=== PATIENT | female | born 1970 | race Caucasian/White ===

== ENCOUNTER → 2020-07-27 10:15 | Outpatient (BNVA) | payer MEDICARE, MEDICAID, SELFPAY | PROVIDERS: PCP Internal Medicine; Visit Provider Internal Medicine Gastroenterology | CPT/HCPCS: Q3014 ==

== ENCOUNTER 2020-08-04 09:34 | Outpatient (REF) | payer MEDICARE, MEDICAID, SELFPAY ==
--- NOTE | ~2020-08-04 | US_ITS ---
EXAMINATION: US ABDOMEN COMPLETE CLINICAL INFORMATION: Epigastric pain. COMPARISON: None. TECHNIQUE: Real-time imaging of the abdominal viscera. FINDINGS: PANCREAS: Normal. ABDOMINAL AORTA: There is mild dystrophic calcifications but normal caliber. INFERIOR VENA CAVA: Visualized portions are normal. LIVER: Normal. The liver is normal in size. The liver contour is normal. Parenchymal echogenicity is normal. No focal hepatic lesion. There is no intrahepatic biliary duct dilatation seen. GALLBLADDER: Gallbladder wall thickness is 0.14 cm. The gallbladder is physiologically distended without evidence of stones, sludge, polyps, wall thickening or pericholecystic fluid. COMMON BILE DUCT: Normal in caliber measuring 0.4 cm in diameter. RIGHT KIDNEY: Normal. No hydronephrosis. No renal calculi or focal parenchymal lesions. The kidney measures 11.1 cm in maximum dimension. LEFT KIDNEY: There is anechoic cyst in the upper pole measuring 1.0 x 1.1 x 1.1 cm. No hydronephrosis or renal calculi. The kidney measures 11.5 cm in maximum dimension. SPLEEN: Normal. The spleen measures 8.0 cm in maximum dimension. FREE FLUID: None. US/US abdomen complete IMPRESSION: Mild atherosclerotic calcifications but no aortic aneurysm seen. Small cyst upper pole left kidney. The rest of the abdominal ultrasound is unremarkable.
== END 2020-08-04 09:35 | disposition home or self-care (01) ==
LOC: HO.US 09:34
PROVIDERS: PCP Internal Medicine; Visit Provider Internal Medicine Gastroenterology
DX: R10.13 Epigastric pain (principal); R11.2 Nausea with vomiting, unspecified
CPT/HCPCS: 76700

== ENCOUNTER 2020-08-09 12:46 | Outpatient (REF) | payer MEDICARE, MEDICAID, SELFPAY ==
[2020-08-10 13:32] LABS: C. trachomatis RNA TMA NOT DETECTED (NOT DETECTED); N. gonorrhoeae RNA TMA NOT DETECTED (NOT DETECTED)
[2020-08-11 18:11] LABS: HPV mRNA E6/E7 rflx Not Detected (Not Detected)
== END 2020-08-09 12:47 | disposition home or self-care (01) ==
LOC: HO.LAB 12:46
PROVIDERS: PCP Internal Medicine; Visit Provider Advanced Practice Midwife
DX: Z01.419 Encounter for gynecological examination (general) (routine) without abnormal findings (principal); R23.2 Flushing; N63.0 Unspecified lump in unspecified breast; F17.210 Nicotine dependence, cigarettes, uncomplicated; Z72.4 Inappropriate diet and eating habits; Z20.2 Contact with and (suspected) exposure to infections with a predominantly sexual mode of transmission
CPT/HCPCS: 36415; 87491; 87591; 87624; 88142

== ENCOUNTER 2020-08-12 14:32 | Outpatient (REF) | payer MEDICARE, MEDICAID, SELFPAY ==
--- NOTE | ~2020-08-12 | US_ITS ---
EXAMINATION: US DIAGNOSTIC ULTRASOUND BREAST, RIGHT CLINICAL INFORMATION: Enlarging lump inferior aspect of the right breast. COMPARISON: November 22, 2019. TECHNIQUE: Ultrasound of the breast is performed with real-time antunez scale imaging and color Doppler. FINDINGS: Targeted right breast ultrasound to region of palpable abnormality demonstrates an isoechoic well-circumscribed lesion with some mild distal sound enhancement and no distal sound shadowing and without internal vascularity measuring approximately 2.6 x 0.9 x 2.0 cm in size. This lies at approximately 5 to 6:00 position No suspicious solid mass or region of abnormal distal sound shadowing is appreciated. Results are discussed with the patient at time of visit. US/US breast RT limited IMPRESSION: There are no significant changes from prior study. ASSESSMENT: BI-RADS 2: Benign RECOMMENDATION: Routine annual mammography screening due in 12 months.
--- NOTE | ~2020-08-12 | MM_ITS ---
EXAMINATION: MM DIAGNOSTIC DIGITAL BREAST TOMOSYNTHESIS, BILATERAL US TARGETED BREAST, RIGHT CLINICAL INFORMATION: Enlarging right breast palpable abnormality. The lifetime risk of breast cancer based on the Tyrer-Cuzick Model is 14.3%. COMPARISON: Mammography: Ultrasound and mammography of 06/23/2019 and studies dating back to 09/06/2010. TECHNIQUE: Digital breast tomosynthesis is performed in both the craniocaudal and mediolateral oblique views along with computer-aided detection (CAD). Synthesized 2D images are generated from the tomosynthesis. Targeted right breast ultrasound. FINDINGS: The breasts are heterogeneously dense, which may obscure small masses (ACR BI-RADS breast composition Category c). There are no new significant masses, abnormal calcifications, or other abnormalities. About the inferior aspect of the right breast there are again noted to be rim circumscribed low-density lesions consistent with lipomas or oil cysts. ULTRASOUND: Targeted right breast ultrasound to region of palpable abnormality demonstrates an isoechoic well circumscribed lesion with some mild distal sound enhancement and no distal sound shadowing and without internal vascularity measuring approximately 2.6 x 0.9 x 2.0 cm in size. This lies at approximately 5 to 6 o'clock position No suspicious solid mass or region of abnormal distal sound shadowing is appreciated. Results are discussed with the patient at time of visit. MM/MM tomosynthesis diagnostic BI IMPRESSION: There are no significant changes from prior study. ASSESSMENT: BI-RADS 2: Benign RECOMMENDATION: Routine annual mammography screening due in 12 months. This patient's information was entered into a reminder system with a target due date for their next mammogram.
== END 2020-08-12 14:33 | disposition home or self-care (01) ==
LOC: HO.MAMMO 14:32
PROVIDERS: PCP Internal Medicine; Visit Provider Advanced Practice Midwife
DX: N63.13 Unspecified lump in the right breast, lower outer quadrant (principal)
CPT/HCPCS: 76642; 77062; 77066

== ENCOUNTER → 2020-08-25 11:43 | Outpatient (BNVA) | payer MEDICARE, MEDICAID, SELFPAY | PROVIDERS: PCP Internal Medicine; Visit Provider Advanced Practice Midwife | DX: Z13.89 Encounter for screening for other disorder (principal) | CPT/HCPCS: Q3014 ==

== ENCOUNTER 2020-08-30 11:14 | Day surgery (SDC) | payer MEDICARE, MEDICAID, SELFPAY ==
[2020-08-24 14:35] VITALS: BMI 19.8
[2020-08-30 12:09] VITALS: BP 146/83; PULSE 66; RESP 16; TEMP 37.2; O2SAT 99
--- NOTE | 2020-08-30 12:16 | P.CONAN_ITS ---
[facility] Active Problems Active Problems: All Active Problems (Updated 08/24/20 @ 14:39 by Allison sung) Epigastric abdominal pain (Acute) Nausea & vomiting (Acute) Tobacco user (Acute) Hot flashes (Acute) Past Medical History Medical History Arthritis History of alcohol abuse History of eating disorder Osteoporosis Seizures Family History Family History Father Lung cancer Mother Stomach cancer Liver cancer Maternal Aunt Breast cancer Paternal Aunt Breast cancer Surgical History Surgical History Hx of myomectomy Social History Social History Do you presently have visiting nurse or other home services: No Alcohol intake: former Smoking Status: Current every day smoker Tobacco Type: Cigarette Packs Per Day: 1.5 Cigarettes Per Day: 30.0 Years Smoked: 39 Smoked in Last 30 Days: Yes Smoking Quit Date: to do hypnosis Use of substances other than those prescribed or required for medical reasons: Yes Substance Use Type: Marijuana Substance Use Frequency: Occasionally Have you been hit, kicked, punched, or otherwise hurt by someone within the past year? If so, by whom?: No Advance Directives Information Provided: No Meds Allergies Allergy/AdvReac Type Severity Reaction Status Date / Time Penicillins [PENICILLINS] Allergy Intermediate HIVES Verified 08/25/20 11:45 Sulfa (Sulfonamide Allergy Intermediate itching, Verified 08/25/20 11:45 Antibiotics) redness and itching tetracycline [TETRACYCLINE] Allergy Intermediate HIVES Verified 08/25/20 11:45 Active Medications: Current Medications Generic Name Dose Route Start Last Admin Trade Name Freq PRN Reason Stop Dose Admin Lactated Ringer's 1,000 mls @ 50 mls/hr 08/30/20 07:30 Lr IV .Q20H FORMERLY [facility], 1928–1983 Home Medications Medication Instructions Recorded Confirmed Last Taken Type dicyclomine 10 mg capsule 20 mg PO TID 03/02/20 08/24/20 Unknown History divalproex 500 mg tablet,extended 500 mg PO BID 03/02/20 08/24/20 Unknown History release 24 hr gabapentin 600 mg tablet 1,200 mg PO BID 03/02/20 08/30/20 08/30/20 History ondansetron 4 mg disintegrating 4 mg PO Q8H PRN 03/02/20 08/24/20 Unknown History tablet promethazine 25 mg rectal 25 mg WV Q8H PRN 03/02/20 08/24/20 Unknown History suppository valacyclovir 500 mg tablet 500 mg PO DAILY 03/02/20 08/24/20 Unknown History calcium 600 mg PO DAILY 08/24/20 08/24/20 Unknown History cyanocobalamin (vitamin B-12) 500 mcg PO DAILY 08/24/20 08/24/20 Unknown History [Vitamin B-12] folic acid 1 mg PO DAILY 08/24/20 08/24/20 Unknown History multivitamin 1 tab PO DAILY 08/24/20 08/24/20 Unknown History Exam Exam Date and Time: August 30, 2020 1216 Height,Weight and Vital Signs: Height 5 ft 1 in Weight 47.627 kg Last Vital Signs Temp 98.9 F 08/30/20 12:09 Pulse 66 08/30/20 12:09 Resp 16 08/30/20 12:09 BP 146/83 H 08/30/20 12:09 Pulse Ox 99 08/30/20 12:09 Airway Mallampati Class: II TM Dist: >3cm Neck ROM: Full Assessment and Plan Assessment Anesthesia Assessment: Anesthesia Plan Discussed, Smoking Cess. Discussed and Chart Reviewed Final Anesthetic Review NPO: Yes ASA Class: II Final Preanesthetic Review: No Changes in Pt Med Stat, Meds/Allgs Chart Reviewed, Consent Obtained/Reviewed and Anes Risks/Benef Reviewed Patient Risk: Low Procedure Risk: Low Assessment/Block/Sedation in SS: Assess/Block/Sedation-SS Anesthetic Plan Anesthetic Plan: MAC: Disposition: Standard PACU
[2020-08-30] MEDS: Lactated Ringers 1,000 ML 50 ML IV (12:31)
--- NOTE | 2020-08-30 13:47 | MHC.SHP ---
Pre-Procedural Eval Section B Chief Complaint: Family Hx of Colon polyps, Epigastric Pain Details of Present Illness: FH of colon polyps Relevant Family History (Specify if Yes): Yes Relevant Social History: Tobacco Use Present Medications: see Short Stay Collaborative assessment Medical History: Significant History (Arthritis History of alcohol abuse History of eating disorder Osteoporosis Seizures) History of Previous Operations: Relevant previous surgery/procedure and date(s) (myomectomy) Allergies: Allergies Allergy/AdvReac Type Severity Reaction Status Date / Time Penicillins [PENICILLINS] Allergy Intermediate HIVES Verified 08/25/20 11:45 Sulfa (Sulfonamide Allergy Intermediate itching, Verified 08/25/20 11:45 Antibiotics) redness and itching tetracycline [TETRACYCLINE] Allergy Intermediate HIVES Verified 08/25/20 11:45 Review of Systems Sugical H&P ROS: Negative: Constitution, Cardiovascular, Respiratory, Neurological, Psychiatric, Hem-Onc, Allergic/Immunologic, Gastrointestinal, Genitourinary, Musculoskeletal, Integumentary, Endocrine and Eyes/Ears/Nose/Throat Exam Surgical H&P Exam: Normal: HEENT, Normal: Heart, Normal: Lungs, Normal: Extremities, Normal: Abdomen, Normal: Skin and Normal: Neurological Plan Diagnosis/Plan: Unchanged I have reviewed the history and physical and performed a pertinent physical examination on my patient. No changes have occurred unless specified.
--- NOTE | 2020-08-30 14:03 | PM.OP ---
Brief Operative Note Date of Service: 08/30/20 Pre-op diagnosis: nausea, abdo pain, fh of polyps Post-op diagnosis: same Procedure: see op note Surgeon: Manav Nuñez MD Anesthesia: MAC Estimated blood loss (mL): 0 Condition: stable Disposition: PACU
--- NOTE | 2020-08-30 14:04 | W.PM.OPN ---
Operative Note Operative Note Date of Service: 08/30/20 Narrative: Operative Information Procedure Description: EGD, Colonoscopy FLEXIBLE TRANSORAL UPPER GASTROINTESTINAL ENDOSCOPY AND COLONOSCOPY PROCEDURE NOTE UPPER ENDOSCOPY Consent: Indications for the procedure and potential complications of bleeding, perforation, reaction to medications and missed diagnosis were discussed with the patient and informed consent was obtained. Instrument: Olympus GIF H 190 J mid size upper endoscope Monitoring: Vital signs and clinical assessment, continuous EKG monitoring, Pulse oximetry, Carbon Dioxide monitoring and blood pressure monitoring were done throughout the procedure. Procedure: The patient was placed in the left lateral decubitis position and pre-procedure medications were administered and a bite block was placed. The endoscope was inserted into the mouth and advanced under direct vision to the third part of duodenum. A careful inspection was made as the upper endoscope was withdrawn including a retroflexed examination of the proximal stomach; Findings and interventions are described below. Findings: Larynx:normal Esophagus: GE junction at 38 cm, diaphragm hiatus at 38 cm, mild esophagitis noted, random esophagus bx taken Stomach: Normal mucosa. Biopsies were obtained. Grade 2 flap valve on retroflexed examination of the cardia. Duodenum: Normal bulb and descending duodenum, bx taken Intervention: Biopsies as noted above COLONOSCOPY Instrument: Olympus variable stiffness pediatric scope 190L Colonoscopy Monitoring: Vital signs and clinical assessment, continuous EKG monitoring, Pulse oximetry, Carbon Dioxide monitoring and blood pressure monitoring were done throughout the procedure. Colon withdrawal time was 34 minutes. Procedure: The patient was placed in the left lateral decubitis position and pre-procedure medications were administered. After a digital rectal examination of the ano-rectum, the video colonoscope was inserted into the rectum and advanced through the colon to the cecum/TI. The colonoscope was slowly withdrawn in a retrograde panoramic fashion and the colon mucosa was carefully examined including a retroflexed view of the rectum. Findings and interventions are described below. Procedure Difficulty:moderately difficult due to tight colon, also maybe some extrinsic compression of the transverse colon Findings: Terminal Ileum-normal Cecum:normal Ascending Colon: normal Transverse Colon - x 4 sessile polyps ranging from 4-12 mm in size removed with cold snare Descending Colon: x 1 sessile polyp measuring 10 mm removed with cold snare, x 1 clip applied to defect for hemostasis Sigmoid Colon: diverticulosis noted-moderate, x 2 sessile polyps removed with cold snare, ranging from 10-16 mm, x 1 clips applied to largest polypectomy site Rectum: Retroflexion with small internal hemorrhoids, grade I Anorectum - normal Colon preparation: Lewis Bowel Preparation Scale Right colon; 2 Transverse colon: 2 Left colon; 2 (0 = Unprepared colon segment with mucosa not seen due to solid stool that cannot be cleared. 1 = Portion of mucosa of the colon segment seen, but other areas of the colon segment not well seen due to staining, residual stool and/or opaque liquid. 2 = Minor amount of residual staining, small fragments of stool and/or opaque liquid, but mucosa of colon segment seen well. 3 = Entire mucosa of colon segment seen well with no residual staining, small fragments of stool or opaque liquid) Impression and Post Procedure Diagnosis: Endoscopy Findings: esophagitis Colonoscopy Findings: polyps internal hemorrhoids diverticular disease Plan: Await Pathology results Repeat Colonoscopy in 1-2 years or earlier if clinically indicated High fiber diet leaflet avoid straining at stool, epsom salts and sitz bath, anusol supps or cream as needed she had CT at [facility] with uterine fibroid, she also had myomectomy in past, may have recurrence of fibroid-need to check with patient when myomectomy was done Above findings were reviewed with the patient and relevant handouts were provided if indicated.
[2020-08-30 14:56] VITALS: BP 128/71; PULSE 54; RESP 16; TEMP 36.8; O2SAT 100
[2020-08-30 15:11] VITALS: BP 122/73; PULSE 56; RESP 18; O2SAT 99
[2020-08-30 15:26] VITALS: BP 123/69; PULSE 56; RESP 18; TEMP 36.7; O2SAT 99
== END 2020-08-30 16:05 | disposition home or self-care (01) ==
PROVIDERS: PCP Internal Medicine; Visit Provider Internal Medicine Gastroenterology
PROC: (CPT 45385; principal; 2020-08-30 12:30)
DX: Z12.11 Encounter for screening for malignant neoplasm of colon (principal); Z83.71 Family history of colonic polyps; D12.3 Benign neoplasm of transverse colon; D12.4 Benign neoplasm of descending colon; D12.5 Benign neoplasm of sigmoid colon; K57.30 Diverticulosis of large intestine without perforation or abscess without bleeding; K64.0 First degree hemorrhoids; R10.13 Epigastric pain; K20.80 Other esophagitis without bleeding; M81.0 Age-related osteoporosis without current pathological fracture; K44.9 Diaphragmatic hernia without obstruction or gangrene; F17.210 Nicotine dependence, cigarettes, uncomplicated; F12.90 Cannabis use, unspecified, uncomplicated; Z79.899 Other long term (current) drug therapy; Z88.0 Allergy status to penicillin; Z88.1 Allergy status to other antibiotic agents; Z88.2 Allergy status to sulfonamides
CPT/HCPCS: 45385; 43239; 88305; 88342

== ENCOUNTER → 2020-09-06 12:51 | Outpatient (BNVA) | payer MEDICARE, MEDICAID, SELFPAY | PROVIDERS: PCP Internal Medicine; Visit Provider Internal Medicine Gastroenterology | DX: K20.90 Esophagitis, unspecified without bleeding (principal); K64.8 Other hemorrhoids; K57.90 Diverticulosis of intestine, part unspecified, without perforation or abscess without bleeding | CPT/HCPCS: 99212 ==

== ENCOUNTER → 2020-09-08 14:53 | Outpatient (BNVA) | payer MEDICARE, MEDICAID, SELFPAY | PROVIDERS: PCP Internal Medicine; Visit Provider Surgery | DX: N64.4 Mastodynia (principal); N63.10 Unspecified lump in the right breast, unspecified quadrant; Z80.3 Family history of malignant neoplasm of breast | CPT/HCPCS: 99202 ==

== ENCOUNTER 2020-09-13 14:11 | Outpatient (REF) | payer MEDICARE, MEDICAID, SELFPAY ==
--- NOTE | ~2020-09-13 | US_ITS ---
EXAMINATION: PELVIC ULTRASOUND CLINICAL INFORMATION: Fibroid COMPARISON: Previous pelvic MRI January 2010 and pelvic ultrasound November 2009 TECHNIQUE: Transverse abdominal and transvaginal pelvic ultrasound was performed. Transvaginal exam was performed for better visualization of the uterus and ovaries. FINDINGS: The uterus is anteverted and measures 8.1 x 5.6 x 4.9 cm in dimension. There is a large heterogeneous partially calcified lesion in the central uterus suggestive of a fibroid. This measures 3.6 x 2.9 x 3.8 cm in dimension. Decreased in size from 8.8 x 8.9 x 9.1 cm on prior exam. No other focal uterine lesion is seen. This distorts the endometrium. Endometrial thickness is normal and measures 0.3 cm. The right ovary is not seen. The left ovary is normal-appearing and measures 2.1 x 0.8 x 0.8 cm. There is a small amount of fluid in the pelvis. US/US pelvic and transvaginal IMPRESSION: Central uterine fibroid measuring 3.6 x 2.9 x 3.8 cm. This distorts the endometrium. The endometrium does not appear thickened. Normal-appearing left ovary. The right ovary is not seen.
== END 2020-09-13 14:12 | disposition home or self-care (01) ==
LOC: HO.US 14:11
PROVIDERS: Visit Provider Internal Medicine Gastroenterology
DX: D21.9 Benign neoplasm of connective and other soft tissue, unspecified (principal)
CPT/HCPCS: 76830; 76856

== ENCOUNTER → 2020-09-17 09:56 | Outpatient (BNVA) | payer MEDICARE, MEDICAID, SELFPAY | PROVIDERS: PCP Internal Medicine; Visit Provider Surgery ==

== ENCOUNTER → 2020-10-04 10:04 | Outpatient (BNVA) | payer MEDICARE, MEDICAID, SELFPAY | PROVIDERS: Visit Provider Obstetrics & Gynecology | DX: Z13.89 Encounter for screening for other disorder (principal) | CPT/HCPCS: 99212 ==

== ENCOUNTER 2020-10-13 11:32 | Outpatient (REF) | payer MEDICARE, MEDICAID, SELFPAY ==
[2020-10-13 13:55] LABS: MANUAL DIFF FLAG NO
[2020-10-13 14:05] LABS: Basophils Percent Auto 0.6 % (0-2); Eosinophils Percent Auto 0.3 % (0-4); Hematocrit 44.5 % (37-47); Hemoglobin 14.7 g/dl (12.0-16.0); Imm Gran Abs Auto 0.01 X10*3/uL (0.00-0.03); Imm Gran Pct Auto 0.1 % (0.0-0.4); Lymphocytes Absolute Auto 2.5 X10*3/uL (1.2-4.9); Lymphocytes Percent Auto 34.5 % (20-40); Mean Corpuscular Hemoglobin 31.5 pg (27.0-33.0); Mean Corpuscular Volume 95.5 fL (80-98); Mean Platelet Volume 11.9 fL (9.4-12.3); Monocytes Absolute Auto 0.4 X10*3/uL (0.1-1.2); Monocytes Percent Auto 5.8 % (2-11); Neutrophils Absolute Auto 4.2 X10*3/uL (2.0-8.3); Neutrophils Percent Auto 58.7 % (45-73); Platelet Count 229 X10*3/uL (160-400); Red Blood Count 4.66 X10*6/uL (4.20-5.50); Red Cell Distribution Width 12.8 % (11.0-16.0); White Blood Count 7.1 X10*3/uL (4.8-10.8)
[2020-10-13 14:38] LABS: Alanine Aminotransferase 17 U/L (0-31); Albumin Level 4.6 g/dL (3.5-5.0); Alkaline Phosphatase 68 U/L (39-117); Anion Gap 15 (12-20); Aspartate Amino Transferase 17 U/L (5-31); Bilirubin Total 0.4 mg/dL (0.0-1.0); Blood Urea Nitrogen 9 mg/dL (9-16); Carbon Dioxide 28 mmol/L (22-29); Chloride 101 mmol/L (96-108); Cholesterol 279 mg/dL; Estimated Glomerular Filt Rate > 60; Glucose Fasting 112 mg/dL (60-99); HDL Cholesterol 85 mg/dL; LDL Cholesterol Calculated 179 mg/dl; Potassium 4.6 mmol/L (3.3-5.1); Sodium 139 mmol/L (135-145); Total Protein 7.3 g/dL (6.5-8.0); Triglycerides 75 mg/dL
[2020-10-13 14:41] LABS: Thyroid Stimulating Hormone 2.92 uIU/mL (0.32-4.0)
[2020-10-13 14:50] LABS: Syphilis Screen Nonreactive (Nonreactive)
[2020-10-13 14:51] LABS: TSH reflex Free T4 2.85 uIU/mL (0.32-4.0); Vitamin D 25-OH Total 60.4 ng/mL (>30)
[2020-10-13 15:04] LABS: Folate > 20.0 ng/mL (> or = 4.0); Vitamin B12 1152 pg/mL (200-900)
[2020-10-14 01:47] LABS: CT PCR NOT DETECTED (Not Detect.); NG PCR NOT DETECTED (Not Detect.)
[2020-10-14 06:51] LABS: Follicle Stimulating Hormone 88.5 mIU/mL
[2020-10-15 07:57] LABS: ~Hepatitis C Antibody Nonreactive (Nonreactive)
[2020-10-15 08:37] LABS: HBc Num1 0.05 S/CO (0.00-0.79); HIV AB/AG Nonreactive (Nonreactive); HIV Num 1 0.06 S/CO (0.00-0.99); Hepatitis B Core Antibody Nonreactive (Nonreactive)
== END 2020-10-13 11:33 | disposition home or self-care (01) ==
LOC: HO.HMGCLDS 11:32
PROVIDERS: Advanced Practice Midwife; PCP Internal Medicine; Visit Provider Internal Medicine
DX: M81.0 Age-related osteoporosis without current pathological fracture (principal); N95.1 Menopausal and female climacteric states; R74.8 Abnormal levels of other serum enzymes; R23.2 Flushing; D21.9 Benign neoplasm of connective and other soft tissue, unspecified; Z72.0 Tobacco use; Z86.59 Personal history of other mental and behavioral disorders; Z20.2 Contact with and (suspected) exposure to infections with a predominantly sexual mode of transmission
CPT/HCPCS: 36415; 80053; 80061; 82306; 82607; 82746; 83001; 84443; 85025; 86704; 86780; 86803; 87389; 87491; 87591

== ENCOUNTER → 2020-11-12 09:47 | Outpatient (BNVA) | payer MEDICARE, MEDICAID, SELFPAY | PROVIDERS: PCP Internal Medicine; Visit Provider Internal Medicine Gastroenterology | DX: Z13.89 Encounter for screening for other disorder (principal) | CPT/HCPCS: Q3014 ==

== ENCOUNTER → 2020-11-22 10:55 | Outpatient (BNVA) | payer MEDICARE, MEDICAID, SELFPAY | PROVIDERS: Visit Provider Obstetrics & Gynecology | DX: N95.1 Menopausal and female climacteric states (principal) | CPT/HCPCS: Q3014 ==

== ENCOUNTER → 2020-12-07 11:12 | Outpatient (BNVA) | payer MEDICARE, MEDICAID, SELFPAY | PROVIDERS: Visit Provider Obstetrics & Gynecology ==

== ENCOUNTER → 2020-12-20 11:26 | Outpatient (BNVA) | payer MEDICARE, MEDICAID, SELFPAY | PROVIDERS: Visit Provider Obstetrics & Gynecology | DX: N95.1 Menopausal and female climacteric states (principal) | CPT/HCPCS: Q3014 ==

== ENCOUNTER → 2021-01-18 14:37 | Outpatient (BNVA) | payer MEDICARE, MEDICAID, SELFPAY | PROVIDERS: Visit Provider Surgery | DX: Z71.2 Person consulting for explanation of examination or test findings (principal); Z80.3 Family history of malignant neoplasm of breast | CPT/HCPCS: 99212 ==

== ENCOUNTER 2021-04-20 13:05 | Outpatient (REF) | payer MEDICARE, MEDICAID, SELFPAY ==
--- NOTE | ~2021-04-20 | XR_ITS ---
EXAMINATION: XR SHOULDER, RIGHT CLINICAL INFORMATION: Pain right shoulder. COMPARISON: None TECHNIQUE: AP external rotation, Grashey, scapular Y, and axillary views of the right shoulder. FINDINGS: The bones and soft tissues are normal. No fracture. Glenohumeral and acromioclavicular alignment is anatomic with normal joint space. No abnormal soft tissue calcifications. XR/XR shoulder RT min 2V IMPRESSION: Unremarkable right shoulder.
== END 2021-04-20 13:06 | disposition home or self-care (01) ==
LOC: HO.HMGCX 13:05
PROVIDERS: PCP Internal Medicine; Visit Provider Internal Medicine
DX: M25.511 Pain in right shoulder (principal)
CPT/HCPCS: 73030

== ENCOUNTER 2021-06-06 19:16 | Outpatient (REF) | payer MEDICARE, MEDICAID, SELFPAY ==
[2021-06-06 20:21] LABS: Influenza A PCR NEGATIVE (Negative); Influenza B PCR NEGATIVE (Negative); Resp Syncy Virus RNA Qual PCR NEGATIVE (Negative); SARS COV2 PCR INHOUSE POSITIVE (Negative)
== END 2021-06-06 19:17 | disposition home or self-care (01) ==
LOC: HO.LNP 19:16
PROVIDERS: Visit Provider Family Medicine
DX: Z20.822 Contact with and (suspected) exposure to COVID-19 (principal); B34.9 Viral infection, unspecified
CPT/HCPCS: 0241U

== ENCOUNTER 2021-09-06 11:34 | Day surgery (SDC) | payer MEDICARE, MEDICAID, SELFPAY ==
[2021-09-01 14:46] VITALS: BMI 19.8
--- NOTE | 2021-09-05 10:25 | HO.ANESPROP2 ---
Documented by User: Becka Barba NP 09/15/21 13:39 HPI - Anesthesia Eval Consult details Narrative: 51yo F for Upper Endoscopy s/p EGD and [place] 08/2020 with MAC hx ETOH abuse, none x 2 years hx anorexia/bulemia PMFSH Active Problems Active Problems: All Active Problems (Updated 09/01/21 @ 14:42 by Allison Dick RN) Epigastric abdominal pain (Acute) Nausea & vomiting (Acute) Tobacco user (Acute) Breast pain (Acute) Family history of breast cancer (Acute) Viral illness (Acute) Shoulder pain, right (Acute) Smoker unmotivated to quit (Acute) Generalized anxiety disorder (Acute) Osteoarthritis of right hip (Acute) Uterine leiomyoma (Acute) Dyslipidemia (Acute) Esophagitis (Acute) Seizures (Acute) Vasomotor symptoms due to menopause (Acute) Elevated vitamin B12 level (Acute) History of bulimia (Acute) Past Medical History Medical History Arthritis Cannabinoid hyperemesis syndrome Dyslipidemia Elevated vitamin B12 level Esophagitis Generalized anxiety disorder History of alcohol abuse History of bulimia History of COVID-19 History of eating disorder Osteoarthritis of right hip Seizures Shoulder pain, right Smoker unmotivated to quit Uterine leiomyoma Vasomotor symptoms due to menopause Family History Family History Father Lung cancer Substance use disorder Mental health disorder Mother Stomach cancer Liver cancer Substance use disorder Mental health disorder Maternal Aunt Breast cancer Mental health disorder Paternal Aunt Breast cancer Substance use disorder Mental health disorder Maternal Uncle Brain cancer Substance use disorder Maternal Grandfather Substance use disorder Mental health disorder Surgical History Surgical History H/O colonoscopy History of esophagogastroduodenoscopy (EGD) Hx of myomectomy Social History Social History Do you presently have visiting nurse or other home services: No Alcohol intake: former Patient Tobacco Use Status: Current everyday Tobacco user Tobacco use type: Cigarette Cigarette Packs Per Day: 2 Cigarettes Per Day: 40 Years Smoked: 39 Substance Use Type: Marijuana Meds Allergies Allergy/AdvReac Type Severity Reaction Status Date / Time Penicillins [PENICILLINS] Allergy Intermediate HIVES Verified 09/06/21 11:45 Sulfa (Sulfonamide Allergy Intermediate itching, Verified 09/06/21 11:45 Antibiotics) redness and itching tetracycline [TETRACYCLINE] Allergy Intermediate HIVES Verified 09/06/21 11:45 Home Medications Medication Instructions Recorded Confirmed Last Taken Type divalproex 500 mg tablet,extended 500 mg PO BID 03/02/20 04/19/21 09/06/21 07:00 History release 24 hr gabapentin 600 mg tablet 1,200 mg PO BID 03/02/20 04/19/21 09/06/21 07:00 History folic acid 1 mg tablet 1 mg PO DAILY 08/24/20 04/19/21 Unknown History multivitamin 1 tab PO DAILY 08/24/20 04/19/21 Unknown History fluoxetine 10 mg capsule 10 mg PO DAILY 10/04/20 04/19/21 09/06/21 07:00 History docusate sodium 100 mg capsule 100 mg PO BID PRN 09/15/21 Unknown History valacyclovir 500 mg tablet 500 mg PO BID tab 09/15/21 Unknown History Exam Exam Date and Time: September 05, 2021 1025 Height,Weight and Vital Signs: Height 5 ft 1 in Weight 47.627 kg Assessment and Plan Assessment Anesthesia Assessment: Chart Reviewed Documented by User: Chucho Chacon MD 09/18/21 12:08 [facility] Past Medical History Medical History Arthritis Cannabinoid hyperemesis syndrome Dyslipidemia Elevated vitamin B12 level Esophagitis Generalized anxiety disorder History of alcohol abuse History of bulimia History of COVID-19 History of eating disorder Osteoarthritis of right hip Seizures Shoulder pain, right Smoker unmotivated to quit Uterine leiomyoma Vasomotor symptoms due to menopause Family History Family History Father Lung cancer Substance use disorder Mental health disorder Mother Stomach cancer Liver cancer Substance use disorder Mental health disorder Maternal Aunt Breast cancer Mental health disorder Paternal Aunt Breast cancer Substance use disorder Mental health disorder Maternal Uncle Brain cancer Substance use disorder Maternal Grandfather Substance use disorder Mental health disorder Family history of problems with anesthesia: No Surgical History Surgical History H/O colonoscopy History of esophagogastroduodenoscopy (EGD) Hx of myomectomy History of Problems with Anesthesia: No Social History Social History Do you presently have visiting nurse or other home services: No Alcohol intake: former Patient Tobacco Use Status: Current everyday Tobacco user Tobacco use type: Cigarette Cigarette Packs Per Day: 2 Cigarettes Per Day: 40 Years Smoked: 39 Substance Use Type: Marijuana Meds Allergies Allergy/AdvReac Type Severity Reaction Status Date / Time Penicillins [PENICILLINS] Allergy Intermediate HIVES Verified 09/06/21 11:45 Sulfa (Sulfonamide Allergy Intermediate itching, Verified 09/06/21 11:45 Antibiotics) redness and itching tetracycline [TETRACYCLINE] Allergy Intermediate HIVES Verified 09/06/21 11:45 Home Medications Medication Instructions Recorded Confirmed Last Taken Type divalproex 500 mg tablet,extended 500 mg PO BID 03/02/20 04/19/21 09/06/21 07:00 History release 24 hr gabapentin 600 mg tablet 1,200 mg PO BID 03/02/20 04/19/21 09/06/21 07:00 History folic acid 1 mg tablet 1 mg PO DAILY 08/24/20 04/19/21 Unknown History multivitamin 1 tab PO DAILY 08/24/20 04/19/21 Unknown History fluoxetine 10 mg capsule 10 mg PO DAILY 10/04/20 04/19/21 09/06/21 07:00 History docusate sodium 100 mg capsule 100 mg PO BID PRN 09/15/21 Unknown History valacyclovir 500 mg tablet 500 mg PO BID tab 09/15/21 Unknown History Assessment and Plan Assessment Anesthesia Assessment: Anesthesia Plan Discussed Final Anesthetic Review Family History of Problems with Anesthesia: No History of Problems with Anesthesia: No NPO: Yes ASA Class: II Final Preanesthetic Review: No Changes in Pt Med Stat, Meds/Allgs Chart Reviewed, Consent Obtained/Reviewed and Anes Risks/Benef Reviewed Patient Risk: Low Procedure Risk: Low Anesthetic Plan Anesthetic Plan: MAC: Disposition: Standard PACU
[2021-09-06 12:14] VITALS: BP 109/66; PULSE 58; RESP 18; TEMP 36.7; O2SAT 98
[2021-09-06] MEDS: Lactated Ringers 1,000 ML 100 ML IVCONT (12:17)
--- NOTE | 2021-09-06 12:31 | MHC.SHP ---
Pre-Procedural Eval Section A Date of Service: 09/06/21 Section B Chief Complaint: Epigastric pain Relevant Social History: Tobacco Use (THC use) Present Medications: see Short Stay Collaborative assessment Medical History: Significant History (Arthritis Cannabinoid hyperemesis syndrome Dyslipidemia Elevated vitamin B12 level Esophagitis Generalized anxiety disorder History of alcohol abuse History of bulimia History of COVID-19 History of eating disorder Osteoarthritis of right hip Seizures Shoulder pain, right Smoker unmotivated to quit ) History of Previous Operations: Relevant previous surgery/procedure and date(s) (H/O colonoscopy History of esophagogastroduodenoscopy (EGD) Hx of myomectomy) Allergies: Allergies Allergy/AdvReac Type Severity Reaction Status Date / Time Penicillins [PENICILLINS] Allergy Intermediate HIVES Verified 09/06/21 11:45 Sulfa (Sulfonamide Allergy Intermediate itching, Verified 09/06/21 11:45 Antibiotics) redness and itching tetracycline [TETRACYCLINE] Allergy Intermediate HIVES Verified 09/06/21 11:45 Review of Systems Sugical H&P ROS: Negative: Constitution, Cardiovascular, Respiratory, Neurological, Psychiatric, Hem-Onc, Allergic/Immunologic, Gastrointestinal, Genitourinary, Musculoskeletal, Integumentary, Endocrine and Eyes/Ears/Nose/Throat Exam Surgical H&P Exam: Normal: HEENT, Normal: Heart, Normal: Lungs, Normal: Extremities, Normal: Abdomen, Normal: Skin and Normal: Neurological Plan Diagnosis/Plan: Unchanged I have reviewed the history and physical and performed a pertinent physical examination on my patient. No changes have occurred unless specified.
--- NOTE | 2021-09-06 12:59 | PM.OP ---
Brief Operative Note Date of Service: 09/06/21 Pre-op diagnosis: epigastric pain Post-op diagnosis: same Procedure: see op note Surgeon: Manav Nuñez MD Anesthesia: MAC Was an Professor Of Biostatistics used for this Procedure?: No Estimated blood loss (mL): 0 Condition: stable Disposition: PACU
--- NOTE | 2021-09-06 12:59 | W.PM.OPN ---
Operative Note Operative Note Date of Service: 09/06/21 Narrative: Procedure Description: EGD Indication: epigastric pain Anesthesia: MAC FLEXIBLE TRANSORAL UPPER GASTROINTESTINAL ENDOSCOPY UPPER ENDOSCOPY Consent: Indications for the procedure and potential complications of bleeding, perforation, reaction to medications and missed diagnosis were discussed with the patient and informed consent was obtained. Instrument: Olympus GIF H 190 J mid size upper endoscope Monitoring: Vital signs and clinical assessment, continuous EKG monitoring, Pulse oximetry, Carbon Dioxide monitoring and blood pressure monitoring were done throughout the procedure. Procedure: The patient was placed in the left lateral decubitis position and pre-procedure medications were administered and a bite block was placed. The endoscope was inserted into the mouth and advanced under direct vision to the third part of duodenum. A careful inspection was made as the upper endoscope was withdrawn including a retroflexed examination of the proximal stomach; Findings and interventions are described below. Findings: Larynx:normal Esophagus: GE junction at 35 cm, diaphragm hiatus at 37 cm, consistent with 2 cm sliding hiatal hernia. Mild esophagitis at GEJ, ring like appearance to esophagus so random bx taken Stomach: Patchy gastric erythema. Biopsies were obtained. Grade 2 flap valve on retroflexed examination of the cardia. Duodenum: mild bulbar duodenitis, bx taken Intervention: Biopsies as noted above Impression/Findings: duodenitis gastritis hiatal hernia esophagitis PLAN: check if she is taking PPI, she should continue on this, can also use carafate if needed smoking cessation is encouraged
[2021-09-06 13:04] VITALS: BP 105/62; PULSE 48; RESP 16; TEMP 36.6; O2SAT 98
[2021-09-06 13:19] VITALS: BP 119/76; PULSE 46; RESP 16; O2SAT 98
[2021-09-06 13:34] VITALS: BP 126/68; PULSE 55; RESP 16; TEMP 36.7; O2SAT 98
== END 2021-09-06 14:13 | disposition home or self-care (01) ==
PROVIDERS: PCP Internal Medicine; Visit Provider Internal Medicine Gastroenterology
PROC: 0DJ08ZZ Inspection of Upper Intestinal Tract, Via Natural or Artificial Opening Endoscopic (ICD-10-PCS; CPT 43235; principal; 2021-09-06 12:50)
DX: R10.13 Epigastric pain (principal); K29.70 Gastritis, unspecified, without bleeding; K29.80 Duodenitis without bleeding; K20.80 Other esophagitis without bleeding; K44.9 Diaphragmatic hernia without obstruction or gangrene; R56.9 Unspecified convulsions; Z79.899 Other long term (current) drug therapy; Z88.1 Allergy status to other antibiotic agents; Z88.2 Allergy status to sulfonamides; Z87.898 Personal history of other specified conditions; Z86.16 Personal history of COVID-19; F17.210 Nicotine dependence, cigarettes, uncomplicated; F12.90 Cannabis use, unspecified, uncomplicated; Z98.890 Other specified postprocedural states
CPT/HCPCS: 43239; 88305; 88342

== ENCOUNTER 2021-09-16 12:07 | Outpatient (REF) | payer MEDICARE, MEDICAID, SELFPAY ==
--- NOTE | ~2021-09-16 | MM_ITS ---
EXAMINATION: MM SCREENING DIGITAL BREAST TOMOSYNTHESIS, BILATERAL CLINICAL INFORMATION: Screening. Asymptomatic. The lifetime risk of breast cancer based on the Tyrer-Cuzick Model is 12%. COMPARISON: Mammography: 08/12/2020, 06/23/2019, 04/22/2018 TECHNIQUE: Digital breast tomosynthesis is performed in both the craniocaudal and mediolateral oblique views along with computer-aided detection (CAD). Synthesized 2D images are generated from the tomosynthesis. Additional exaggerated left CC view is provided. FINDINGS: There are scattered areas of fibroglandular density (ACR BI-RADS breast composition Category b). There are no significant masses, abnormal calcifications, or other abnormalities. Parenchymal pattern is similar to prior studies. There is no developing density or architectural abnormality. The axilla and skin contours are unremarkable. No significant changes. MM/MM tomosynthesis screening BI IMPRESSION: No mammographic evidence of malignancy. ASSESSMENT: BI-RADS 1: Negative RECOMMENDATION: Routine annual mammography screening. This patient's information was entered into a reminder system with a target due date for their next mammogram.
== END 2021-09-16 12:08 | disposition home or self-care (01) ==
LOC: HO.MAMMO 12:07
PROVIDERS: Visit Provider Internal Medicine
DX: Z12.31 Encounter for screening mammogram for malignant neoplasm of breast (principal)
CPT/HCPCS: 77063; 77067

== ENCOUNTER → 2021-10-17 11:42 | Outpatient (BNVA) | payer MEDICARE, MEDICAID, SELFPAY | PROVIDERS: PCP Internal Medicine; Visit Provider Internal Medicine Gastroenterology | DX: R10.13 Epigastric pain (principal); R11.2 Nausea with vomiting, unspecified; R68.81 Early satiety | CPT/HCPCS: Q3014 ==

== ENCOUNTER 2021-11-07 09:01 | Outpatient (REF) | payer MEDICARE, MEDICAID, SELFPAY ==
--- NOTE | ~2021-11-07 | MR_ITS ---
EXAMINATION: MR OF THE ABDOMEN AND PELVIS WITH AND WITHOUT CONTRAST CLINICAL INFORMATION: Epigastric pain. COMPARISON: MRA and MRI of the pelvis and pelvic ultrasound 2009 TECHNIQUE: Sagittal axial and coronal sequences through the abdomen and pelvis with and without IV contrast and following 1.5 L of oral Breeza contrast. The patient received 5 mL Gadavist intravenous contrast. FINDINGS: There is atelectasis at the right lung base. The lung bases are otherwise clear. The liver is normal in size, shape and signal. The gallbladder is normal. There is no biliary duct dilatation. The pancreas is normal. The spleen is normal. The adrenal glands and right kidney are normal. There is a 1 cm cyst in the upper pole of the left kidney. The kidneys are otherwise normal. The bladder is normal. The stomach is normal. Small and large bowel are normal. No evidence of enteritis or colitis is seen. No wall thickening, dilatation, mass or stricture is seen. The appendix is not identified. The rectum is normal. There is a 3.5 cm lesion in the fundus of the uterus. This is low signal on T1-weighted sequences, high signal on T2-weighted sequences and demonstrates no evidence of enhancement. This is significantly decreased in size from previous exam when this measured approximately 7.5 x 8 cm and probably represents a treated fibroid. No adnexal mass is seen. No ascites or adenopathy is seen. No hernia is seen. Vascular structures are normal. There is abnormal appearance of the right hip joint. There is joint space narrowing. There is a subchondral cyst or erosive changes at the right hip joint. There is a small right hip joint effusion. This demonstrates synovial thickening and enhancement. Appearance is questionable for infectious or inflammatory arthritis. This is increased from 2010 exam. The gallbladder is normal. MR/MR abdomen wo/w con IMPRESSION: Normal enterography exam. Small left renal cyst. Severe arthritis at the right hip joint with cystic or erosive changes, joint effusion and synovial thickening and enhancement. Infectious or inflammatory arthritis should be considered. This is increased from previous MRI from 2010.
== END 2021-11-07 09:02 | disposition home or self-care (01) ==
LOC: HO.MRI 09:01
PROVIDERS: Visit Provider Internal Medicine Gastroenterology
DX: R10.13 Epigastric pain (principal); R11.2 Nausea with vomiting, unspecified; N28.1 Cyst of kidney, acquired
CPT/HCPCS: 72197; 74183; A9585

== ENCOUNTER 2021-12-06 12:52 | Outpatient (REF) | payer MEDICARE, MEDICAID, SELFPAY ==
--- NOTE | ~2021-12-06 | XR_ITS ---
EXAMINATION: XR RIBS, LEFT CLINICAL INFORMATION: Contusion front wall of the thorax COMPARISON: Previous chest x-ray September 2018 TECHNIQUE: 3 views of the left ribs and one view of the chest were obtained. FINDINGS: The cardiac and mediastinal contours are normal. The lungs are clear. There is no pleural effusion or pneumothorax. No rib fracture is seen. There are degenerative changes of the spine. XR/XR ribs LT min 3V w CXR1V IMPRESSION: No evidence for acute disease in the chest. No rib fracture seen.
== END 2021-12-06 12:53 | disposition home or self-care (01) ==
LOC: HO.XRAY 12:52
PROVIDERS: PCP Internal Medicine; Visit Provider Internal Medicine
DX: S20.212A Contusion of left front wall of thorax, initial encounter (principal)
CPT/HCPCS: 71101

== ENCOUNTER 2022-01-23 11:30 | Emergency (ER) | payer MEDICARE, MEDICAID, SELFPAY ==
[2022-01-23 11:35] VITALS: BP 140/80; PULSE 77; RESP 19; TEMP 36.6; O2SAT 98; BMI 26.5
[2022-01-23] MEDS: Ondansetron ODT 4 MG TAB.RAPDIS TRANSLINGU (11:42)
[2022-01-23 12:04] LABS: Appearance Urine Clear; Color Urine Yellow; Glucose Urine UA 100 mg/dL (Negative); Leukocyte Esterase Urine Negative (Negative); Nitrite Urine Negative (Negative); PH >= 9.0 (5.0-8.0); Urine Blood Negative (Negative); Urine Ketones Negative (Negative); Urine Protein Negative (Neg-Trace)
[2022-01-23 12:08] LABS: Hemoglobin 14.1 g/dl (12.0-16.0); Mean Corpuscular HGB Conc 33.8 g/dl (31.0-35.0); Mean Corpuscular Hemoglobin 31.3 pg (27.0-33.0); Mean Corpuscular Volume 92.5 fL (80.0-98.0); Mean Platelet Volume 11.9 fL (9.4-12.3); Platelet Count 317 X10*3/uL (160-400); Red Blood Count 4.51 X10*6/uL (4.20-5.50); Red Cell Distribution Width 13.1 % (11.0-16.0)
[2022-01-23 12:10] LABS: WBC ABN SCTR FOR CBC 1
[2022-01-23 12:11] LABS: Hematocrit 41.7 % (37.0-47.0)
[2022-01-23 12:22] LABS: IDNOW Serial# 55D5AD1C
[2022-01-23 12:23] LABS: COVID-19 Test Negative (Negative)
[2022-01-23 12:24] LABS: Alanine Aminotransferase 28 U/L (0-31); Albumin Level 4.3 g/dL (3.5-5.0); Alkaline Phosphatase 95 U/L (39-117); Anion Gap 19 (12-20); Aspartate Amino Transferase 32 U/L (5-31); Bilirubin Direct 0.2 mg/dL (0.0-0.5); Bilirubin Total 0.4 mg/dL (0.0-1.0); Blood Urea Nitrogen 6 mg/dL (9-16); Calcium 9.8 mg/dL (8.4-10.2); Carbon Dioxide 23 mmol/L (22-29); Chloride 95 mmol/L (96-108); Creatinine Clr Calc Pharmacy 88.2; Estimated Glomerular Filt Rate > 60; Glucose Random 164 mg/dL (60-115); Lipase 15 U/L (8-78); Potassium 4.3 mmol/L (3.3-5.1); Sodium 133 mmol/L (135-145); Total Protein 7.1 g/dL (6.5-8.0)
[2022-01-23 12:26] LABS: Band Neutrophils Percent 0 % (3-5); Lymphocytes Percent Manual 3 % (20-40); Monocytes Percent Manual 2 % (2-11); Neutrophils Percent Manual 95 % (45-73)
[2022-01-23 12:27] LABS: Platelet Estimate NORMAL (NORMAL); Platelet Morphology Comment NORMAL; RBC Morphology NORMAL
[2022-01-23 12:28] LABS: Lymphocytes Absolute Manual 0.5 X10*3/uL (1.2-4.9); Monocytes Absolute Manual 0.3 X10*3/uL (0.1-1.2); Neutrophils Absolute Manual 16.1 X10*3/uL (2.0-8.3); White Blood Count 16.9 X10*3/uL (4.8-10.8)
[2022-01-23 12:40] LABS: UPreg QC Valid YES; Urine Pregnancy NEGATIVE (NEGATIVE)
[2022-01-23 12:52] LABS: Valproate < 2.0 mcg/mL (50.0-100.0)
== END 2022-01-23 12:35 | disposition left against medical advice (07) ==
PROVIDERS: Emergency Provider Emergency Medicine; PCP Internal Medicine
DX: R11.2 Nausea with vomiting, unspecified (principal); R10.9 Unspecified abdominal pain; R56.9 Unspecified convulsions; E78.5 Hyperlipidemia, unspecified; F17.200 Nicotine dependence, unspecified, uncomplicated; Z20.822 Contact with and (suspected) exposure to COVID-19
CPT/HCPCS: 36415; 80048; 80076; 80164; 81003; 81025; 83690; 85007; 85027; 87635; 99282; 99283

== ENCOUNTER → 2022-10-12 08:14 | Outpatient (BNVA) | payer MEDICARE, MEDICAID, SELFPAY | PROVIDERS: PCP Internal Medicine; Visit Provider Obstetrics & Gynecology | DX: N95.1 Menopausal and female climacteric states (principal) | CPT/HCPCS: 99212 ==

== ENCOUNTER → 2022-11-23 11:25 | Outpatient (BNVA) | payer MEDICARE, MEDICAID, SELFPAY | PROVIDERS: PCP Internal Medicine; Visit Provider Obstetrics & Gynecology | DX: N95.1 Menopausal and female climacteric states (principal); U07.0 Vaping-related disorder; F17.210 Nicotine dependence, cigarettes, uncomplicated | CPT/HCPCS: 99212 ==

== ENCOUNTER 2023-01-11 14:20 | Outpatient (REF) | payer MEDICARE, MEDICAID, SELFPAY ==
--- NOTE | ~2023-01-11 | MM_ITS ---
EXAMINATION: MM SCREENING DIGITAL BREAST TOMOSYNTHESIS, BILATERAL CLINICAL INFORMATION: Screening. Asymptomatic. The lifetime risk of breast cancer based on the Tyrer-Cuzick Model is 12%. COMPARISON: Mammography: This study is compared with prior exams dating back to 2018. TECHNIQUE: Digital breast tomosynthesis is performed in both the craniocaudal and mediolateral oblique views along with computer-aided detection (CAD). Synthesized 2D images are generated from the tomosynthesis. FINDINGS: There are scattered areas of fibroglandular density (ACR BI-RADS breast composition Category b). There are no significant masses, abnormal calcifications, or other abnormalities. MM/MM tomosynthesis screening BI IMPRESSION: No mammographic evidence of malignancy. ASSESSMENT: BI-RADS BI-RADS 1 - Negative RECOMMENDATION: Routine annual mammography screening. 1 year F/U This examination should not preclude the clinical evaluation of a suspicious palpable abnormality. This patient's information was entered into a reminder system with a target due date for their next mammogram.
== END 2023-01-11 14:21 | disposition home or self-care (01) ==
LOC: HO.MAMMO 14:20
PROVIDERS: PCP Internal Medicine; Visit Provider Internal Medicine
DX: Z12.31 Encounter for screening mammogram for malignant neoplasm of breast (principal)
CPT/HCPCS: 77063; 77067

== ENCOUNTER → 2023-01-11 14:30 | Outpatient (BNV) | payer MEDICARE, MEDICAID, SELFPAY | PROVIDERS: PCP Internal Medicine; Visit Provider Radiology Diagnostic Radiology | DX: Z12.31 Encounter for screening mammogram for malignant neoplasm of breast (principal) | CPT/HCPCS: 77063; 77067 ==

== ENCOUNTER 2023-02-20 11:01 | Outpatient (AMB) | payer MEDICARE, MEDICAID, SELFPAY ==
[2023-02-20 11:06] VITALS: BP 112/70; BMI 21.8
--- NOTE | 2023-02-20 11:06 | MHC.OFFVIS ---
Intake Vital Signs 02/20/23 11:06 Height 5 ft 3 in Weight 123 lb BMI 21.8 BP 112/70 Intake Visit Reasons: Annual/ medication follow up Intake Note: no concerns Tobacco Curer Required: No Information Interpreted: non-clinical & clinical Dyeing Machine Tender: Dyeing Machine Tender Present (Ainsley LANG) Accompanied by: Self / Same As Patient Allergies Penicillins [PENICILLINS] Allergy (Intermediate, Verified 02/20/23 11:07) HIVES Sulfa (Sulfonamide Antibiotics) Allergy (Intermediate, Verified 02/20/23 11:07) itching, redness and itching tetracycline [TETRACYCLINE] Allergy (Intermediate, Verified 02/20/23 11:07) HIVES Post menopausal: Yes HPI HPI Comments History of Present Illness Details Presenting for annual exam. No complaints. Has been taking paroxetine 7.5 mg p.o. q.d. and her hot flashes has improved markedly, the patient is requesting refill her prescription Last Pap/HPV was negative in 08/22 Last Mammogram was BI-RADS 1 in 01/24 Last Colonoscopy was in 08/22, the recommendation was to repeat in 1-2 years [facility] Medical History History of COVID-19 Cannabinoid hyperemesis syndrome Shoulder pain, right Smoker unmotivated to quit Generalized anxiety disorder Osteoarthritis of right hip Uterine leiomyoma Dyslipidemia Esophagitis Vasomotor symptoms due to menopause Elevated vitamin B12 level History of bulimia Arthritis Seizures History of alcohol abuse History of eating disorder Surgical History History of hip replacement, total H/O colonoscopy History of esophagogastroduodenoscopy (EGD) Hx of myomectomy Family History Father Lung cancer Substance use disorder Mental health disorder Mother Stomach cancer Liver cancer Substance use disorder Mental health disorder Maternal Aunt Breast cancer Mental health disorder Paternal Aunt Breast cancer Substance use disorder Mental health disorder Maternal Uncle Brain cancer Substance use disorder Maternal Grandfather Substance use disorder Mental health disorder Social History Household Members Other:: sister Housing: House Do you presently have visiting nurse or other home services: No Alcohol intake: former Patient Tobacco Use Status: Current everyday Tobacco user Tobacco use type: Cigarette Cigarette Packs Per Day: 2 Cigarettes Per Day: 40 Years Smoked: 39 e-Cigarette/Vaping Use: Former Use Substance Use Type: Marijuana Current occupational status: employed Current occupation: [employer] Sexually active: No Sexual orientation: Straight/Heterosexual Gender identity: Female Cognitive needs: No Hearing needs: No Vision needs: Yes Female Reproductive History Menstrual Age of Menarche: 11 Total pregnancies: 3 Number of Living Children: 0 Ab induced: 3 Date of last pap smear: 08/10/20 Date of Mammogram: 01/11/23 Review of Systems Const All systems reviewed & are unremarkable except as noted in HPI and below Card Reports as per HPI Resp Reports as per HPI GI Reports as per HPI and Reports no additional complaints Reports as per HPI Physical Exam Vital Signs: Last Vital Signs BP 112/70 02/20/23 11:06 BMI result Body Mass Index 21.8 Const General: cooperative, healthy appearing and comfortable Chest Chest palpation & inspection: normal inspection of the chest and normal palpation of entire chest wall Breast/axilla inspection: normal inspection of the breasts and normal inspection of the axillae Breast/axilla palpation: normal palpation of the breasts, normal palpation of the axillae and no axillary lymphadenopathy Resp Effort & Inspection: normal respiratory effort Auscultation: clear to auscultation bilaterally Percussion: percussion normal Cardio Palpation: normal PMI Rate: regular rate Rhythm: regular rhythm Heart sounds: no murmurs and no rubs Peripheral pulses: Peripheral pulses 2+ throughout GI Inspection: Yes normal to inspection Palpation (GI): Soft to palpation, nontender, no guarding, not rigid and No hepatosplenomegaly present Percussion: Yes normal to percussion Auscultation: normal bowel sounds Rectal Exam - Female: deferred General: Yes bladder normal to palpation External Female Exam: No lesion Speculum Exam - Vagina: normal appearance of the vagina, normal palpation, normal vaginal discharge and not erythematous Speculum Exam - Cervix: normal appearance of the cervix and normal palpation Bimanual exam- vagina & uterus: normal bimanual exam, normal palpation, uterine size normal, bladder normal to palpation, consistency normal and normal palpation Bimanual Exam- Adnexa, other: no masses, no tenderness and Other (Left adnexal fullness, right adnexa wnl) Assessment & Plan Assessment & Plan (1) Well woman exam: Code(s): Z01.419 - Encounter for gynecological examination (general) (routine) without abnormal findings Plan: Co testing not indicated this. Counseled the patient about the recommended dietary allowance of 1200 mg of Calcium & 600 IU of vitamin D. Instructions given the patient to schedule her next screening Mammogram in 01/25 , the patient was referred to GI for screening colonoscopy . The patient was instructed to perform monthly self-breast exams and schedule annual exam in a year; all questions answered and the patient verbalized understanding. (2) Vasomotor symptoms due to menopause: Code(s): N95.1 - Menopausal and female climacteric states Plan: Paroxetine 7.5 mg p.o. q.d. refilled (3) Adnexal fullness: Code(s): N94.9 - Unspecified condition associated with female genital organs and menstrual cycle Plan: Discussed with the patient the finding on pelvic exam left adnexal fullness, will order pelvic ultrasound. Instructions given the patient to schedule an ultrasound follow-up appointment within 2-3 weeks. All questions answered, the patient verbalized understanding Orders: Orders US pelvic and transvaginal Today N94.9 - Unspecified condition associated with female genital organs and menstrual cycle Referrals Gastroenterology Referral Z12.11 - Encounter for screening for malignant neoplasm of colon Medications: New paroxetine mesylate(menop.sym) 7.5 mg PO BEDTIME 90 caps 3RF Coding Level of Care Code Est Pt Prev Care 40-64y(89238) Diagnoses Well woman exam Z01.419 Vasomotor symptoms due to menopause N95.1 Adnexal fullness N94.9
== END 2023-02-20 11:29 | disposition home or self-care (01) ==
PROVIDERS: PCP Internal Medicine; Visit Provider Obstetrics & Gynecology
DX: N95.1 Menopausal and female climacteric states (principal); N94.9 Unspecified condition associated with female genital organs and menstrual cycle; Z01.419 Encounter for gynecological examination (general) (routine) without abnormal findings
CPT/HCPCS: 99213; G0101

== ENCOUNTER → 2023-02-20 11:01 | Outpatient (BNVA) | payer MEDICARE, MEDICAID, SELFPAY | PROVIDERS: PCP Internal Medicine; Visit Provider Obstetrics & Gynecology | DX: Z01.419 Encounter for gynecological examination (general) (routine) without abnormal findings (principal); N95.1 Menopausal and female climacteric states; N94.9 Unspecified condition associated with female genital organs and menstrual cycle | CPT/HCPCS: 99212; G0101 ==

== ENCOUNTER 2023-04-03 13:17 | Outpatient (REF) | payer MEDICARE, MEDICAID, SELFPAY ==
--- NOTE | ~2023-04-03 | US_ITS ---
EXAMINATION: US PELVIS CLINICAL INFORMATION: Fibroid. COMPARISON: Pelvic ultrasound 09/13/2020. TECHNIQUE: Ultrasound of the pelvis is performed using both transabdominal and transvaginal transducers along with Doppler. Transvaginal imaging is performed due to inadequate visualization transabdominally. FINDINGS: The uterus is anteverted, heterogeneous and measures 7.5 x 4.3 x 4.7 cm. 3.9 x 3.1 x 3.7 cm fibroid, previously 3.6 x 2.9 x 3.8 cm. Endometrial thickness is 0.1 cm. Right ovary measures 1.1 x 2.0 x 0.8 cm, volume 0.9 mL. Right ovary is poorly visualized, limiting evaluation. Left ovary is not visualized. Limited visualization due to bowel gas and enlarged, fibroid uterus. US/US pelvic and transvaginal IMPRESSION: 1. Fibroid uterus. 2. Endometrial thickness is 0.1 cm. 3. Unremarkable right ovary. 4. Left ovary not visualized.Please communicate results to referring clinician and document this communication. Thank you.
== END 2023-04-03 13:18 | disposition home or self-care (01) ==
LOC: HO.US 13:17
PROVIDERS: PCP Internal Medicine; Visit Provider Obstetrics & Gynecology
DX: N94.9 Unspecified condition associated with female genital organs and menstrual cycle (principal)
CPT/HCPCS: 76830; 76856

== ENCOUNTER 2023-04-11 10:47 | Outpatient (AMB) | payer MEDICARE, MEDICAID, SELFPAY ==
[2023-04-11 10:53] VITALS: BP 124/82
--- NOTE | 2023-04-11 10:53 | A.OFFVIS_ITS ---
Intake Vital Signs 04/11/23 10:53 Height 5 ft 3 in BP 124/82 Intake Visit Reasons: Ultrasound Results Allergies Penicillins [PENICILLINS] Allergy (Intermediate, Verified 04/11/23 10:53) HIVES Sulfa (Sulfonamide Antibiotics) Allergy (Intermediate, Verified 04/11/23 10:53) itching, redness and itching tetracycline [TETRACYCLINE] Allergy (Intermediate, Verified 04/11/23 10:53) HIVES HPI HPI Comments History of Present Illness Details Presenting for follow-up ultrasound regarding the myomas seen on pelvic ultrasound in 2020. The patient is complaining of an episode of vaginal bleeding after intercourse after 40 years of abstinence. Last co testing was in 2020 was negative. Pelvic ultrasound showed the following: The uterus is anteverted, heterogeneous and measures 7.5 x 4.3 x 4.7 cm. 3.9 x 3.1 x 3.7 cm fibroid, previously 3.6 x 2.9 x 3.8 cm. Endometrial thickness is 0.1 cm. Right ovary measures 1.1 x 2.0 x 0.8 cm, volume 0.9 mL. Right ovary is poorly visualized, limiting evaluation. Left ovary is not visualized. Limited visualization due to bowel gas and enlarged, fibroid uterus. [facility] Medical History History of COVID-19 Cannabinoid hyperemesis syndrome Shoulder pain, right Smoker unmotivated to quit Generalized anxiety disorder Osteoarthritis of right hip Uterine leiomyoma Dyslipidemia Esophagitis Vasomotor symptoms due to menopause Elevated vitamin B12 level History of bulimia Arthritis Seizures History of alcohol abuse History of eating disorder Surgical History History of hip replacement, total H/O colonoscopy History of esophagogastroduodenoscopy (EGD) Hx of myomectomy Family History Father Lung cancer Substance use disorder Mental health disorder Mother Stomach cancer Liver cancer Substance use disorder Mental health disorder Maternal Aunt Breast cancer Mental health disorder Paternal Aunt Breast cancer Substance use disorder Mental health disorder Maternal Uncle Brain cancer Substance use disorder Maternal Grandfather Substance use disorder Mental health disorder Social History Household Members Other:: sister Housing: House Do you presently have visiting nurse or other home services: No Alcohol intake: former Patient Tobacco Use Status: Current everyday Tobacco user Tobacco use type: Cigarette Cigarette Packs Per Day: 2 Cigarettes Per Day: 40 Years Smoked: 39 e-Cigarette/Vaping Use: Former Use Substance Use Type: Marijuana Current occupational status: employed Current occupation: [employer] Sexual orientation: Straight/Heterosexual Gender identity: Female Cognitive needs: No Hearing needs: No Vision needs: Yes Female Reproductive History Menstrual Age of Menarche: 11 Review of Systems Const All systems reviewed & are unremarkable except as noted in HPI and below Physical Exam Vital Signs: Last Vital Signs BP 124/82 04/11/23 10:53 General: Yes no CVA tenderness External Female Exam: normal external appearance and normal appearance of the urethra Speculum Exam - Vagina: normal appearance of the vagina, normal palpation, no lesions and no masses Speculum Exam - Cervix: normal appearance of the cervix, normal palpation, no lesions, no masses and nontender Bimanual exam- vagina & uterus: normal bimanual exam, normal palpation, uterine size normal, normal palpation, No Cervical tenderness present, non-tender and enlarged Bimanual Exam- Adnexa, other: normal adnexae Back/Spine/Pelvis Back: no CVA tenderness Assessment & Plan Assessment & Plan (1) Uterine leiomyoma: Code(s): D25.9 - Leiomyoma of uterus, unspecified Qualifiers: Uterine leiomyoma location: unspecified location Qualified Code(s): D25.9 - Leiomyoma of uterus, unspecified Plan: Discussed with the patient the findings on pelvic ultrasound & the risk of myosarcoma; discussed with the patient the options of treatment including expectant management versus hysterectomy; the pros and cons, risks benefits of each approach were discussed with the patient including the fact that in cases of myosarcoma, surgical treatment can lead to early diagnosis and positively affects the prognosis; after further discussion, the patient decided to proceed with expectant management. Will repeat pelvic ultrasound periodically. Instructions given to patient to call in case any of the following occurs: pressure symptoms, abnormal uterine bleeding, pelvic pain; and to schedule a [facility] [place] office follow-up appointment for reassessment and to order a repeat ultrasound . All questions answered, the patient verbalized understanding and agreed with the plan . (2) Post-menopausal bleeding: Code(s): N95.0 - Postmenopausal bleeding Plan: Discussed with the patient the differential diagnosis of post menopausal bleeding with normal pelvic exam including but not limited to, endometrial hyperplasia, cancer, polyps and other causes; co testing is up-to-date, \Discussed with the patient the results of the pelvic ultrasound showing an endometrial stripe thickness of 1 mm. Explained to the patient with an endometrial stripe of 4 mm &/or less, there is a high negative predictive value in detecting endometrial pathology including endometrial hyperplasia, polyps or malignancy. Therefore, there is no indication for endometrial sampling. Discussed with the patient the sensitivity, specificity, and positive and the negative predictive value of using ultrasound in detecting endometrial pathology. The patient was instructed to call if bleeding recurs, will proceed with endometrial sampling out endometrial pathology. All questions were answered and the patient verbalized understanding and agreed with the plan. Coding Level of Care Code Est Pt Level 3 (52075) Diagnoses Uterine leiomyoma, unspecified location D25.9 Uterine leiomyoma location: unspecified location Post-menopausal bleeding N95.0
== END 2023-04-11 11:32 | disposition home or self-care (01) ==
LOC: HO.HWS 10:47
PROVIDERS: PCP Internal Medicine; Visit Provider Obstetrics & Gynecology
DX: D25.9 Leiomyoma of uterus, unspecified (principal); N95.0 Postmenopausal bleeding
CPT/HCPCS: 99213

== ENCOUNTER → 2023-04-11 10:47 | Outpatient (BNVA) | payer MEDICARE, MEDICAID, SELFPAY | PROVIDERS: PCP Internal Medicine; Visit Provider Obstetrics & Gynecology | DX: D25.9 Leiomyoma of uterus, unspecified (principal); N95.0 Postmenopausal bleeding | CPT/HCPCS: 99212 ==

== ENCOUNTER 2024-07-28 10:29 | Outpatient (AMB) | payer MEDICARE, MEDICAID, SELFPAY ==
--- NOTE | 2024-07-28 10:39 | MHC.PC.OV ---
Vital Signs 07/28/24 10:49 Height 5 ft 1 in Weight 115 lb 2 oz BMI 21.8 BP 122/86 Blood Pressure Location Lt brachial Position Sitting Respiration 14 Pulse 72 Pulse Source Pulse Oximeter Pulse Oximetry (%) 97 Oxygen Delivery Method Room Air Intake Visit Reasons: romi from [place]/stomach issues Intake Note: New patient visit. Gastrointestinal issues. Has been in and out of the ER 30 time over the past 2 years. Recently saw GI. Nausea, vomiting, weight loss of 15 pounds unintentionally. Referral on [facility]. Referral to Urologist to [facility], Immigration Officer Required: No Allergies Penicillins [PENICILLINS] Allergy (Intermediate, Verified 07/28/24 10:45) HIVES Sulfa (Sulfonamide Antibiotics) Allergy (Intermediate, Verified 07/28/24 10:45) itching, redness and itching tetracycline [TETRACYCLINE] Allergy (Intermediate, Verified 07/28/24 10:45) HIVES Tobacco use date assessed: 11/06/22 Dental Screening Dental Screen Date: 07/28/24 Did you have a dental visit in the last 12 months?: Yes Did you have a dental problem in the last 6 months where you did not have access to dental care?: No Was dental information given to patient?: Patient has dentist HPI HPI Comments History of Present Illness Details 54 year old with past medical history chronic abdominal pain, gastritis/PUD, ?barretts, h/o ETOH abuse, current tobacco use presenting to establish care. Internal transfer GI: Chronic constipation. Flares of abdominal pain, nausea, vomiting. Saw Yung RUBIO in the past. Also saw Dr Griggs in past. Following currently with [facility]-recently evaluated. She is currently on prn reglan. She was on PPI in the past. Unclear why not now. EGD/colon 08/2020: tubular adenomas removed, felt like external compression ?from fibroid US: calcification in aorta, no masses EGD 09/06/20 duodenitis gastritis hiatal hernia. ROS see HPI PHYSICAL EXAM: GENERAL: Alert and oriented x 3. NAD EYES: EOMI. Anicteric. HENT: Moist mucous membranes. No scleral icterus. No cervical lymphadenopathy. LUNGS: Clear to auscultation bilaterally. CARDIOVASCULAR: Regular rate and rhythm. No murmur. No JVD. ABDOMEN: Soft, non-tender +bs EXTREMITIES: No edema. Non-tender. SKIN: No rashes or lesions. Warm. NEUROLOGIC: No focal neurological deficits. CN II-XII grossly intact PSYCHIATRIC: Cooperative. Appropriate mood and affect [facility] Medical History History of COVID-19 Cannabinoid hyperemesis syndrome Shoulder pain, right Smoker unmotivated to quit Generalized anxiety disorder Osteoarthritis of right hip Uterine leiomyoma Dyslipidemia Esophagitis Vasomotor symptoms due to menopause Elevated vitamin B12 level History of bulimia Arthritis Seizures History of alcohol abuse History of eating disorder Surgical History History of hip replacement, total H/O colonoscopy History of esophagogastroduodenoscopy (EGD) Hx of myomectomy Family History Father Lung cancer Substance use disorder Mental health disorder Mother Stomach cancer Liver cancer Substance use disorder Mental health disorder Maternal Aunt Breast cancer Mental health disorder Paternal Aunt Breast cancer Substance use disorder Mental health disorder Maternal Uncle Brain cancer Substance use disorder Maternal Grandfather Substance use disorder Mental health disorder Social History Household Members Other:: sister Housing: House Do you presently have visiting nurse or other home services: No Alcohol intake: former Patient Tobacco Use Status: Current everyday Tobacco user Tobacco use type: Cigarette Cigarette Packs Per Day: 2 Cigarettes Per Day: 40 Years Smoked: 39 e-Cigarette/Vaping Use: Former Use Substance Use Type: Marijuana Current occupational status: employed Current occupation: [employer] Sexual orientation: Straight/Heterosexual Gender identity: Female Cognitive needs: No Hearing needs: No Vision needs: Yes Female Reproductive History Menstrual Age of Menarche: 11 Questionnaire PHQ-9 Over the last 2 weeks, how often have you been bothered by any of the following problems? 1. Little interest or pleasure in doing things: nearly every day 2. Feeling down, depressed, or hopeless: not at all 3. Trouble falling or staying asleep, or sleeping too much: nearly every day 4. Feeling tired or having little energy: not at all 5. Poor appetite or overeating: nearly every day 6. Feeling bad about yourself - or that you are a failure or have let yourself or your family down: not at all 7. Trouble concentrating on things, such as reading the newspaper or watching television: nearly every day 8. Moving or speaking so slowly that other people could have noticed. Or the opposite - being so fidgety or restless that you have been moving around a lot more than usual: not at all 9. Thoughts that you would be better off or of hurting yourself in some way: not at all Total score: 12 Depression Screening Interpretation: Positive Depression Screening Follow-up: Existing condition Depression Screening Done: Yes 11010 - PHQ-9 Billing: Yes Source: Developed by Drs. Prosper Lemos, Leeann Johnson, Emerson Mehta and colleagues, with an educational ratna from [employer] ([employer]). Thrive Questionnaire Date Thrive assessed: 11/06/22 I am a: Patient What is your living situation today?: I have a steady place to live Within the past 12 months, did the food you bought not last and you didn't have the money to get more?: Sometimes True Within the past 12 months, did you worry whether your food would run out before you got money to buy more?: Sometimes True Do you have trouble paying for medicines?: Yes Do you have trouble getting transportation to medical appointments?: No Do you have trouble paying your heating and electricity bill?: Yes Do you have trouble taking care of your child, family member or friend?: No Do you have trouble with day-to-day activities such as bathing, preparing meals, shopping, managing finances, etc.?: No Are you currently unemployed and looking for a job?: No Are you interested in more education?: No Please select the resources that you would like help with: Utilities Currently or been in a relationship where the following occur: I choose not to answer THRIVE Score: 3 AUDIT C Alcohol Use Questionnaire (AUDIT-C) 1. How often do you have a drink containing alcohol?: Never Total Score: 0 HOLA-7 AMB Questionnaire HOLA-7 Date HOLA - 7 assessed: 11/06/22 Feeling nervous, anxious, or on edge: 1 = Several days Not being able to stop or control worryin = Several days Worrying too much about different things: 1 = Several days Trouble relaxin = Several days Being so restless that it is hard to sit still: 0 = Not at all Becoming easily annoyed or irritable: 2 = More than half the days Feeling afraid as if something awful might happen: 1 = Several days Total HOLA-7 score (0-4 normal; 5-9 mild; 10-14 moderate; 15-21 severe): 7 Source: Developed by Drs. Prosper Lemos, Leeann Johnson, Emerson Mehta and colleagues, with an educational ratna from [employer] ([employer]). Physical exam (Primary Care) Vital Signs: Last Vital Signs Pulse 72 07/28/24 10:49 Resp 14 07/28/24 10:49 BP 122/86 07/28/24 10:49 Pulse Ox 97 07/28/24 10:49 Oxygen Delivery Method Room Air 07/28/24 10:49 BMI result Body Mass Index 21.8 Tobacco/Smoking Status: Tobacco use Status Tobacco use date assessed 11/06/22 07/28/24 10:45 Patient Tobacco Use Status Current everyday Tobacco 07/28/24 10:45 Tobacco use type Cigarette 07/28/24 10:45 e-Cigarette/Vaping Use Former Use 07/28/24 10:45 PHQ-9: PHQ-9 Score PHQ-9: Total score 12 07/28/24 13:24 Depression Screening Interpretation: Positive Depression Screening Follow-up: Existing condition Thrive Assessment: Date of Thrive Assessment Date Thrive assessed 11/06/22 07/28/24 10:45 Currently or been in a relationship where the following occur: I choose not to answer Coding Level of Care Code Est Pt Level 4 (54748) Complex EM visit Add On G2211 Diagnoses Chronic constipation K59.09 Seizures R56.9 Additional Codes PHQ-9 - 74745 - PHQ-9 Billing: Yes ([id number]) Assessment & Plan Assessment & Plan (1) Chronic constipation: Code(s): K59.09 - Other constipation Category: Medical Plan: Start linzess, restart pantoprazole (2) Seizures: Comment: ff'd by dr karla Urbano at [facility] Neurology Code(s): R56.9 - Unspecified convulsions Category: Medical Plan: continue divalproex Plan 54 y/o to establish care. past medical, surgical, social,family history reviewed Orders: Orders Complete Blood Count Auto Diff 07/28/24 D72.829 - Elevated white blood cell count, unspecified, K59.09 - Other constipation, R11.2 - Nausea with vomiting, unspecified Pathologist Review - CBC 07/28/24 D72.829 - Elevated white blood cell count, unspecified, K59.09 - Other constipation, R11.2 - Nausea with vomiting, unspecified Comprehensive Met. Panel 07/28/24 D72.829 - Elevated white blood cell count, unspecified, K59.09 - Other constipation, R11.2 - Nausea with vomiting, unspecified Hemoglobin A1c 07/28/24 D72.829 - Elevated white blood cell count, unspecified, K59.09 - Other constipation, R11.2 - Nausea with vomiting, unspecified TSH reflex Free T4 07/28/24 D72.829 - Elevated white blood cell count, unspecified, K59.09 - Other constipation, R11.2 - Nausea with vomiting, unspecified Medications: New pantoprazole 40 mg PO DAILY 90 tabs 3RF Linzess (linaclotide) 290 mcg PO DAILY 90 caps 3RF NS K59.09 - Other constipation Discontinued hyoscyamine sulfate Discontinued Reason: Doctor's Order 0.125 mg sublingual BID-QID 30 tabs 0RF
[2024-07-28 10:49] VITALS: BP 122/86; PULSE 72; RESP 14; O2SAT 97; BMI 21.8
--- OUTSIDE RECORDS SUMMARY | 2024-07-28 11:52 | XMS_ITS | Clinical Summary ---
Author Organization [facility] Address [address] [place] [address] Phone Care Team Providers Care Thread Spinner Name Role Phone Angelique Trent MD Primary Care Provider [phone] Encounters Date Type Department Care Team Description 06/09/2024 11:29 AM EST - 06/09/2024 10:10 PM EST Emergency [facility] Emergency [address] [place] [address] Discharge Disposition: Home or Self Care from Last 3 Months Social History Tobacco Use Types Packs/Day Years Used Date Smoking Tobacco: Never Assessed Comments Unknown Sex and Gender Information Value Date Recorded Sex Assigned at Female 06/09/2024 4:04 PM EST Legal Sex Female 11:29 AM EST Gender Identity Female 06/09/2024 4:04 PM EST Sexual Orientation Straight 06/09/2024 4: 04 PM EST Last Filed Vital Signs Vital Sign Reading Time Taken Comments Blood Pressure 134/104 06/09/2024 4:23 PM EST Pulse 95 06/09/2024 4:23 PM EST Temperature 36.7 ??C (98.1 ??F) 06/09/2024 11:[address] Respiratory Rate 16 06/09/2024 4:23 PM EST Oxygen Saturation 97% 06/09/2024 4:23 PM EST Inhaled Oxygen Concentration - - Weight 51.7 kg (114 lb) 06/09/2024 11:56 AM EST Height 154.9 cm (5' 1 ) 06/09/2024 11:56 AM EST Body Mass Index 21.54 06/09/2024 11:56 AM EST Plan of Treatment Health Maintenance Due Date Last Done Comments Breast Cancer Screening 1969 DTaP,Tdap,and Td Vaccines (1 - Tdap) 1988 Hepatitis A Vaccines (1 of 2 - Risk 2-dose series) 1988 Hepatitis B Vaccines (1 of 3 - 19+ 3-dose series) 1988 08/28/2017 Cervical Cancer Screening: P ap Smear 1990 Pneumococcal Vaccine: 50+ Years (1 of 1 - PCV) 2019 Zoster Vaccines (1 of 2) 2019 COVID-19 Vaccine (3 - 2023-2 5 season) 2024 10/27/2020, 10/06/2020 Influenza Vaccine (#1) 2024 Colorectal Cancer Screening: Colonoscopy 06/09/2024 Depression Screening 06/09/2024 HIV Screening 06/09/2024 Hepatitis C Screening 06/09/2024 Medicare Annual Wellness Visit 06/09/2024 Social Influencers of Health Screening 06/09/2024 MMR Vaccines Aged Out 08/28/2017 No longer eligi ble based on patient's age to complete this topic HIB Vaccines Aged Out No longer eligi ble based on patient's age to complete this topic HPV Vaccines Aged Out No longer eligi ble based on patient's age to complete this topic IPV Vaccines Aged Out No longer eligi ble based on patient's age to complete this topic Meningococcal ACWY Vaccine Aged Out N o longer eligible based on patient's age to complete this topic Meningococcal B Vacine Aged Out No lo nger eligible based on patient's age to complete this topic Pneumococcal Vaccine: Pediatrics (0 to 5 Years) and At-Risk Patients (6 to 64 Years) Aged Out No longer eligible b ased on patient's age to complete this topic RSV Immunization Patients Under 20 months Aged Out No longer eligible b ased on patient's age to complete this topic Varicella Vaccines Aged Out No longer eligible based on patient's age to complete this topic Procedures Procedure Name Priority Date/Time Associated Diagnosis Comments CBC WITH AUTO DIFFERENTIAL STAT 06/09/2024 12:04 PM EST LIPASE STAT 06/09/2024 12:04 PM EST COMPREHENSIVE METABOLIC PANEL STAT 06/09/2024 12:04 PM EST CBC AND DIFFERENTIAL STAT 06/09/2024 12:04 PM EST from Last 3 Months Results * (ABNORMAL) CBC auto differential (06/09/2024 12:04 PM EST) [facility] WBC 12.9(H) 4.8 - 10.8 K/mcL LAB HEMETOLOGY METHOD 06/09/2024 1:00 PM [facility] RBC 5.00(H) 3.80 - 4.80 M/mcL LAB HEMETOLOGY METHOD 06/09/2024 1:00 PM [facility] Hemoglobin 16.1(H) 11.5 - 16.0 g/dL LAB HEMETOLOGY METHOD 06/09/2024 1:00 PM [facility] Hematocrit 46.5 35.0 - 47.0 % LAB HEMETOLOGY METHOD 06/09/2024 1:00 PM [facility] MCV 92.4 79.0 - 98.0 FL LAB HEMETOLOGY METHOD 06/09/2024 1:00 PM [facility] MCH 32.0 27.0 - 32.0 pcg LAB HEMETOLOGY METHOD 06/09/2024 1:00 PM [facility] MCHC 34.6 32.0 - 37.0 g/dL LAB HEMETOLOGY METHOD 06/09/2024 1:00 PM [facility] RDW 12.7 11.0 - 15.0 % LAB HEMETOLOGY METHOD 06/09/2024 1:00 PM [facility] Platelets 281 130 - 400 K/mcL LAB HEMETOLOGY METHOD 06/09/2024 1:00 PM [facility] MPV 11.7(H) 7.0 - 11.0 FL LAB HEMETOLOGY METHOD 06/09/2024 1:00 PM [facility] NRBC 0.0 <1.0 % LAB HEMETOLOGY METHOD 06/09/2024 1:00 PM [facility] NRBC Absolute 0.00 <0.10 K/mcL LAB HEMETOLOGY METHOD 06/09/2024 1:00 PM [facility] Neutrophils Relative 68.6 % LAB HEMETOLOGY METHOD 06/09/2024 1:00 PM [facility] Comment:This is an appended report. These results have been appended to a previously preliminary verified report. Lymphocytes Relative 23.1 % LAB HEMETOLOGY METHOD 06/09/2024 1:00 PM [facility] Comment:This is an appended report. These results have been appended to a previously preliminary verified report. Monocytes Relative 7.5 % LAB HEMETOLOGY METHOD 06/09/2024 1:00 PM [facility] Comment:This is an appended report. These results have been appended to a previously preliminary verified report. Eosinophils Relative 0.2 % LAB HEMETOLOGY METHOD 06/09/2024 1:00 PM [facility] Comment:This is an appended report. These results have been appended to a previously preliminary verified report. Basophils Relative 0.3 % LAB HEMETOLOGY METHOD 06/09/2024 1:00 PM [facility] Comment:This is an appended report. These results have been appended to a previously preliminary verified report. Immature Granulocytes Relative 0.3 % LAB HEMETOLOGY METHOD 06/09/2024 1:00 PM [facility] Comment:This is an appended report. These results have been appended to a previously preliminary verified report. Neutrophils Absolute 8.85(H) 1.50 - 7.00 K/mcL LAB HEMETOLOGY METHOD 06/09/2024 1:00 PM [facility] Comment:This is an appended report. These results have been appended to a previously preliminary verified report. Lymphocytes Absolute 2.99 1.00 - 5.00 K/mcL LAB HEMETOLOGY METHOD 06/09/2024 1:00 PM EST [facility] Comment:This is an appended report. These results have been appended to a previously preliminary verified report. Monocytes Absolute 0.97 0.20 - 1.00 K/mcL LAB HEMETOLOGY METHOD 06/09/2024 1:00 PM EST [facility] Comment:This is an appended report. These results have been appended to a previously preliminary verified report. Eosinophils Absolute 0.03 0.00 - 0.50 K/mcL LAB HEMETOLOGY METHOD 06/09/2024 1:00 PM EST [facility] Comment:This is an appended report. These results have been appended to a previously preliminary verified report. Basophils Absolute 0.04 0.00 - 0.20 K/mcL LAB HEMETOLOGY METHOD 06/09/2024 1:00 PM EST [facility] Comment:This is an appended report. These results have been appended to a previously preliminary verified report. Immature Granulocytes Absolute 0.04(H) 0.00 - 0.03 K/mcL LAB HEMETOLOGY METHOD 06/09/2024 1:00 PM EST [facility] Comment:This is an appended report. These results have been appended to a previously preliminary verified report. Blood Venous blood specimen / Unknown Venipuncture / Unknown 06/09/2024 12:04 PM EST 06/09/2024 12:13 PM EST us Lionel Jacobson MD LAB BLOOD ORDERABLES Final Result [facility] [address] [place] [address], * Lipase (06/09/2024 12:04 PM EST) Lipase 40 13 - 75 unit/L LAB CHEMISTRY METHOD 06/09/2024 12:40 PM EST [facility] Blood Venous blood specimen / Unknown Venipuncture / Unknown 06/09/2024 12:04 PM EST 06/09/2024 12:13 PM EST Lionel Jacobson MD LAB BLOOD ORDERABLES Final Result [facility] [address] [place] [address], * (ABNORMAL) Comprehensive metabolic panel (06/09/2024 12:04 PM EST) Sodium 126(L) 133 - 145 mmol/L LAB CHEMISTRY METHOD 06/09/2024 12:40 PM [facility] Potassium 3.8 3.5 - 5.5 mmol/L LAB CHEMISTRY METHOD 06/09/2024 12:40 PM [facility] Chloride 95(L) 96 - 110 mmol/L LAB CHEMISTRY METHOD 06/09/2024 12:40 PM [facility] CO2 24 21 - 32 mmol/L LAB CHEMISTRY METHOD 06/09/2024 12:40 PM [facility] Anion Gap 7 3 - 11 LAB CHEMISTRY METHOD 06/09/2024 12:40 PM [facility] Glucose 108(H) 70 - 100 mg/dL LAB CHEMISTRY METHOD 06/09/2024 12:40 PM [facility] BUN 22 5 - 25 mg/dL LAB CHEMISTRY METHOD 06/09/2024 12:40 PM [facility] Creatinine 0.96 0.50 - 1.10 mg/dL LAB CHEMISTRY METHOD 06/09/2024 12:40 PM [facility] eGFR 70 >=60 mL/min/1. 73m2 LAB CHEMISTRY METHOD 06/09/2024 12:40 PM [facility] Comment:Calculation based on the??Chronic Kidney Disease Epidemiology Collaboration (CKD-EPI) equation refit??without adjustment for race. BUN/Creatinine Ratio 22.9 LAB CHEMISTRY METHOD 06/09/2024 12:40 PM [facility] Calcium 10.3 8.5 - 10.5 mg/dL LAB CHEMISTRY METHOD 06/09/2024 12:40 PM [facility] AST (SGOT) 25 10 - 42 unit/L LAB CHEMISTRY METHOD 06/09/2024 12:40 PM [facility] ALT (SGPT) 25 10 - 60 unit/L LAB CHEMISTRY METHOD 06/09/2024 12:40 PM [facility] Alkaline Phosphatase 78 42 - 121 unit/L LAB CHEMISTRY METHOD 06/09/2024 12:40 PM [facility] Total Protein 8.1(H) 6.0 - 8.0 g/dL LAB CHEMISTRY METHOD 06/09/2024 12:40 PM [facility] Albumin 4.6 3.2 - 5.0 g/dL LAB CHEMISTRY METHOD 06/09/2024 12:40 PM [facility] Total Bilirubin 0.8 0.0 - 1.4 mg/dL LAB CHEMISTRY METHOD 06/09/2024 12:40 PM [facility] Blood Venous blood specimen / Unknown Venipuncture / Unknown 06/09/2024 12:04 PM EST 06/09/2024 12:13 PM EST us Lionel Jacobson MD LAB BLOOD ORDERABLES Final Result [facility] [address] [place] [address], from Last 3 Months Insurance MEDICAID - [place] MEDICARE Care Teams Thread Spinner Relationship Specialty Start Date End Date Angelique Trent MD [address] [place] [address] PCP - General Internal Medicine 06/09/24
== END 2024-07-28 11:21 | disposition home or self-care (01) ==
PROVIDERS: PCP Internal Medicine; Visit Provider Internal Medicine
DX: K59.09 Other constipation (principal); R56.9 Unspecified convulsions

== ENCOUNTER 2024-07-28 11:24 | Outpatient (REF) | payer MEDICARE, MEDICAID, SELFPAY ==
--- OUTSIDE RECORDS SUMMARY | 2024-07-28 13:10 | XMS_ITS | Clinical Summary ---
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1(H) 11.5 - 16.0 g/dL LAB HEMETOLOGY METHOD 06/09/2024 1:[address] [facility] Hematocrit 46.5 35.0 - 47.0 % LAB HEMETOLOGY METHOD 06/09/2024 1:[address] [facility] MCV 92.4 79.0 - 98.0 FL LAB HEMETOLOGY METHOD 06/09/2024 1:[address] [facility] MCH 32.0 27.0 - 32.0 pcg LAB HEMETOLOGY METHOD 06/09/2024 1:[address] [facility] MCHC 34.6 32.0 - 37.0 g/dL LAB HEMETOLOGY METHOD 06/09/2024 1:[address] [facility] RDW 12.7 11.0 - 15.0 % LAB HEMETOLOGY METHOD 06/09/2024 1:[address] [facility] Platelets 281 130 - 400 K/mcL LAB HEMETOLOGY METHOD 06/09/2024 1:[address] [facility] MPV 11.7(H) 7.0 - 11.0 FL LAB HEMETOLOGY METHOD 06/09/2024 1:[address] [facility] NRBC 0.0 <1.0 % LAB HEMETOLOGY METHOD 06/09/2024 1:[address] [facility] NRBC Absolute 0.00 <0.10 K/mcL LAB HEMETOLOGY METHOD 06/09/2024 1:[address] [facility] Neutrophils Relative 68.6 % LAB HEMETOLOGY METHOD 06/09/2024 1:[address] [facility] Comment:This is an appended report. These results have been appended to a previously preliminary verified report. Lymphocytes Relative 23.1 % LAB HEMETOLOGY METHOD 06/09/2024 1:[address] [facility] Comment:This is an appended report. These results have been appended to a previously preliminary verified report. Monocytes Relative 7.5 % LAB HEMETOLOGY METHOD 06/09/2024 1:[address] [facility] Comment:This is an appended report. These results have been appended to a previously preliminary verified report. Eosinophils Relative 0.2 % LAB HEMETOLOGY METHOD 06/09/2024 1:[address] [facility] Comment:This is an appended report. These results have been appended to a previously preliminary verified report. Basophils Relative 0.3 % LAB HEMETOLOGY METHOD 06/09/2024 1:[address] [facility] Comment:This is an appended report. These results have been appended to a previously preliminary verified report. Immature Granulocytes Relative 0.3 % LAB HEMETOLOGY METHOD 06/09/2024 1:[address] [facility] Comment:This is an appended report. These results have been appended to a previously preliminary verified report. Neutrophils Absolute 8.85(H) 1.50 - 7.00 K/mcL LAB HEMETOLOGY METHOD 06/09/2024 1:[address] [facility] Comment:This is an appended report. These results have been appended to a previously preliminary verified report. Lymphocytes Absolute 2.99 1.00 - 5.00 K/mcL LAB HEMETOLOGY METHOD 06/09/2024 1:00 PM EST [facility] Comment:This is an appended report. These results have been appended to a previously preliminary verified report. Monocytes Absolute 0.97 0.20 - 1.00 K/mcL LAB HEMETOLOGY METHOD 06/09/2024 1:00 PM EST [facility] Comment:This is an appended report. These results have been appended to a previously preliminary verified report. Eosinophils Absolute 0.03 0.00 - 0.50 K/mcL LAB HEMETOLOGY METHOD 06/09/2024 1:00 PM EST [facility] Comment:This is an appended report. These results have been appended to a previously preliminary verified report. Basophils Absolute 0.04 0.00 - 0.20 K/mcL LAB HEMETOLOGY METHOD 06/09/2024 1:00 PM EST [facility] Comment:This is an appended report. These results have been appended to a previously preliminary verified report. Immature Granulocytes Absolute 0.04(H) 0.00 - 0.03 K/mcL LAB HEMETOLOGY METHOD 06/09/2024 1:00 PM EST [facility] Comment:This is an appended report. These results have been appended to a previously preliminary verified report. Blood Venous blood specimen / Unknown Venipuncture / Unknown 06/09/2024 12:04 PM EST 06/09/2024 12:13 PM EST us Lionel Jacobson MD LAB BLOOD ORDERABLES Final Result [facility] [address] [place] [address], * Lipase (06/09/2024 12:04 PM EST) Lipase 40 13 - 75 unit/L LAB CHEMISTRY METHOD 06/09/2024 12:40 PM EST [facility] Blood Venous blood specimen / Unknown Venipuncture / Unknown 06/09/2024 12:04 PM EST 06/09/2024 12:13 PM EST Lionel Jacobson MD LAB BLOOD ORDERABLES Final Result [facility] [address] [place] [address], * (ABNORMAL) Comprehensive metabolic panel (06/09/2024 12:04 PM EST) Sodium 126(L) 133 - 145 mmol/L LAB CHEMISTRY METHOD 06/09/2024 12:[address] [facility] Potassium 3.8 3.5 - 5.5 mmol/L LAB CHEMISTRY METHOD 06/09/2024 12:[address] [facility] Chloride 95(L) 96 - 110 mmol/L LAB CHEMISTRY METHOD 06/09/2024 12:[address] [facility] CO2 24 21 - 32 mmol/L LAB CHEMISTRY METHOD 06/09/2024 12:[address] [facility] Anion Gap 7 3 - 11 LAB CHEMISTRY METHOD 06/09/2024 12:[address] [facility] Glucose 108(H) 70 - 100 mg/dL LAB CHEMISTRY METHOD 06/09/2024 12:[address] [facility] BUN 22 5 - 25 mg/dL LAB CHEMISTRY METHOD 06/09/2024 12:[address] [facility] Creatinine 0.96 0.50 - 1.10 mg/dL LAB CHEMISTRY METHOD 06/09/2024 12:[address] [facility] eGFR 70 >=60 mL/min/1. 73m2 LAB CHEMISTRY METHOD 06/09/2024 12:[address] [facility] Comment:Calculation based on the??Chronic Kidney Disease Epidemiology Collaboration (CKD-EPI) equation refit??without adjustment for race. BUN/Creatinine Ratio 22.9 LAB CHEMISTRY METHOD 06/09/2024 12:[address] [facility] Calcium 10.3 8.5 - 10.5 mg/dL LAB CHEMISTRY METHOD 06/09/2024 12:[address] [facility] AST (SGOT) 25 10 - 42 unit/L LAB CHEMISTRY METHOD 06/09/2024 12:[address] [facility] ALT (SGPT) 25 10 - 60 unit/L LAB CHEMISTRY METHOD 06/09/2024 12:[address] [facility] Alkaline Phosphatase 78 42 - 121 unit/L LAB CHEMISTRY METHOD 06/09/2024 12:[address] [facility] Total Protein 8.1(H) 6.0 - 8.0 g/dL LAB CHEMISTRY METHOD 06/09/2024 12:[address] [facility] Albumin 4.6 3.2 - 5.0 g/dL LAB CHEMISTRY METHOD 06/09/2024 12:[address] [facility] Total Bilirubin 0.8 0.0 - 1.4 mg/dL LAB CHEMISTRY METHOD 06/09/2024 12:[address] [facility] Blood Venous blood specimen / Unknown Venipuncture / Unknown 06/09/2024 12:04 PM EST 06/09/2024 12:13 PM EST us Lionel Jacobson MD LAB BLOOD ORDERABLES Final Result [facility] [address] [place] [address], from Last 3 Months Insurance MEDICA[place] - [place] MEDICARE Care Teams [employer] Relationship Specialty Start Date End Date Angelique Trent MD [address] [place] [address] PCP - General Internal Medicine 06/09/24
[2024-07-28 14:48] LABS: MANUAL DIFF FLAG NO
[2024-07-28 14:52] LABS: Basophils Absolute Auto 0.1 X10*3/uL (0.0-0.2); Basophils Percent Auto 0.6 % (0-2); Eosinophils Percent Auto 0.4 % (0-4); Hematocrit 42.8 % (37.0-47.0); Hemoglobin 14.4 g/dl (12.0-16.0); Imm Gran Abs Auto 0.02 X10*3/uL (0.00-0.03); Imm Gran Pct Auto 0.2 % (0.0-0.4); Lymphocytes Percent Auto 36.1 % (20-40); Mean Corpuscular HGB Conc 33.6 g/dl (31.0-35.0); Mean Corpuscular Hemoglobin 31.6 pg (27.0-33.0); Mean Corpuscular Volume 93.9 fL (80.0-98.0); Monocytes Absolute Auto 0.5 X10*3/uL (0.1-1.2); Monocytes Percent Auto 6.1 % (2-11); Neutrophils Absolute Auto 4.7 x10*3/uL (2.0-8.3); Neutrophils Percent Auto 56.6 % (45-73); Platelet Count 224 X10*3/uL (160-400); Red Blood Count 4.56 X10*6/uL (4.20-5.50); Red Cell Distribution Width 12.4 % (11.0-16.0); White Blood Count 8.3 X10*3/uL (4.8-10.8)
[2024-07-28 15:01] LABS: Estimated Average Glucose 97 mg/dL
[2024-07-28 15:14] LABS: Alanine Aminotransferase 17 U/L (0-31); Albumin Level 4.3 g/dL (3.5-5.0); Alkaline Phosphatase 75 U/L (39-117); Anion Gap 12 (12-20); Bilirubin Total 0.3 mg/dL (0.0-1.0); Blood Urea Nitrogen 10 mg/dL (9-16); Calcium 9.9 mg/dL (8.4-10.2); Carbon Dioxide 29 mmol/L (22-29); Chloride 104 mmol/L (96-108); Estimated Glomerular Filt Rate > 60; Glucose Random 96 mg/dL (60-115); Potassium 3.9 mmol/L (3.3-5.1); Sodium 141 mmol/L (135-145); Total Protein 7.6 g/dL (6.5-8.0)
[2024-07-28 15:22] LABS: TSH reflex Free T4 1.15 uIU/mL (0.32-4.0)
[2024-07-28 20:47] LABS: Aspartate Amino Transferase 31 U/L (5-31)
== END 2024-07-28 11:25 | disposition home or self-care (01) ==
LOC: HO.WFDLDS 11:24
PROVIDERS: Visit Provider Internal Medicine
DX: D72.829 Elevated white blood cell count, unspecified (principal); R11.2 Nausea with vomiting, unspecified; K59.09 Other constipation; R56.9 Unspecified convulsions; Z13.1 Encounter for screening for diabetes mellitus
CPT/HCPCS: 80053; 83036; 84443; 85025; 96127; 99212

== ENCOUNTER 2024-08-19 10:29 | Outpatient (AMB) | payer MEDICARE, MEDICAID, SELFPAY ==
[2024-08-19 10:47] VITALS: BP 102/82; PULSE 77; RESP 12; O2SAT 97; BMI 21.9
--- NOTE | 2024-08-19 10:47 | MHC.PC.OV ---
Vital Signs 08/19/24 10:47 Height 5 ft 1 in Weight 116 lb BMI 21.9 BP 102/82 Blood Pressure Location Rt brachial Position Sitting Respiration 12 Pulse 77 Pulse Source Pulse Oximeter Pulse Oximetry (%) 97 Oxygen Delivery Method Room Air Intake Visit Reasons: HDF from [facility] on 08/13 Intake Note: Hospital follow up. Requesting medication to help sleep. Refill on valacylovir. 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 Allergies Penicillins [PENICILLINS] Allergy (Intermediate, Verified 08/19/24 10:47) HIVES Sulfa (Sulfonamide Antibiotics) Allergy (Intermediate, Verified 08/19/24 10:47) itching, redness and itching tetracycline [TETRACYCLINE] Allergy (Intermediate, Verified 08/19/24 10:47) HIVES Tobacco use date assessed: 08/19/24 Dental Screening Dental Screen Date: 07/28/24 HPI HPI Comments History of Present Illness Details 54 year old with past medical history chronic abdominal pain, gastritis/PUD, ?barretts, h/o ETOH abuse, current tobacco use presenting for hospital follow up Hospitalized from 08/12-08/13/2024 at [facility]. She presented with diffuse abdominal pain, N&V for 2 day prior to presentation, hematemesis. Consideration for gastric emptying study. Saw GI 08/11/24 Regis Cruz.EGD 09/25, colonoscopy 08/2020, negative gastric emptying study GI: Chronic constipation. Flares of abdominal pain, nausea, vomiting. Improvement since recently starting linzess. Saw Yung RUBIO in the past. Also saw Dr Griggs in past. Following currently [facility]-recently evaluated. She is currently on prn reglan. She was on PPI in the past. Unclear why not now. EGD/colon 08/2020: tubular adenomas removed, felt like external compression ?from fibroid US: calcification in aorta, no masses EGD 09/06/20 duodenitis gastritis hiatal hernia. ROS see HPI PHYSICAL EXAM: GENERAL: Alert and oriented x 3. NAD EYES: EOMI. Anicteric. HENT: Moist mucous membranes. No scleral icterus. No cervical lymphadenopathy. LUNGS: Clear to auscultation bilaterally. CARDIOVASCULAR: Regular rate and rhythm. No murmur. No JVD. ABDOMEN: Soft, non-tender +bs EXTREMITIES: No edema. Non-tender. SKIN: No rashes or lesions. Warm. NEUROLOGIC: No focal neurological deficits. CN II-XII grossly intact PSYCHIATRIC: Cooperative. Appropriate mood and affect [facility] Medical History History of COVID-19 Cannabinoid hyperemesis syndrome Shoulder pain, right Smoker unmotivated to quit Generalized anxiety disorder Osteoarthritis of right hip Uterine leiomyoma Dyslipidemia Esophagitis Vasomotor symptoms due to menopause Elevated vitamin B12 level History of bulimia Arthritis Seizures History of alcohol abuse History of eating disorder Surgical History History of hip replacement, total H/O colonoscopy History of esophagogastroduodenoscopy (EGD) Hx of myomectomy Family History Father Lung cancer Substance use disorder Mental health disorder Mother Stomach cancer Liver cancer Substance use disorder Mental health disorder Maternal Aunt Breast cancer Mental health disorder Paternal Aunt Breast cancer Substance use disorder Mental health disorder Maternal Uncle Brain cancer Substance use disorder Maternal Grandfather Substance use disorder Mental health disorder Social History Household Members Other:: sister Housing: House Do you presently have visiting nurse or other home services: No Alcohol intake: former Patient Tobacco Use Status: Current everyday Tobacco user Tobacco use type: Cigarette Cigarette Packs Per Day: 2 Cigarettes Per Day: 40 Years Smoked: 39 e-Cigarette/Vaping Use: Former Use Substance Use Type: Marijuana service: No Current occupational status: employed Current occupation: [id number] Sexual orientation: Straight/Heterosexual Gender identity: Female Cognitive needs: No Hearing needs: No Vision needs: Yes Female Reproductive History Menstrual Age of Menarche: 11 Questionnaire Thrive Questionnaire Date Thrive assessed: 07/28/24 I am a: Patient What is your living situation today?: I have a steady place to live Within the past 12 months, did the food you bought not last and you didn't have the money to get more?: Sometimes True Within the past 12 months, did you worry whether your food would run out before you got money to buy more?: Sometimes True Do you have trouble paying for medicines?: Yes Do you have trouble getting transportation to medical appointments?: No Do you have trouble paying your heating and electricity bill?: Yes Do you have trouble taking care of your child, family member or friend?: No Do you have trouble with day-to-day activities such as bathing, preparing meals, shopping, managing finances, etc.?: No Are you currently unemployed and looking for a job?: No Are you interested in more education?: No Please select the resources that you would like help with: Utilities Currently or been in a relationship where the following occur: I choose not to answer THRIVE Score: 3 HOLA-7 AMB Questionnaire HLOA-7 Date HOLA - 7 assessed: 11/06/22 Source: Developed by Drs. Prosper Lemos, Leeann Johnson, Emerson Mehta and colleagues, with an educational ratna from [employer]. Physical exam (Primary Care) Vital Signs: Last Vital Signs Pulse 77 08/19/24 10:47 Resp 12 08/19/24 10:47 BP 102/82 08/19/24 10:47 Pulse Ox 97 08/19/24 10:47 Oxygen Delivery Method Room Air 08/19/24 10:47 BMI result Body Mass Index 21.9 Tobacco/Smoking Status: Tobacco use Status Tobacco use date assessed 08/19/24 08/19/24 10:52 Patient Tobacco Use Status Current everyday Tobacco 08/19/24 10:56 Tobacco use type Cigarette 08/19/24 10:56 e-Cigarette/Vaping Use Former Use 08/19/24 10:56 Thrive Assessment: Date of Thrive Assessment Date Thrive assessed 07/28/24 08/19/24 10:52 Currently or been in a relationship where the following occur: I choose not to answer Coding Level of Care Code Est Pt Level 4 (05551) Complex EM visit Add On G2211 Diagnoses Hospital discharge follow-up Z09 Generalized abdominal pain R10.84 Abdominal location: generalized Assessment & Plan Assessment & Plan (1) Hospital discharge follow-up: Code(s): Z09 - Encounter for follow-up examination after completed treatment for conditions other than malignant neoplasm Category: Medical Plan: 54 year old female presenting for hospital follow up. Visit, labs reviewed. Medications reconciled. Symptoms are improving on linzess Repeat labs (2) Abdominal pain: Code(s): R10.9 - Unspecified abdominal pain Category: Medical Qualifiers: Abdominal location: generalized Qualified Code(s): R10.84 - Generalized abdominal pain Plan: as above Orders: Orders Comprehensive Met. Panel 08/19/24 D72.829 - Elevated white blood cell count, unspecified, R11.2 - Nausea with vomiting, unspecified Magnesium 08/19/24 D72.829 - Elevated white blood cell count, unspecified, R11.2 - Nausea with vomiting, unspecified Complete Blood Count Auto Diff 08/19/24 D72.829 - Elevated white blood cell count, unspecified, R11.2 - Nausea with vomiting, unspecified Pathologist Review - CBC 08/19/24 D72.829 - Elevated white blood cell count, unspecified, R11.2 - Nausea with vomiting, unspecified Medications: New trazodone 50 - 100 mg (1 - 2 x 50 mg) PO BEDTIME 180 tabs 3RF Changed From valacyclovir 500 mg PO BID 3 days 6 tabs 4RF To valacyclovir 500 mg PO DAILY 90 tabs 3RF 90 days
--- OUTSIDE RECORDS SUMMARY | 2024-08-19 12:16 | XMS_ITS | Clinical Summary ---
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 [employer] Name Role Phone Angelique Trent MD Primary Care Provider [phone]- [phone] Encounters Date Type Department Care Team Description 06/09/2024 11:29 AM EST - 06/09/2024 10:10 PM EST Emergency [facility] Emergency [address] [place] [address] Discharge Disposition: Home or Self [...] CBC auto differential (06/09/2024 12:04 PM EST) [facility] WBC 12.9(H) 4.8 - 10.8 K/mcL LAB HEMETOLOGY METHOD 06/09/2024 1:00 PM [facility] RBC 5.00(H) 3.80 - 4.80 M/mcL LAB HEMETOLOGY METHOD 06/09/2024 1:00 PM [facility] Hemoglobin 16.1(H) 11.5 - 16.0 g/dL LAB HEMETOLOGY METHOD 06/09/2024 1:00 PM [facility] Hematocrit 46.5 35.0 - 47.0 % LAB HEMETOLOGY METHOD 06/09/2024 1:00 PM [facility] MCV 92.4 79.0 - 98.0 FL LAB HEMETOLOGY METHOD 06/09/2024 1:00 PM [facility] MCH 32.0 27.0 - 32.0 pcg LAB HEMETOLOGY METHOD 06/09/2024 1:00 PM [facility] MCHC 34.6 32.0 - 37.0 g/dL LAB HEMETOLOGY METHOD 06/09/2024 1:00 PM [facility] RDW 12.7 11.0 - 15.0 % LAB HEMETOLOGY METHOD 06/09/2024 1:00 PM [facility] Platelets 281 130 - 400 K/mcL LAB HEMETOLOGY METHOD 06/09/2024 1:00 PM [facility] MPV 11.7(H) 7.0 - 11.0 FL LAB HEMETOLOGY METHOD 06/09/2024 1:00 PM [facility] NRBC 0.0 <1.0 % LAB HEMETOLOGY METHOD 06/09/2024 1:00 PM [facility] NRBC Absolute 0.00 <0.10 K/mcL LAB HEMETOLOGY METHOD 06/09/2024 1:00 PM [facility] Neutrophils Relative 68.6 % LAB HEMETOLOGY METHOD 06/09/2024 1:00 PM [facility] Comment:This is an appended report. These results have been appended to a previously preliminary verified report. Lymphocytes Relative 23.1 % LAB HEMETOLOGY METHOD 06/09/2024 1:00 PM [facility] Comment:This is an appended report. These results have been appended to a previously preliminary verified report. Monocytes Relative 7.5 % LAB HEMETOLOGY METHOD 06/09/2024 1:00 PM [facility] Comment:This is an appended report. These results have been appended to a previously preliminary verified report. Eosinophils Relative 0.2 % LAB HEMETOLOGY METHOD 06/09/2024 1:00 PM [facility] Comment:This is an appended report. These results have been appended to a previously preliminary verified report. Basophils Relative 0.3 % LAB HEMETOLOGY METHOD 06/09/2024 1:00 PM [facility] Comment:This is an appended report. These results have been appended to a previously preliminary verified report. Immature Granulocytes Relative 0.3 % LAB HEMETOLOGY METHOD 06/09/2024 1:00 PM [facility] Comment:This is an appended report. These results have been appended to a previously preliminary verified report. Neutrophils Absolute 8.85(H) 1.50 - 7.00 K/mcL LAB HEMETOLOGY METHOD 06/09/2024 1:00 PM [facility] Comment:This is an appended report. These results have been appended to a previously preliminary verified report. Lymphocytes Absolute 2.99 1.00 - 5.00 K/mcL LAB HEMETOLOGY METHOD 06/09/2024 1:00 PM EST [facility] Comment:This is an appended report. These results have been appended to a previously preliminary verified report. Monocytes Absolute 0.97 0.20 - 1.00 K/mcL LAB HEMETOLOGY METHOD 06/09/2024 1:00 PM EST [facility] Comment:This is an appended report. These results have been appended to a previously preliminary verified report. Eosinophils Absolute 0.03 0.00 - 0.50 K/mcL LAB HEMETOLOGY METHOD 06/09/2024 1:00 PM EST [facility] Comment:This is an appended report. These results have been appended to a previously preliminary verified report. Basophils Absolute 0.04 0.00 - 0.20 K/mcL LAB HEMETOLOGY METHOD 06/09/2024 1:00 PM EST [facility] Comment:This is an appended report. These results have been appended to a previously preliminary verified report. Immature Granulocytes Absolute 0.04(H) 0.00 - 0.03 K/mcL LAB HEMETOLOGY METHOD 06/09/2024 1:00 PM EST [facility] Comment:This is an appended report. These results have been appended to a previously preliminary verified report. Blood Venous blood specimen / Unknown Venipuncture / Unknown 06/09/2024 12:04 PM EST 06/09/2024 12:13 PM EST us Lionel Jacobson MD LAB BLOOD ORDERABLES Final Result [facility] [address] [place] [address], * Lipase (06/09/2024 12:04 PM EST) Lipase 40 13 - 75 unit/L LAB CHEMISTRY METHOD 06/09/2024 12:40 PM EST [facility] Blood Venous blood specimen / Unknown Venipuncture / Unknown 06/09/2024 12:04 PM EST 06/09/2024 12:13 PM EST Lionel Jacobson MD LAB BLOOD ORDERABLES Final Result [facility] [address] [place] [address], * (ABNORMAL) Comprehensive metabolic panel (06/09/2024 12:04 PM EST) Sodium 126(L) 133 - 145 mmol/L LAB CHEMISTRY METHOD 06/09/2024 12:40 PM [facility] Potassium 3.8 3.5 - 5.5 mmol/L LAB CHEMISTRY METHOD 06/09/2024 12:40 PM [facility] Chloride 95(L) 96 - 110 mmol/L LAB CHEMISTRY METHOD 06/09/2024 12:40 PM [facility] CO2 24 21 - 32 mmol/L LAB CHEMISTRY METHOD 06/09/2024 12:40 PM [facility] Anion Gap 7 3 - 11 LAB CHEMISTRY METHOD 06/09/2024 12:40 PM [facility] Glucose 108(H) 70 - 100 mg/dL LAB CHEMISTRY METHOD 06/09/2024 12:40 PM [facility] BUN 22 5 - 25 mg/dL LAB CHEMISTRY METHOD 06/09/2024 12:40 PM [facility] Creatinine 0.96 0.50 - 1.10 mg/dL LAB CHEMISTRY METHOD 06/09/2024 12:40 PM [facility] eGFR 70 >=60 mL/min/1. 73m2 LAB CHEMISTRY METHOD 06/09/2024 12:40 PM [facility] Comment:Calculation based on the??Chronic Kidney Disease Epidemiology Collaboration (CKD-EPI) equation refit??without adjustment for race. BUN/Creatinine Ratio 22.9 LAB CHEMISTRY METHOD 06/09/2024 12:40 PM [facility] Calcium 10.3 8.5 - 10.5 mg/dL LAB CHEMISTRY METHOD 06/09/2024 12:40 PM [facility] AST (SGOT) 25 10 - 42 unit/L LAB CHEMISTRY METHOD 06/09/2024 12:40 PM [facility] ALT (SGPT) 25 10 - 60 unit/L LAB CHEMISTRY METHOD 06/09/2024 12:40 PM [facility] Alkaline Phosphatase 78 42 - 121 unit/L LAB CHEMISTRY METHOD 06/09/2024 12:40 PM [facility] Total Protein 8.1(H) 6.0 - 8.0 g/dL LAB CHEMISTRY METHOD 06/09/2024 12:40 PM [facility] Albumin 4.6 3.2 - 5.0 g/dL LAB CHEMISTRY METHOD 06/09/2024 12:40 PM [facility] Total Bilirubin 0.8 0.0 - 1.4 mg/dL LAB CHEMISTRY METHOD 06/09/2024 12:40 PM [facility] Blood Venous blood specimen / Unknown Venipuncture / Unknown 06/09/2024 12:04 PM EST 06/09/2024 12:13 PM EST us Lionel Jacobson MD LAB BLOOD ORDERABLES Final Result [facility] [address] [place] [address], from Last 3 Months Insurance MEDICA[place] - [place] MEDICARE 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
== END 2024-08-19 11:16 | disposition home or self-care (01) ==
LOC: HO.HMCFM 10:30
PROVIDERS: PCP Internal Medicine; Visit Provider Internal Medicine
DX: Z09 Encounter for follow-up examination after completed treatment for conditions other than malignant neoplasm (principal); R10.84 Generalized abdominal pain

== ENCOUNTER 2024-08-19 11:38 | Outpatient (REF) | payer MEDICARE, MEDICAID, SELFPAY ==
[2024-08-19 14:21] LABS: MANUAL DIFF FLAG NO
[2024-08-19 14:24] LABS: Basophils Percent Auto 0.4 % (0-2); Eosinophils Absolute Auto 0.1 X10*3/uL (0.0-0.4); Eosinophils Percent Auto 0.6 % (0-4); Hematocrit 42.2 % (37.0-47.0); Hemoglobin 14.4 g/dl (12.0-16.0); Imm Gran Abs Auto 0.03 X10*3/uL (0.00-0.03); Imm Gran Pct Auto 0.3 % (0.0-0.4); Lymphocytes Percent Auto 30.9 % (20-40); Mean Corpuscular HGB Conc 34.1 g/dl (31.0-35.0); Mean Corpuscular Hemoglobin 31.6 pg (27.0-33.0); Mean Corpuscular Volume 92.7 fL (80.0-98.0); Monocytes Absolute Auto 0.6 X10*3/uL (0.1-1.2); Monocytes Percent Auto 5.8 % (2-11); Platelet Count 178 X10*3/uL (160-400); Red Blood Count 4.55 X10*6/uL (4.20-5.50); Red Cell Distribution Width 12.9 % (11.0-16.0); White Blood Count 9.6 X10*3/uL (4.8-10.8)
[2024-08-19 14:48] LABS: Alanine Aminotransferase 24 U/L (0-31); Albumin Level 4.2 g/dL (3.5-5.0); Alkaline Phosphatase 70 U/L (39-117); Anion Gap 13 (12-20); Aspartate Amino Transferase 32 U/L (5-31); Bilirubin Total 0.2 mg/dL (0.0-1.0); Blood Urea Nitrogen 11 mg/dL (9-16); Calcium 9.8 mg/dL (8.4-10.2); Carbon Dioxide 24 mmol/L (22-29); Chloride 103 mmol/L (96-108); Estimated Glomerular Filt Rate > 60; Glucose Random 98 mg/dL (60-115); Magnesium 1.9 mg/dL (1.6-2.6); Potassium 4.3 mmol/L (3.3-5.1); Sodium 136 mmol/L (135-145); Total Protein 7.7 g/dL (6.5-8.0)
== END 2024-08-19 11:39 | disposition home or self-care (01) ==
LOC: HO.WFDLDS 11:38
PROVIDERS: Visit Provider Internal Medicine
DX: D72.829 Elevated white blood cell count, unspecified (principal); R11.2 Nausea with vomiting, unspecified; R10.84 Generalized abdominal pain; Z79.899 Other long term (current) drug therapy
CPT/HCPCS: 80053; 83735; 85025; 99212

== ENCOUNTER → 2024-08-26 16:35 | Outpatient (BNVA) | payer MEDICARE, MEDICAID, SELFPAY | PROVIDERS: PCP Internal Medicine; Visit Provider Internal Medicine ==

== ENCOUNTER 2024-08-27 09:00 | Inpatient (IN) | payer MEDICARE, MEDICAID, SELFPAY ==
[2024-08-27] VITALS (8 sets, daily range): BP systolic 102–196; BP diastolic 62–130; PULSE 66–85; RESP 14–20; TEMP 36.6–37; O2SAT 96–99; BMI 20.2
--- NOTE | ~2024-08-27 | CT_ITS ---
EXAMINATION: CT ABDOMEN PELVIS WITH IV CONTRAST HISTORY: abd pain COMPARISON: Relation is made with an MRI of the abdomen and pelvis dated 11/07/2021. TECHNIQUE: CT scan of the abdomen and pelvis was performed following administration of 85 mL Omnipaque 350 using standard departmental protocol. Coronal and sagittal reformatted images were generated and reviewed. The patient received oral contrast material. This CT exam was performed with one or more of the following dose reduction techniques: automated exposure control, adjustment of the mA and/or kV according to patient size, use of iterative reconstruction technique. DLP: 353 mGy-cm FINDINGS: LOWER CHEST: The visualized lung bases are clear. There is no pleural effusion. CARDIOVASCULATURE: The heart is normal in size. There is no pericardial effusion. LIVER: The liver is normal in size and contour. No liver mass is identified. The hepatic and portal veins are patent. GALLBLADDER / BILE DUCTS: The gallbladder is unremarkable. There is no intra or extrahepatic biliary ductal dilatation. SPLEEN: The spleen is normal in size. No focal splenic lesion is identified. PANCREAS: The pancreas is unremarkable in appearance. ADRENAL GLANDS: Within normal limits. KIDNEYS/RETROPERITONEUM: No renal calculi are identified. There is no hydronephrosis. No renal masses are identified. LYMPH NODES: No abdominal or pelvic lymphadenopathy. VASCULATURE: The abdominal aorta is normal in caliber. MESENTERY/PERITONEUM: No free fluid. No masses. There is no free intraperitoneal gas. STOMACH: The stomach is collapsed, limiting evaluation. SMALL BOWEL: The small bowel is normal in caliber. COLON: There is wall thickening of the sigmoid colon may indicate colitis. There is no evidence of obstruction. APPENDIX: Normal. URINARY BLADDER/PELVIC ORGANS: The urinary bladder is collapsed, limiting evaluation. There is a rim calcified uterine mass measuring 4.0 cm, consistent with a fibroid. BONES / SOFT TISSUES: The patient is status post right total hip arthroplasty. CT/CT abdomen pelvis w IV con IMPRESSION: 1. Wall thickening of the sigmoid colon which may indicate colitis. No evidence of colonic obstruction. 2. 4.0 cm uterine fibroid. Electronically signed by: Prosper Ye MD 08/28/2024 03:43 PM EDT
[2024-08-27 09:24] LABS: MANUAL DIFF FLAG NO
[2024-08-27 09:29] LABS: Basophils Percent Auto 0.2 % (0-2); Hematocrit 42.7 % (37.0-47.0); Hemoglobin 14.8 g/dl (12.0-16.0); Imm Gran Abs Auto 0.04 X10*3/uL (0.00-0.03); Imm Gran Pct Auto 0.3 % (0.0-0.4); Lymphocytes Absolute Auto 1.5 X10*3/uL (1.2-4.9); Lymphocytes Percent Auto 11.9 % (20-40); Mean Corpuscular HGB Conc 34.7 g/dl (31.0-35.0); Mean Corpuscular Hemoglobin 31.3 pg (27.0-33.0); Mean Corpuscular Volume 90.3 fL (80.0-98.0); Mean Platelet Volume 11.3 fL (9.4-12.3); Monocytes Absolute Auto 0.7 X10*3/uL (0.1-1.2); Monocytes Percent Auto 5.2 % (2-11); Neutrophils Absolute Auto 10.2 x10*3/uL (2.0-8.3); Neutrophils Percent Auto 82.4 % (45-73); Platelet Count 336 X10*3/uL (160-400); Red Blood Count 4.73 X10*6/uL (4.20-5.50); Red Cell Distribution Width 12.2 % (11.0-16.0); White Blood Count 12.4 X10*3/uL (4.8-10.8)
[2024-08-27 09:39] LABS: Alanine Aminotransferase 21 U/L (0-31); Albumin Level 4.3 g/dL (3.5-5.0); Alkaline Phosphatase 78 U/L (39-117); Anion Gap 14 (12-20); Aspartate Amino Transferase 31 U/L (5-31); Bilirubin Direct 0.1 mg/dL (0.0-0.5); Bilirubin Total 0.3 mg/dL (0.0-1.0); Blood Urea Nitrogen 6 mg/dL (9-16); Calcium 9.7 mg/dL (8.4-10.2); Carbon Dioxide 21 mmol/L (22-29); Chloride 101 mmol/L (96-108); Creatinine Clr Calc Pharmacy 89.6; Estimated Glomerular Filt Rate > 60; Glucose Random 165 mg/dL (60-115); Lipase 18 U/L (8-78); Magnesium 1.7 mg/dL (1.6-2.6); Potassium 3.2 mmol/L (3.3-5.1); Sodium 133 mmol/L (135-145); Total Protein 7.4 g/dL (6.5-8.0)
--- NOTE | 2024-08-27 09:50 | ED_ITS ---
HPI - Abdominal Pain General Chief Complaint: Abdominal Pain Stated Complaint: Vomiting, L back pain, unable to use bathroom Time Seen by Provider: 08/27/24 09:37 Source: patient and old records reviewed Mode of arrival: ambulatory Limitations: no limitations History of Present Illness ED Provider: CAROL FLORES narrative: 54 yo female review of notes back to 2021 where she was seen here in past by Dr. Nuñez has had MRI of pelvis and abdomen - she has had symptoms of abdominal pain and back pain, seizures, gastritis, hiatal hernia, HLD, anxiety, bulimia, ETOH use disorder, esophagitis who presents with c/o chronic n/v and constipation with diffuse abdominal pain. She was just admitted to [place] Sunday to Sunday. They give me nausea meds and dilaudid then I am out the door. Her visit with her is very anxious and notes she cannot see a GI doctor until the summer through [facility], she is worried they are missing cancer or a bowel obstruction. The patient has had a CT scan that was normal in the last week. EGD 10/01/23 short segment hinds's esophagus, prior inconclusive emptying study. Recent visit felt to be cyclical vomiting/gastroparesis. The patient notes she vomits all day and can sometimes eat soup. She has not drank in many months and has not smoked THC in 6 weeks. History of residential eating disorders and prior laxative abuse MD elicited complaint: abdominal pain Pertinent past history: other Onset (ago): year(s) (but much worse over past few months) Pain Consistency: constant Location: diffuse and epigastric Severity: severe Quality: stabbing and aching Radiation: back Migration to: no migration Exacerbating factors: eating Relieving factors: nothing Context: history of similar episodes Associated symptoms: nausea and vomiting Related Data Home Medications ?Medication ?Instructions ?Recorded ?Confirmed folic acid 1 mg tablet 1 mg PO DAILY 08/24/20 11/06/22 multivitamin 1 tab PO DAILY 08/24/20 11/06/22 divalproex 500 mg tablet,extended 750 mg PO BID 10/12/22 11/06/22 release 24 hr gabapentin 600 mg tablet 1,800 mg PO BID 10/12/22 11/06/22 Previous Rx's ?Medication ?Instructions ?Recorded metoclopramide HCl 5 mg tablet 5 mg PO Q8H PRN nausea and 06/20/24 vomiting #20 tabs pantoprazole 40 mg tablet,delayed 40 mg PO DAILY #90 tabs 07/28/24 release trazodone 50 mg tablet 50 - 100 mg (1 - 2 x 50 mg) PO 08/19/24 BEDTIME #180 tabs valacyclovir 500 mg tablet 500 mg PO DAILY 90 days #90 tabs 08/19/24 amitriptyline 10 mg tablet 10 mg PO BEDTIME #90 tabs 08/26/24 prucalopride 1 mg tablet 2 mg (2 x 1 mg) PO DAILY #90 tabs 08/26/24 (Motegrity) Allergies Allergy/AdvReac Type Severity Reaction Status Date / Time Penicillins [PENICILLINS] Allergy Intermediate HIVES Verified 08/27/24 09:04 Sulfa (Sulfonamide Allergy Intermediate itching, Verified 08/27/24 09:04 Antibiotics) redness and itching tetracycline [TETRACYCLINE] Allergy Intermediate HIVES Verified 08/27/24 09:04 Review of Systems Review of Systems Constitutional : No Weight loss, No Fever, No Chills ENT/Mouth : No sore throat, No Rhinorrhea Eyes: No Swelling, No Redness Cardiovascular : No Chest Pain, No SOB, NoEdema Respiratory : No Cough, No Sputum, No Wheezing Gastrointestinal : Positive Nausea, Positive Vomiting, no Diarrhea, positive abdominal Pain, No Hematochezia, No Melena, pos constipation Genitourinary : No Dysuria, No Urinary Frequency, No Hematuria, No Urgency Musculoskeletal : No joint pain, No Myalgias, No Joint Swelling Skin : No Skin Lesions, No rash Neuro : No Weakness, No Numbness, No Dizziness, No Headache Psych : No Anxiety/Panic, No Depression All other systems reviewed and are negative. COUNTS INCLUDE 234 BEDS AT THE [facility] Past Medical History Attestation statement: The following information was validated with the patient. Source: old records reviewed Medical History History of COVID-19 Cannabinoid hyperemesis syndrome Shoulder pain, right Smoker unmotivated to quit Generalized anxiety disorder Osteoarthritis of right hip Uterine leiomyoma Dyslipidemia Esophagitis Vasomotor symptoms due to menopause Elevated vitamin B12 level History of bulimia Arthritis Seizures History of alcohol abuse History of eating disorder Surgical History History of hip replacement, total H/O colonoscopy History of esophagogastroduodenoscopy (EGD) Hx of myomectomy Family History Family History Father Lung cancer Substance use disorder Mental health disorder Mother Stomach cancer Liver cancer Substance use disorder Mental health disorder Maternal Aunt Breast cancer Mental health disorder Paternal Aunt Breast cancer Substance use disorder Mental health disorder Maternal Uncle Brain cancer Substance use disorder Maternal Grandfather Substance use disorder Mental health disorder Social History Social History Household Members Other:: sister Housing: House Do you presently have visiting nurse or other home services: No Alcohol intake: former Patient Tobacco Use Status: Current everyday Tobacco user Tobacco use type: Cigarette Cigarette Packs Per Day: 2 Cigarettes Per Day: 40 Years Smoked: 39 e-Cigarette/Vaping Use: Former Use Use of substances other than those prescribed or required for medical reasons: Yes Substance Use Type: Marijuana Substance Use Frequency: Daily Advance Directives: No Advance Directives Information Provided: Yes Do you have a plan to hurt others: No Plan service: No Current occupational status: employed Current occupation: [employer] Sexual orientation: Straight/Heterosexual Gender identity: Female Cognitive needs: No Hearing needs: No Vision needs: Yes Physical Exam ED Vital Signs: Vital Signs - 24 hr 08/27/24 09:03 08/27/24 11:49 08/27/24 14:31 Temperature 98 F 98.0 F 98.6 F Pulse Rate 80 82 85 Respiratory Rate 19 16 14 Blood Pressure 196/118 H 190/100 H 186/120 H Pulse Oximetry 98 97 99 Oxygen Delivery Method Room Air Room Air Room Air 08/27/24 15:12 08/27/24 16:21 Temperature Pulse Rate 78 Respiratory Rate 16 Blood Pressure 190/130 H 174/98 H Pulse Oximetry 96 Oxygen Delivery Method Room Air BMI result Body Mass Index 20.2 Appearance: Alert. Oriented X3. No acute distress. Eyes: Pupils equal, round and reactive to light. ENT: Pharynx dry MM Neck: Normal inspection. Neck supple. CVS: Normal heart rate and rhythm. Pulses normal. Respiratory: No respiratory distress. Breath sounds normal. Abdomen: Soft and diffuse ttp Skin: Skin warm and dry. pale skin color. Normal skin turgor. Extremities: No lower extremity edema. No calf ttp Neuro: Oriented X 3. No motor deficit. No sensory deficit. CN2-12 intact Course Course Course Narrative: unable to tolerate PO Reevaluation(s) Reevaluation #1: repeat IV labetalol states this happens everytime she has episode but is not on BP meds at home BP down to 180s/90s now She states she never takes BP medications at home Reevaluation #2: suspect EKG changes and trop due to HTN she denies chest pain dyspnea repeat trop ordered trop under delta will start on rectal aspirin BP 136/93 message sent to food handler and hospitalist Medical Decision Making Medical Decision Making MDM Narrative: 54 yo female with PMH of abdominal pain and back pain, seizures, gastritis, hiatal hernia, HLD, anxiety, bulimia, ETOH use disorder, esophagitis 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 She just had CT scan that was negative. At this time will obtain labs and outside records. IV medications ordered, replete K. Suspect gastritis, cyclical vomiting, gastroparesis Differential Diagnosis Differential Diagnoses: The differential diagnosis associated with the presentation includes cyclical vomiting, gastroparesis Admission/Observation Consideration of admission/observation: Escalation of care including admission/observation considered unable to tolerate PO will admit for further workup HTN IV labetalol 5mg ordered Consult Healthcare Provider Management of the patient was discussed with: Hospitalist (will admit) Lab Data [facility] Lab Attestation statement: I reviewed the patient's lab results. 08/27/24 09:14 08/27/24 09:14 Labs: Lab Results 08/27/24 08/27/24 Range/Units 09:14 16:32 WBC 12.4 H (4.8-10.8) X10*3/uL RBC 4.73 (4.20-5.50) X10*6/uL Hgb 14.8 (12.0-16.0) g/dl Hct 42.7 (37.0-47.0) % MCV 90.3 (80.0-98.0) fL MCH 31.3 (27.0-33.0) pg MCHC 34.7 (31.0-35.0) g/dl RDW 12.2 (11.0-16.0) % Plt Count 336 D (160-400) X10*3/uL MPV 11.3 (9.4-12.3) fL Immature Gran % (Auto) 0.3 (0.0-0.4) % Neut % (Auto) 82.4 H (45-73) % Lymph % (Auto) 11.9 L (20-40) % [place] % (Auto) 5.2 (2-11) % Eos % (Auto) 0.0 (0-4) % Baso % (Auto) 0.2 (0-2) % Lymph # (Auto) 1.5 (1.2-4.9) X10*3/uL [place] # (Auto) 0.7 (0.1-1.2) X10*3/uL Eos # (Auto) 0.0 (0.0-0.4) X10*3/uL Baso # (Auto) 0.0 (0.0-0.2) X10*3/uL Abs Immat Gran (auto) 0.04 H (0.00-0.03) X10*3/uL Absolute Neuts (auto) 10.2 H (2.0-8.3) x10*3/uL Absolute Nucleated RBC 0.000 (0.0-0.012) X10*3/uL Nucleated RBC % (auto) 0.0 (0.0-0.2) /100WBC Sodium 133 L (135-145) mmol/L Potassium 3.2 L D (3.3-5.1) mmol/L Chloride 101 (96-108) mmol/L Carbon Dioxide 21 L (22-29) mmol/L Anion Gap 14 (12-20) BUN 6 L (9-16) mg/dL Creatinine 0.56 (0.5-1.4) mg/dL Estim Creat Clear Calc 89.6 Estimated GFR > 60 Random Glucose 165 H (60-115) mg/dL Calcium 9.7 (8.4-10.2) mg/dL Magnesium 1.7 (1.6-2.6) mg/dL Total Bilirubin 0.3 (0.0-1.0) mg/dL Direct Bilirubin 0.1 (0.0-0.5) mg/dL AST 31 (5-31) U/L ALT 21 (0-31) U/L Alkaline Phosphatase 78 (39-117) U/L Troponin I High Sens 65.9 H* 95.0 H* (<3.5-17.0) ng/L Total Protein 7.4 (6.5-8.0) g/dL Albumin 4.3 (3.5-5.0) g/dL Lipase 18 (8-78) U/L Ethyl Alcohol < 10 mg/dL Influenza Type A (PCR) NEGATIVE (Negative) Influenza Type B (PCR) NEGATIVE (Negative) RSV RNA Qual (PCR) NEGATIVE (Negative) SARS-CoV-2 RNA (RT-PCR) NEGATIVE (Negative) Independent Interpretation I performed an independent interpretation of an: EKG Interpretation: Rate: 70 Rhythm: NSR [place]: normal Normal P waves. Normal XUAN. Normal QRS complex. ST T wave : no JERRY, inverted t waves I and aVL, V5-V6 qTC: 451 prior studies: no priors here The study has been interpreted contemporaneously by me. EKG #2 Rate: 68 Rhythm: NSR [place]: normal Normal P waves. Normal XUAN. Normal QRS complex. ST T wave : inverted t wave V5- V6, I and aVL, II, III, aVF qTC: 467 prior studies: no sig change no JERRY The study has been interpreted contemporaneously by me. . Independent Historian Clinical information obtained from an independent historian. History obtained from or confirmed by: Friend External Record Review External record reviewed: Inpatient record and Outpatient record Medications Administered Generic Name Dose Route Start Last Admin Trade Name Freq PRN Reason Stop Dose Admin Lactated Ringer's 1,000 mls @ 100 mls/hr 08/27/24 09:45 08/27/24 10:44 Lr IVCONT 100 mls/hr .Q10H CRYSTAL Administration Discontinued Medications Generic Name Dose Route Start Last Admin Trade Name Freq PRN Reason Stop Dose Admin Hydromorphone HCl 0.5 mg 08/27/24 14:28 08/27/24 14:41 Hydromorphone Hcl 0.5 Mg/0.5 Ml Syringe IVPUSH 08/27/24 14:29 0.5 mg ONCE ONE Administration Protocol Potassium Chloride 10 meq in 100 mls @ 100 mls/hr 08/27/24 09:45 08/27/24 11:47 Potassium Chloride/H20 IV 08/27/24 11:44 100 mls/hr Q1H CRYSTAL Administration Labetalol HCl 5 mg 08/27/24 15:13 08/27/24 15:19 Labetalol Hcl 100 Mg/20 Ml Vial IVPUSH 08/27/24 15:14 5 mg ONCE ONE Administration Labetalol HCl 5 mg 08/27/24 15:36 08/27/24 15:50 Labetalol Hcl 100 Mg/20 Ml Vial IVPUSH 08/27/24 15:37 5 mg ONCE ONE Administration Lorazepam 1 mg 08/27/24 10:04 08/27/24 10:41 Lorazepam 2 Mg/Ml Vial IVPUSH 08/27/24 10:05 1 mg STAT STA Administration Prochlorperazine Edisylate 10 mg 08/27/24 10:04 08/27/24 10:43 Prochlorperazine Edisylate 10 Mg/2 Ml Vial IVPUSH 08/27/24 10:05 10 mg ONCE ONE Administration Critical Care Time Critical Care Time Critical Care Time: Yes Total Critical Care Time: 60 Attestation: repeat IV labetalol, repeat labs, consult, admission, review of records I attest to this time spent taking care of the patient Discharge Plan Discharge Clinical Impression: Acute hypokalemia, Cyclical vomiting, Hypertension, uncontrolled, Acute electrocardiogram changes, Elevated troponin Patient Disposition: Admitted As Inpatient Print Language: Lao
[2024-08-27 10:04] LABS: Influenza A PCR NEGATIVE (Negative); Influenza B PCR NEGATIVE (Negative); Resp Syncy Virus RNA Qual PCR NEGATIVE (Negative); SARS COV2 PCR INHOUSE NEGATIVE (Negative)
[2024-08-27 10:14] LABS: Ethanol < 10 mg/dL
--- NOTE | 2024-08-27 10:24 | ECG_ITS ---
Test Reason : QTC CHECK Blood Pressure : */* mmHG Vent. Rate : 70 BPM Atrial Rate : 70 BPM P-R Int : 112 ms QRS Dur : 94 ms QT Int : 418 ms P-R-T Axes : 46 18 173 degrees QTcB Int : 451 ms Normal sinus rhythm Possible Left atrial enlargement ST & T wave abnormality, consider inferolateral ischemia Abnormal ECG No previous ECGs available Referred By: Anne Zapata Electronically Signed By: APRYL SCHREIBER MD
[2024-08-27] MEDS: LORazepam 2 MG/ML VIAL 1 MG IVPUSH (10:41)
[2024-08-27] MEDS: Prochlorperazine Edisylate 10 MG/2 ML VIAL IVPUSH (10:43)
[2024-08-27] MEDS: Lactated Ringers 1,000 ML 100 ML IVCONT ×2 (10:44→19:03)
[2024-08-27] MEDS: Potassium Chloride/H20 10 MEQ/100 ML PIGGYBACK 100 MEQ IV ×2 (10:45→11:47)
[2024-08-27] MEDS: HYDROmorphone HCl 0.5 MG/0.5 ML SYRINGE IVPUSH (14:41)
--- NOTE | 2024-08-27 14:48 | PC.NURSE ---
Patient noted to have some small episode of dry heaving. No vomit noted.
[2024-08-27] MEDS: Labetalol HCL 100 MG/20 ML VIAL IVPUSH ×2 (15:19→15:50)
--- NOTE | 2024-08-27 15:59 | ECG_ITS ---
Test Reason : repeat Blood Pressure : */* mmHG Vent. Rate : 68 BPM Atrial Rate : 68 BPM P-R Int : 128 ms QRS Dur : 84 ms QT Int : 440 ms P-R-T Axes : 48 5 236 degrees QTcB Int : 467 ms Normal sinus rhythm Possible Left atrial enlargement Cannot rule out Anterior infarct , age undetermined T wave abnormality, consider inferolateral ischemia Abnormal ECG When compared with ECG of 27-Aug-2024 10:51, No significant change was found Referred By: Anne Zapata Electronically Signed By: APRYL SCHREIBER MD
[2024-08-27 16:24] LABS: Troponin-I High Sensitivity 65.9 ng/L (<3.5-17.0)
--- NOTE | 2024-08-27 16:55 | P.HPHOSP_ITS ---
History of Present Illness Date of Service: 08/27/24 Chief Complaint: nausea/vomiting/abd pain 54yo F with seizures, esophagitis, gastritis, hiatal hernia, HLD, anxiety, bulimia, laxative abuse, AUD, and chronic N/V/abd pain. Recently admitted to [facility] 08/10-08/13/24 then 08/21-08/22/24 and then again 08/23- 08/26/24 [discharged yesterday] for nausea, vomiting, and abdominal pain attributed to chronic constipation and cannabinoid hyperemeis syndrome. [place] [facility] [place], she had a normal CT A/P on 08/22/24, a negative EGD in September 2023 and a negative GES 02/17/22 with plans for repeat as outpt. She comes in with ongoing nausea, vomiting and abdominal pain with inability to keep down anything by mouth other than a little soup. She quit drinking alcohol 16 months ago and has not used cannabis for the past 6 weeks. BP was 196/118 initially; currently 174/98. Labs notable for K 3.2, bicarbonate 21, hs Tn-I 65.9. EKG with lateral TWIs. She was given 1000 mL IV LR, 10 mg IV prochlorperazine, 1 mg IV lorazepam, and 0.5 mg IV hydromorphone; also 20 mEq IV KCl and 10 mg IV labetalol. Review of Systems 2 Review of Systems: Yes all other systems are reviewed and are negative [facility] Medical History History of COVID-19 Cannabinoid hyperemesis syndrome Shoulder pain, right Smoker unmotivated to quit Generalized anxiety disorder Osteoarthritis of right hip Uterine leiomyoma Dyslipidemia Esophagitis Vasomotor symptoms due to menopause Elevated vitamin B12 level History of bulimia Arthritis Seizures History of alcohol abuse History of eating disorder Family History Father Lung cancer Substance use disorder Mental health disorder Mother Stomach cancer Liver cancer Substance use disorder Mental health disorder Maternal Aunt Breast cancer Mental health disorder Paternal Aunt Breast cancer Substance use disorder Mental health disorder Maternal Uncle Brain cancer Substance use disorder Maternal Grandfather Substance use disorder Mental health disorder Surgical History History of hip replacement, total H/O colonoscopy History of esophagogastroduodenoscopy (EGD) Hx of myomectomy Social History Household Members Other:: sister Housing: House Do you presently have visiting nurse or other home services: No Alcohol intake: former Patient Tobacco Use Status: Current everyday Tobacco user Tobacco use type: Cigarette Cigarette Packs Per Day: 2 Cigarettes Per Day: 40 Years Smoked: 39 e-Cigarette/Vaping Use: Former Use Use of substances other than those prescribed or required for medical reasons: Yes Substance Use Type: Marijuana Substance Use Frequency: Daily Advance Directives: No Advance Directives Information Provided: Yes Do you have a plan to hurt others: No Plan service: No Current occupational status: employed Current occupation: [employer] Sexual orientation: Straight/Heterosexual Gender identity: Female Cognitive needs: No Hearing needs: No Vision needs: Yes Meds Allergies Allergy/AdvReac Type Severity Reaction Status Date / Time Penicillins [PENICILLINS] Allergy Intermediate HIVES Verified 08/27/24 09:04 Sulfa (Sulfonamide Allergy Intermediate itching, Verified 08/27/24 09:04 Antibiotics) redness and itching tetracycline [TETRACYCLINE] Allergy Intermediate HIVES Verified 08/27/24 09:04 Active Medications: Current Medications Lactated Ringer's (Lr) 1,000 mls @ 100 mls/hr IVCONT .Q10H CRYSTAL Last Admin: 08/27/24 10:44 Dose: 100 mls/hr Home Medications ?Medication ?Instructions ?Recorded ?Confirmed ?Last Taken ?Type folic acid 1 mg tablet 1 mg PO DAILY 08/24/20 11/06/22 Unknown History multivitamin 1 tab PO DAILY 08/24/20 11/06/22 Unknown History divalproex 500 mg tablet,extended 750 mg PO BID 10/12/22 11/06/22 Unknown History release 24 hr gabapentin 600 mg tablet 1,800 mg PO BID 10/12/22 11/06/22 Unknown History Physical Exam 2 Vital Signs and Narrative: Vital Signs: Last Vital Signs Temp 98.6 F 08/27/24 14:31 Pulse 78 08/27/24 15:12 Resp 16 08/27/24 15:12 BP 174/98 H 08/27/24 16:21 Pulse Ox 96 08/27/24 15:12 O2 Del Method Room Air 08/27/24 15:12 BMI result Body Mass Index 20.2 Gen: in no acute distress HEENT: sclera anicteric, moist mucus membranes Neck: supple Lungs: clear to auscultation bilaterally Heart: regular rate and rhythm, no murmurs Abd: soft, diffuse tenderness without rebound or guarding, non-distended Ext: no edema Skin: warm/well-perfused Neuro: alert and oriented x3, no focal findings Psych: appropriate affect Results Labs 08/27/24 09:14 08/27/24 09:14 Labs: Laboratory Results - last 24 hr 08/27/24 09:14 MCV 90.3 MCH 31.3 MCHC 34.7 RDW 12.2 Plt Count 336 D MPV 11.3 Immature Gran % (Auto) 0.3 Neut % (Auto) 82.4 H Lymph % (Auto) 11.9 L [place] % (Auto) 5.2 Eos % (Auto) 0.0 Baso % (Auto) 0.2 Lymph # (Auto) 1.5 [place] # (Auto) 0.7 Eos # (Auto) 0.0 Baso # (Auto) 0.0 Abs Immat Gran (auto) 0.04 H Absolute Neuts (auto) 10.2 H Absolute Nucleated RBC 0.000 Nucleated RBC % (auto) 0.0 Anion Gap 14 Estim Creat Clear Calc 89.6 Estimated GFR > 60 Random Glucose 165 H Calcium 9.7 Magnesium 1.7 Total Bilirubin 0.3 Direct Bilirubin 0.1 AST 31 ALT 21 Alkaline Phosphatase 78 Total Protein 7.4 Albumin 4.3 Lipase 18 Ethyl Alcohol < 10 Influenza Type A (PCR) NEGATIVE Influenza Type B (PCR) NEGATIVE RSV RNA Qual (PCR) NEGATIVE SARS-CoV-2 RNA (RT-PCR) NEGATIVE Assessment and Plan (1) Cyclical vomiting: Status: Acute Plan 54yo F with seizures, esophagitis, gastritis, hiatal hernia, HLD, anxiety, bulimia, laxative abuse, AUD, and chronic N/V/abd pain for which she has had 3 recent admissions to [facility] and was discharged yesterday; coming in with similar presentation; negative workup in past and symptoms attributed to cannabis hyperemesis + chronic constipation cannabinoid hyperemesis syndrome/cyclic vomiting/chronic abd pain/chronic constipation - admit to M/S on observation status, give IV fluids, clear liquid diet, ondansetron/metoclopramide, GI consult - continue amitriptyline, omprazole - prucalopride nonformulary; pt will have to have it brought in from home troponin elevation - suspect due to uncontrolled HTN; repeat level was 95 which is <50% but will repeat in AM HTN urgency - resolved; start amlodipine hypoK - replete; recheck level in AM seizure disorder - gabapentin + divalpreox mood disorder - divalproex + trazodone VTE ppx - enoxaparin dispo - eventual home code status - full Quality Stroke Does the patient have a stroke diagnosis?: No VTE Prior VTE?: No VTE Risk Level:: Medical - moderate - high VTE Device Contraindication: N/A - Device Ordered VTE Drug Contraindication: N/A - Med Ordered
[2024-08-27] MEDS: Aspirin 81 MG TAB.CHEW 162 MG PO (17:00)
[2024-08-27] MEDS: amLODIPine Besylate 5 MG TABLET PO (17:59)
[2024-08-27] MEDS: Enoxaparin Sodium 40 MG/0.4 ML SYRINGE SUBCUT (19:03)
--- NOTE | 2024-08-27 19:36 | PHA.MEDREC ---
Addendum entered by Jimbo Hines RP 08/27/24 20:09: MED REC CHECKED BY [facility] Original Note: Pharmacy Consult ? Medication Reconciliation Pharmacy has completed the medication reconciliation. Spoke with patient to confirm. She takes pantoprazole prn. She is no longer taking senna, linzess, vitamin B1 and 6, and multivitamin. She did not start amitriptyline or motegrity.
[2024-08-27] MEDS: traZODone HCL 50 MG TABLET PO (21:09)
--- NOTE | 2024-08-27 23:45 | PC.NURSE ---
pt not at bedside and not in the bathroom. belongings at bedside still.
[2024-08-28] VITALS (13 sets, daily range): BP systolic 99–146; BP diastolic 69–88; PULSE 64–79; RESP 10–20; TEMP 36.2–36.9; O2SAT 94–100; BMI 19.4
--- NOTE | 2024-08-28 00:02 | PC.NURSE ---
pt under the covers currled in a small ball. pt skin moist, gown soaked, pt denies chest pain, pt placed on monitor and blood sugar being checked at this time. pt has LR infusing at 100cc/hr.
--- NOTE | 2024-08-28 02:15 | PC.NURSE ---
Hospitalist Thor made aware of pt unable to sleep, restless, soaks her gown every 2 hours and pt states this is normal for her. pain to abd 6/10
[2024-08-28] MEDS: HYDROmorphone HCl 0.5 MG/0.5 ML SYRINGE IVPUSH (03:08)
[2024-08-28] MEDS: Dextrose 5 % and 0.45 % NaCl 1,000 ML 100 ML IVCONT ×3 (03:15→22:59)
[2024-08-28 04:22] LABS: Glucose, Whole Blood 98 mg/dL (60-115)
[2024-08-28 05:17] LABS: Hemoglobin 13.6 g/dl (12.0-16.0); Mean Corpuscular HGB Conc 35.8 g/dl (31.0-35.0); Mean Corpuscular Hemoglobin 31.9 pg (27.0-33.0); Mean Corpuscular Volume 89.2 fL (80.0-98.0); Mean Platelet Volume 11.1 fL (9.4-12.3); Platelet Count 337 X10*3/uL (160-400); Red Blood Count 4.26 X10*6/uL (4.20-5.50); Red Cell Distribution Width 12.2 % (11.0-16.0); White Blood Count 7.2 X10*3/uL (4.8-10.8)
[2024-08-28 05:29] LABS: Anion Gap 11 (12-20); Blood Urea Nitrogen 3 mg/dL (9-16); Calcium 9.4 mg/dL (8.4-10.2); Carbon Dioxide 26 mmol/L (22-29); Chloride 101 mmol/L (96-108); Creatinine Clr Calc Pharmacy 98.3; Estimated Glomerular Filt Rate > 60; Glucose Random 125 mg/dL (60-115); Potassium 3.4 mmol/L (3.3-5.1); Sodium 135 mmol/L (135-145)
[2024-08-28 05:36] LABS: Troponin-I High Sensitivity 64.8 ng/L (<3.5-17.0)
--- NOTE | 2024-08-28 05:44 | PC.NURSE ---
provider made aware of critical lab 64.8 which is a improvment 64.8
[2024-08-28] MEDS: Omeprazole 20 MG CAPSULE.DR PO ×2 (06:21→16:22)
--- NOTE | 2024-08-28 07:00 | CA_ITS ---
Transthoracic Echocardiogram Patient (Last, First, Middle): Shaunna Kinney L Gender: Female Date of : 1970 Age: 54 Procedure Date: 08/28/2024 Procedure Type: Transthoracic Echocardiogram Location: ER Height: 157.48 cm Weight: 49.9 kg BSA: 1.48 m2 Heart Rate: bpm BP: 140 / 87 mmHg [employer] Professor: TO Referring MD: Galen Díaz MD Director Television: Seymour Hurt MD Symptoms: trop elev Study Quality: Fair ECG Rhythm: Sinus Conclusions: - 1. Mildly reduced LV ejection fraction 45-50%, study could not be completed as patient could not tolerated 2. No significant abnormality of cardiac valvular Dopplers 3. No gross pericardial effusion Findings Procedure Information The study quality is limited by the patients inability to tolerate the test and an uncooperative patient. Left Ventricle Normal left ventricular cavity size. There is normal left ventricular wall thickness. The left ventricular systolic function is mildly decreased. The visually estimated ejection fraction is between 45-50%. Regional wall motion abnormalities can not be excluded due to suboptimal endocardial definition. Spectral Doppler is indicative of an impaired relaxation filling pattern. Right Ventricle Normal right ventricular cavity size. Atria The left atrium is normal in size. Interatrial shunt cannot be excluded. The right atrium is normal in size. Aortic Valve There is mild calcification of the aortic valve. There is no aortic valve stenosis. There is no aortic valve regurgitation. Mitral Valve There is mild anterior and posterior mitral leaflet thickening. There is mild posterior mitral annular calcification. There is mild mitral annular calcification. There is trace mitral valve regurgitation. There is no mitral valve stenosis. Pulmonic Valve The pulmonic valve was not well visualized. Tricuspid Valve Likely normal tricuspid valve structure and function. Tricuspid regurgitation envelope is inadequate for calculation of right ventricular systolic pressure. Normal right atrial pressure. Great Vessels The pulmonary artery was not well visualized. Venous The inferior vena cava is normal in size and collapses greater than 50% with inspiration. Pericardium/Pleural There is no evidence of pericardial effusion. Prior Study Comparison No prior study available for comparison. Measurements 2D Linear Measurements IVSd: 0.77 0.6-0.9/0.6-1.0 cm LVIDd: 4.83 3.9-5.3/4.2-5.9 cm LVIDd Index: 3.26 2.4-3.2/2.2-3.1 cm/m2 LVIDs: 3.62 2.0-3.6 cm LVPWd: 0.86 0.7-1.1 cm LA Diam: 3.30 2.7-3.8/3.0-4.0 cm LAIDs Index: 2.23 1.5-2.3 cm/m2 LV Mass: 163.31 67-162/88-224 g LV Mass Index: 110.35 43-95/49-115 g/m2 LVOT Diam: 2.00 3.0+(-)1.3 cm 2D Systolic Function EF 4C: 44.10 >55% EF 2C: 45.90 >55% EF BiP: 46.30 >55% Mitral Valve MV Pk E: 0.60 MV PK A: 0.38 MV Decel Time: 216.00 E/A: 1.60 E'Lateral: 7.83 E'Medial: 4.90 E/E' Med: 12.30 E/E' Lat: 7.70 PHT: 63.00 MVA PHT: 3.49 Decel [place]: 2.79 Aortic Valve AoV Pk Yariel: 2.26 AoV Mn Yariel: 1.43 AoV VTI: 0.48 AoV Pk Grad: 20.00 Aov Mn Grad: 10.00 GILMER Cont.VTI: 1.50 LVOT LVOT Pk Yariel: 1.15 LVOT Mn Yariel: 0.81 LVOT VTI: 0.23 LVOT Pk Grad: 5.00 LVOT Mn Grad: 3.00 LVOT Diam: 2.00 LVOT Area: 3.14 Diastolic Function MV Pk E: 0.60 MV Pk A: 0.38 E/A: 1.60 E'Medial: 4.90 E/E' Med: 12.30 E' Laterial: 7.83 E/E' Lat: 7.70 Right Ventricle TAPSE (mm): 23.80 Tricuspid Valve RA Press: 3.00 Great Vessels Aorta Sinus of Valsalva: 3.46 2.0-3.5 cm Ao Asc: 3.50 2.1-3.4 cm Updated in Other Vendor System with Status of Final Seymour Hurt MD electronically signed on 08/28/2024 3:34:01 PM with status of Final
[2024-08-28] MEDS: valACYclovir HCL 500 MG TABLET PO (09:00)
[2024-08-28] MEDS: amLODIPine Besylate 5 MG TABLET PO (09:00)
[2024-08-28] MEDS: Folic Acid 1 MG TABLET PO (09:00)
--- NOTE | 2024-08-28 09:30 | PM.GICN ---
History of Present Illness Data of Consult Service Date: 08/28/24 Requesting physician: Galen Díaz Primary Care Provider: Leah Bocanegra MD HPI Reason for consult: abdominal pain 54yo F with seizures, esophagitis, gastritis, hiatal hernia, HLD, anxiety, bulimia, laxative abuse, AUD, and chronic N/V/abd pain who I am seeing for assessment for nausea, abdominal pain. She has noted bouts of severe epigastric pain going into the back, sharp at times 10/10 severity. it can be worse with food, and associated with nausea with some streaks of blood in vomitus. She stopped cannabis 3 weeks ago. She has had these attacks for 10 yrs but gotten worse more recent years. She has issues with chronic constipation, denies melena or rectal bleeding. She does admits to attacks of feeling shivers and havign to put the heating right up with palpitations and flashes. She had admission to [facility] 08/10-08/13/24 then 08/21-08/22/24 and then again 08/23-08/26/[address] A/P on 08/22/24, a negative EGD in September 2023 and a negative GES 02/17/22. Last EGD here at [facility] [place], [place]: 09/06/21 Impression/Findings: duodenitis gastritis hiatal hernia esophagitis Review of Systems Review of Systems: Constitutional : No Weight loss, No Fever, + Chills ENT/Mouth : No sore throat, No Rhinorrhea Eyes: No Swelling, No Redness Cardiovascular : No Chest Pain, No SOB, No Edema Respiratory : No Cough, No Sputum, No Wheezing Gastrointestinal : see HPI Genitourinary : NO Dysuria, No Urinary Frequency, No Hematuria, No Urgency Musculoskeletal : - joint pain, No Myalgias, No Joint Swelling Skin : No Skin Lesions, No rash Neuro : No Weakness, No Numbness, No Dizziness, No Headache Psych : No Anxiety/Panic, No Depression Heme/Lymph: No Bruising, No Lymphadenopathy Endocrine : No Polyuria, No Polydipsia All other systems reviewed and are negative. [facility] Past Medical History Medical History History of COVID-19 Cannabinoid hyperemesis syndrome Shoulder pain, right Smoker unmotivated to quit Generalized anxiety disorder Osteoarthritis of right hip Uterine leiomyoma Dyslipidemia Esophagitis Vasomotor symptoms due to menopause Elevated vitamin B12 level History of bulimia Arthritis Seizures History of alcohol abuse History of eating disorder Family History Family History Father Lung cancer Substance use disorder Mental health disorder Mother Stomach cancer Liver cancer Substance use disorder Mental health disorder Maternal Aunt Breast cancer Mental health disorder Paternal Aunt Breast cancer Substance use disorder Mental health disorder Maternal Uncle Brain cancer Substance use disorder Maternal Grandfather Substance use disorder Mental health disorder Surgical History Surgical History History of hip replacement, total H/O colonoscopy History of esophagogastroduodenoscopy (EGD) Hx of myomectomy Social History Social History Household Members Other:: sister Housing: House Do you presently have visiting nurse or other home services: No Alcohol intake: former Patient Tobacco Use Status: Current everyday Tobacco user Tobacco use type: Cigarette Cigarette Packs Per Day: 2 Cigarettes Per Day: 40 Years Smoked: 39 e-Cigarette/Vaping Use: Former Use Substance Use Type: Marijuana service: No Current occupational status: employed Current occupation: [employer] Sexual orientation: Straight/Heterosexual Gender identity: Female Cognitive needs: No Hearing needs: No Vision needs: Yes Meds Allergies Allergy/AdvReac Type Severity Reaction Status Date / Time Penicillins [PENICILLINS] Allergy Intermediate HIVES Verified 08/27/24 09:04 Sulfa (Sulfonamide Allergy Intermediate itching, Verified 08/27/24 09:04 Antibiotics) redness and itching tetracycline [TETRACYCLINE] Allergy Intermediate HIVES Verified 08/27/24 09:04 Active Medications: Current Medications Acetaminophen (Acetaminophen 325 Mg Tablet) 650 mg PO Q6H PRN PRN Reason: Pain, Mild 1-3,fever,headache Amlodipine Besylate (Amlodipine Besylate 5 Mg Tablet) 5 mg PO DAILY [facility]; Protocol Last Admin: 08/28/24 09:00 Dose: 5 mg Calcium Carbonate (Calcium Carbonate 750 Mg Tab.Chew) 750 mg PO Q4H PRN PRN Reason: Heartburn Enoxaparin Sodium (Enoxaparin Sodium 40 Mg/0.4 Ml Syringe) 40 mg SUBCUT Q24H [facility] Last Admin: 08/27/24 19:03 Dose: 40 mg Folic Acid (Folic Acid 1 Mg Tablet) 1 mg PO DAILY [facility] Last Admin: 08/28/24 09:00 Dose: 1 mg Dextrose/Sodium Chloride (D51/2ns) 1,000 mls @ 100 mls/hr IVCONT .Q10H [facility] Last Admin: 08/28/24 03:15 Dose: 100 mls/hr Magnesium Hydroxide (Milk Of Magnesia 30 Ml Oral.Susp) 30 ml PO DAILY PRN PRN Reason: Constipation Melatonin (Melatonin 3 Mg Tablet) 6 mg PO BEDTIME PRN PRN Reason: Insomnia Metoclopramide HCl (Metoclopramide Hcl 10 Mg/2 Ml Vial) 5 mg IVPUSH Q4H PRN PRN Reason: N/V unrelieved by Hayder Omeprazole (Omeprazole 20 Mg Capsule.) 20 mg PO BID@0630,1630 [facility] Last Admin: 08/28/24 06:21 Dose: 20 mg Ondansetron HCl (Ondansetron Hcl 4 Mg/2 Ml Vial) 4 mg IVPUSH Q4H PRN PRN Reason: Nausea and Vomiting Sodium Chloride (0.9 % Sodium Chloride Flush 3 Ml Syringe) 3 ml IVFLUSH QSHIFT [facility] Last Admin: 08/28/24 09:03 Dose: Not Given Trazodone HCl (Trazodone Hcl 100 Mg Tablet) 100 mg PO BEDTIME [facility] Valacyclovir HCl (Valacyclovir Hcl 500 Mg Tablet) 500 mg PO DAILY [facility] Last Admin: 08/28/24 09:00 Dose: 500 mg Home Medications ?Medication ?Instructions ?Recorded ?Confirmed ?Last Taken ?Type pantoprazole 40 mg tablet,delayed 40 mg PO DAILY PRN Heartburn 08/27/24 08/27/24 Unknown History release trazodone 50 mg tablet 100 mg PO BEDTIME 08/27/24 08/27/24 Unknown History Physical Exam Vital Signs: Vital Signs: Last Vital Signs Temp 98.1 F 08/28/24 04:54 Pulse 64 08/28/24 09:01 Resp 16 08/28/24 09:01 BP 135/88 08/28/24 09:01 Pulse Ox 99 08/28/24 09:01 O2 Del Method Room Air 08/28/24 09:01 BMI result Body Mass Index 20.2 EXAM: GENERAL: The patient is thin VITAL SIGNS:see workflow HEENT: Nonicteric sclerae, PERRLA, EOMI. Oropharynx clear. Moist mucous membranes. Conjunctivae appear well perfused. No thyroid mass. CHEST: Chest wall is nontender. HEART: Regular rate and rhythm without murmurs. LUNGS: Clear to auscultation bilaterally. ABDOMEN: Soft, positive bowel sounds, tender epigastrium , no organomegaly.no flank tenderness SKIN: No rash, no excessive bruising, petechiae, or purpura. NEUROLOGIC: Cranial nerves II-XII intact without motor/sensory deficit. Psych: normal affect Results Labs 08/28/24 04:57 08/28/24 04:57 Labs: Short CBC 08/27/24 08/28/24 Range/Units 09:14 04:57 WBC 12.4 H 7.2 (4.8-10.8) X10*3/uL Hgb 14.8 13.6 (12.0-16.0) g/dl Hct 42.7 38.0 (37.0-47.0) % Plt Count 336 D 337 (160-400) X10*3/uL BMP 08/27/24 08/28/24 09:14 04:57 Sodium 133 L 135 Potassium 3.2 L D 3.4 Chloride 101 101 Carbon Dioxide 21 L 26 BUN 6 L 3 L Creatinine 0.56 0.51 Calcium 9.7 9.4 Liver Function 08/27/24 Range/Units 09:14 Total Bilirubin 0.3 (0.0-1.0) mg/dL Direct Bilirubin 0.1 (0.0-0.5) mg/dL AST 31 (5-31) U/L ALT 21 (0-31) U/L Alkaline Phosphatase 78 (39-117) U/L Albumin 4.3 (3.5-5.0) g/dL Assessment and Plan (1) Abdominal pain: Qualifiers: Abdominal location: generalized Qualified Code(s): R10.84 - Generalized abdominal pain Status: Acute Plan 1/ Acute on chronic upper abdominal pain with nausea and vomiting with extensive work up in past, tentative dx of cannabinoid hyperemesis syndrome but been off THC for 3 weeks now. Lipase and LFT nml. DDX: hormonal e.h phaeochromocytoma given palptns and ECG findings, vasculitis, cyclicial vomiting syndrome, porphyria, epigastric pain syndrome, gastroparesis. PLAN: 1/ Recommend CT with PO and IV contrast 2/ check CRP, ESR, CPK, aldolase, metanephrines, porphyria, HIAA screening 3/ cont with symptom mx with zofran, PPI, can add carafate Procedures Date of Service Date of Service: 08/28/24
--- NOTE | 2024-08-28 09:35 | PC.NURSE ---
Pt is alert/oriented. Initially frustrasted on first contact however pt grateful by this RN leaving room. Monitor at bedside silenced per pt request and comfort and ability to sleep. AM meds given. Plan to advance diet
--- NOTE | 2024-08-28 11:11 | MHC.CM.PN ---
CM met with Patient at bedside in the ED and addressed VELA with her (original was given to Patient and a copy will be placed on the chart). Patientl fatoumata in a house with her Sister and is functionally independent. Home/self care is Patient's goal and CM has initiated and will follow for dc planning. PCP is Dr.Sarah Brito and a Friend will transport to home at dc.
--- NOTE | 2024-08-28 11:17 | PC.NURSE ---
Report received from FRANK Dudley. Taken over care at this time.
--- NOTE | 2024-08-28 12:05 | HO.PM.IMPN ---
Subjective Subjective Date of Service: 08/28/24 Interval History: abd pain improved; no chest pain Review of Systems Review of Systems: Yes all other systems are reviewed and are negative Physical Exam Vital Signs: Vital Signs: Last Vital Signs Temp 97.5 F 08/28/24 11:51 Pulse 67 08/28/24 11:51 Resp 14 08/28/24 11:51 BP 125/85 08/28/24 11:51 Pulse Ox 96 08/28/24 11:51 O2 Del Method Room Air 08/28/24 11:51 BMI result Body Mass Index 20.2 Gen: in no acute distress HEENT: sclera anicteric, moist mucus membranes Neck: supple Lungs: clear to auscultation bilaterally Heart: regular rate and rhythm, no murmurs Abd: soft, mild generalized tenderness, non-distended Ext: no edema Skin: warm/well-perfused Neuro: alert and oriented x3, no focal findings Psych: appropriate affect Objective Data Active Medications Acetaminophen (Acetaminophen 325 Mg Tablet) 650 mg PO Q6H PRN PRN Reason: Pain, Mild 1-3,fever,headache Amlodipine Besylate (Amlodipine Besylate 5 Mg Tablet) 5 mg PO DAILY [facility]; Protocol Last Admin: 08/28/24 09:00 Dose: 5 mg Documented By: WILVER Calcium Carbonate (Calcium Carbonate 750 Mg Tab.Chew) 750 mg PO Q4H PRN PRN Reason: Heartburn Enoxaparin Sodium (Enoxaparin Sodium 40 Mg/0.4 Ml Syringe) 40 mg SUBCUT Q24H [facility] Last Admin: 08/27/24 19:03 Dose: 40 mg Documented By: YOBANI Folic Acid (Folic Acid 1 Mg Tablet) 1 mg PO DAILY [facility] Last Admin: 08/28/24 09:00 Dose: 1 mg Documented By: WILVER Dextrose/Sodium Chloride (D51/2ns) 1,000 mls @ 100 mls/hr IVCONT .Q10H [facility] Last Admin: 08/28/24 03:15 Dose: 100 mls/hr Documented By: JUDITH Magnesium Hydroxide (Milk Of Magnesia 30 Ml Oral.Susp) 30 ml PO DAILY PRN PRN Reason: Constipation Melatonin (Melatonin 3 Mg Tablet) 6 mg PO BEDTIME PRN PRN Reason: Insomnia Metoclopramide HCl (Metoclopramide Hcl 10 Mg/2 Ml Vial) 5 mg IVPUSH Q4H PRN PRN Reason: N/V unrelieved by Zofran Omeprazole (Omeprazole 20 Mg Capsule.) 20 mg PO BID@0630,1630 [facility] Last Admin: 08/28/24 06:21 Dose: 20 mg Documented By: JUDITH Ondansetron HCl (Ondansetron Hcl 4 Mg/2 Ml Vial) 4 mg IVPUSH Q4H PRN PRN Reason: Nausea and Vomiting Sodium Chloride (0.9 % Sodium Chloride Flush 3 Ml Syringe) 3 ml IVFLUSH QSHIFT [facility] Last Admin: 08/28/24 09:03 Dose: Not Given Documented By: WILVER Non-Admin Reason: IV Running Trazodone HCl (Trazodone Hcl 100 Mg Tablet) 100 mg PO BEDTIME [facility] Valacyclovir HCl (Valacyclovir Hcl 500 Mg Tablet) 500 mg PO DAILY [facility] Last Admin: 08/28/24 09:00 Dose: 500 mg Documented By: WILVER Labs 08/28/24 04:57 08/28/24 04:57 Labs: Laboratory Results - last 24 hr 08/28/24 08/28/24 00:09 04:57 MCV 89.2 MCH 31.9 MCHC 35.8 H RDW 12.2 Plt Count 337 MPV 11.1 Absolute Nucleated RBC 0.000 Nucleated RBC % (auto) 0.0 Anion Gap 11 L Estim Creat Clear Calc 98.3 Estimated GFR > 60 POC Glucose 98 Random Glucose 125 H Calcium 9.4 Assessment and Plan (1) Elevated troponin: Status: Acute Assessment and Plan: 54yo F with seizures, esophagitis, gastritis, hiatal hernia, HLD, anxiety, bulimia, laxative abuse, AUD, and chronic N/V/abd pain for which she has had 3 recent admissions to [facility] and was discharged yesterday; coming in with similar presentation; negative workup in past and symptoms attributed to cannabis hyperemesis + chronic constipation cannabinoid hyperemesis syndrome/cyclic vomiting/chronic abd pain/chronic constipation - continue IV fluids, advance diet, ondansetron/metoclopramide, GI consulted: DDX: hormonal e.h phaeochromocytoma given palptns and ECG findings, vasculitis, cyclicial vomiting syndrome, porphyria, epigastric pain syndrome, gastroparesis. PLAN: 1/ Recommend CT with PO and IV contrast 2/ check CRP, ESR, CPK, aldolase, metanephrines, porphyria, HIAA screening 3/ cont with symptom mx with zofran, PPI, can add carafate - continue omeprazole + add sucralfate - prucalopride nonformulary; pt will have to have it brought in from home troponin elevation - suspect due to uncontrolled HTN; TTE pending HTN urgency - resolved; started amlodipine hypoK - repleted seizure disorder - gabapentin + divalpreox for past 2 yr per pt mood disorder - off divalpreox for past 2 yr per pt; continue trazodone VTE ppx - enoxaparin dispo - eventual home In my clinical judgment, the patient requires continued inpatient hospitalization for the following reasons: cardiac + abdominal workup Total time managing care of this patient today: 35 minutes. Quality Stroke Does the patient have a stroke diagnosis?: No VTE Prior VTE?: No VTE Risk Level:: Medical - moderate - high VTE Device Contraindication: N/A - Device Ordered VTE Drug Contraindication: N/A - Med Ordered
--- NOTE | 2024-08-28 12:11 | PC.NURSE ---
Pt. refusing to provide clean urine sample and if she provides a sample she applies toilet paper in the urine cup or states I can not urinate or provide sample.
[2024-08-28 12:32] LABS: Amphetamine Screen Urine Not Detected (Not Detect); Barbiturates, Urine Not Detected (Not Detect); Benzodiazepines Screen Urine Not Detected (Not Detect); Buprenorphine Scr Not Detected (Not Detect); Cannabinoid Screen Urine POSITIVE (Not Detect); Cocaine Screen Urine Not Detected (Not Detect); Fentanyl, urine Not Detected (Not Detect); Methadone Screen, Urine Not Detected (Not Detect); Opiate Screen Urine Not Detected (Not Detect); Oxycodone Screen Urine Not Detected (Not Detect); Phencyclidine Screen Urine Not Detected (Not Detect)
[2024-08-28 13:07] LABS: Erythrocyte Sedimentation Rate 13 MM/HR (0-20)
[2024-08-28] MEDS: Sucralfate 1 GM TABLET PO ×2 (13:35→16:22)
[2024-08-28] MEDS: iohexoL 350 MG/ML 100 ML INFUS..BTL IV (15:31)
[2024-08-28] MEDS: Diatrizoate Meglumine, Sodium 30 ML SOLUTION PO (15:32)
[2024-08-28] MEDS: Nicotine 21 MG PATCH.TD24 TRANSDERMA (16:22)
[2024-08-28] MEDS: 0.9 % Sodium Chloride Flush 3 ML SYRINGE IVFLUSH (16:25)
--- NOTE | 2024-08-28 17:05 | PC.NURSE ---
Pt has 24hr urine ordered, 1st void at 1700, pt was educated on test and states verbal understanding of instructions.
[2024-08-28] MEDS: Enoxaparin Sodium 40 MG/0.4 ML SYRINGE SUBCUT (18:24)
[2024-08-28] MEDS: Melatonin 3 MG TABLET 6 MG PO (21:17)
[2024-08-28] MEDS: traZODone HCL 100 MG TABLET PO (21:18)
[2024-08-29 03:34] VITALS: BP 162/85; PULSE 79; RESP 18; TEMP 36.3; O2SAT 99
[2024-08-29] MEDS: Omeprazole 20 MG CAPSULE.DR PO (06:33)
--- NOTE | 2024-08-29 06:43 | PC.NURSE ---
[id number] hour urine collection maintained, bottle #2 obtained from lab, lory sellers
[2024-08-29 07:39] VITALS: BP 153/81; PULSE 72; RESP 18; TEMP 36; O2SAT 100
[2024-08-29] MEDS: Folic Acid 1 MG TABLET PO (08:09)
[2024-08-29] MEDS: Nicotine 21 MG PATCH.TD24 TRANSDERMA (08:09)
[2024-08-29] MEDS: amLODIPine Besylate 5 MG TABLET PO (08:09)
[2024-08-29] MEDS: Sucralfate 1 GM TABLET PO (08:09)
[2024-08-29] MEDS: 0.9 % Sodium Chloride Flush 3 ML SYRINGE IVFLUSH (08:10)
[2024-08-29 11:38] VITALS: BP 113/59; PULSE 71; RESP 16; TEMP 36; O2SAT 98
[2024-08-29] MEDS: valACYclovir HCL 500 MG TABLET PO (12:09)
--- NOTE | 2024-08-29 12:20 | MHC.CM.PN ---
Per MD rounds patient will likely dc this evening, home self care. IMM delivered. Patient reports she will arrange transportation.
--- NOTE | 2024-08-29 12:34 | PM.DS ---
DS: Providers Provider Date of Service: 08/29/24 Date of admission: 08/27/24 18:42 Date of discharge: 08/29/24 Primary care physician: Leah Bocanegra MD Consults: 08/27/24 16:51 Consult to Gastroenterology Routine Consulting Provider: Manav Nuñez Reason for consultation: abd pain 08/29/24 07:42 Consult to Cardiology Routine Consulting Provider: [facility] Reason for consultation: troponin indeterminate; reduced EF DS: Diagnosis Discharge Diagnosis (1) Elevated troponin: Status: Acute (2) Hypertension, uncontrolled: Status: Acute (3) Cyclical vomiting: Status: Acute (4) Abdominal pain: Status: Acute DS: Summary Hospital Course Hospital Course: from my admission H+P, 08/27/24: 54yo F with seizures, esophagitis, gastritis, hiatal hernia, HLD, anxiety, bulimia, laxative abuse, AUD, and chronic N/V/abd pain. Recently admitted to [facility] 08/10-08/13/24 then 08/21-08/22/24 and then again 08/23-08/26/24 [discharged yesterday] for nausea, vomiting, and abdominal pain attributed to chronic constipation and cannabinoid hyperemeis syndrome. Per [facility] [place] records review, she had a normal CT A/P on 08/22/24, a negative EGD in September 2023 and a negative GES 02/17/22 with plans for repeat as outpt. She comes in with ongoing nausea, vomiting and abdominal pain with inability to keep down anything by mouth other than a little soup. She quit drinking alcohol 16 months ago and has not used cannabis for the past 6 weeks. BP was 196/118 initially; currently 174/98. Labs notable for K 3.2, bicarbonate 21, hs Tn-I 65.9. EKG with lateral TWIs. She was given 1000 mL IV LR, 10 mg IV prochlorperazine, 1 mg IV lorazepam, and 0.5 mg IV hydromorphone; also 20 mEq IV KCl and 10 mg IV labetalol. She was admitted to the medical-surgical unit. Hospital course by problem: cannabinoid hyperemesis syndrome/cyclic vomiting/chronic abd pain/chronic constipation - Treated with IV fluids and ondansetron plus metoclopramide with resolution of abdominal pain, nausea, and vomiting. Dr Nuñez from Gastroenterology consulted and recommended: DDX: hormonal e.h phaeochromocytoma given palptns and ECG findings, vasculitis, cyclicial vomiting syndrome, porphyria, epigastric pain syndrome, gastroparesis. PLAN: 1/ Recommend CT with PO and IV contrast 2/ check CRP, ESR, CPK, aldolase, metanephrines, porphyria, HIAA screening 3/ cont with symptom mx with zofran, PPI, can add carafate CT A/P suggested small area of colitis but this was likely due to stercoral colitis. The studies above were sent out and the patient will follow with Dr Nuñez in clinic for results. Potassium level normal after repletion. troponin elevation - Suspect due to uncontrolled HTN; TTE showed LVEF mildly reduced of 45-50% which could be from hypertension or stress cardiomyopathy. Cardiology consulted and recommends outpatient stress test and repeat limited echocardiogram to be arranged as well as clinic follow-up. HTN urgency - Resolved after starting amlodipine. Time Attestation Discharge Coordination Time (in mins): 45 Quality: Safe Use of Opioids Does Pt have an Active Cancer Diagnosis on the Problem List?: No Quality: Stroke Does the patient have a stroke diagnosis?: No Physical Exam Vital Signs: Vital Signs: Last Vital Signs Temp 96.8 F 08/29/24 11:38 Pulse 71 08/29/24 11:38 Resp 16 08/29/24 11:38 BP 113/59 L 08/29/24 11:38 Pulse Ox 98 08/29/24 11:38 O2 Del Method Room Air 08/29/24 11:38 BMI result Body Mass Index 19.4 Gen: in no acute distress HEENT: sclera anicteric, moist mucus membranes Neck: supple Lungs: clear to auscultation bilaterally Heart: regular rate and rhythm, no murmurs Abd: soft, non-tender, non-distended Ext: no edema Skin: warm/well-perfused Neuro: alert and oriented x3, no focal findings Psych: appropriate affect DS: Data Data Completed and Pending Completed studies during hospitalization [Text1]: ITS Impressions Abdomen/Pelvis CT 08/28/24 15:19 IMPRESSION: 1. Wall thickening of the sigmoid colon which may indicate colitis. No evidence of colonic obstruction. 2. 4.0 cm uterine fibroid. Electronically signed by: Prosper Ye MD 08/28/2024 03:43 PM EDT RP Laboratory Tests 08/27/24 08/27/24 08/28/24 09:14 16:32 00:09 WBC 12.4 H RBC 4.73 Hgb 14.8 Hct 42.7 MCV 90.3 MCH 31.3 MCHC 34.7 RDW 12.2 Plt Count 336 D MPV 11.3 Immature Gran % (Auto) 0.3 Neut % (Auto) 82.4 H Lymph % (Auto) 11.9 L Gooding % (Auto) 5.2 Eos % (Auto) 0.0 Baso % (Auto) 0.2 Lymph # (Auto) 1.5 Gooding # (Auto) 0.7 Eos # (Auto) 0.0 Baso # (Auto) 0.0 Abs Immat Gran (auto) 0.04 H Absolute Neuts (auto) 10.2 H Absolute Nucleated RBC 0.000 Nucleated RBC % (auto) 0.0 ESR Sodium 133 L Potassium 3.2 L D Chloride 101 Carbon Dioxide 21 L Anion Gap 14 BUN 6 L Creatinine 0.56 Estim Creat Clear Calc 89.6 Estimated GFR > 60 POC Glucose 98 Random Glucose 165 H Calcium 9.7 Magnesium 1.7 Total Bilirubin 0.3 Direct Bilirubin 0.1 AST 31 ALT 21 Alkaline Phosphatase 78 Total Creatine Kinase Troponin I High Sens 65.9 H* 95.0 H* Total Protein 7.4 Albumin 4.3 Lipase 18 Urine Opiates Screen Ur Buprenorphine Scrn Ur Oxycodone Screen Urine Methadone Screen Urine Fentanyl Screen Ur Barbiturates Screen Ur Phencyclidine Scrn Ur Amphetamines Screen U Benzodiazepines Scrn Urine Cocaine Screen U Marijuana (THC) Screen Ethyl Alcohol < 10 Influenza Type A (PCR) NEGATIVE Influenza Type B (PCR) NEGATIVE RSV RNA Qual (PCR) NEGATIVE SARS-CoV-2 RNA (RT-PCR) NEGATIVE 08/28/24 08/28/24 08/28/24 04:57 12:16 12:19 WBC 7.2 RBC 4.26 Hgb 13.6 Hct 38.0 MCV 89.2 MCH 31.9 MCHC 35.8 H RDW 12.2 Plt Count 337 MPV 11.1 Immature Gran % (Auto) Neut % (Auto) Lymph % (Auto) Gooding % (Auto) Eos % (Auto) Baso % (Auto) Lymph # (Auto) Gooding # (Auto) Eos # (Auto) Baso # (Auto) Abs Immat Gran (auto) Absolute Neuts (auto) Absolute Nucleated RBC 0.000 Nucleated RBC % (auto) 0.0 ESR 13 Sodium 135 Potassium 3.4 Chloride 101 Carbon Dioxide 26 Anion Gap 11 L BUN 3 L Creatinine 0.51 Estim Creat Clear Calc 98.3 Estimated GFR > 60 POC Glucose Random Glucose 125 H Calcium 9.4 Magnesium Total Bilirubin Direct Bilirubin AST ALT Alkaline Phosphatase Total Creatine Kinase 69 Troponin I High Sens 64.8 H* Total Protein Albumin Lipase Urine Opiates Screen Not Detected Ur Buprenorphine Scrn Not Detected Ur Oxycodone Screen Not Detected Urine Methadone Screen Not Detected Urine Fentanyl Screen Not Detected Ur Barbiturates Screen Not Detected Ur Phencyclidine Scrn Not Detected Ur Amphetamines Screen Not Detected U Benzodiazepines Scrn Not Detected Urine Cocaine Screen Not Detected U Marijuana (THC) Screen POSITIVE H Ethyl Alcohol Influenza Type A (PCR) Influenza Type B (PCR) RSV RNA Qual (PCR) SARS-CoV-2 RNA (RT-PCR) Discharge Plan Discharge Anticipated Discharge Date/Time: 08/29/24 17:16 Patient Disposition: Home, Self-Care Discharge Diagnosis: cyclic vomiting hypertension elevated troponin mildly decreased ejection fraction Referrals: Manav Nuñez MD [Physician] - 2 Weeks Leah Bocanegra MD [Primary Care Provider] - 1 Week Discharge Medications: New nicotine 21 mg/24 hr Patch 24 Hour 21 mg transdermal DAILY Qty: 30 0RF amlodipine 5 mg Tablet 5 mg PO DAILY Qty: 30 0RF Protocol: Hold for SBP< HOLD for SBP < : 90 ondansetron 4 mg tablet,disintegrating 4 mg PO Q4H PRN (Reason: nausea and vomiting) Qty: 30 0RF Continued trazodone 50 mg tablet 100 mg PO BEDTIME pantoprazole 40 mg tablet,delayed release (DR/EC) 40 mg PO DAILY PRN (Reason: Heartburn) metoclopramide HCl 5 mg tablet 5 mg PO Q8H PRN (Reason: nausea and vomiting) Qty: 30 0RF valacyclovir 500 mg tablet 500 mg PO DAILY 90 Days Qty: 90 3RF Discharge Orders: Discharge Order (Routine); Ordered 08/29/24 Ordered By: Galen Díaz Diet: Advance to usual diet Activity on Discharge: As tolerated Stand Alone Forms: Patient Portal Discharge page Print Language: Slovenian Care Plan Goals: relief of nausea, vomiting, and abdominal pain Health Concerns: cyclic vomiting hypertension elevated troponin mildly decreased ejection fraction Plan of Treatment: diet as tolerated ondansetron and metoclopramide as needed for nausea/vomiting avoid cannabis follow up with Dr Nuñez from Gastroenterology in 2-4 weeks take amlodipine 5 mg once daily quit smoking; use nicotine patch to help follow up with Dr Hurt from Cardiology to be arranged including repeat echocardiogram and stress test Please follow up with your primary care doctor within 1 week. Return to the hospital if you experience recurrent or worsening symptoms. Assessment: See Discharge Summary.
--- NOTE | 2024-08-29 15:21 | P.CONCA_ITS ---
History of Present Illness History of Present Illness Date of Service: 08/29/24 Requesting physician: Galen Díaz Consult reason: hypertension and troponin elevation Chief complaint: CVS Narrative: I was consulted to see Shaunna in cardiology consultation today for elevated troponins and hypertensive urgency on admission. She is a 54-year-old female with multiple hospital sedation due to uncontrolled vomiting with cyclic vomiting syndrome suspected to be due to marijuana use as well as constipation. Patient is very irritated and was not very forthcoming with her syndrome. She says she has had this syndrome with recurrent vomiting and abdominal pain and back pain which is very severe and she ended up coming to the hospital. She routinely gets admitted to [facility] however this time she said she was upset there and came to this hospital. She says she gave up marijuana use although her U tox is positive for marijuana. She denies any cocaine use. She says she usually does not have hypertension but when she came in she was significantly hypotensive and tachycardic. She had no obvious cardiac symptoms. Her troponin was checked and this was minimally elevated. EKG shows normal sinus rhythm with lateral T-wave changes, do not have a copy of old EKGs from [facility]. Echocardiogram was done but patient terminated that earlier with LVEF of 45-50% without any significant regional wall motion abnormality. Cardiology consult was sought because of a troponin elevation. Patient says usually she was does not have any cardiac issues Review of Systems 2 Review of Systems: Yes Other Constitutional: Constitutional: Reports no additional constitutional complaints Eyes: Eyes: Reports no additional eye complaints Cardiovascular: Cardiovascular: Denies chest pain, Denies leg edema, Denies lightheadedness, Denies Loss of Consciousness, Denies palpitations and Denies dyspnea Respiratory: Respiratory: Denies no additional respiratory complaints and Denies dyspnea Gastrointestinal: Gastrointestinal: Reports abdominal pain, Reports constipation, Reports nausea and Reports vomiting Genitourinary: Genitourinary: Reports no additional female genitourinary complaints Musculoskeletal: Musculoskeletal: Reports no additional musculoskeletal complaints Integumentary/Breasts: Skin/Breast: Reports system reviewed and no additional complaints, except as docu Endocrine: Endocrine: Denies palpitations PMFSH Past Medical History Medical History History of COVID-19 Cannabinoid hyperemesis syndrome Shoulder pain, right Smoker unmotivated to quit Generalized anxiety disorder Osteoarthritis of right hip Uterine leiomyoma Dyslipidemia Esophagitis Vasomotor symptoms due to menopause Elevated vitamin B12 level History of bulimia Arthritis Seizures History of alcohol abuse History of eating disorder Family History Family History Father Lung cancer Substance use disorder Mental health disorder Mother Stomach cancer Liver cancer Substance use disorder Mental health disorder Maternal Aunt Breast cancer Mental health disorder Paternal Aunt Breast cancer Substance use disorder Mental health disorder Maternal Uncle Brain cancer Substance use disorder Maternal Grandfather Substance use disorder Mental health disorder Surgical History Surgical History History of hip replacement, total H/O colonoscopy History of esophagogastroduodenoscopy (EGD) Hx of myomectomy Social History Social History Household Members Other:: sister Housing: House Do you presently have visiting nurse or other home services: No Alcohol intake: former Patient Tobacco Use Status: Never used Tobacco Tobacco use type: Cigarette Cigarette Packs Per Day: 2 Cigarettes Per Day: 40 Years Smoked: 39 e-Cigarette/Vaping Use: Former Use Substance Use Type: Marijuana service: No Current occupational status: employed Current occupation: [employer] Sexual orientation: Straight/Heterosexual Gender identity: Female Cognitive needs: No Hearing needs: No Vision needs: Yes Meds Allergies Allergy/AdvReac Type Severity Reaction Status Date / Time Penicillins [PENICILLINS] Allergy Intermediate HIVES Verified 08/27/24 09:04 Sulfa (Sulfonamide Allergy Intermediate itching, Verified 08/27/24 09:04 Antibiotics) redness and itching tetracycline [TETRACYCLINE] Allergy Intermediate HIVES Verified 08/27/24 09:04 Active Medications: Current Medications Acetaminophen (Acetaminophen 325 Mg Tablet) 650 mg PO Q6H PRN PRN Reason: Pain, Mild 1-3,fever,headache Amlodipine Besylate (Amlodipine Besylate 5 Mg Tablet) 5 mg PO DAILY [facility]; Protocol Last Admin: 08/29/24 08:09 Dose: 5 mg Calcium Carbonate (Calcium Carbonate 750 Mg Tab.Chew) 750 mg PO Q4H PRN PRN Reason: Heartburn Enoxaparin Sodium (Enoxaparin Sodium 40 Mg/0.4 Ml Syringe) 40 mg SUBCUT Q24H CRYSTAL Last Admin: 08/28/24 18:24 Dose: 40 mg Folic Acid (Folic Acid 1 Mg Tablet) 1 mg PO DAILY [facility] Last Admin: 08/29/24 08:09 Dose: 1 mg Magnesium Hydroxide (Milk Of Magnesia 30 Ml Oral.Susp) 30 ml PO DAILY PRN PRN Reason: Constipation Melatonin (Melatonin 3 Mg Tablet) 6 mg PO BEDTIME PRN PRN Reason: Insomnia Last Admin: 08/28/24 21:17 Dose: 6 mg Metoclopramide HCl (Metoclopramide Hcl 10 Mg/2 Ml Vial) 5 mg IVPUSH Q4H PRN PRN Reason: N/V unrelieved by Hayder Nicotine (Nicotine 21 Mg Patch.Td24) 21 mg TRANSDERMA DAILY [facility] Last Admin: 08/29/24 08:09 Dose: 21 mg Omeprazole (Omeprazole 20 Mg Capsule.Dr) 20 mg PO BID@0630,1630 [facility] Last Admin: 08/29/24 06:33 Dose: 20 mg Ondansetron HCl (Ondansetron Hcl 4 Mg/2 Ml Vial) 4 mg IVPUSH Q4H PRN PRN Reason: Nausea and Vomiting Sodium Chloride (0.9 % Sodium Chloride Flush 3 Ml Syringe) 3 ml IVFLUSH QSHIFT [facility] Last Admin: 08/29/24 08:10 Dose: 3 ml Sucralfate (Sucralfate 1 Gm Tablet) 1 gm PO BIDAC [facility] Last Admin: 08/29/24 08:09 Dose: 1 gm Trazodone HCl (Trazodone Hcl 100 Mg Tablet) 100 mg PO BEDTIME [facility] Last Admin: 08/28/24 21:18 Dose: 100 mg Valacyclovir HCl (Valacyclovir Hcl 500 Mg Tablet) 500 mg PO DAILY [facility] Last Admin: 08/29/24 12:09 Dose: 500 mg Home Medications ?Medication ?Instructions ?Recorded ?Confirmed ?Last Taken ?Type pantoprazole 40 mg tablet,delayed 40 mg PO DAILY PRN Heartburn 08/27/24 08/27/24 Unknown History release trazodone 50 mg tablet 100 mg PO BEDTIME 08/27/24 08/27/24 Unknown History Physical Exam 2 Vital Signs: Vital Signs: Last Vital Signs Temp 96.8 F 08/29/24 11:38 Pulse 71 08/29/24 11:38 Resp 16 08/29/24 11:38 BP 113/59 L 08/29/24 11:38 Pulse Ox 98 08/29/24 11:38 O2 Del Method Room Air 08/29/24 11:38 BMI result Body Mass Index 19.4 Const: General: cooperative, comfortable, no acute distress, alert and awake Nutritional Appearance: thin Orientation/consciousness: patient oriented x3 Limitations: no limitations HEENT: Head: Yes normocephalic and Yes atraumatic Neck: Neck: Yes trachea midline, Yes supple and Yes no JVD Resp: Effort & Inspection: normal respiratory effort Auscultation: clear to auscultation bilaterally Cardio: Jugular venous distension: no JVD Palpation: normal PMI Rate: r egular rate Rhythm: regular rhythm Heart sounds: S1 normal heart sound present, S2 normal heart sound present, no click, no gallops, no murmurs and no rubs GI: Auscultation: normal bowel sounds Skin: General skin exam: no rashes or lesions noted Neuro: General: patient oriented x3 and no focal motor deficits Extrem: General: Yes no clubbing, cyanosis or edema Objective Labs and Meds 08/28/24 04:57 08/28/24 04:57 Imaging Radiologist's impression: Impressions Abdomen/Pelvis CT 08/28/24 15:19 IMPRESSION: 1. Wall thickening of the sigmoid colon which may indicate colitis. No evidence of colonic obstruction. 2. 4.0 cm uterine fibroid. Electronically signed by: Prosper Ye MD 08/28/2024 03:43 PM EDT RP Assessment and Plan (1) Elevated troponin: Status: Acute Minimally elevated troponin without any clear rise and fall pattern with abnormal EKG could be related to hypertension and/or stress-induced cardiomyopathy although she denies any longstanding history of hypertension. Blood pressure is not well control with amlodipine therapy. Continue the same. Echocardiogram shows mildly reduced LV ejection fraction which could again be related to either hypertension longstanding and/or stress-induced cardiomyopathy. Will follow-up with outpatient stress test. Her Current problem seems to be emanating from ongoing recurrent GI issues including cyclic vomiting which is suspected to be due to marijuana. I suggested her to avoid using marijuana. She says she has not been. Workup from GI perspective as per GI service. Will set up for a limited echo in few weeks time. Follow up in the clinic after testing. (2) Hypertension, uncontrolled: Status: Acute Uncontrolled hypertension on presentation could be related to acute distress from her GI illness. Blood pressure is now better optimized with amlodipine therapy. Continue the same. Importance of this was discussed. Low-salt diet was discussed. EKG changes could also be from longstanding history of hypertension and/or related to stress-induced cardiomyopathy. Will follow up in the clinic after above-mentioned workup. Procedures Date of Service Date of Service: 08/29/24
[2024-08-29 15:26] VITALS: BP 116/76; PULSE 75; RESP 18; TEMP 36.9; O2SAT 99
[2024-08-29 16:54] LABS: CRP High Sensitivity 1.7 mg/L
[2024-09-02 17:33] LABS: Aldolase 4.2 U/L (<=8.1)
[2024-09-03 14:24] LABS: Hydroindolacetic Acid,5- 4.8 mg/24 h (< OR = 6.0); Total Volume 4350 mL
[2024-09-05 00:39] LABS: Porphyrins, Total Plasma 0.5 mcg/L (1.0-5.6)
[2024-09-05 00:54] LABS: Coproporphyrin I, 24Hr 24.8 mcg/24 h (7.1-48.7); Coproporphyrin III, 24Hr 131.8 mcg/24 h (11.0-148.5); Heptacarboxylporphyrin, 24U 4.4 mcg/24 h (< OR = 3.3); Porphyrins, Total 24 Hr 177.5 mcg/24 h (35.0-210.7); Total Volume, Porphyrins 24Hr 4350 mL; Uroporphyrin III, 24Hr 6.5 mcg/24 h (0.7-7.4)
[2024-09-05 12:29] LABS: Metanephrine, Free 49 pg/mL (<=57); Normetanephrines, Free 82 pg/mL (<=148); Total Metanephrine, Free 131 pg/mL (<=205)
[2024-09-05 12:39] LABS: Metanephrine, Free 24U 172 mcg/24 h (90-315); Normetanephrine, Free 24U 492 mcg/24 h (122-676); Total Metanephrine, Free 24U 664 mcg/24 h (224-832)
== END 2024-08-29 17:13 | disposition home or self-care (01) | DRG 392 ==
LOC: HO.ED 15:14 → HO.EDOVER 20:16 → HO.S3 08-28 14:25
PROVIDERS: Internal Medicine Gastroenterology; Admitting Provider Family Medicine; Emergency Provider Emergency Medicine; PCP Internal Medicine; Visit Provider Family Medicine
DX: R11.2 Nausea with vomiting, unspecified (principal); I51.81 Takotsubo syndrome; F41.9 Anxiety disorder, unspecified; I10 Essential (primary) hypertension; F17.210 Nicotine dependence, cigarettes, uncomplicated; K52.89 Other specified noninfective gastroenteritis and colitis; Z71.6 Tobacco abuse counseling; E87.6 Hypokalemia; G40.909 Epilepsy, unspecified, not intractable, without status epilepticus; F12.90 Cannabis use, unspecified, uncomplicated; K59.09 Other constipation; Z20.822 Contact with and (suspected) exposure to COVID-19; I16.0 Hypertensive urgency; Z79.899 Other long term (current) drug therapy
CPT/HCPCS: 0241U; 36415; 74177; 80048; 80076; 80307; 81050; 82085; 82542; 82550; 82947; 83497; 83690; 83735; 83835; 84120; 84484; 85025; 85027; 85652; 86141; 93005; 93306; 99221; 99285; J0737; J1171; J1650; J1920; J2060; J3480; J7120; Q9957; Q9967

== ENCOUNTER → 2024-08-27 10:10 | Outpatient (BNV) | payer MEDICARE, MEDICAID, SELFPAY | PROVIDERS: Emergency Provider Emergency Medicine; PCP Internal Medicine; Visit Provider Family Medicine | DX: R79.89 Other specified abnormal findings of blood chemistry (principal) | CPT/HCPCS: 99232; 99239 ==

== ENCOUNTER → 2024-08-27 10:24 | Outpatient (BNV) | payer MEDICARE, MEDICAID, SELFPAY | PROVIDERS: Emergency Provider Emergency Medicine; PCP Internal Medicine; Visit Provider Internal Medicine Cardiovascular Disease | DX: R94.31 Abnormal electrocardiogram [ECG] [EKG] (principal); Z13.6 Encounter for screening for cardiovascular disorders | CPT/HCPCS: 93010 ==

== ENCOUNTER 2024-08-27 18:42 | Outpatient (BNV) | payer MEDICARE, MEDICAID, SELFPAY | END 2024-08-28 07:00 | PROVIDERS: Admitting Provider Family Medicine; Emergency Provider Emergency Medicine; PCP Internal Medicine; Visit Provider Internal Medicine Cardiovascular Disease | DX: I42.8 Other cardiomyopathies (principal); I35.8 Other nonrheumatic aortic valve disorders; I34.81 Nonrheumatic mitral (valve) annulus calcification | CPT/HCPCS: 93306 ==

== ENCOUNTER 2024-08-27 18:42 | Outpatient (BNV) | payer MEDICARE, MEDICAID, SELFPAY | END 2024-08-28 15:19 | PROVIDERS: Admitting Provider Family Medicine; Emergency Provider Emergency Medicine; PCP Internal Medicine; Visit Provider Radiology Diagnostic Radiology | DX: R10.9 Unspecified abdominal pain (principal) | CPT/HCPCS: 74177 ==

== ENCOUNTER → 2024-08-27 18:42 | Outpatient (BNV) | payer MEDICARE, MEDICAID, SELFPAY | PROVIDERS: Admitting Provider Family Medicine; Emergency Provider Emergency Medicine; PCP Internal Medicine; Visit Provider Internal Medicine Gastroenterology | DX: R10.84 Generalized abdominal pain (principal) | CPT/HCPCS: 99223 ==

== ENCOUNTER → 2024-08-27 18:42 | Outpatient (BNV) | payer MEDICARE, MEDICAID, SELFPAY | PROVIDERS: Admitting Provider Family Medicine; Emergency Provider Emergency Medicine; PCP Internal Medicine; Visit Provider Internal Medicine Cardiovascular Disease | DX: R79.89 Other specified abnormal findings of blood chemistry (principal); I10 Essential (primary) hypertension | CPT/HCPCS: 99222 ==

== ENCOUNTER 2024-09-03 11:16 | Outpatient (AMB) | payer MEDICARE, MEDICAID, SELFPAY ==
--- NOTE | 2024-09-03 11:19 | A.OFFPC_ITS ---
Vital Signs 09/03/24 11:24 Height 5 ft 2 in Weight 114 lb 8 oz BMI 20.9 BP 116/73 Blood Pressure Location Rt brachial Position Sitting Respiration 16 Pulse 60 Pulse Source Pulse Oximeter Temp 97.8 F Temp Source Oral Pulse Oximetry (%) 96 Oxygen Delivery Method Room Air Intake Visit Reasons: [place] [facility] [place] Note: patient here for follow up on [place] [facility] [place] patient needs antibiotics do to her seeing a dentist for cleaning. Energy Conservation Representative Required: No Is last menstrual period known: No Post menopausal: No Patient : No Allergies Penicillins [PENICILLINS] Allergy (Intermediate, Verified 09/03/24 11:47) HIVES Sulfa (Sulfonamide Antibiotics) Allergy (Intermediate, Verified 09/03/24 11:47) itching, redness and itching tetracycline [TETRACYCLINE] Allergy (Intermediate, Verified 09/03/24 11:47) HIVES Medication List - Last Reconciled 09/03/24 by Isabel Kaye, SIGN ARTIST- amlodipine 5 mg See Protocol PO DAILY metoclopramide HCl 5 mg PO Q8H PRN ondansetron 4 mg PO Q4H PRN pantoprazole 40 mg PO DAILY PRN trazodone 100 mg PO BEDTIME valacyclovir 500 mg PO DAILY 90 days Tobacco use date assessed: 09/03/24 Dental Screening Dental Screen Date: 09/03/24 Did you have a dental visit in the last 12 months?: No Did you have a dental problem in the last 6 months where you did not have access to dental care?: No Was dental information given to patient?: Patient has dentist HPI HPI Comments History of Present Illness Details Here today for a Transitional Care Management Visit Discharge summary reviewed. 54yo F with seizures, esophagitis, gastritis, hiatal hernia, HLD, anxiety, bulimia, laxative abuse, AUD in remission and chronic N/V/abd pain. Recently admitted to [facility] 08/10-08/13/24 then 08/21-08/22/24 and then again 08/23-08/26/24 [discharged yesterday] for nausea, vomiting, and abdominal pain attributed to chronic constipation and cannabinoid hyperemeis syndrome. [place] [facility], she had a normal CT A/P on 08/22/24, a negative EGD in September 2023 and a negative GES 02/17/22 with plans for repeat as outpt. She comes in with ongoing nausea, vomiting and abdominal pain with inability to keep down anything by mouth other than a little soup. She quit drinking alcohol 16 months ago and has not used cannabis for the past 6 weeks. BP was 196/118 initially; currently 174/98. Labs notable for K 3.2, bicarbonate 21, hs Tn-I 65.9. EKG with lateral TWIs. She was given 1000 mL IV LR, 10 mg IV prochlorperazine, 1 mg IV lorazepam, and 0.5 mg IV hydromorphone; also 20 mEq IV KCl and 10 mg IV labetalol. She was admitted to the medical-surgical unit. Hospital course by problem: cannabinoid hyperemesis syndrome/cyclic vomiting/chronic abd pain/chronic constipation - Treated with IV fluids and ondansetron plus metoclopramide with resolution of abdominal pain, nausea, and vomiting. Dr Nuñez from Gastroenterology consulted and recommended: DDX: hormonal e.h phaeochromocytoma given palptns and ECG findings, vasculitis, cyclicial vomiting syndrome, porphyria, epigastric pain syndrome, gastroparesis. PLAN: 1/ Recommend CT with PO and IV contrast 2/ check CRP, ESR, CPK, aldolase, metane phrines, porphyria, HIAA screening 3/ cont with symptom mx with zofran, PPI , can add carafate CT A/P suggested small area of colitis but this was likely due to stercoral colitis. The studies above were sent out and the patient will follow with Dr Nuñez in clinic for results. Potassium level normal after repletion. troponin elevation - Suspect due to uncontrolled HTN; TTE s howed LVEF mildly reduced of 45-50% which could be from hypertension or stress cardiomyopathy. Cardiology consulted and recommends outpatient stress test and repeat limited echocardiogram to be arranged as well as clinic follow-up. HTN urgency - Resolved after starting amlodipine. Abdomen/Pelvis CT 08/28/24 15:19 IMPRESSION: 1. Wall thickening of the sigmoid colon which may indicate colitis. No evidence of colonic obstruction. 2. 4.0 cm uterine fibroid. Consults GI and Cards New nicotine 21 mg/24 hr Patch 24 Hour 21 mg transdermal DAILY Qty: 30 0RF amlodipine 5 mg Tablet 5 mg PO DAILY Qty: 30 0RF Protocol: Hold for SBP< HOLD for SBP < : 90 ondansetron 4 mg tablet,disintegrating 4 mg PO Q4H PRN (Reason: nausea and vomiting) Qty: 30 0RF Plan of Treatment: diet as tolerated ondansetron and metoclopramide as needed for nausea/vomiting avoid cannabis follow up with Dr Nuñez from Gastroenterology in 2-4 weeks take amlodipine 5 mg once daily quit smoking; use nicotine patch to help follow up with Dr Hurt from Cardiology to be arranged including repeat echocar diogram and stress test Please follow up with your primary care doctor within 1 week. Return to the hospital if you experience recurrent or worsening symptoms Admission Date: 08/27/24 Discharge Date: 08/29/24 Hospital: [facility] Date of interactive contact with Nurse Navigator: as documented in chart Pending diagnostic tests/treatments: yes labs - still pending Medications reconciled & updated. During todays TCM visit, the d/c summary was reviewed, along with the need for or follow-up on pending diagnostic tests and treatments, as necessary interaction with other health inspector health care facilities who will assume or reassume care of the beneficiary?s system-specific problems was done or is being worked on, education was provided to the beneficiary, family, guardian, and/or caregi rosanne, referrals to establish or re-establish and arrange needed community resources we completed, assistance in scheduling required follow-up with community providers and services & finally updated medication list given to patient/caregiver Presents today stating that she has not had any recurrence of GI symptoms since her discharge. Blood pressure is well controlled on amlodipine 5 mg of what he was taking daily. Denies any swelling in her legs. Reports that she was monitoring blood pressure at home. She started to use a nicotine patch however this caused her 50 dollars and therefore can not afford to continue to use. She has reduced her cigarette use to about 3 per day. Offered and declined any smoking cessation at this time. Overall she feels weak. 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 She is taking all of her medications as directed. Cards:scheduled 09/04/24 for echocardiogram GI: appt scheduled in December Exam Awake alert NAD scleras nonicteric bilat MMM RRR LS CTAB Abd soft normoactive bs x 4 nontender No edema BLE Plan Message sent [place] [facility] [place] to request sooner appt Refill amlodipine Smoking cessation; avoid marijuana. Cont meds Out of work note Close interim fu with PCP in 2-4 weeks Total time spent caring for the patient today was 45 minutes. This includes time spent before the visit reviewing the chart, time spent during the visit, and time spent after the visit on documentation, reviewing laboratory results, diagnostic imaging, medications, performing a medically necessary evaluation, counseling on diagnoses, care coordination, ordering appropriate tests, ordering appropriate medications, review of tests performed by other providers, reporting test results with the patient, communication with other healthcare providers. REPLACED BY [facility] Medical History History of COVID-19 Cannabinoid hyperemesis syndrome Shoulder pain, right Smoker unmotivated to quit Generalized anxiety disorder Osteoarthritis of right hip Uterine leiomyoma Dyslipidemia Esophagitis Vasomotor symptoms due to menopause Elevated vitamin B12 level History of bulimia Arthritis Seizures History of alcohol abuse History of eating disorder Surgical History History of hip replacement, total H/O colonoscopy History of esophagogastroduodenoscopy (EGD) Hx of myomectomy Family History Father Lung cancer Substance use disorder Mental health disorder Mother Stomach cancer Liver cancer Substance use disorder Mental health disorder Maternal Aunt Breast cancer Mental health disorder Paternal Aunt Breast cancer Substance use disorder Mental health disorder Maternal Uncle Brain cancer Substance use disorder Maternal Grandfather Substance use disorder Mental health disorder Social History Household Members Other:: sister Housing: House Do you presently have visiting nurse or other home services: No Alcohol intake: former Patient Tobacco Use Status: Current everyday Tobacco user Tobacco use type: Cigarette Cigarette Packs Per Day: 2 Cigarettes Per Day: 40 Years Smoked: 39 e-Cigarette/Vaping Use: Former Use Substance Use Type: Marijuana service: No Current occupational status: employed Current occupation: [employer] Sexual orientation: Straight/Heterosexual Gender identity: Female Cognitive needs: No Hearing needs: No Vision needs: Yes Female Reproductive History Menstrual Age of Menarche: 11 Questionnaire Thrive Questionnaire Date Thrive assessed: 07/28/24 I am a: Patient What is your living situation today?: I have a steady place to live Within the past 12 months, did the food you bought not last and you didn't have the money to get more?: Sometimes True Within the past 12 months, did you worry whether your food would run out before you got money to buy more?: Sometimes True Do you have trouble paying for medicines?: Yes Do you have trouble getting transportation to medical appointments?: No Do you have trouble paying your heating and electricity bill?: Yes Do you have trouble taking care of your child, family member or friend?: No Do you have trouble with day-to-day activities such as bathing, preparing meals, shopping, managing finances, etc.?: No Are you currently unemployed and looking for a job?: No Are you interested in more education?: No Please select the resources that you would like help with: Utilities Currently or been in a relationship where the following occur: I choose not to answer THRIVE Score: 3 HOLA-7 AMB Questionnaire HOLA-7 Date HOLA - 7 assessed: 11/06/22 Source: Developed by Drs. Prosper Lemos, Leeann Johnson, Emreson Mehta and colleagues, with an educational ratna from [employer]. Physical exam (Primary Care) Vital Signs: Last Vital Signs Temp 97.8 F 09/03/24 11:24 Pulse 60 09/03/24 11:24 Resp 16 09/03/24 11:24 BP 116/73 09/03/24 11:24 Pulse Ox 96 09/03/24 11:24 Oxygen Delivery Method Room Air 09/03/24 11:24 BMI result Body Mass Index 20.9 Tobacco/Smoking Status: Tobacco use Status Tobacco use date assessed 09/03/24 09/03/24 11:27 Patient Tobacco Use Status Current everyday Tobacco 09/03/24 11:27 Tobacco use type Cigarette 09/03/24 11:21 e-Cigarette/Vaping Use Former Use 09/03/24 11:21 Are you ready to quit: No Tobacco cessation counseling provided: Yes Items discussed: Nicotine replacement, [employer]uit[employer] and Other Relapse Prevention: discussed the importance of a supportive environment, discussed extending NRT, discussed negative mood or depression after quitting, weight gain after smoking is common and discussed dietary, exercise and/or lifestyle changes Number of minutes spent counselin CPT code: 41334 - 4-10 Minutes Thrive Assessment: Date of Thrive Assessment Date Thrive assessed 07/28/24 09/03/24 11:21 Currently or been in a relationship where the following occur: I choose not to answer Coding Level of Care Code TCM High MDM <= 7 Days Complex EM visit Add On G2211 Diagnoses Hospital discharge follow-up Z09 Nausea and vomiting, unspecified vomiting type R11.2 Vomiting type: unspecified Current smoker F17.200 Hypertension, uncontrolled I10 Additional Codes Vital Signs *Quality* - CPT code: 62223 - 4-10 Minutes ([id number]) Assessment & Plan Assessment & Plan (1) Hospital discharge follow-up: Code(s): Z09 - Encounter for follow-up examination after completed treatment for conditions other than malignant neoplasm Category: Medical (2) Nausea & vomiting: Code(s): R11.2 - Nausea with vomiting, unspecified Category: Medical Qualifiers: Vomiting type: unspecified Qualified Code(s): R11.2 - Nausea with vomiting, unspecified (3) Current smoker: Code(s): F17.200 - Nicotine dependence, unspecified, uncomplicated Category: Medical (4) Hypertension, uncontrolled: Code(s): I10 - Essential (primary) hypertension Category: Medical Plan . Medications: Refilled amlodipine 5 mg See Protocol PO DAILY 90 tabs 0RF
[2024-09-03 11:24] VITALS: BP 116/73; PULSE 60; RESP 16; TEMP 36.6; O2SAT 96; BMI 20.9
--- OUTSIDE RECORDS SUMMARY | 2024-09-03 13:47 | XMS_ITS | Clinical Summary ---
Author Organization [facility] Address [address] [place] [address] Phone Care Team Providers Care Buffing Wheel Raker Name Role Phone Angelique Trent MD Primary Care Provider [phone] Encounters Date Type Department Care Team Description 06/09/2024 11:29 AM EST - 06/09/2024 10:10 PM EST Emergency [facility] Emergency [address] [place] [address] Discharge Disposition: Home or Self [...] Td Vaccines (1 - Tdap) 1988 Hepatitis B Vaccines (1 of 3 [...] on patient's age to complete this topic Hepatitis A Vaccines Aged Out No long er eligible based on patient's age to complete [...] CBC auto differential (06/09/2024 12:04 PM EST) [facility] WBC 12.9(H) 4.8 - 10.8 K/mcL LAB HEMETOLOGY METHOD 06/09/2024 1:00 PM [facility] RBC 5.00(H) 3.80 - 4.80 M/mcL LAB HEMETOLOGY METHOD 06/09/2024 1:00 PM [facility] Hemoglobin 16.1(H) 11.5 - 16.0 g/dL LAB HEMETOLOGY METHOD 06/09/2024 1:00 PM [facility] Hematocrit 46.5 35.0 - 47.0 % LAB HEMETOLOGY METHOD 06/09/2024 1:00 PM [facility] MCV 92.4 79.0 - 98.0 FL LAB HEMETOLOGY METHOD 06/09/2024 1:00 PM [facility] MCH 32.0 27.0 - 32.0 pcg LAB HEMETOLOGY METHOD 06/09/2024 1:00 PM [facility] MCHC 34.6 32.0 - 37.0 g/dL LAB HEMETOLOGY METHOD 06/09/2024 1:00 PM [facility] RDW 12.7 11.0 - 15.0 % LAB HEMETOLOGY METHOD 06/09/2024 1:00 PM [facility] Platelets 281 130 - 400 K/mcL LAB HEMETOLOGY METHOD 06/09/2024 1:00 PM [facility] MPV 11.7(H) 7.0 - 11.0 FL LAB HEMETOLOGY METHOD 06/09/2024 1:00 PM [facility] NRBC 0.0 <1.0 % LAB HEMETOLOGY METHOD 06/09/2024 1:00 PM [facility] NRBC Absolute 0.00 <0.10 K/mcL LAB HEMETOLOGY METHOD 06/09/2024 1:00 PM [facility] Neutrophils Relative 68.6 % LAB HEMETOLOGY METHOD 06/09/2024 1:00 PM [facility] Comment:This is an appended report. These results have been appended to a previously preliminary verified report. Lymphocytes Relative 23.1 % LAB HEMETOLOGY METHOD 06/09/2024 1:00 PM [facility] Comment:This is an appended report. These results have been appended to a previously preliminary verified report. Monocytes Relative 7.5 % LAB HEMETOLOGY METHOD 06/09/2024 1:00 PM [facility] Comment:This is an appended report. These results have been appended to a previously preliminary verified report. Eosinophils Relative 0.2 % LAB HEMETOLOGY METHOD 06/09/2024 1:00 PM [facility] Comment:This is an appended report. These results have been appended to a previously preliminary verified report. Basophils Relative 0.3 % LAB HEMETOLOGY METHOD 06/09/2024 1:00 PM [facility] Comment:This is an appended report. These results have been appended to a previously preliminary verified report. Immature Granulocytes Relative 0.3 % LAB HEMETOLOGY METHOD 06/09/2024 1:00 PM [facility] Comment:This is an appended report. These results have been appended to a previously preliminary verified report. Neutrophils Absolute 8.85(H) 1.50 - 7.00 K/mcL LAB HEMETOLOGY METHOD 06/09/2024 1:00 PM [facility] Comment:This is an appended report. These results have been appended to a previously preliminary verified report. Lymphocytes Absolute 2.99 1.00 - 5.00 K/mcL LAB HEMETOLOGY METHOD 06/09/2024 1:00 PM EST [facility] Comment:This is an appended report. These results have been appended to a previously preliminary verified report. Monocytes Absolute 0.97 0.20 - 1.00 K/mcL LAB HEMETOLOGY METHOD 06/09/2024 1:00 PM EST [facility] Comment:This is an appended report. These results have been appended to a previously preliminary verified report. Eosinophils Absolute 0.03 0.00 - 0.50 K/mcL LAB HEMETOLOGY METHOD 06/09/2024 1:00 PM EST [facility] Comment:This is an appended report. These results have been appended to a previously preliminary verified report. Basophils Absolute 0.04 0.00 - 0.20 K/mcL LAB HEMETOLOGY METHOD 06/09/2024 1:00 PM EST [facility] Comment:This is an appended report. These results have been appended to a previously preliminary verified report. Immature Granulocytes Absolute 0.04(H) 0.00 - 0.03 K/mcL LAB HEMETOLOGY METHOD 06/09/2024 1:00 PM EST [facility] Comment:This is an appended report. These results have been appended to a previously preliminary verified report. Blood Venous blood specimen / Unknown Venipuncture / Unknown 06/09/2024 12:04 PM EST 06/09/2024 12:13 PM EST us Lionel Jacobson MD LAB BLOOD ORDERABLES Final Result [facility] [address] [place] [address], * Lipase (06/09/2024 12:04 PM EST) Lipase 40 13 - 75 unit/L LAB CHEMISTRY METHOD 06/09/2024 12:40 PM EST [facility] Blood Venous blood specimen / Unknown Venipuncture / Unknown 06/09/2024 12:04 PM EST 06/09/2024 12:13 PM EST Lionel Jacobson MD LAB BLOOD ORDERABLES Final Result [facility] [address] [place] [address], * (ABNORMAL) Comprehensive metabolic panel (06/09/2024 12:04 PM EST) Sodium 126(L) 133 - 145 mmol/L LAB CHEMISTRY METHOD 06/09/2024 12:40 PM [facility] Potassium 3.8 3.5 - 5.5 mmol/L LAB CHEMISTRY METHOD 06/09/2024 12:40 PM [facility] Chloride 95(L) 96 - 110 mmol/L LAB CHEMISTRY METHOD 06/09/2024 12:40 PM [facility] CO2 24 21 - 32 mmol/L LAB CHEMISTRY METHOD 06/09/2024 12:40 PM [facility] Anion Gap 7 3 - 11 LAB CHEMISTRY METHOD 06/09/2024 12:40 PM [facility] Glucose 108(H) 70 - 100 mg/dL LAB CHEMISTRY METHOD 06/09/2024 12:40 PM [facility] BUN 22 5 - 25 mg/dL LAB CHEMISTRY METHOD 06/09/2024 12:40 PM [facility] Creatinine 0.96 0.50 - 1.10 mg/dL LAB CHEMISTRY METHOD 06/09/2024 12:40 PM [facility] eGFR 70 >=60 mL/min/1. 73m2 LAB CHEMISTRY METHOD 06/09/2024 12:40 PM [facility] Comment:Calculation based on the??Chronic Kidney Disease Epidemiology Collaboration (CKD-EPI) equation refit??without adjustment for race. BUN/Creatinine Ratio 22.9 LAB CHEMISTRY METHOD 06/09/2024 12:40 PM [facility] Calcium 10.3 8.5 - 10.5 mg/dL LAB CHEMISTRY METHOD 06/09/2024 12:40 PM [facility] AST (SGOT) 25 10 - 42 unit/L LAB CHEMISTRY METHOD 06/09/2024 12:40 PM [facility] ALT (SGPT) 25 10 - 60 unit/L LAB CHEMISTRY METHOD 06/09/2024 12:40 PM [facility] Alkaline Phosphatase 78 42 - 121 unit/L LAB CHEMISTRY METHOD 06/09/2024 12:40 PM [facility] Total Protein 8.1(H) 6.0 - 8.0 g/dL LAB CHEMISTRY METHOD 06/09/2024 12:40 PM [facility] Albumin 4.6 3.2 - 5.0 g/dL LAB CHEMISTRY METHOD 06/09/2024 12:40 PM [facility] Total Bilirubin 0.8 0.0 - 1.4 mg/dL LAB CHEMISTRY METHOD 06/09/2024 12:40 PM [facility] Blood Venous blood specimen / Unknown Venipuncture / Unknown 06/09/2024 12:04 PM EST 06/09/2024 12:13 PM EST us Lionel Jacobson MD LAB BLOOD ORDERABLES Final Result [facility] [address] [place] [address], from Last 3 Months Insurance MEDICAID - [place] MEDICARE Care Teams Buffing Wheel Raker Relationship Specialty Start Date End Date Angelique Trent MD [address] [place] [address] PCP - General Internal Medicine 06/09/24
== END 2024-09-03 12:06 | disposition home or self-care (01) ==
LOC: HO.HMCFM 11:17
PROVIDERS: PCP Internal Medicine; Visit Provider Nurse Practitioner Family
DX: R11.2 Nausea with vomiting, unspecified (principal); F17.210 Nicotine dependence, cigarettes, uncomplicated; I10 Essential (primary) hypertension; Z09 Encounter for follow-up examination after completed treatment for conditions other than malignant neoplasm

== ENCOUNTER → 2024-09-03 11:16 | Outpatient (BNVA) | payer MEDICARE, MEDICAID, SELFPAY | PROVIDERS: PCP Internal Medicine; Visit Provider Nurse Practitioner Family | DX: Z09 Encounter for follow-up examination after completed treatment for conditions other than malignant neoplasm (principal); R11.2 Nausea with vomiting, unspecified; I10 Essential (primary) hypertension; F17.200 Nicotine dependence, unspecified, uncomplicated; Z71.6 Tobacco abuse counseling | CPT/HCPCS: 99496 ==

== ENCOUNTER 2024-09-30 11:02 | Outpatient (AMB) | payer MEDICARE, MEDICAID, SELFPAY ==
--- NOTE | 2024-09-30 11:07 | A.OFFPC_ITS ---
Vital Signs 09/30/24 11:10 Height 5 ft 2 in Weight 112 lb 2 oz BMI 20.5 BP 98/64 Blood Pressure Location Rt brachial Position Sitting Respiration 12 Pulse 64 Pulse Source Pulse Oximeter Pulse Oximetry (%) 98 Oxygen Delivery Method Room Air Intake Visit Reasons: 2-[address] Mechelle DE LA [place] GI issues Intake Note: Follow up GI issues. Sunday and Sunday experienced nausea. Diarrhea on Sunday. 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: No Allergies Penicillins [PENICILLINS] Allergy (Intermediate, Verified 09/30/24 11:09) HIVES Sulfa (Sulfonamide Antibiotics) Allergy (Intermediate, Verified 09/30/24 11:09) itching, redness and itching tetracycline [TETRACYCLINE] Allergy (Intermediate, Verified 09/30/24 11:09) HIVES Tobacco use date assessed: 09/30/24 Dental Screening Dental Screen Date: 09/03/24 HPI HPI Comments History of Present Illness Details 54 year old with past medical history ch ronic abdominal pain, gastritis/PUD, ?barretts, h/o ETOH abuse, current tobacco use presenting for follow up CV: Cardiology consult pending. BP has been low on the amlodipine 5mg. Will decrease to 2.5mg daily. No chest pain, exertional dyspnea. Troponin was elevated during recent hospitalization. Echo with low normal EF GI:Flares of abdominal pain, nausea, vomiting. Frequent ER, hospitalization. Has had chronic constipation, some improvement with linzess. Restarted PPI Follows Dr Nuñez [facility]. Follow up booked. Has prn metoclopramide. EGD/colon 08/2020: tubular adenomas removed, felt like external compression ?from fibroid EGD 09/25 [facility] Normal gastric emptying study previously US: calcification in aorta, no masses EGD 09/06/20 duodenitis gastritis hiatal hernia. BH: Anxiety, insomnia. On trazodone. Would like psychology referral ROS see HPI PHYSICAL EXAM: GENERAL: Alert and oriented x 3. NAD EYES: EOMI. Anicteric. HENT: Moist mucous membranes. No scleral icterus. No cervical lymphadenopathy. LUNGS: Clear to auscultation bilaterally. CARDIOVASCULAR: Regular rate and rhythm. ABDOMEN: Soft, non-tender +bs EXTREMITIES: No edema. Non-tender. SKIN: No rashes or lesions. Warm. NEUROLOGIC: No focal neurological deficits. CN II-XII grossly intact PSYCHIATRIC: Cooperative. Appropriate mood and affect [facility] Medical History History of COVID-19 Cannabinoid hyperemesis syndrome Shoulder pain, right Smoker unmotivated to quit Generalized anxiety disorder Osteoarthritis of right hip Uterine leiomyoma Dyslipidemia Esophagitis Vasomotor symptoms due to menopause Elevated vitamin B12 level History of bulimia Arthritis Seizures History of alcohol abuse History of eating disorder Surgical History History of hip replacement, total H/O colonoscopy History of esophagogastroduodenoscopy (EGD) Hx of myomectomy Family History Father Lung cancer Substance use disorder Mental health disorder Mother Stomach cancer Liver cancer Substance use disorder Mental health disorder Maternal Aunt Breast cancer Mental health disorder Paternal Aunt Breast cancer Substance use disorder Mental health disorder Maternal Uncle Brain cancer Substance use disorder Maternal Grandfather Substance use disorder Mental health disorder Social History Household Members Other:: sister Housing: House Do you presently have visiting nurse or other home services: No Alcohol intake: former Patient Tobacco Use Status: Current everyday Tobacco user Tobacco use type: Cigarette Cigarette Packs Per Day: 2 Cigarettes Per Day: 40 Years Smoked: 39 Packs Per Year: 78 Packs per year/per ci.00 e-Cigarette/Vaping Use: Former Use Substance Use Type: Marijuana service: No Current occupational status: employed Current occupation: [employer] Sexual orientation: Straight/Heterosexual Gender identity: Female Cognitive needs: No Hearing needs: No Vision needs: Yes Female Reproductive History Menstrual Age of Menarche: 11 Questionnaire Thrive Questionnaire Date Thrive assessed: 07/28/24 I am a: Patient What is your living situation today?: I have a steady place to live Within the past 12 months, did the food you bought not last and you didn't have the money to get more?: Sometimes True Within the past 12 months, did you worry whether your food would run out before you got money to buy more?: Sometimes True Do you have trouble paying for medicines?: Yes Do you have trouble getting transportation to medical appointments?: No Do you have trouble paying your heating and electricity bill?: Yes Do you have trouble taking care of your child, family member or friend?: No Do you have trouble with day-to-day activities such as bathing, preparing meals, shopping, managing finances, etc.?: No Are you currently unemployed and looking for a job?: No Are you interested in more education?: No Please select the resources that you would like help with: Utilities Currently or been in a relationship where the following occur: I choose not to answer THRIVE Score: 3 AUDIT C Alcohol Use Questionnaire (AUDIT-C) 1. How often do you have a drink containing alcohol?: Never 3. How often do you have six or more drinks on one occasion?: Never Total Score: 0 HOLA-7 AMB Questionnaire HOLA-7 Date HOLA - 7 assessed: 11/06/22 Source: Developed by Drs. Prosper Lemos, Leeann Johnson, Emerson Mehta and colleagues, with an educational ratna from [employer]. Physical exam (Primary Care) Vital Signs: Last Vital Signs Pulse 64 09/30/24 11:10 Resp 12 09/30/24 11:10 BP 98/64 09/30/24 11:10 Pulse Ox 98 09/30/24 11:10 Oxygen Delivery Method Room Air 09/30/24 11:10 BMI result Body Mass Index 20.5 Tobacco/Smoking Status: Tobacco use Status Tobacco use date assessed 09/30/24 09/30/24 11:12 Patient Tobacco Use Status Current everyday Tobacco 09/30/24 11:12 Tobacco use type Cigarette 09/30/24 11:12 e-Cigarette/Vaping Use Former Use 09/30/24 11:12 Thrive Assessment: Date of Thrive Assessment Date Thrive assessed 07/28/24 09/30/24 11:12 Currently or been in a relationship where the following occur: I choose not to answer Coding Level of Care Code Est Pt Level 4 (33335) Diagnoses Anxiety F41.9 Nausea and vomiting, unspecified vomiting type R11.2 Vomiting type: unspecified Assessment & Plan Assessment & Plan (1) Anxiety: Code(s): F41.9 - Anxiety disorder, unspecified Category: Medical (2) Nausea & vomiting: Code(s): R11.2 - Nausea with vomiting, unspecified Category: Medical Qualifiers: Vomiting type: unspecified Qualified Code(s): R11.2 - Nausea with vomiting, unspecified Plan Anxiety-[facility]erral [facility], chronic abdominal pain with intermittent flares-continue GI follow up Hypertension-decrease norvasc to 2.5mg. Upcoming cardiology Orders: Referrals Psychiatry Referral F41.9 - Anxiety disorder, unspecified, R11.15 - Cyclical vomiting syndrome unrelated to migraine, Z86.59 - Personal history of other mental and behavioral disorders
[2024-09-30 11:10] VITALS: BP 98/64; PULSE 64; RESP 12; O2SAT 98; BMI 20.5
--- OUTSIDE RECORDS SUMMARY | 2024-09-30 12:52 | XMS_ITS | Clinical Summary ---
Author Organization [facility] Address [address] [place] [phone] Phone Care Team Providers Care Hub Lead Name Role Phone Angelique Trent MD Primary Care Provider Social History Tobacco Use Types Packs/Day Years [...] - 2023-2 5 season) 2024 10/27/2020, 10/06/2020 Colorectal Cancer Screening: Colonoscopy 06/09/2024 Depression Screening 06/09/2024 HIV Screening 06/09/2024 Hepatitis C Screening 06/09/2024 Medicare Annual Wellness Visit 06/09/2024 Social Influencers of Health Screening 06/09/2024 Influenza Vaccine (Season Ended) 2025 MMR Vaccines Aged Out 08/28/2017 No longer [...] age to complete this topic Meningococcal B Vaccine Aged Out No l onger eligible based on patient's age to complete [...] on patient's age to complete this topic Insurance [place] Care Teams Hub Lead Relationship Specialty Start Date End Date Angelique Trent MD [address] [place] [address] PCP - General Internal Medicine 06/09/24
--- OUTSIDE RECORDS SUMMARY | 2024-09-30 12:52 | XMS_ITS | Data Portability ---
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 She was having fever which she reports abated over last 24 hours along with body aches. She remains w/ mild cough sometimes w/ some phlegm. She does have hx of walking pna. She has bene taking Tylenol and taking hot showers to help w/ her sxs and they have been helping. Tested neg for COVID earlier in course. She lives w/ her sister who also had similar sxs as her. Nothing makes her sxs worse. Sxs were moderate in nature and are now mild and resolving. She currently denies current fever, chills, and pain, NVD, weakness, body aches, headache, visual changes, sore throat, cp, SOB. No other reported sxs today. Exam: Vitals: VSS and afebrile Constitutional: 52 yo Well developed, well nourished, pleasant patient in no apparent distress. Upright comfortable and not toxic. Eyes: PERRL at 4mm, EOM's intact, No swelling, no discharge, sclera / conjunctiva clear ENT: no nasal discharge, nontender sinuses and no lymphadenopathy, no erythema/ exudate noted in oropharynx, moist mucous membranes CV: RRR, no rubs/ murmurs/ gallops heard, 2+ radial pulses bilaterally Pulm: breath sounds clear and equal bilaterally, no wheeze/ rhonchi or rales on auscultation. Speaks in full sentences, no increased work of breathing. Intermittent cough w/o sputum. MS: Self ambulatory patient, moves all limbs without deficit, no evidence of trauma Neuro: No focal deficits, A&O x4, gait is not ataxic Skin: No rash, visible skin is cdi w/o cyanosis or pallor Psych: Calm, cooperative, non-manic. Pleasant. DDx considered, but not limited to: CAP - lungs CTAB after coughing, she does not have current fever but she has been taking Tylenol, cough mostly not productive but does bring up sputum here and there . Given hx getting XR to fully r/o. NO abx as of yet as low suspicion. Flu - possible, she described acute onset illness w/ cough, fever, and body aches. Getting better today, no need to test as would not change plan as she is OOW for antiviral and she is improving COVID - neg rapid, doubtful URI/Viral syndrome - ML cause of sxs Work up/Results: CXR to fully r/o CAP, printed order to local facility at [facility] is given so hs emay complete over next 24 hours Rapid COVID neg Plan/Discussion: Viral Syndrome: -ML cause of sxs at this time -Possible she had flu based on sxs but she is getting better so no testing done -Neg COVID, likely not this -Getting XR as per above to r/o pna given hx -She overall has benign exam however and all her VSS -I expect her to cont feeling better -Cont OTC meds to help sxs until fully resolved -Fluids and rest -F/u if any changes or new sxs develop -ED precautions discussed Pt is on agreement and verbalizes understanding with the above plans at this time. Pt has no other questions or concerns at this time. All questiosn are answered to the best of my ability. Pt thanks us for our visit today. rafat Not available 06/05/2022 09:27:06 Plan of Treatment Reminders Order Date Submit Date Provider Last Modified By Organization Details Last Modified Time Details Appointments None recorded. Lab rapid SARS CoV 2 Ag, QL IA, respiratory specimen 2022 023 [email or web address], [address], [place], [address], 09:11:33 Referral None recorded. Procedures None recorded. Surgeries None recorded. Imaging XR, chest, 2 view - patient seems to be post viral syndrome w/ productive cough now. Unsure if fever is still present as she is taking Tylenol. She has had walking pneumonia in past before. She did have mild adventitiou s sounds to RLL that cleared fully w/ deep cough but would like pna fully r/o given her hx. Thnak you. 2022 023 [email or web address] [facility], [address], [place], [address], 14:59:03 Medication Orders None recorded. Patient TargetsNo targets recorded. Patient InstructionsNo instructions recorded. Reason for Referral None Reported. Results Created Date Observation Date Name Description Value Unit Range Abnormal Flag Note LastModifiedBy Organization Detail LastModifiedTime 06/05/19 23 06/05/2022 rapid SARS CoV 2 Ag, QL IA, respi rator y speci men Covid-19 (ref: neg) negati ve Not Available [facility] [address] [place], [address], 06/05/2022 09:10:49 06/05/19 23 06/05/2022 rapid SARS CoV 2 Ag, QL IA, respi rator y speci men Control Visual ized/V alid Not Available [facility] [address] [place], [address], 06/05/2022 09:10:49 06/05/19 23 06/05/2022 rapid SARS CoV 2 Ag, QL IA, respi rator y speci men Location [facility], [address] [place] [address], [phone] Not Available [facility] [address] [place], [address], 06/05/2022 09:10:49 Result Notes None recorded. Procedures Surgical History Date Name Laterality Status Provider Name and Address Organization Details Recorded Time 06/05/19 Medication Review completed ANEL Penny [address], [place], [address], [place] [facility] 06/05/2022 09:22:56 Imaging Results None recorded. Procedure Notes None recorded. Medical Equipment None Reported. Allergies Allergen ID Allergen Name Allergen Category Reaction Reaction Severity Criticality Documentation Date Start Date Code Code System Note Provider Name and Address Organization Details Recorded Time 810255 Substance with sulfonami de structure and antibacte rial mechanism of action (substanc e) medicatio n Not available Not available Not available 06/05/2022 62531 8003 SNOMED ANEL Perkins [address] [facility] [place], [address], [place] [facility] 08:50:00 934203 Product containin g penicilli n (product) medicatio n Not available Not available Not available 06/05/2022 99203 8001 SNOMED ANEL Perkins [address] [facility] [place], [address], [place] [facility] 08:50:10 [id number] tetracycl ine medicatio n Not available Not available Not available 06/05/2022 09632 RxNorm ANEL Perkins [address] [facility] [place], [address], [place] [facility] 08:57:18 Medications Name Sig Start Date Stop Date Status Note LastModified by Organization Details LastModified Time quetiapine 25 mg tablet TAKE 1 TO 2 TABLETS DAILY AT BEDTIME NEEDED FOR INSOMNIA active Not Available Not Available No t Available gabapentin 600 mg tablet TAKE 2 TABLETS BY MOUTH TWICE A DAY active Not Available Not Available No t Available clonidine 0.1 mg/24 hr weekly transdermal patch APPLY 1 PATCH TRANSDERM ALLY EVERY WEEK 06/05 completed Not Available Not Available Not Available prochlorper azine maleate 5 mg tablet TAKE 1 TABLET BY MOUTH THREE TIMES A DAY NEEDED FOR NAUSEA AND VOMITING active Not Available Not Available No t Available ondansetron HCl 8 mg tablet TAKE 1 TABLET BY MOUTH EVERY 8 HOURS NEEDED FOR NAUSEA/VO MITING 06/05 completed Not Available Not Available Not Available meloxicam 15 mg tablet TAKE 1 TABLET BY MOUTH EVERY DAY active Not Available Not Available No t Available sucralfate 1 gram tablet TAKE 1 TABLET BY MOUTH 3 TIMES A DAY BEFORE MEALS AND BEDTIME active Not Available Not Available No t Available ondansetron HCl 4 mg tablet TAKE 1 TABLET BY MOUTH TWICE DAILY NEEDED FOR NAUSEA AND VOMITING 06/05 completed Not Available Not Available Not Available amlodipine 5 mg tablet TAKE 1 TABLET BY MOUTH EVERY DAY 06/05 completed Not Available Not Available Not Available valacyclovi r 500 mg tablet TAKE 1 TABLET BY MOUTH TWICE DAILY 06/05 completed Not Available Not Available Not Available omeprazole 40 mg capsule,del ayed release TAKE 1 CAPSULE BY MOUTH EVERY DAY active Not Available Not Available No t Available lansoprazol e 30 mg capsule,del ayed release TAKE 1 CAPSULE BY MOUTH EVERY DAY 06/05 completed Not Available Not Available Not Available hyoscyamine 0.125 mg sublingual tablet TAKE 1 TABLET SUBLINGUA LLY 2 TO 4 TIMES A DAY active Not Available Not Available No t Available divalproex ER 500 mg tablet,exte nded release 24 hr TAKE 1 TABLET BY MOUTH TWICE A DAY active Not Available Not Available No t Available docusate sodium 100 mg capsule TAKE 1 CAPSULE BY MOUTH TWICE A DAY active Not Available Not Available No t Available folic acid 1 mg tablet TAKE 1 TABLET BY MOUTH EVERY DAY active Not Available Not Available No t Available ondansetron 4 mg disintegrat ing tablet TAKE 1 TABLET BY MOUTH EVERY 8 HOURS FOR 5 DAYS NEEDED FOR NAUSEA AND VOMITING active Not Available Not Available No t Available fluoxetine 20 mg capsule TAKE 1 CAPSULE BY MOUTH EVERY DAY IN THE MORNING active Not Available Not Available No t Available metoclopram braden 10 mg tablet TAKE 1 TAB BY MOUTH THREE TIMES A DAY BEFORE MEALS AND AT BEDTIME NEEDED FOR NAUSEA/VO MITING active Not Available Not Available No t Available acamprosate 333 mg tablet,amy yed release TAKE 2 TABLETS BY MOUTH 3 TIMES A DAY 06/05 completed Not Available Not Available Not Available Vivitrol 380 mg intramuscul ar suspension, extended release active Not Available Not Available Not Available Vitals Date Recorded Body temperature Heart rate Oxygen saturation Oxygen saturation in Arterial blood by Pulse oximetry Respiratory rate Systolic blood pressure Diastolic blood pressure Provider Name and Address Organization Details Last Updated DateTime 3 98 [degF] 77 /min 98 % 98 % 16 /min 112 mm[Hg] 68 mm[Hg] Not Available [facility] 09:00:46 Social History Question Answer Notes LastModified by Organizat ion Details LastModified Time Tobacco Smoking Status Current Every Day Smoker ANEL Penny [address] [place], [address], [place] [facility] 06/05/2022 09:00:29 What Is Your Level Of Alcohol Consumption? None Information not available 06/05/2022 Does This Patient Have A PCP? Yes [email or web address] Information not available 06/05/2022 Has The Patient Seen Their PCP In The Past 6 Months? Yes [email or web address] Information not available 06/05/2022 How Much Tobacco Do You Smoke? 1 PPD Information not available 06/05/2022 Do You Use Any Illicit Or Recreational Drugs? No Information not available 06/05/2022 Sex: Unknown Functional Status None recorded. Mental Status None recorded. Family History Relationship Description Onset Age of this Age Resolved Age Notes LastModified by Organization Details LastModified Time Father Malignant neoplasm of lung [facility] Not available 2022 08:59:57 Paternal Aunt Malignant tumor of breast [facility] Not available 2022 09:00:05 Maternal Aunt Malignant tumor of breast [facility] Not available 2022 09:00:11 Medical History Condition Response Diabetes N Coronary Artery Disease N CHF N Parkinson's Disease N Cancer N Stroke N Dementia N Asthma N COPD N Depression N Hypothyroidism N High Cholesterol N Rheumatoid Arthritis N Pulmonary Embolism N Hypertension N A-fib N Osteoporosis N Kidney Disease N Gynecological HistoryNo gynecological history recorded. Obstetrics History GPAL:G 0 P 0 0 0 0 Past Encounters Encounter ID Performer Location Encounter Start Date Encounter Closed Date Diagnosis/Indication Diagnosis SNOMED-CT Code Diagnosis ICD10 Code Diagnosis Note [id number] ANEL Blunt [facility] [address] [place] [address] 06/05/2022 08:20:06 06/08/2022 13:57:45 Viral syndrome 561188885 B34.9 Productive cough 4234385 5 R05.9 Health Concerns Section Related Observation LastModified by Organization Detai ls LastModified Time None Recorded Concern Status LastModified by Organization Details LastModified Time None Recorded Advance Directives Directive None Recorded Payers Encounter Date Sequence Insurance Name Policy Number Policy Campos Covered Member ID Campos Member ID Guarantor Name 06/05/2022 1 [place] B[place]: [employer] Shaunna Kinney [id number] Shaunna Kinney 06/05/2022 2 [place] [facility]un[facility]ney [id number] Shaunna Kinney Notes Date Note Type Note Provider Name a nd Address Organization Details Recorded Time 06/05/2022 text/html 52 YO F new to provider and new to DHSadriana is being seen today at homePMH of gastroparesis, IBS, and ulcersSeen today for cough and URI/flu like sxsStarted about 4-5 days ago and she actually started feeling better today. She was having fever which she reports abated over last 24 hours along with body aches. She remains w/ mild cough sometimes w/ some phlegm. She does have hx of walking pna. She has bene taking Tylenol and taking hot showers to help w/ her sxs and they have been helping. Tested neg for COVID earlier in course. She lives w/ her sister who also had similar sxs as her. Nothing makes her sxs worse. Sxs were moderate in nature and are now mild and resolving. She currently denies current fever, chills, and pain, NVD, weakness, body aches, headache, visual changes, sore throat, cp, SOB. No other reported sxs today. ANEL Penny [address] [place], [address], [place] [facility] 06/05/2022 09:27:20 OBGyn Episode No OBEpisode recorded.
== END 2024-09-30 12:06 | disposition home or self-care (01) ==
LOC: HO.HMCFM 11:03
PROVIDERS: PCP Internal Medicine; Visit Provider Internal Medicine
DX: F41.9 Anxiety disorder, unspecified (principal); R11.2 Nausea with vomiting, unspecified

== ENCOUNTER → 2024-09-30 11:02 | Outpatient (BNVA) | payer MEDICARE, MEDICAID, SELFPAY | PROVIDERS: PCP Internal Medicine; Visit Provider Internal Medicine | DX: F41.9 Anxiety disorder, unspecified (principal); R11.2 Nausea with vomiting, unspecified; I10 Essential (primary) hypertension; G47.00 Insomnia, unspecified; Z79.899 Other long term (current) drug therapy | CPT/HCPCS: 99212 ==

== ENCOUNTER → 2024-11-04 09:44 | Outpatient (REF) | payer MEDICARE, MEDICAID, SELFPAY ==
--- NOTE | 2024-11-04 09:47 | CA_ITS ---
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 The calculated ejection fraction is 56% by biplane method. Findings Procedure Information Contrast agent, definity, is being given per protocol without apparent complications. Left Ventricle Normal left ventricular cavity size. There is normal left ventricular wall thickness. The left ventricular systolic function is normal. The calculated ejection fraction is 56% by biplane method. There is no evidence of regional wall motion abnormalities. Venous The inferior vena cava is normal in size and collapses greater than 50% with inspiration. Prior Study Comparison Changes noted compared to prior study dated: 08/28/2024. LVEF normal in current study. Measurements 2D Linear Measurements IVSd: 0.73 0.6-0.9/0.6-1.0 cm LVIDd: 4.77 3.9-5.3/4.2-5.9 cm LVIDd Index: 3.22 2.4-3.2/2.2-3.1 cm/m2 LVIDs: 3.11 2.0-3.6 cm LVPWd: 0.80 0.7-1.1 cm LA Diam: 3.10 2.7-3.8/3.0-4.0 cm LAIDs Index: 2.09 1.5-2.3 cm/m2 LV Mass: 146.80 67-162/88-224 g LV Mass Index: 99.19 43-95/49-115 g/m2 LVOT Diam: 2.00 3.0+(-)1.3 cm 2D Systolic Function EF 4C: 55.90 >55% EF 2C: 57.00 >55% EF BiP: 56.20 >55% LVOT LVOT Pk Yariel: 1.03 LVOT Mn Yariel: 0.73 LVOT VTI: 0.22 LVOT Pk Grad: 4.00 LVOT Mn Grad: 2.00 LVOT Diam: 2.00 LVOT Area: 3.14 Tricuspid Valve RA Press: 3.00 Updated in Other Vendor System with Status of Final Yehuda Han MD electronically signed on 11/05/2024 12:22:16 PM with status of Final
== END ==
LOC: HO.CARD 09:44
PROVIDERS: PCP Internal Medicine; Visit Provider Internal Medicine Cardiovascular Disease
DX: R79.89 Other specified abnormal findings of blood chemistry (principal); R94.31 Abnormal electrocardiogram [ECG] [EKG]; I10 Essential (primary) hypertension
CPT/HCPCS: 93308; Q9957

== ENCOUNTER → 2024-11-04 09:47 | Outpatient (BNV) | payer MEDICARE, MEDICAID, SELFPAY | PROVIDERS: PCP Internal Medicine; Visit Provider Internal Medicine | DX: R79.89 Other specified abnormal findings of blood chemistry (principal); R94.31 Abnormal electrocardiogram [ECG] [EKG] | CPT/HCPCS: 93308 ==

== ENCOUNTER 2024-12-05 04:45 | Emergency (ER) | payer MEDICARE, MEDICAID, SELFPAY ==
--- NOTE | ~2024-12-05 | CT_ITS ---
CLINICAL HISTORY: nv CT abdomen and pelvis with contrast Comparison: None provided Findings: No consolidation or effusion. The liver, gallbladder, spleen, adrenal glands and pancreas are unremarkable. Left renal cyst, otherwise kidneys, ureters and bladder are normal. Large calcified fibroid along the uterine fundus exerting mass effect upon the bladder. This measures up to 3.8 cm. No bowel obstruction or free air. Normal appendix. No focal or segmental bowel wall thickening detected. Colon is decompressed and not entirely well evaluated. No free fluid, abscess or adenopathy. Minimal diverticulosis. Mild atherosclerotic disease. Impression: No definite acute process. This document has been electronically signed by: Amado Bowling MD on 12/05/2024 09:58:04
[2024-12-05 04:48] VITALS: BP 148/78; PULSE 86; O2SAT 95; BMI 19.9
[2024-12-05 05:01] VITALS: BP 180/84; PULSE 90; RESP 22; TEMP 37.2; O2SAT 100
[2024-12-05 06:01] LABS: Hematocrit 44.4 % (37.0-47.0); Hemoglobin 16.3 g/dl (12.0-16.0); Mean Corpuscular HGB Conc 36.7 g/dl (31.0-35.0); Mean Corpuscular Hemoglobin 31.6 pg (27.0-33.0); Mean Corpuscular Volume 86.0 fL (80.0-98.0); NRBC Abs Auto 0.000 X10*3/uL (0.0-0.012); NRBC Pct Auto 0.0 /100WBC (0.0-0.2); Platelet Count 197 X10*3/uL (160-400); Red Blood Count 5.16 X10*6/uL (4.20-5.50)
[2024-12-05 06:37] LABS: WBC ABN SCTR FOR CBC 1
[2024-12-05 06:43] LABS: Atypical Lymphs Percent Manual 2 % (0-6); Lymphocytes Percent Manual 9 % (20-40); Monocytes Percent Manual 5 % (2-11); Neutrophils Percent Manual 84 % (45-73)
[2024-12-05 06:44] LABS: RBC Morphology NORMAL
[2024-12-05 06:47] LABS: Atypical Lymph Absolute Manual 0.4 x10*3/uL; Lymphocytes Absolute Manual 1.7 X10*3/uL (1.2-4.9); Monocytes Absolute Manual 1.0 X10*3/uL (0.1-1.2); White Blood Count 19.4 X10*3/uL (4.8-10.8)
[2024-12-05 06:49] LABS: Band Neutrophils Percent 0 % (3-5); Neutrophils Absolute Manual 16.3 X10*3/uL (2.0-8.3)
[2024-12-05 07:14] LABS: Alanine Aminotransferase 37 U/L (0-31); Albumin Level 5.6 g/dL (3.5-5.0); Alkaline Phosphatase 85 U/L (39-117); Anion Gap 22 (12-20); Aspartate Amino Transferase 71 U/L (5-31); Blood Urea Nitrogen 15 mg/dL (9-16); Calcium 10.9 mg/dL (8.4-10.2); Carbon Dioxide 20 mmol/L (22-29); Chloride 92 mmol/L (96-108); Creatinine Clr Calc Pharmacy 49.5; Estimated Glomerular Filt Rate 58; Potassium 3.5 mmol/L (3.3-5.1); Sodium 130 mmol/L (135-145); Total Protein 8.9 g/dL (6.5-8.0)
--- NOTE | 2024-12-05 08:41 | ED_ITS ---
HPI - Nausea/Vomiting/Diarrhea General Chief complaint: Nausea/Vomiting/Diarrhea Stated complaint: N/V x 12 hours Time Seen by Provider: 12/05/24 07:00 History of Present Illness HPI Narrative: 54yo F with seizures, esophagitis, gastritis, hiatal hernia, HLD, anxiety, bulimia, laxative abuse, AUD, and chronic N/V/abd pain. Presented today with having nausea vomiting. Generalized malaise. Abdominal pain that is diffuse. No fever no chills. Patient stated she has not used marijuana for the last [address] scan in August. Stated she needs to have her regular bowel movements been using laxative. There is generalized abdominal pain. The symptoms been ongoing since yesterday. She had admission to [facility] 08/10-08/13/24 then 08/21-08/22/24 and then again 08/23-08/26/[address] A/P on 08/22/24, a negative EGD in September 2023 and a negative GES 02/17/22 Related Data Home Medications ?Medication ?Instructions ?Recorded ?Confirmed pantoprazole 40 mg tablet,delayed 40 mg PO DAILY PRN H eartburn 08/27/24 09/03/24 release trazodone 50 mg tablet 100 mg PO BEDTIME 08/27/24 0 09/03/24 linaclotide 145 mcg capsule 145 mcg PO DAILY 09/30/24 09/30/24 (Linzess) Previous Rx's ?Medication ?Instructions ?Recorded valacyclovir 500 mg tablet 500 mg PO DAILY 90 days #90 tabs 08/19/24 metoclopramide HCl 5 mg tablet 5 mg PO Q8H PRN nausea and 08/29/24 vomiting #30 tabs ondansetron 4 mg disintegrating 4 mg PO Q4H PRN nausea and 08/29/24 tablet vomiting #30 tabs amlodipine 5 mg tablet 5 mg PO DAILY #90 tabs 09/03 azithromycin 500 mg tablet 500 mg PO ONCE PRN dental 0 10/20/24 prophylaxis #5 tabs ondansetron 4 mg disintegrating 4 mg PO TID PRN nausea and 12/05/24 tablet vomiting 5 days #10 tabs Allergies Allergy/AdvReac Type Severity Reaction Status Date / Time Penicillins (PENICILLINS) Allergy Intermediate HIVES Verified 12/05/24 04:53 Sulfa (Sulfonamide Allergy Intermediate itching, Verified 12/05/24 04:53 Antibiotics) redness and itching tetracycline (TETRACYCLINE) Allergy Intermediate HIVES Verified 12/05/24 04:53 Review of Systems 2 Review of Systems: Positive nausea vomiting Yes all other systems are reviewed and are negative [facility] Past Medical History Attestation statement: The following information was validated with the patient. Medical History History of COVID-19 Cannabinoid hyperemesis syndrome Shoulder pain, right Smoker unmotivated to quit Generalized anxiety disorder Osteoarthritis of right hip Uterine leiomyoma Dyslipidemia Esophagitis Vasomotor symptoms due to menopause Elevated vitamin B12 level History of bulimia Arthritis Seizures History of alcohol abuse History of eating disorder Surgical History History of hip replacement, total H/O colonoscopy History of esophagogastroduodenoscopy (EGD) Hx of myomectomy Family History Family History Father Lung cancer Substance use disorder Mental health disorder Mother Stomach cancer Liver cancer Substance use disorder Mental health disorder Maternal Aunt Breast cancer Mental health disorder Paternal Aunt Breast cancer Substance use disorder Mental health disorder Maternal Uncle Brain cancer Substance use disorder Maternal Grandfather Substance use disorder Mental health disorder Social History Social History Household Members Other:: sister Housing: House Do you presently have visiting nurse or other home services: No Alcohol intake: former Patient Tobacco Use Status: Current everyday Tobacco user Tobacco use type: Cigarette Cigarette Packs Per Day: 2 Cigarettes Per Day: 40 Years Smoked: 39 Smoked in Last 30 Days: Yes e-Cigarette/Vaping Use: Former Use Substance Use Type: Marijuana Substance Use Frequency: Daily Advance Directives: Yes Advance Directives on File: Yes Advance Directives Date on File: 11/23/22 service: No Current occupational status: employed Current occupation: [employer] Sexual orientation: Straight/Heterosexual Gender identity: Female Cognitive needs: No Hearing needs: No Vision needs: Yes Physical Exam 2 Vital Signs: Vital Signs: Last Vital Signs Temp 98.7 F 12/05/24 10:59 Pulse 65 12/05/24 10:59 Resp 15 12/05/24 10:59 BP 168/97 H 12/05/24 10:59 Pulse Ox 96 12/05/24 10:59 O2 Del Method Room Air 12/05/24 10:59 BMI result Body Mass Index 19.9 Appearance: Alert. Oriented X3. No acute distress. Eyes: Pupils equal, round and reactive to light. ENT: Pharynx normal. Neck: Normal inspection. Neck supple. No lymph nodes noted. No crepitus CVS: Normal heart rate and rhythm. Pulses normal. Normal S1 and S2 Respiratory: No respiratory distress. Breath sounds normal. No Wheezing. No rales Abdomen: Soft and nontender. No rigidity. No distention. good BS x4 Skin: Skin warm and dry. Normal skin color. Normal skin turgor. Extremities: No lower extremity edema. Neurovascular intact to all extremities. No Lacerations. No Rash Neuro: Oriented X 3. No motor deficit. No sensory deficit. Moving all extermities. No slurred speech Medications Administered Discontinued Medications Generic Name Dose Route Start Last Admin Trade Name Freq PRN Reason Stop Dose Admin Droperidol 0.625 mg 12/05/24 08:38 12/05/24 08:52 Droperidol 5 Mg/2 Ml Vial IVPUSH 12/05/24 08:39 0.625 mg ONCE ONE Administration Sodium Chloride 1,000 mls @ 999 mls/hr 12/05/24 08:45 12/05/24 10:40 Ns IV 12/05/24 09:45 Infused .Q1H1M CRYSTAL Infusion Sodium Chloride 1,000 mls @ 999 mls/hr 12/05/24 08:45 12/05/24 10:55 Ns IV 12/05/24 09:45 Infused .Q1H1M CRYSTAL Infusion Iohexol 85 ml 12/05/24 09:18 12/05/24 09:18 Iohexol 350 Mg/Ml 100 Ml Infus..Btl IV 12/05/24 09:19 85 ml ONCE ONE Administration Pantoprazole Sodium 40 mg 12/05/24 08:38 12/05/24 08:51 Pantoprazole Sodium 40 Mg/10 Ml Vial IVPUSH 12/05/24 08:39 40 mg ONCE ONE Administration Medical Decision Making Medical Decision Making MDM Narrative: Patient labs showed an elevated white count. Nausea vomiting patient's hemoglobin is above normal suggestive of dehydration white count was elevated suggesting acute distress. Given IV fluids. Droperidol for nausea. Labs were checked. ABG showed no acidosis. Patient's electrolytes did show an anion gap initially. I question if this is secondary to starvation. After fluids patient's labs were rechecked anion gap is gone. Patient's tox screen came back for marijuana. 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 Explained to patient need to stop using marijuana as she has a history of cyclic vomiting. Patient states understanding does not think that is the problem . Will prescribe patient's Zofran. Close follow-up on an outpatient basis Differential Diagnosis Differential Diagnoses: The differential diagnosis associated with the presentation includes Lab Data MDM Lab Attestation statement: I reviewed the patient's lab results. 12/05/24 12:00 12/05/24 12:00 Labs: Lab Results 12/05/24 12/05/24 12/05/24 Range/Units 05:14 05:56 06:39 WBC Cancelled 19.4 H RBC Cancelled 5.16 D Hgb Cancelled 16.3 H Hct Cancelled 44.4 MCV Cancelled 86.0 MCH Cancelled 31.6 MCHC Cancelled 36.7 H RDW Cancelled 13.0 Plt Count Cancelled 197 D MPV Cancelled 12.2 Immature Gran % (Auto) Cancelled Cancelled Neut % (Auto) Cancelled Cancelled Lymph % (Auto) Cancelled Cancelled Banner % (Auto) Cancelled Cancelled Eos % (Auto) Cancelled Cancelled Baso % (Auto) Cancelled Cancelled Lymph # (Auto) Cancelled Cancelled Banner # (Auto) Cancelled Cancelled Eos # (Auto) Cancelled Cancelled Baso # (Auto) Cancelled Cancelled Abs Immat Gran (auto) Cancelled Cancelled Absolute Neuts (auto) Cancelled Cancelled Absolute Nucleated RBC Cancelled 0.000 Nucleated RBC % (auto) Cancelled 0.0 Neutrophils % (Manual) 84 H (45-73) % Band Neutrophils % 0 L (3-5) % Lymphocytes % (Manual) 9 L (20-40) % Atypical Lymphs % (Man) 2 (0-6) % Monocytes % (Manual) 5 (2-11) % Metamyelocytes % % Abs Neuts (Manual) 16.3 H (2.0-8.3) X10*3/uL Lymphocytes # (Manual) 1.7 (1.2-4.9) X10*3/uL Atyp Lymphs # (Manual) 0.4 x10*3/uL Monocytes # (Manual) 1.0 (0.1-1.2) X10*3/uL Metamyelocytes # X10*3/uL Platelet Estimate NORMAL (NORMAL) Plt Morphology Comment NORMAL RBC Morphology NORMAL Hold Purple Top SEE NOTE VBG pH (7.32-7.43) VBG pCO2 mmHg VBG pO2 mmHg VBG HCO3 (22-26) mmol/L VBG O2 Saturation % VBG Base Excess mmol/L Sodium 130 L (135-145) mmol/L Potassium 3.5 (3.3-5.1) mmol/L Chloride 92 L (96-108) mmol/L Carbon Dioxide 20 L (22-29) mmol/L Anion Gap 22 H (12-20) BUN 15 (9-16) mg/dL Creatinine 1.00 (0.5-1.4) mg/dL Estim Creat Clear Calc 49.5 Estimated GFR 58 Random Glucose 196 H (60-115) mg/dL Calcium 10.9 H D (8.4-10.2) mg/dL Total Bilirubin 0.6 (0.0-1.0) mg/dL Direct Bilirubin (0.0-0.5) mg/dL AST 71 H (5-31) U/L ALT 37 H (0-31) U/L Alkaline Phosphatase 85 (39-117) U/L Total Protein 8.9 H (6.5-8.0) g/dL Albumin 5.6 H (3.5-5.0) g/dL Lipase (8-78) U/L Urine Color Urine Appearance Urine pH (5.0-9.0) Ur Specific Roslyn (1.005-1.025) Urine Protein (Neg-Trace) mg/dL Urine Glucose (UA) (Negative) mg/dL Urine Ketones (Negative) mg/dL Urine Blood (Negative) Urine Nitrite (Negative) Ur Leukocyte Esterase (Negative) Urine RBC (0-2) /HPF Urine WBC (0-5) /HPF Ur Squamous Epith Cells (0-2) /HPF Urine Bacteria (None Seen) Hyaline Casts (0-2) /LPF Urine Opiates Screen (Not Detect) Ur Buprenorphine Scrn (Not Detect) ng/mL Ur Oxycodone Screen (Not Detect) ng/mL Urine Methadone Screen (Not Detect) ng/mL Urine Fentanyl Screen (Not Detect) Ur Barbiturates Screen (Not Detect) Ur Phencyclidine Scrn (Not Detect) Ur Amphetamines Screen (Not Detect) U Benzodiazepines Scrn (Not Detect) Urine Cocaine Screen (Not Detect) U Marijuana (THC) Screen (Not Detect) Ethyl Alcohol < 10 mg/dL 12/05/24 12/05/24 12/05/24 Range/Units 10:47 10:52 12:00 WBC 22.0 H RBC 4.68 Hgb 14.9 Hct 40.8 MCV 87.2 MCH 31.8 MCHC 36.5 H RDW 13.0 Plt Count 247 D MPV 10.7 Immature Gran % (Auto) Cancelled Neut % (Auto) Cancelled Lymph % (Auto) Cancelled Banner % (Auto) Cancelled Eos % (Auto) Cancelled Baso % (Auto) Cancelled Lymph # (Auto) Cancelled Banner # (Auto) Cancelled Eos # (Auto) Cancelled Baso # (Auto) Cancelled Abs Immat Gran (auto) Cancelled Absolute Neuts (auto) Cancelled Absolute Nucleated RBC 0.000 Nucleated RBC % (auto) 0.0 Neutrophils % (Manual) 83 H (45-73) % Band Neutrophils % 1 L (3-5) % Lymphocytes % (Manual) 10 L (20-40) % Atypical Lymphs % (Man) (0-6) % Monocytes % (Manual) 4 (2-11) % Metamyelocytes % 2 % Abs Neuts (Manual) 18.5 H (2.0-8.3) X10*3/uL Lymphocytes # (Manual) 2.2 (1.2-4.9) X10*3/uL Atyp Lymphs # (Manual) x10*3/uL Monocytes # (Manual) 0.9 (0.1-1.2) X10*3/uL Metamyelocytes # 0.4 X10*3/uL Platelet Estimate NORMAL (NORMAL) Plt Morphology Comment NORMAL RBC Morphology NORMAL Hold Purple Top VBG pH 7.50 H (7.32-7.43) VBG pCO2 25 mmHg VBG pO2 234 mmHg VBG HCO3 19 L (22-26) mmol/L VBG O2 Saturation 100.0 % VBG Base Excess -1.2 mmol/L Sodium 133 L (135-145) mmol/L Potassium 3.1 L (3.3-5.1) mmol/L Chloride 98 (96-108) mmol/L Carbon Dioxide 21 L (22-29) mmol/L Anion Gap 17 (12-20) BUN 9 (9-16) mg/dL Creatinine 0.56 (0.5-1.4) mg/dL Estim Creat Clear Calc 88.3 Estimated GFR > 60 Random Glucose 121 H (60-115) mg/dL Calcium 9.0 D (8.4-10.2) mg/dL Total Bilirubin 0.5 (0.0-1.0) mg/dL Direct Bilirubin 0.3 (0.0-0.5) mg/dL AST 50 H (5-31) U/L ALT 31 (0-31) U/L Alkaline Phosphatase 71 (39-117) U/L Total Protein 7.3 (6.5-8.0) g/dL Albumin 4.7 (3.5-5.0) g/dL Lipase 11 (8-78) U/L Urine Color Yellow Urine Appearance Clear Urine pH 6.5 (5.0-9.0) Ur Specific Roslyn 1.020 (1.005-1.025) Urine Protein Negative (Neg-Trace) mg/dL Urine Glucose (UA) Negative (Negative) mg/dL Urine Ketones Trace (Negative) mg/dL Urine Blood Trace H (Negative) Urine Nitrite Negative (Negative) Ur Leukocyte Esterase Negative (Negative) Urine RBC 0-2 (0-2) /HPF Urine WBC 0-5 (0-5) /HPF Ur Squamous Epith Cells 0-2 (0-2) /HPF Urine Bacteria None Seen (None Seen) Hyaline Casts 0-2 (0-2) /LPF Urine Opiates Screen Not Detected (Not Detect) Ur Buprenorphine Scrn Not Detected (Not Detect) ng/mL Ur Oxycodone Screen Not Detected (Not Detect) ng/mL Urine Methadone Screen Not Detected (Not Detect) ng/mL Urine Fentanyl Screen Not Detected (Not Detect) Ur Barbiturates Screen Not Detected (Not Detect) Ur Phencyclidine Scrn Not Detected (Not Detect) Ur Amphetamines Screen Not Detected (Not Detect) U Benzodiazepines Scrn Not Detected (Not Detect) Urine Cocaine Screen Not Detected (Not Detect) U Marijuana (THC) Screen POSITIVE H (Not Detect) Ethyl Alcohol mg/dL Independent Interpretation I performed an independent interpretation of an: CT Scan (Grossly negative) Radiology Impression Discussion of test interpretation with radiology: I have reviewed the radiologist's reading. External Record Review External record reviewed: Office record Chronic Conditions History of cyclic vomiting Social Determinants Patient?s care significantly limited by Social Determinants of Health including: Alcoholism and drug addiction in family and Problems related to primary support group Discharge Plan Discharge Clinical Impression: Cyclic vomiting syndrome Patient Disposition: Home, Self-Care Instructions: Acute Nausea and Vomiting (DC) Additional Instructions: Please stop using marijuana. Marijuana can cause you to have vicious nausea vomiting Prescriptions: New ondansetron 4 mg tablet,disintegrating 4 mg PO TID PRN (Reason: nausea and vomiting) 5 Days Qty: 10 0RF No Action azithromycin 500 mg tablet 500 mg PO ONCE PRN (Reason: dental prophylaxis) Qty: 5 0RF Rx Instructions: one tab oral one hour prior to dental work trazodone 50 mg tablet 100 mg PO BEDTIME pantoprazole 40 mg tablet,delayed release (DR/EC) 40 mg PO DAILY PRN (Reason: Heartburn) ondansetron 4 mg tablet,disintegrating 4 mg PO Q4H PRN (Reason: nausea and vomiting) Qty: 30 0RF metoclopramide HCl 5 mg tablet 5 mg PO Q8H PRN (Reason: nausea and vomiting) Qty: 30 0RF amlodipine 5 mg tablet 5 mg PO DAILY Qty: 90 0RF Protocol: Hold for SBP< HOLD for SBP < : 90 valacyclovir 500 mg tablet 500 mg PO DAILY 90 Days Qty: 90 3RF Linzess 145 mcg capsule 145 mcg PO DAILY Referrals: Leah Bocanegra MD [Primary Care Provider, Endocrinology] - 12/10/24 Print Language: Latvian
[2024-12-05] MEDS: iohexoL 350 MG/ML 100 ML INFUS..BTL 85 ML IV (09:18)
--- NOTE | 2024-12-05 10:30 | PC.NURSE ---
Per Dr. Ramos would like the labs drawn after fluids are done still waiting for 2nd liter to finish. Patient states feels better.
[2024-12-05 10:53] LABS: Appearance Urine Clear; Glucose Urine UA Negative (Negative); PH 6.5 (5.0-9.0); Specific Gravity - Urine 1.020 (1.005-1.025); UMIC TRIGGER UACC YES
[2024-12-05 10:54] LABS: Venous Blood Gas Refer to POC result
[2024-12-05 10:56] LABS: VBG HCO3 19 mmol/L (22-26); VBG O2 % Saturation 100.0 %
[2024-12-05 10:59] VITALS: BP 168/97; PULSE 65; RESP 15; TEMP 37.1; O2SAT 96
[2024-12-05 11:05] LABS: Cannabinoid Screen Urine POSITIVE (Not Detect)
[2024-12-05 12:15] LABS: Hematocrit 40.8 % (37.0-47.0); Hemoglobin 14.9 g/dl (12.0-16.0); Mean Corpuscular HGB Conc 36.5 g/dl (31.0-35.0); Mean Corpuscular Hemoglobin 31.8 pg (27.0-33.0); Mean Corpuscular Volume 87.2 fL (80.0-98.0); NRBC Abs Auto 0.000 X10*3/uL (0.0-0.012); NRBC Pct Auto 0.0 /100WBC (0.0-0.2); Platelet Count 247 X10*3/uL (160-400); Red Blood Count 4.68 X10*6/uL (4.20-5.50)
[2024-12-05 12:16] LABS: WBC ABN SCTR FOR CBC 1
[2024-12-05 12:38] LABS: Band Neutrophils Percent 1 % (3-5); Lymphocytes Percent Manual 10 % (20-40); Metamyelocytes Percent 2 %; Monocytes Percent Manual 4 % (2-11); Neutrophils Percent Manual 83 % (45-73)
[2024-12-05 12:39] LABS: RBC Morphology NORMAL
[2024-12-05 12:43] LABS: Lymphocytes Absolute Manual 2.2 X10*3/uL (1.2-4.9); Metamyelocytes Absolute 0.4 X10*3/uL; Monocytes Absolute Manual 0.9 X10*3/uL (0.1-1.2); Neutrophils Absolute Manual 18.5 X10*3/uL (2.0-8.3); White Blood Count 22.0 X10*3/uL (4.8-10.8)
[2024-12-05 12:48] LABS: Alanine Aminotransferase 31 U/L (0-31); Albumin Level 4.7 g/dL (3.5-5.0); Alkaline Phosphatase 71 U/L (39-117); Anion Gap 17 (12-20); Aspartate Amino Transferase 50 U/L (5-31); Blood Urea Nitrogen 9 mg/dL (9-16); Calcium 9.0 mg/dL (8.4-10.2); Carbon Dioxide 21 mmol/L (22-29); Chloride 98 mmol/L (96-108); Creatinine Clr Calc Pharmacy 88.3; Estimated Glomerular Filt Rate > 60; Lipase 11 U/L (8-78); Potassium 3.1 mmol/L (3.3-5.1); Sodium 133 mmol/L (135-145); Total Protein 7.3 g/dL (6.5-8.0)
[2024-12-05 13:59] VITALS: BP 132/86; PULSE 77; RESP 16; TEMP 36.5; O2SAT 99
== END 2024-12-05 14:30 | disposition home or self-care (01) ==
PROVIDERS: Emergency Provider Emergency Medicine Emergency Medical Services; PCP Internal Medicine
DX: R11.2 Nausea with vomiting, unspecified (principal); R53.83 Other fatigue; R10.2 Pelvic and perineal pain; F17.210 Nicotine dependence, cigarettes, uncomplicated; Z79.899 Other long term (current) drug therapy; Z51.81 Encounter for therapeutic drug level monitoring
CPT/HCPCS: 36415; 74177; 80048; 80053; 80076; 80307; 81001; 82803; 83690; 85007; 85025; 85027; 96361; 96374; 96375; 99284; J1790; J2470; Q9967

== ENCOUNTER → 2024-12-05 08:38 | Outpatient (BNV) | payer MEDICARE, MEDICAID, SELFPAY | PROVIDERS: Emergency Provider Emergency Medicine Emergency Medical Services; PCP Internal Medicine; Visit Provider Radiology Vascular & Interventional Radiology | DX: R11.2 Nausea with vomiting, unspecified (principal) | CPT/HCPCS: 74177 ==

== ENCOUNTER 2024-12-06 06:46 | Observation (INO) | payer MEDICARE, MEDICAID, SELFPAY ==
[2024-12-06] VITALS (8 sets, daily range): BP systolic 133–202; BP diastolic 67–100; PULSE 50–72; RESP 18–22; TEMP 36.2–36.8; O2SAT 95–100; BMI 20.1
--- NOTE | 2024-12-06 | ECG_ITS ---
Test Reason : ELEVATED BP Blood Pressure : */* mmHG Vent. Rate : 80 BPM Atrial Rate : 80 BPM P-R Int : 88 ms QRS Dur : 90 ms QT Int : 420 ms P-R-T Axes : * 26 49 degrees QTcB Int : 484 ms Sinus rhythm with sinus arrhythmia with short MI Nonspecific ST and T wave abnormality Prolonged QT Abnormal ECG When compared with ECG of 27-Aug-2024 16:09, MI interval has decreased ST now depressed in Inferior leads ST now depressed in Anterior leads T wave inversion no longer evident in Inferior leads T wave inversion no longer evident in Lateral leads Referred By: Generic ED Physician Electronically Signed By: APRYL SCHREIBER MD
--- NOTE | ~2024-12-06 | XR_ITS ---
CLINICAL HISTORY: vomiting 1 view chest x-ray. Comparison: None Findings: Normal lung volumes. Lungs are clear. No pneumothorax or pleural effusion. Heart size normal. No passive venous congestion. No midline shift or tracheal deviation. No acute fracture. Impression: 1. No acute cardiopulmonary disease. This document has been electronically signed by: Emerson Dougherty MD on 12/06/2024 10:06:06
[2024-12-06 07:25] LABS: Hematocrit 42.2 % (37.0-47.0); Hemoglobin 15.1 g/dl (12.0-16.0); Mean Corpuscular HGB Conc 35.8 g/dl (31.0-35.0); Mean Corpuscular Hemoglobin 31.1 pg (27.0-33.0); Mean Corpuscular Volume 87.0 fL (80.0-98.0); NRBC Abs Auto 0.000 X10*3/uL (0.0-0.012); NRBC Pct Auto 0.0 /100WBC (0.0-0.2); Platelet Count 274 X10*3/uL (160-400); Red Blood Count 4.85 X10*6/uL (4.20-5.50)
[2024-12-06 07:31] LABS: WBC ABN SCTR FOR CBC 1
--- NOTE | 2024-12-06 07:45 | ED_ITS ---
HPI - Abdominal Pain General Chief Complaint: Abdominal Pain Stated Complaint: Vomiting 3 days, happens regularly,@hospital 2days Time Seen by Provider: 12/06/24 07:42 Source: patient Mode of arrival: ambulatory Limitations: no limitations History of Present Illness ED Provider: DR. Reaves HPI narrative: This is a 54-year-old female who returned to the emergency department for evaluation of persistent vomiting, patient was evaluated for similar symptoms in the ED yesterday had unremarkable CT abdomen patient was discharged home after felt better. patient admit to smoking marijuana on a daily basis however patient tried to stop smoking marijuana for 6 months with out improvement of her condition. Past medical history significant for seizure, esophagitis, gastritis, hiatal hernia, HLD, anxiety, bulimia, laxative abuse, chronic N/ V/abdominal pain. Related Data Home Medications ?Medication ?Instructions ?Recorded ?Confirmed pantoprazole 40 mg tablet,delayed 40 mg PO DAILY PRN H eartburn 08/27/24 09/03/24 release trazodone 50 mg tablet 100 mg PO BEDTIME 08/27/24 0 09/03/24 linaclotide 145 mcg capsule 145 mcg PO DAILY 09/30/24 09/30/24 (Linzess) Previous Rx's ?Medication ?Instructions ?Recorded valacyclovir 500 mg tablet 500 mg PO DAILY 90 days #90 tabs 08/19/24 metoclopramide HCl 5 mg tablet 5 mg PO Q8H PRN nausea and 08/29/24 vomiting #30 tabs ondansetron 4 mg disintegrating 4 mg PO Q4H PRN nausea and 08/29/24 tablet vomiting #30 tabs amlodipine 5 mg tablet 5 mg PO DAILY #90 tabs 09/03 azithromycin 500 mg tablet 500 mg PO ONCE PRN dental 0 10/20/24 prophylaxis #5 tabs ondansetron 4 mg disintegrating 4 mg PO TID PRN nausea and 12/05/24 tablet vomiting 5 days #10 tabs Allergies Allergy/AdvReac Type Severity Reaction Status Date / Time Penicillins (PENICILLINS) Allergy Intermediate HIVES Verified 12/06/24 06:55 Sulfa (Sulfonamide Allergy Intermediate itching, Verified 12/06/24 06:55 Antibiotics) redness and itching tetracycline (TETRACYCLINE) Allergy Intermediate HIVES Verified 12/06/24 06:55 Review of Systems Review of Systems All other systems are reviewed and are negative Constitutional: Reports as per HPI and Reports no additional constitutional complaints Eyes: Reports as per HPI and Reports no additional eye complaints Reports system reviewed and no additional complaints, except as documented Cardiovascular: Reports as per HPI and Reports no additional cardiovascular complaints Respiratory: Reports as per HPI and Reports no additional respiratory complaints Gastrointestinal: Reports as per HPI and Reports no additional gastrointestinal complaints Genitourinary: Reports no additional female genitourinary complaints Musculoskeletal: Reports no additional musculoskeletal complaints Skin/Breast: Reports system reviewed and no additional complaints, except as docu Psychiatric: Reports no additional psychiatric complaints Endocrine: Reports no additional endocrine complaints Hematologic/Lymphatic: Reports no additional hematologic/lymphatic complaints Allergic/Immunologic: Reports no additional allergic/immunologic complaints Reports system reviewed and no additional complaints, except as documented and Reports Abnormal speech present [facility] Past Medical History Medical History History of COVID-19 Cannabinoid hyperemesis syndrome Shoulder pain, right Smoker unmotivated to quit Generalized anxiety disorder Osteoarthritis of right hip Uterine leiomyoma Dyslipidemia Esophagitis Vasomotor symptoms due to menopause Elevated vitamin B12 level History of bulimia Arthritis Seizures History of alcohol abuse History of eating disorder Surgical History History of hip replacement, total H/O colonoscopy History of esophagogastroduodenoscopy (EGD) Hx of myomectomy Family History Family History Father Lung cancer Substance use disorder Mental health disorder Mother Stomach cancer Liver cancer Substance use disorder Mental health disorder Maternal Aunt Breast cancer Mental health disorder Paternal Aunt Breast cancer Substance use disorder Mental health disorder Maternal Uncle Brain cancer Substance use disorder Maternal Grandfather Substance use disorder Mental health disorder Social History Social History Household Members Other:: sister Housing: House Do you presently have visiting nurse or other home services: No Alcohol intake: former Patient Tobacco Use Status: Current everyday Tobacco user Tobacco use type: Cigarette Cigarette Packs Per Day: 2 Cigarettes Per Day: 40 Years Smoked: 39 Smoked in Last 30 Days: Yes e-Cigarette/Vaping Use: Former Use Use of substances other than those prescribed or required for medical reasons: Yes Substance Use Type: Marijuana Substance Use Frequency: Occasionally Advance Directives: Yes Advance Directives Information Provided: No Advance Directives on File: No Advance Directives Date on File: 11/23/22 service: No Current occupational status: employed Current occupation: [employer] Sexual orientation: Straight/Heterosexual Gender identity: Female Cognitive needs: No Hearing needs: No Vision needs: Yes Physical Exam ED Vital Signs: Vital Signs - 24 hr 12/06/24 06:54 12/06/24 08:00 12/06/24 08:57 Temperature 98.1 F Pulse Rate 68 72 59 Respiratory Rate 22 H 18 18 Blood Pressure 202/90 H 150/77 H 166/88 H Pulse Oximetry 100 100 100 Oxygen Delivery Method Room Air Nasal Cannula Oxygen Flow Rate 2 12/06/24 09:53 Temperature Pulse Rate 65 Respiratory Rate 18 Blood Pressure 133/67 Pulse Oximetry 95 Oxygen Delivery Method Room Air Oxygen Flow Rate BMI result Body Mass Index 20.1 Vital signs have been reviewed and appear to be correct. Blood pressure elevated. Heart rate normal. Respiratory rate normal. Temperature normal. Oxygen saturation normal. Appearance: Alert. Oriented X3. No acute distress. Head: Normal external exam. Normocephalic. Atraumatic. No [place] signs noted. No raccoon eyes noted Eyes: PERRLA. EOMI. Conjunctiva and sclera normal. Eyelids normal. ENT: TM's Normal. Pharynx normal. Uvula midline. Moist mucous membranes. No trismus noted. No drooling noted. No muffled voice noted. Neck: Normal inspection. Neck supple. FROM. No adenopathy. Thyroid Normal. No meningeal signs. No neck mass noted. CVS: Normal heart rate and rhythm. Heart sound normal. No murmurs noted. Pulses normal throughout. Respiratory: No respiratory distress. Painless inspiration. Breath sounds normal. No wheezes/rales/rhonchi noted. Chest nontender. No accessory muscle usage noted or decreased air movement noted. Abdomen: Soft and nontender. Bowel sounds normal in all 4 quadrants. No distention noted. No organomegaly noted. No visible injury noted. Back: No CVA tenderness. Full range of motion noted. Skin: Skin warm and dry. Normal skin color. Normal skin turgor. No rashes/lesions/lacerations noted. Extremities: No lower extremity edema. Extremities exhibit normal range of motion. Extremities nontender. Neuro: Oriented X 3. Cranial nerve exam: II-XII are grossly intact No motor deficit. No sensory deficit. Reflexes normal. Course Reevaluation(s) Reevaluation #1: patient was given Valium to control her symptoms becoming sleepy, O2 sat is 88-94 while patient is lethargic secondary to Valium patient is easily arousable when she asked to take a deep breath her O2 sat improve. Will consider chest x- ray rule out intrathoracic pathology. Patient also was moved to bed 16 noticed on the monitor patient is having multiple PVCs in almost bigeminy pattern, her electrolyte showed hypokalemia. Patient was chronic elevation of troponin EKG shows no ST-T changes, patient has no chest pain or shortness of breath. Will replete potassium, and magnesium. No abdominal pain now, no nausea, no vomiting. Keep the patient monitored and repeat electrolytes and troponin. Time: 08:30 Reevaluation #2: Potassium was repleted, 1 mg of magnesium also was administrated, Time: 10:00 Reevaluation #3: Repeat potassium is 3.4, improvement of magnesium repeat, troponin is slightly elevated with no delta change (patient was chronic troponin elevation) EKG indicating no ACS. Will admit the patient for cardiac monitoring and symptomatic treatment. Patient had abdominal CT yesterday with no acute findings, no change in patient's symptoms will not repeat the CT today. Time: 11:22 Medical Decision Making Differential Diagnosis Differential Diagnoses: The differential diagnosis associated with the presentation includes ( Electrolyte derangement, severe anemia cyclic vomiting syndrome, acute intra-abdominal pathology.) Admission/Observation Consideration of admission/observation: Escalation of care including admission/observation considered Lab Data MDM Lab Attestation statement: I reviewed the patient's lab results. 12/06/24 07:18 12/06/24 10:31 Labs: Lab Results 12/06/24 12/06/24 12/06/24 Range/Units 07:18 09:55 10:31 WBC 14.3 H (4.8-10.8) X10*3/uL RBC 4.85 (4.20-5.50) X10*6/uL Hgb 15.1 (12.0-16.0) g/dl Hct 42.2 (37.0-47.0) % MCV 87.0 (80.0-98.0) fL MCH 31.1 (27.0-33.0) pg MCHC 35.8 H (31.0-35.0) g/dl RDW 13.0 (11.0-16.0) % Plt Count 274 (160-400) X10*3/uL MPV 11.3 (9.4-12.3) fL Immature Gran % (Auto) Cancelled Neut % (Auto) Cancelled Lymph % (Auto) Cancelled [place] % (Auto) Cancelled Eos % (Auto) Cancelled Baso % (Auto) Cancelled Lymph # (Auto) Cancelled [place] # (Auto) Cancelled Eos # (Auto) Cancelled Baso # (Auto) Cancelled Abs Immat Gran (auto) Cancelled Absolute Neuts (auto) Cancelled Absolute Nucleated RBC 0.000 (0.0-0.012) X10*3/uL Nucleated RBC % (auto) 0.0 (0.0-0.2) /100WBC Neutrophils % (Manual) 64 (45-73) % Band Neutrophils % 2 L (3-5) % Lymphocytes % (Manual) 30 (20-40) % Monocytes % (Manual) 4 (2-11) % Abs Neuts (Manual) 9.4 H (2.0-8.3) X10*3/uL Lymphocytes # (Manual) 4.3 (1.2-4.9) X10*3/uL Monocytes # (Manual) 0.6 (0.1-1.2) X10*3/uL Platelet Estimate NORMAL (NORMAL) Large Platelets PRESENT Plt Morphology Comment NOTED RBC Morphology NORMAL Sodium 135 (135-145) mmol/L Potassium 2.8 L* 3.4 D (3.3-5.1) mmol/L Chloride 95 L (96-108) mmol/L Carbon Dioxide 23 (22-29) mmol/L Anion Gap 20 (12-20) BUN 8 L (9-16) mg/dL Creatinine 0.64 (0.5-1.4) mg/dL Estim Creat Clear Calc 78.2 Estimated GFR > 60 Random Glucose 139 H (60-115) mg/dL Calcium 10.2 D (8.4-10.2) mg/dL Magnesium 1.6 2.1 (1.6-2.6) mg/dL Total Bilirubin 0.9 (0.0-1.0) mg/dL Direct Bilirubin 0.3 (0.0-0.5) mg/dL AST 57 H (5-31) U/L ALT 33 H (0-31) U/L Alkaline Phosphatase 79 (39-117) U/L Troponin I High Sens 201.5 H* D 211.9 H* (<3.5-17.0) ng/L Total Protein 7.9 (6.5-8.0) g/dL Albumin 5.0 (3.5-5.0) g/dL Lipase 24 (8-78) U/L Urine Color Yellow Urine Appearance Clear Urine pH 6.0 (5.0-9.0) Ur Specific [place] <= 1.005 (1.005-1.025) Urine Protein Negative (Neg-Trace) mg/dL Urine Glucose (UA) Negative (Negative) mg/dL Urine Ketones 15 (Negative) mg/dL Urine Blood Negative (Negative) Urine Nitrite Negative (Negative) Ur Leukocyte Esterase Negative (Negative) Medications Administered Discontinued Medications Generic Name Dose Route Start Last Admin Trade Name Freq PRN Reason Stop Dose Admin Diazepam 5 mg 12/06/24 07:45 12/06/24 08:07 Diazepam 10 Mg/2 Ml Cartridge IVPUSH 12/06/24 07:46 5 mg STAT STA Administration Droperidol 1.25 mg 12/06/24 07:45 12/06/24 08:06 Droperidol 5 Mg/2 Ml Vial IVPUSH 12/06/24 07:46 1.25 mg ONCE ONE Administration Hydromorphone HCl 1 mg 12/06/24 07:45 12/06/24 08:01 Hydromorphone Hcl 1 Mg/Ml Syringe IVPUSH 12/06/24 07:46 1 mg ONCE ONE Administration Protocol Lactated Ringer's 1,000 mls @ 999 mls/hr 12/06/24 07:45 12/06/24 09:50 Lr IV 12/06/24 08:45 Infused .Q1H1M CRYSTAL Infusion Potassium Chloride 10 meq in 100 mls @ 100 mls/hr 12/06/24 07:52 12/06/24 09:50 Potassium Chloride/H20 IV 12/06/24 08:51 Infused ONCE ONE Infusion Magnesium Sulfate/Dextrose 1 gm in 100 mls @ 100 mls/hr 12/06/24 08:45 12/06/24 09:56 Magnesium Sulfate/D5w IV 12/06/24 09:44 Infused ONCE ONE Infusion Ondansetron HCl 4 mg 12/06/24 07:24 12/06/24 07:26 Ondansetron Hcl 4 Mg/2 Ml Vial IVPUSH 12/06/24 07:25 4 mg ONCE ONE Administration Potassium Chloride 40 meq 12/06/24 07:52 12/06/24 08:01 Potassium Chloride Packet 20 Meq Packet PO 12/06/24 07:53 40 meq ONCE ONE Administration Critical Care Time Critical Care Time Critical Care Time: Yes Total Critical Care Time: 60 Attestation: The patient was critically ill with a high probability of imminent or life- threatening deterioration. I spent greater than 30 minutes of discontinuous time evaluating the patient, delivering critical care at the bedside, discussing evaluating data with consultants. Critical care time does not include time spent performing separately billable procedures or teaching. Time spent performing critical care was 60 minutes. Discharge Plan Discharge Clinical Impression: Cyclic vomiting syndrome, Acute hypokalemia, Atrial dysrhythmia, Elevated troponin Patient Disposition: Admitted As Inpatient Print Language: Grenadian
[2024-12-06 07:49] LABS: Troponin-I High Sensitivity 201.5 ng/L (<3.5-17.0)
[2024-12-06 07:50] LABS: Alanine Aminotransferase 33 U/L (0-31); Albumin Level 5.0 g/dL (3.5-5.0); Alkaline Phosphatase 79 U/L (39-117); Anion Gap 20 (12-20); Aspartate Amino Transferase 57 U/L (5-31); Blood Urea Nitrogen 8 mg/dL (9-16); Calcium 10.2 mg/dL (8.4-10.2); Carbon Dioxide 23 mmol/L (22-29); Chloride 95 mmol/L (96-108); Creatinine Clr Calc Pharmacy 78.2; Estimated Glomerular Filt Rate > 60; Lipase 24 U/L (8-78); Potassium 2.8 mmol/L (3.3-5.1); Sodium 135 mmol/L (135-145); Total Protein 7.9 g/dL (6.5-8.0)
--- NOTE | 2024-12-06 07:54 | ECG_ITS ---
Test Reason : ELEVATED TROP Blood Pressure : */* mmHG Vent. Rate : 65 BPM Atrial Rate : 65 BPM P-R Int : 128 ms QRS Dur : 92 ms QT Int : 442 ms P-R-T Axes : 80 20 59 degrees QTcB Int : 459 ms Sinus rhythm with frequent Premature ventricular complexes Otherwise normal ECG When compared with ECG of 06-Dec-2024 07:03, Premature ventricular complexes are now Present MA interval has increased Referred By: Andrew Reaves Electronically Signed By: APRYL SCHREIBER MD
[2024-12-06] MEDS: Potassium Chloride Packet 20 MEQ PACKET 40 MEQ PO (08:01)
[2024-12-06 08:04] LABS: Band Neutrophils Percent 2 % (3-5); Lymphocytes Percent Manual 30 % (20-40); Monocytes Percent Manual 4 % (2-11); Neutrophils Percent Manual 64 % (45-73)
[2024-12-06 08:07] LABS: Large Platelet PRESENT; RBC Morphology NORMAL
[2024-12-06] MEDS: diazePAM 10 MG/2 ML CARTRIDGE 5 MG IVPUSH (08:07)
[2024-12-06 08:09] LABS: Lymphocytes Absolute Manual 4.3 X10*3/uL (1.2-4.9); Monocytes Absolute Manual 0.6 X10*3/uL (0.1-1.2); Neutrophils Absolute Manual 9.4 X10*3/uL (2.0-8.3); White Blood Count 14.3 X10*3/uL (4.8-10.8)
[2024-12-06] MEDS: Potassium Chloride/H20 10 MEQ/100 ML PIGGYBACK 100 MEQ IV (08:11)
[2024-12-06 08:14] LABS: Magnesium 1.6 mg/dL (1.6-2.6)
[2024-12-06] MEDS: Lactated Ringers 1,000 ML 999 ML IV (08:23)
--- NOTE | 2024-12-06 08:27 | PC.NURSE ---
From home with complaints of nausea, dry heaving, and vomiting that started this morning. States this is a chronic problem that she has been worked up extensively for but there is not a known cause of why this happens. 20g iv placed in right wrist and medicated per mar with good effect.
--- NOTE | 2024-12-06 08:37 | PC.NURSE ---
Transferred to ED 16, reports pain has resolved , denies chest pain but states she was having chest pain earlier but did not mention it because the abdominal pain was worse
--- NOTE | 2024-12-06 08:56 | PC.NURSE ---
22 g iv placed in left wrist, provider aware patient having frequent PVC`s. Patient alert and oriented, denies sob or chest pain
--- NOTE | 2024-12-06 09:46 | PC.NURSE ---
Reports feeling better, denies pain or discomfort, denies chest pain or sob
[2024-12-06 10:01] LABS: Appearance Urine Clear; Glucose Urine UA Negative (Negative); PH 6.0 (5.0-9.0); Specific Gravity - Urine <= 1.005 (1.005-1.025)
[2024-12-06 10:56] LABS: Magnesium 2.1 mg/dL (1.6-2.6); Potassium 3.4 mmol/L (3.3-5.1)
[2024-12-06 11:10] LABS: Troponin-I High Sensitivity 211.9 ng/L (<3.5-17.0)
--- NOTE | 2024-12-06 11:51 | P.HPHOSP_ITS ---
History of Present Illness Date of Service: 12/06/24 Attending physician on admission: Sahil Quintero Chief Complaint: N/V, abd pain Pt is a 54-year-old female with a PMH significant for?seizure disorder, cyclic vomiting syndrome, Cage's esophagus, bulimia, anxiety, alcohol use disorder in remission x2 years, current smoker 1 pack daily, and current daily cannabis use who represents to the ED with?intractable nausea, vomiting, epigastric abdominal pain, and bilateral flank pain. Pt initially presented to the ED yesterday with similar symptoms where workup, including CT of abdomen/pelvis and UA, was negative. Pt was treated with antiemetics and IVF with symptom relief, and pt was discharged home after feeling much better. Pt re-presents to the ED today as symptoms returned after she got home, and pt reports experiencing multiple episodes of N/V and epigastric abdominal pain. Not been able to tolerate any food or liquid since discharge. Also reports coffee-ground emesis which she states she always gets whenever she vomits. Possible streaks of blood in vomitus as well. Pt has had multiple presentations to the ED and hospitalizations with similar symptoms, most recently in June and August at [facility], and March here at [facility] [place]. Follows with GI and has had extensive outpatient workup has which has been negative, including EGD, colonoscopy, barium swallow, gastric emptying studies, and multiple CTs of abd/pelvis. During last admission at [facility] [place] was also found to have elevated troponins, and had echocardiogram that showed mildly reduced LVEF of 45-50%, though study had to be terminated early as pt could not tolerate procedure. Of note, has not had a neurologist in some time and not been able to get new Depakote prescription in the past month or so. In the ED pt was tachypneic up to 22 and initially hypertensive at 202/90. Labs were significant for WBC 14.3 (reduced from yesterday at 22.0), potassium 2.8, AST 57, ALT 33, and serial troponins 201.5 with repeat flat at 211.9. Tox screen positive for marijuana. UA yesterday and today negative for UTI. CXR showed no acute cardiopulmonary disease. CT of abdomen/pelvis yesterday negative for definite acute process. EKG demonstrated sinus rhythm with frequent PVCs, but no evidence of significant ST elevations or depressions. Pt was treated in the ED with ondansetron, droperidol, potassium chloride IV p.o., Mag sulfate, and Dilaudid. Pt is admitted to the hospital under observation for treatment and further evaluation of acute cyclic vomiting syndrome flare. Review of Systems 2 Review of Systems: Negative except for that which is stated in the HPI. [facility] Medical History History of COVID-19 Cannabinoid hyperemesis syndrome Shoulder pain, right Smoker unmotivated to quit Generalized anxiety disorder Osteoarthritis of right hip Uterine leiomyoma Dyslipidemia Esophagitis Vasomotor symptoms due to menopause Elevated vitamin B12 level History of bulimia Arthritis Seizures History of alcohol abuse History of eating disorder Family History Father Lung cancer Substance use disorder Mental health disorder Mother Stomach cancer Liver cancer Substance use disorder Mental health disorder Maternal Aunt Breast cancer Mental health disorder Paternal Aunt Breast cancer Substance use disorder Mental health disorder Maternal Uncle Brain cancer Substance use disorder Maternal Grandfather Substance use disorder Mental health disorder Surgical History History of hip replacement, total H/O colonoscopy History of esophagogastroduodenoscopy (EGD) Hx of myomectomy Social History Household Members Other:: sister Housing: House Do you presently have visiting nurse or other home services: No Alcohol intake: former Patient Tobacco Use Status: Current everyday Tobacco user Tobacco use type: Cigarette Cigarette Packs Per Day: 2 Cigarettes Per Day: 40 Years Smoked: 39 Smoked in Last 30 Days: Yes e-Cigarette/Vaping Use: Former Use Use of substances other than those prescribed or required for medical reasons: Yes Substance Use Type: Marijuana Substance Use Frequency: Occasionally Advance Directives: Yes Advance Directives Information Provided: No Advance Directives on File: No Advance Directives Date on File: 11/23/22 service: No Current occupational status: employed Current occupation: [employer] Sexual orientation: Straight/Heterosexual Gender identity: Female Cognitive needs: No Hearing needs: No Vision needs: Yes Meds Allergies Allergy/AdvReac Type Severity Reaction Status Date / Time Penicillins (PENICILLINS) Allergy Intermediate HIVES Verified 12/06/24 06:55 Sulfa (Sulfonamide Allergy Intermediate itching, Verified 12/06/24 06:55 Antibiotics) redness and itching tetracycline (TETRACYCLINE) Allergy Intermediate HIVES Verified 12/06/24 06:55 Home Medications ?Medication ?Instructions ?Recorded ?Confirmed ?Last Taken ?Type pantoprazole 40 mg tablet,delayed 40 mg PO DAILY@0630 PRN Acid Reflux 08/27/24 12/06/24 Unknown History release trazodone 50 mg tablet 50 - 100 mg PO BEDTIME 08/2712/06/24 Unknown History linaclotide 145 mcg capsule 145 mcg PO DAILY 09/30/24 12/06/24 Unknown History (Linzess) amitriptyline 10 mg tablet 10 mg PO BEDTIME 12/06/24 Unknown History metoclopramide HCl 5 mg tablet 5 mg PO QID PRN nausea and vomiting 12/06/24 12/06/24 Unknown History Physical Exam 2 Vital Signs and Narrative: Vital Signs: Last Vital Signs Temp 98.1 F 12/06/24 06:54 Pulse 65 12/06/24 09:53 Resp 18 12/06/24 09:53 BP 133/67 12/06/24 09:53 Pulse Ox 95 12/06/24 09:53 O2 Del Method Room Air 12/06/24 09:53 O2 Flow Rate 2 12/06/24 08:57 BMI result Body Mass Index 20.1 General: AOx3, no acute distress Resp: CTA bilaterally CVS: S1, S2, RRR GI: +BS, NT, no distention Back: NT. No CVA tenderness Skin: Warm, dry Neuro: Cranial nerves II-XII grossly intact bilaterally. Motor grossly intact bilaterally Extremities: No edema Psych: Irritable, though overall cooperative Results Labs 12/06/24 07:18 12/06/24 10:31 Labs: Laboratory Results - last 24 hr 12/06/24 12/06/24 12/06/24 07:18 09:55 10:31 MCV 87.0 MCH 31.1 MCHC 35.8 H RDW 13.0 Plt Count 274 MPV 11.3 Immature Gran % (Auto) Cancelled Neut % (Auto) Cancelled Lymph % (Auto) Cancelled [place] % (Auto) Cancelled Eos % (Auto) Cancelled Baso % (Auto) Cancelled Lymph # (Auto) Cancelled [place] # (Auto) Cancelled Eos # (Auto) Cancelled Baso # (Auto) Cancelled Abs Immat Gran (auto) Cancelled Absolute Neuts (auto) Cancelled Absolute Nucleated RBC 0.000 Nucleated RBC % (auto) 0.0 Neutrophils % (Manual) 64 Band Neutrophils % 2 L Lymphocytes % (Manual) 30 Monocytes % (Manual) 4 Abs Neuts (Manual) 9.4 H Lymphocytes # (Manual) 4.3 Monocytes # (Manual) 0.6 Platelet Estimate NORMAL Large Platelets PRESENT Plt Morphology Comment NOTED RBC Morphology NORMAL Anion Gap 20 Estim Creat Clear Calc 78.2 Estimated GFR > 60 Random Glucose 139 H Calcium 10.2 D Magnesium 1.6 2.1 Total Bilirubin 0.9 Direct Bilirubin 0.3 AST 57 H ALT 33 H Alkaline Phosphatase 79 Troponin I High Sens 201.5 H* D 211.9 H* Total Protein 7.9 Albumin 5.0 Lipase 24 Urine Color Yellow Urine Appearance Clear Urine pH 6.0 Ur Specific [place] <= 1.005 Urine Protein Negative Urine Glucose (UA) Negative Urine Ketones 15 Urine Blood Negative Urine Nitrite Negative Ur Leukocyte Esterase Negative Assessment and Plan (1) Cyclic vomiting syndrome: Status: Acute Plan Pt is a 54-year-old female with a PMH significant for?seizure disorder, cyclic vomiting syndrome, Cage's esophagus, bulimia, anxiety, alcohol use disorder in remission x2 years, current smoker 1 pack daily, and current daily cannabis use who represents to the ED with?intractable nausea, vomiting, epigastric abdominal pain, and bilateral flank pain. Pt is admitted to the hospital under observation for treatment and further evaluation of acute cyclic vomiting syndrome flare. Acute cyclic vomiting syndrome flare Ongoing past 15 years, has been attributed to cannabis use though pt does not think this is accurate Intractable N/V/back and epigastric abd pain x5 days; sent home from ED yesterday but symptoms returned last night Antiemetics, IVF, analgesics Full liquid diet for now, advance as tolerated Pt has outpatient appointment with Dr. Nuñez in GI on Sunday Cannabis cessation strongly advised Hypokalemia, resolved Potassium 2.8 with repeat 3.4 after supplementation in the ED Secondary to cyclic vomiting syndrome flare Elevated troponins Initial troponin 201.5 with repeat flat at 211.9 EKG showing increased PVCs, no ischemia Pt asymptomatic Has outpatient appointment with Dr. Hurt in Cardiology soon for repeat echo and stress test No additional workup in the hospital indicated at this time Monitor on telemetry Hypertensive urgency Initial BP 202/90, secondary to intractable nausea and vomiting and abdominal pain Currently improved 133/67 without antihypertensives Continue amlodipine Leukocytosis WBCs 14.3, previous 22.0 yesterday Reactionary, not secondary to active infection No indication for antibiotics at this time; Treat as above Question of coffee-ground emesis Self-reported, states always gets coffee-ground emesis with vomiting episodes H&H 14.9/40.8 yesterday, today 15.1/42.2 Protonix IV daily Monitor H&H Seizure disorder Reports has not been able to see a neurologist in some time Not been able to refill Depakote 500 mg b.i.d. prescription in some time, though reports still has some pills at home No recent seizures Continue Depakote 500 mg ER, consider sending home with prescription Full Code Attending:?Dr. Quintero DVT Prophylaxis: Pneumatic compression due to reported coffee-ground emesis Pt will be admitted to the hospital under observation for treatment and further evaluation of intractable nausea, vomiting, abdominal pain, and electrolyte abnormalities in the setting of acute cyclic vomiting syndrome flare. As pt has re-presented to the ED for the 2nd day in a row and been unable to tolerate p.o., they will require hospital level care for treatment with IV antiemetics, fluids, and analgesics with close monitoring of cardiac function and labs. Quality Stroke Does the patient have a stroke diagnosis?: No VTE Prior VTE?: No VTE Risk Level:: Medical - moderate - high VTE Device Contraindication: N/A - Device Ordered VTE Drug Contraindication: Treatment Not Indicated
--- NOTE | 2024-12-06 11:58 | PC.NURSE ---
Report: Pt arrived c/o worsening vomiting and abd pain. Seen yesterday with the same symptoms, neg CT. Hx marijuana use, bulimia, laxative abuse, gastritis, chronic N/V/abd pain. Trending trops @ 201.5-211.9 (hx chronic elevated trops), K 2.8-3.4, elevated AST/ALT, pt also found in NSR w/multiple PVCs on monitor. Pt given 1L LR, potassium 40 PO and 10 IV, and 1g mag. Currently NSR w/o PVCs, 20g R wrist, 22g L wrist.
--- NOTE | 2024-12-06 12:44 | PHA.MEDREC ---
Addendum entered by Claudia Sotomayor [facility] 12/06/24 12:49: [facility] stated pt has not picked up amitriptyline since August, left unconfirmed. Original Note: Pharmacy Consult ? Medication Reconciliation Pharmacy has completed the medication reconciliation, spoke to patient at bedside who confirmed medications. Pt was really unsure about amitriptyline and said she does not take that. Called [facility] to confirm if pt has picked up since it was recently filled, pt stated she last took her medications days ago.
[2024-12-06] MEDS: 0.9 % Sodium Chloride Flush 3 ML SYRINGE IVFLUSH ×2 (13:44→23:43)
[2024-12-07] VITALS: BP 147/81; PULSE 59; RESP 18; TEMP 36.7; O2SAT 95
[2024-12-07 04:00] VITALS: BP 129/79; PULSE 52; RESP 18; TEMP 36.3; O2SAT 98
[2024-12-07 07:22] LABS: Hematocrit 38.7 % (37.0-47.0); Hemoglobin 13.9 g/dl (12.0-16.0); Mean Corpuscular HGB Conc 35.9 g/dl (31.0-35.0); Mean Corpuscular Hemoglobin 32.2 pg (27.0-33.0); Mean Corpuscular Volume 89.6 fL (80.0-98.0); NRBC Abs Auto 0.000 X10*3/uL (0.0-0.012); NRBC Pct Auto 0.0 /100WBC (0.0-0.2); Platelet Count 192 X10*3/uL (160-400); Red Blood Count 4.32 X10*6/uL (4.20-5.50); White Blood Count 8.3 X10*3/uL (4.8-10.8)
[2024-12-07 07:25] VITALS: BP 120/70; PULSE 56; RESP 18; TEMP 36.2; O2SAT 97
[2024-12-07 07:42] LABS: Alanine Aminotransferase 26 U/L (0-31); Albumin Level 4.1 g/dL (3.5-5.0); Alkaline Phosphatase 61 U/L (39-117); Anion Gap 13 (12-20); Aspartate Amino Transferase 37 U/L (5-31); Blood Urea Nitrogen 4 mg/dL (9-16); Calcium 9.2 mg/dL (8.4-10.2); Carbon Dioxide 29 mmol/L (22-29); Chloride 99 mmol/L (96-108); Creatinine Clr Calc Pharmacy 89.4; Estimated Glomerular Filt Rate > 60; Magnesium 1.8 mg/dL (1.6-2.6); Potassium 3.0 mmol/L (3.3-5.1); Sodium 138 mmol/L (135-145); Total Protein 6.4 g/dL (6.5-8.0)
[2024-12-07 07:57] LABS: Troponin-I High Sensitivity 126.2 ng/L (<3.5-17.0)
[2024-12-07] MEDS: 0.9 % Sodium Chloride Flush 3 ML SYRINGE IVFLUSH (08:09)
--- NOTE | 2024-12-07 09:08 | MHC.CM.PN ---
Addendum entered by Angeline Cervantes 12/07/24 10:29: Patient discharged to home self care today. She has arranged for private transport home. Original Note: Lindsay 12/07/24 DX Intractable vomiting Pt lives with her sister. She is independent with all functional mobility. Leah Bocanegra PCP. A copy of pts HCP has been requested. DP Home self care. Patient will arrange for a ride from her sister or friend.
--- NOTE | 2024-12-07 09:29 | P.DS_ITS ---
DS: Providers Provider Date of Service: 12/07/24 Date of admission: 12/06/24 11:19 Date of discharge: 12/07/24 Primary care physician: Leah Bocanegra MD DS: Diagnosis Discharge Diagnosis (1) Cyclic vomiting syndrome: Status: Acute DS: Summary Hospital Course Hospital Course: from initial hpi: 54-year-old female with a PMH significant for?seizure disorder, cyclic vomiting syndrome, Cage's esophagus, bulimia, anxiety, alcohol use disorder in remission x2 years, current smoker 1 pack daily, and current daily cannabis use who represents to the ED with?intractable nausea, vomiting, epigastric abdominal pain, and bilateral flank pain. Pt initially presented to the ED yesterday with similar symptoms where workup, including CT of abdomen/pelvis and UA, was negative. Pt was treated with antiemetics and IVF with symptom relief, and pt was discharged home after feeling much better. Pt re-presents to the ED today as symptoms returned after she got home, and pt reports experiencing multiple episodes of N/V and epigastric abdominal pain. Not been able to tolerate any food or liquid since discharge. Also reports coffee-ground emesis which she states she always gets whenever she vomits. Possible streaks of blood in vomitus as well. Pt has had multiple presentations to the ED and hospitalizations with similar symptoms, most recently in June and August at [facility] [place], and March here at [facility] [place]. Follows with GI and has had extensive outpatient workup has which has been negative, including EGD, colonoscopy, barium swallow, gastric emptying studies, and multiple CTs of abd/pelvis. During last admission at [facility] was also found to have elevated troponins, and had echocardiogram that showed mildly reduced LVEF of 45-50%, though study had to be terminated early as pt could not tolerate procedure. Of note, has not had a neurologist in some time and not been able to get new Depakote prescription in the past month or so. In the ED pt was tachypneic up to 22 and initially hypertensive at 202/90. Labs were significant for WBC 14.3 (reduced from yesterday at 22.0), potassium 2.8, AST 57, ALT 33, and serial troponins 201.5 with repeat flat at 211.9. Tox screen positive for marijuana. UA yesterday and today negative for UTI. CXR showed no acute cardiopulmonary disease. CT of abdomen/pelvis yesterday negative for definite acute process. EKG demonstrated sinus rhythm with frequent PVCs, but no evidence of significant ST elevations or depressions. Pt was treated in the ED with ondansetron, droperidol, potassium chloride IV p.o., Mag sulfate, and Dilaudid. Pt is admitted to the hospital under observation for treatment and further evaluation of acute cyclic vomiting syndrome flare. hospital course: Patient was admitted for recurrent vomiting. Likely related to cannabis use. Was given IV fluids and antiemetics and symptoms resolved was tolerating solid diet we will continue to follow up with Dr. Nuñez as outpatient. Acute hypokalemia was replaced. Patient noted to have chronic elevated troponin, no chest pain, no ischemic changes on EKG has outpatient stress test planned with Cardiology. For chronic systolic CHF following up with Cardiology as outpatient. For hypertensive urgency resolved with symptomatic management. Leukocytosis due to nausea and vomiting not sepsis. For seizure disorder was restarted on Depakote. Patient is tolerating solid diet and will be discharged home. Time Attestation Discharge Coordination Time (in mins): 34 Quality: Safe Use of Opioids Does Pt have an Active Cancer Diagnosis on the Problem List?: No Quality: Stroke Does the patient have a stroke diagnosis?: No Physical Exam Vital Signs: Vital Signs: Last Vital Signs Temp 97.2 F 12/07/24 07:25 Pulse 56 12/07/24 07:25 Resp 18 12/07/24 07:25 BP 120/70 12/07/24 07:25 Pulse Ox 97 12/07/24 07:25 O2 Del Method Room Air 12/07/24 07:25 O2 Flow Rate 2 12/06/24 08:57 BMI result Body Mass Index 20.1 General: AO X 3, no acute distress Resp: CTA bilateral, no accessory muscles used CVS: S1,S2,RRR GI: soft, non tender, non distended Neuro: motor grossly intact, alert Psych: appropriate affect, appropriate insight DS: Data Data Completed and Pending Labs on day of discharge: Laboratory Results - last 24 hr 12/06/24 12/06/24 12/07/24 09:55 10:31 06:41 WBC 8.3 RBC 4.32 Hgb 13.9 Hct 38.7 MCV 89.6 MCH 32.2 MCHC 35.9 H RDW 13.2 Plt Count 192 D MPV 11.9 Absolute Nucleated RBC 0.000 Nucleated RBC % (auto) 0.0 Sodium 138 Potassium 3.4 D 3.0 L Chloride 99 Carbon Dioxide 29 Anion Gap 13 BUN 4 L Creatinine 0.56 Estim Creat Clear Calc 89.4 Estimated GFR > 60 Random Glucose 109 Calcium 9.2 D Magnesium 2.1 1.8 Total Bilirubin 0.7 AST 37 H ALT 26 Alkaline Phosphatase 61 Troponin I High Sens 211.9 H* 126.2 H* Total Protein 6.4 L Albumin 4.1 Urine Color Yellow Urine Appearance Clear Urine pH 6.0 Ur Specific [place] <= 1.005 Urine Protein Negative Urine Glucose (UA) Negative Urine Ketones 15 Urine Blood Negative Urine Nitrite Negative Ur Leukocyte Esterase Negative Discharge Plan Discharge Anticipated Discharge Date/Time: 12/07/24 09:27 Patient Disposition: Home, Self-Care Discharge Diagnosis: n/v Referrals: Leah Bocanegra MD [Primary Care Provider, Endocrinology] - 1 Week Discharge Medications: New divalproex 500 mg Tablet Extended Release 24 Hr 500 mg PO DAILY Qty: 90 0RF Continued trazodone 50 mg tablet 50 - 100 mg PO BEDTIME pantoprazole 40 mg tablet,delayed release (DR/EC) 40 mg PO DAILY@0630 PRN (Reason: Acid Reflux) ondansetron 4 mg tablet,disintegrating 4 mg PO Q4H PRN (Reason: nausea and vomiting) Qty: 30 0RF amitriptyline 10 mg tablet 10 mg PO BEDTIME metoclopramide HCl 5 mg tablet 5 mg PO QID PRN (Reason: nausea and vomiting) amlodipine 5 mg tablet 5 mg PO DAILY Qty: 90 0RF Protocol: Hold for SBP< HOLD for SBP < : 90 valacyclovir 500 mg tablet 500 mg PO DAILY 90 Days Qty: 90 3RF Linzess 145 mcg capsule 145 mcg PO DAILY Discharge Orders: Discharge Order (Routine); Ordered 12/07/24 Ordered By: Sahil Quintero Diet: Advance to usual diet Activity on Discharge: As tolerated Stand Alone Forms: Patient Portal Discharge page Print Language: Bruneian Care Plan Goals: recovery Health Concerns: recurrent vomitting Plan of Treatment: symptomatic management Assessment: see above
== END 2024-12-07 10:21 | disposition home or self-care (01) ==
LOC: HO.ED 11:27 → HO.EDOVER 11:41 → HO.IMC 12:29
PROVIDERS: Admitting Provider Student in an Organized Health Care Education/Training Program; Emergency Provider Emergency Medicine; PCP Internal Medicine; Visit Provider Internal Medicine
DX: R11.15 Cyclical vomiting syndrome unrelated to migraine (principal); E87.6 Hypokalemia; R47.1 Dysarthria and anarthria; R79.89 Other specified abnormal findings of blood chemistry; R10.13 Epigastric pain; R06.82 Tachypnea, not elsewhere classified; I16.0 Hypertensive urgency; D72.829 Elevated white blood cell count, unspecified; G40.909 Epilepsy, unspecified, not intractable, without status epilepticus; Z79.899 Other long term (current) drug therapy
CPT/HCPCS: 36415; 71045; 80048; 80053; 80076; 81003; 83690; 83735; 84132; 84484; 85007; 85027; 93005; 96365; 96366; 96367; 96375; 96376; 99222; 99285; J1171; J1790; J2405; J2470; J3360; J3475; J3480; J7120

== ENCOUNTER → 2024-12-06 07:03 | Outpatient (BNV) | payer MEDICARE, MEDICAID, SELFPAY | PROVIDERS: Emergency Provider Emergency Medicine; PCP Internal Medicine; Visit Provider Internal Medicine Cardiovascular Disease | DX: R94.31 Abnormal electrocardiogram [ECG] [EKG] (principal); R03.0 Elevated blood-pressure reading, without diagnosis of hypertension; I49.3 Ventricular premature depolarization | CPT/HCPCS: 93010 ==

== ENCOUNTER → 2024-12-06 11:19 | Outpatient (BNV) | payer MEDICARE, MEDICAID, SELFPAY | PROVIDERS: Admitting Provider Student in an Organized Health Care Education/Training Program; Emergency Provider Emergency Medicine; PCP Internal Medicine; Visit Provider Student in an Organized Health Care Education/Training Program | DX: R11.15 Cyclical vomiting syndrome unrelated to migraine (principal) | CPT/HCPCS: 99222; 99239 ==

== ENCOUNTER → 2024-12-08 04:50 | Outpatient (BNV) | payer MEDICARE, MEDICAID, SELFPAY | PROVIDERS: Emergency Provider Emergency Medicine; Visit Provider Specialist | DX: R10.13 Epigastric pain (principal); R11.2 Nausea with vomiting, unspecified | CPT/HCPCS: 71045 ==

== ENCOUNTER 2024-12-08 04:57 | Inpatient (IN) | payer MEDICARE, MEDICAID, SELFPAY ==
[2024-12-08] VITALS (11 sets, daily range): BP systolic 103–210; BP diastolic 77–115; PULSE 65–93; RESP 13–22; TEMP 36.8–37.1; O2SAT 96–100; BMI 22.3; BMI 20.1
--- NOTE | 2024-12-08 | ECG_ITS ---
Test Reason : epigastric pain Blood Pressure : */* mmHG Vent. Rate : 89 BPM Atrial Rate : 94 BPM P-R Int : 122 ms QRS Dur : 82 ms QT Int : 386 ms P-R-T Axes : 49 12 25 degrees QTcB Int : 469 ms Normal sinus rhythm with sinus arrhythmia Possible Left atrial enlargement Borderline ECG When compared with ECG of 06-Dec-2024 08:32, Premature ventricular complexes are no longer Present Nonspecific T wave abnormality now evident in Inferior leads Referred By: Gayatri Stuart Electronically Signed By: John Ramos
--- NOTE | ~2024-12-08 | XR_ITS ---
CLINICAL HISTORY: r o free air 1 view chest x-ray Comparison: None provided Findings: Portions of the exam are obscured by overlying material. No consolidation or effusion. Normal size heart. No acute fracture. IMPRESSION: 1. No acute findings. This document has been electronically signed by: Brandan Cabrera MD on 12/08/2024 07:07:59
--- NOTE | 2024-12-08 05:16 | ED.NAVMDI ---
HPI - Nausea/Vomiting/Diarrhea General Chief complaint: Nausea/Vomiting/Diarrhea Stated complaint: vomitimg Time Seen by Provider: 12/08/24 05:11 Source: patient, EMS, RN notes reviewed and old records reviewed Mode of arrival: EMS Limitations: no limitations History of Present Illness ED Provider: Dr. Gayatri Stuart HPI Narrative: 54yo F with seizures, esophagitis, gastritis, hiatal hernia, HLD, anxiety, bulimia, laxative abuse, AUD, and chronic cyclic vomiting and abdominal pain presenting with continued vomiting and abdominal pain that began around midnight tonight. Patient was admitted to this hospital and discharged yesterday. States she got home and was feeling fine until about midnight last night when she began to vomit. Describes pain in the epigastrium radiating to her back that is ?wicked?. No reported fever. Denies chest pain or difficulty breathing. Unable to keep her Amlodipine down today. Very hypertensive upon arrival. Related Data Home Medications ?Medication ?Instructions ?Recorded ?Confirmed pantoprazole 40 mg tablet,delayed 40 mg PO DAILY@0630 PRN Acid Reflux 08/27/24 12/06/24 release trazodone 50 mg tablet 50 - 100 mg PO BEDTIME 08/27/24 12/06/24 linaclotide 145 mcg capsule 145 mcg PO DAILY 09/30/24 12/06/24 (Linzess) amitriptyline 10 mg tablet 10 mg PO BEDTIME 12/06/24 metoclopramide HCl 5 mg tablet 5 mg PO QID PRN nausea and vomiting 12/06/24 12/06/24 Previous Rx's ?Medication ?Instructions ?Recorded valacyclovir 500 mg tablet 500 mg PO DAILY 90 days #90 tabs 08/19/24 ondansetron 4 mg disintegrating 4 mg PO Q4H PRN nausea and 08/29/24 tablet vomiting #30 tabs amlodipine 5 mg tablet 5 mg PO DAILY #90 tabs 09/03/24 divalproex 500 mg tablet,extended 500 mg PO DAILY #90 tabs 12/07/24 release 24 hr Allergies Allergy/AdvReac Type Severity Reaction Status Date / Time Penicillins (PENICILLINS) Allergy Intermediate HIVES Verified 12/08/24 05:10 Sulfa (Sulfonamide Allergy Intermediate itching, Verified 12/08/24 05:10 Antibiotics) redness and itching tetracycline (TETRACYCLINE) Allergy Intermediate HIVES Verified 12/08/24 05:10 Review of Systems Review of Systems: Yes all other systems are reviewed and are negative (As per HPI) [facility] Past Medical History Attestation statement: The following information was validated with the patient. [facility] Narrative: Hypertension, cyclic vomiting syndrome, history of alcohol use disorder Source: old records reviewed Medical History History of COVID-19 Cannabinoid hyperemesis syndrome Shoulder pain, right Smoker unmotivated to quit Generalized anxiety disorder Osteoarthritis of right hip Uterine leiomyoma Dyslipidemia Esophagitis Vasomotor symptoms due to menopause Elevated vitamin B12 level History of bulimia Arthritis Seizures History of alcohol abuse History of eating disorder Surgical History History of hip replacement, total H/O colonoscopy History of esophagogastroduodenoscopy (EGD) Hx of myomectomy Family History Family History Father Lung cancer Substance use disorder Mental health disorder Mother Stomach cancer Liver cancer Substance use disorder Mental health disorder Maternal Aunt Breast cancer Mental health disorder Paternal Aunt Breast cancer Substance use disorder Mental health disorder Maternal Uncle Brain cancer Substance use disorder Maternal Grandfather Substance use disorder Mental health disorder Social History Social History Household Members: Family Household Members Other:: sister Housing: House Do you presently have visiting nurse or other home services: No Alcohol intake: former Patient Tobacco Use Status: Current everyday Tobacco user Tobacco use type: Cigarette Cigarette Packs Per Day: 1 Cigarettes Per Day: 20.0 Years Smoked: 39 Smoked in Last 30 Days: Yes e-Cigarette/Vaping Use: Former Use Second Hand Smoke Exposure: No Use of substances other than those prescribed or required for medical reasons: Yes Substance Use Type: Marijuana Advance Directives: No Advance Directives Information Provided: No Advance Directives Date on File: 12/06/24 Do you have a plan to hurt others: No Plan service: No Current occupational status: employed Current occupation: [employer] Sexual orientation: Straight/Heterosexual Gender identity: Female Cognitive needs: No Hearing needs: No Vision needs: Yes Physical Exam Vital Signs: Vital Signs: Last Vital Signs Temp 98.4 F 12/08/24 06:00 Pulse 66 12/08/24 06:12 Resp 13 12/08/24 06:12 BP 187/87 H 12/08/24 06:12 Pulse Ox 96 12/08/24 06:12 O2 Del Method Room Air 12/08/24 06:12 BMI result Body Mass Index 22.3 GENERAL: Ill-Appearing, appears uncomfortable, actively retching, cachectic. SKIN: Normal skin color for ethnicity, warm, dry, no rashes noted. HEENT: Normocephalic, atraumatic, no stridor, dry mucous membranes, dentition intact, EOMI, PERRLA. NECK: Soft, supple, full ROM, midline structures nontender, no step-offs, no deformities, no lymphadenopathy. CHEST: Heart regular tachycardia, no murmurs, symmetric chest rise and fall. PULMONARY: Clear to auscultation bilaterally, diminished at the bases, no labored breathing, no wheezes/rhales/rhonchi. ABDOMINAL: Soft, nondistended, epigastric tenderness to palpation with voluntary guarding, positive bowel sounds in all quadrants. : Deferred. MUSCULOSKELETAL: Normal tone, full range of motion, no deformities, no peripheral edema. NEURO: Alert and oriented x3, CN II through XII intact, equal strength and sensation bilateral upper and lower extremities, no focal neurologic deficits. PSYCHIATRIC: Flat affect, fluid speech, good eye contact and appropriate demeanor. Medications Administered Generic Name Dose Route Start Last Admin Trade Name Freq PRN Reason Stop Dose Admin Potassium Chloride 10 meq in 100 mls @ 100 mls/hr 12/08/24 06:00 12/08/24 06:09 Potassium Chloride/H20 IV 12/08/24 09:59 100 mls/hr Q1H CRYSTAL Administration Magnesium Sulfate 2 gm in 50 mls @ 25 mls/hr 12/08/24 05:55 12/08/24 06:09 Magnesium Sulfate/H2o IV 12/08/24 07:54 25 mls/hr ONCE ONE Administration Discontinued Medications Generic Name Dose Route Start Last Admin Trade Name Freq PRN Reason Stop Dose Admin Diphenhydramine HCl 25 mg 12/08/24 05:14 12/08/24 05:25 Diphenhydramine Hcl 50 Mg/Ml Vial IVPUSH 12/08/24 05:15 25 mg ONCE ONE Administration Droperidol 1.25 mg 12/08/24 05:14 12/08/24 05:25 Droperidol 5 Mg/2 Ml Vial IVPUSH 12/08/24 05:15 1.25 mg ONCE ONE Administration Lactated Ringer's 1,000 mls @ 999 mls/hr 12/08/24 05:14 12/08/24 05:30 Lr IV 12/08/24 06:14 999 mls/hr .Q1H1M ONE Administration Medical Decision Making Medical Decision Making [facility] Narrative: Patient presents today with a chief complaint of vomiting. Differential diagnosis includes surgical emergency such as obstruction or enteritis, as well as hyperglycemia, acidosis, food or drug ingestion, pancreatitis, CVA, allergic reaction such as anaphylaxis, cannabis hyperemesis syndrome or cyclic vomiting syndrome, among many others. Patient is not showing signs of acute dehydration or hemodynamic instability, though she is rather hypertensive after not taking her BP meds in the last 24 hours and during active vomiting/retching. They are having associated epigastric abdominal pain. Broad-based work-up was initiated based on above history and physical exam. 7:38 a.m. Vomiting has improved but her abdominal pain that is located in the epigastrium has relatively unchanged. Will add on Dilaudid for pain control. Potassium notably low at 2.8. Will initiate repletion IV. Her magnesium is also low at 1.6. This was also repleted. White blood cell count is notably elevated but not as high as it was in the 05 of December, just 3 days ago. I suspect this is related to demargination in the setting of severe vomiting. Troponin is also notably elevated though lower than previous values just yesterday. Patient is having no chest pain but does have epigastric pain. I have very low suspicion for ACS in the setting of this active vomiting. Her EKG is not ischemic. She does have U waves on her EKG though. Plan for admission for electrolyte repletion, treatment of continued nausea and vomiting. The patient is hemodynamically stable, resting comfortably after pain medications. Differential Diagnosis Differential Diagnoses: The differential diagnosis associated with the presentation includes (As above) Admission/Observation Consideration of admission/observation: Escalation of care including admission/observation considered Consult Healthcare Provider Management of the patient was discussed with: Hospitalist (Dr. Alvarez) Lab Data [facility] Lab Attestation statement: I reviewed the patient's lab results. 12/08/24 05:16 12/08/24 05:16 Labs: Lab Results 12/08/24 Range/Units 05:16 WBC 16.7 H (4.8-10.8) X10*3/uL RBC 5.10 (4.20-5.50) X10*6/uL Hgb 16.2 H (12.0-16.0) g/dl Hct 44.0 (37.0-47.0) % MCV 86.3 (80.0-98.0) fL MCH 31.8 (27.0-33.0) pg MCHC 36.8 H (31.0-35.0) g/dl RDW 12.8 (11.0-16.0) % Plt Count 281 D (160-400) X10*3/uL MPV 11.2 (9.4-12.3) fL Immature Gran % (Auto) Cancelled Neut % (Auto) Cancelled Lymph % (Auto) Cancelled [place] % (Auto) Cancelled Eos % (Auto) Cancelled Baso % (Auto) Cancelled Lymph # (Auto) Cancelled [place] # (Auto) Cancelled Eos # (Auto) Cancelled Baso # (Auto) Cancelled Abs Immat Gran (auto) Cancelled Absolute Neuts (auto) Cancelled Absolute Nucleated RBC 0.000 (0.0-0.012) X10*3/uL Nucleated RBC % (auto) 0.0 (0.0-0.2) /100WBC Neutrophils % (Manual) 81 H (45-73) % Band Neutrophils % 2 L (3-5) % Lymphocytes % (Manual) 13 L (20-40) % Monocytes % (Manual) 4 (2-11) % Abs Neuts (Manual) 13.9 H (2.0-8.3) X10*3/uL Lymphocytes # (Manual) 2.2 (1.2-4.9) X10*3/uL Monocytes # (Manual) 0.7 (0.1-1.2) X10*3/uL Smudge Cells PRESENT Toxic Vacuolation PRESENT Platelet Estimate NORMAL (NORMAL) Large Platelets PRESENT Plt Morphology Comment NOTED RBC Morphology NOTED Ovalocytes 1+ (5-14) /OIF Sodium 135 (135-145) mmol/L Potassium 2.8 L* (3.3-5.1) mmol/L Chloride 97 (96-108) mmol/L Carbon Dioxide 22 (22-29) mmol/L Anion Gap 19 (12-20) BUN 8 L (9-16) mg/dL Creatinine 0.56 (0.5-1.4) mg/dL Estim Creat Clear Calc 89.8 Estimated GFR > 60 Random Glucose 161 H (60-115) mg/dL Calcium 10.2 D (8.4-10.2) mg/dL Magnesium 1.6 (1.6-2.6) mg/dL Total Bilirubin 0.4 (0.0-1.0) mg/dL AST 37 H (5-31) U/L ALT 27 (0-31) U/L Alkaline Phosphatase 72 (39-117) U/L Troponin I High Sens 92.5 H* (<3.5-17.0) ng/L Total Protein 7.6 (6.5-8.0) g/dL Albumin 4.8 (3.5-5.0) g/dL Independent Interpretation I performed an independent interpretation of an: Plain X-Ray Interpretation: No free air under the diaphragm, no pneumomediastinum Radiology Impression Discussion of test interpretation with radiology: I have reviewed the radiologist's reading. Chronic Conditions Patient?s care impacted by: Hypertension and Other (Esophagitis, bulimia, generalized anxiety disorder) Discharge Plan Discharge Clinical Impression: Epigastric abdominal pain, Nausea & vomiting, Chronic hypokalemia, Hypomagnesemia Patient Disposition: Admitted As Inpatient Print Language: Swiss
[2024-12-08 05:23] LABS: Hematocrit 44.0 % (37.0-47.0); Hemoglobin 16.2 g/dl (12.0-16.0); Mean Corpuscular HGB Conc 36.8 g/dl (31.0-35.0); Mean Corpuscular Hemoglobin 31.8 pg (27.0-33.0); Mean Corpuscular Volume 86.3 fL (80.0-98.0); NRBC Abs Auto 0.000 X10*3/uL (0.0-0.012); NRBC Pct Auto 0.0 /100WBC (0.0-0.2); Platelet Count 281 X10*3/uL (160-400); Red Blood Count 5.10 X10*6/uL (4.20-5.50); WBC ABN SCTR FOR CBC 1
[2024-12-08] MEDS: Lactated Ringers 1,000 ML 999 ML IV (05:30)
--- OUTSIDE RECORDS SUMMARY | 2024-12-08 05:44 | XMS_ITS | Clinical Summary ---
Author Organization [facility] Address [address] [place] [id number] Phone Care Team Providers Care Building Maintenance Technician Name Role Phone Angelique Trent MD Primary [...] 95 06/09/2024 4:23 PM EST Temperature 36.7 C (98.1 F) 06/09/2024 11:56 AM EST Respiratory Rate 16 06/09/2024 4:23 PM EST [...] to complete this topic Insurance MEDICA[place] - [place] MEDICARE Care Teams Building Maintenance Technician Relationship Specialty Start Date End Date Angelique Trent MD PCP - General Internal Medicine 06/09/24
[2024-12-08 05:45] LABS: Alanine Aminotransferase 27 U/L (0-31); Albumin Level 4.8 g/dL (3.5-5.0); Alkaline Phosphatase 72 U/L (39-117); Anion Gap 19 (12-20); Aspartate Amino Transferase 37 U/L (5-31); Band Neutrophils Percent 2 % (3-5); Blood Urea Nitrogen 8 mg/dL (9-16); Calcium 10.2 mg/dL (8.4-10.2); Carbon Dioxide 22 mmol/L (22-29); Chloride 97 mmol/L (96-108); Creatinine Clr Calc Pharmacy 89.8; Estimated Glomerular Filt Rate > 60; Lymphocytes Percent Manual 13 % (20-40); Magnesium 1.6 mg/dL (1.6-2.6); Monocytes Percent Manual 4 % (2-11); Neutrophils Percent Manual 81 % (45-73); Potassium 2.8 mmol/L (3.3-5.1); Sodium 135 mmol/L (135-145); Total Protein 7.6 g/dL (6.5-8.0)
[2024-12-08 05:47] LABS: Large Platelet PRESENT; Ovalocytes 1+ (5-14) /OIF; RBC Morphology NOTED
[2024-12-08 05:48] LABS: Smudge Cells PRESENT; Toxic Vacuolation PRESENT
[2024-12-08 05:54] LABS: Troponin-I High Sensitivity 92.5 ng/L (<3.5-17.0)
[2024-12-08 05:59] LABS: Lymphocytes Absolute Manual 2.2 X10*3/uL (1.2-4.9); Monocytes Absolute Manual 0.7 X10*3/uL (0.1-1.2); Neutrophils Absolute Manual 13.9 X10*3/uL (2.0-8.3); White Blood Count 16.7 X10*3/uL (4.8-10.8)
[2024-12-08] MEDS: Potassium Chloride/H20 10 MEQ/100 ML PIGGYBACK 100 MEQ IV ×4 (06:09→12:16)
[2024-12-08] MEDS: Magnesium Sulfate/H2O 2 GM/50 ML PIGGYBACK IV (06:09)
--- NOTE | 2024-12-08 07:47 | PC.NURSE ---
Pt is A+Ox4, ambulatory. Pt appears anxious, cooperative. Pt c/o frequent urination since starting IV fluids here. Pt c/o Upper abdominal pain 02/11, just medicated. RR even and unlabored, denies SOB and CP. RR even and unlabored.
--- NOTE | 2024-12-08 08:23 | PM.IMHP ---
History of Present Illness Date of Service: 12/08/24 Chief Complaint: n/v, epigastric pain The patient is a 54-year-old female with a past medical history significant for seizure disorder, cyclic vomiting syndrome, Cage's esophagus, anemia, anxiety, alcohol use disorder in remission x2 years, current daily cannabis user who presents to the emergency room, about 24 hours after discharge. The patient was hospitalized from 12/06- 12/07/2024 for intractable nausea and vomiting where she was treated symptomatically and discharged home after improvement. She was also noted to have electrolyte abnormalities during the admission which were repeated and stable. The patient reports that once she got home, after her 1st meal she began experiencing severe epigastric pain with associated nausea and vomiting. She reports the pain to be sharp in nature and 10 out 10 in severity. She reports inability to keep anything down by mouth. Due to ongoing symptoms she presented to the emergency room. In the emergency room the patient was found to have significant electrolyte abnormalities with a potassium of 2.8 and a low normal magnesium of 1.6. She had concurrent EKG changes without chest pain. She had elevated troponins which are downtrending from her recent hospitalization. She was treated with antiemetics and IV fluids as well as IV electrolytes. She continues to exhibit intolerance to orals and hence will be admitted to the hospital for further care. Review of Systems Review of Systems: Negative except HPI/interval history. [facility] Medical History History of COVID-19 Cannabinoid hyperemesis syndrome Shoulder pain, right Smoker unmotivated to quit Generalized anxiety disorder Osteoarthritis of right hip Uterine leiomyoma Dyslipidemia Esophagitis Vasomotor symptoms due to menopause Elevated vitamin B12 level History of bulimia Arthritis Seizures History of alcohol abuse History of eating disorder Family History Father Lung cancer Substance use disorder Mental health disorder Mother Stomach cancer Liver cancer Substance use disorder Mental health disorder Maternal Aunt Breast cancer Mental health disorder Paternal Aunt Breast cancer Substance use disorder Mental health disorder Maternal Uncle Brain cancer Substance use disorder Maternal Grandfather Substance use disorder Mental health disorder Surgical History History of hip replacement, total H/O colonoscopy History of esophagogastroduodenoscopy (EGD) Hx of myomectomy Social History Household Members: Family Household Members Other:: sister Housing: House Do you presently have visiting nurse or other home services: No Alcohol intake: former Patient Tobacco Use Status: Current everyday Tobacco user Tobacco use type: Cigarette Cigarette Packs Per Day: 1 Cigarettes Per Day: 20.0 Years Smoked: 39 Smoked in Last 30 Days: Yes e-Cigarette/Vaping Use: Former Use Second Hand Smoke Exposure: No Use of substances other than those prescribed or required for medical reasons: Yes Substance Use Type: Marijuana Advance Directives: No Advance Directives Information Provided: No Advance Directives Date on File: 12/06/24 Do you have a plan to hurt others: No Plan service: No Current occupational status: employed Current occupation: [employer] Sexual orientation: Straight/Heterosexual Gender identity: Female Cognitive needs: No Hearing needs: No Vision needs: Yes Meds Allergies Allergy/AdvReac Type Severity Reaction Status Date / Time Penicillins (PENICILLINS) Allergy Intermediate HIVES Verified 12/08/24 05:10 Sulfa (Sulfonamide Allergy Intermediate itching, Verified 12/08/24 05:10 Antibiotics) redness and itching tetracycline (TETRACYCLINE) Allergy Intermediate HIVES Verified 12/08/24 05:10 Active Medications: Current Medications Acetaminophen (Acetaminophen 325 Mg Tablet) 650 mg PO Q6H PRN PRN Reason: Pain, Mild 1-3,fever,headache Calcium Carbonate (Calcium Carbonate 750 Mg Tab.Chew) 750 mg PO Q4H PRN PRN Reason: Heartburn Potassium Chloride (Potassium Chloride/H20) 10 meq in 100 mls @ 100 mls/hr IV Q1H CRYSTAL Stop: 12/08/24 09:59 Last Admin: 12/08/24 07:27 Dose: 100 mls/hr Potassium Cl/Dextrose/Lact Ringer's (Kcl 20 Meq In 5 % Dex/Lact Rin) 20 meq in 1,000 mls @ 80 mls/hr IVCONT .[id number] CRYSTAL Magnesium Hydroxide (Milk Of Magnesia 30 Ml Oral.Susp) 30 ml PO DAILY PRN PRN Reason: Constipation Melatonin (Melatonin 3 Mg Tablet) 6 mg PO BEDTIME PRN PRN Reason: Insomnia Pantoprazole Sodium (Pantoprazole Sodium 40 Mg/10 Ml Vial) 40 mg IVPUSH BID@0630,1630 [facility] Sodium Chloride (0.9 % Sodium Chloride Flush 3 Ml Syringe) 3 ml IVFLUSH QSHIFT [facility] Home Medications ?Medication ?Instructions ?Recorded ?Confirmed ?Last Taken ?Type pantoprazole 40 mg tablet,delayed 40 mg PO DAILY@0630 PRN Acid Reflux 08/27/24 12/06/24 Unknown History release trazodone 50 mg tablet 50 - 100 mg PO BEDTIME 08/27/24 12/06/24 Unknown History linaclotide 145 mcg capsule 145 mcg PO DAILY 09/30/24 12/06/24 Unknown History (Linzess) amitriptyline 10 mg tablet 10 mg PO BEDTIME 12/06/24 Unknown History metoclopramide HCl 5 mg tablet 5 mg PO QID PRN nausea and vomiting 12/06/24 12/06/24 Unknown History Physical Exam Vital Signs and Narrative: Vital Signs: Last Vital Signs Temp 98.8 F 12/08/24 07:19 Pulse 93 12/08/24 07:19 Resp 22 H 12/08/24 07:19 BP 169/88 H 12/08/24 07:19 Pulse Ox 99 12/08/24 07:19 O2 Del Method Room Air 12/08/24 07:19 BMI result Body Mass Index 22.3 Const: Other: Constitutional - Awake and Alert, appears uncomfortable; on bed, in position; frequent bouts of vomiting/dry heaving; vomitus appears non-bloody Eyes - PERRLA, EOMI Cardiovascular - S1S2, RRR, No edema Respiratory - Normal lung expansion, Normal respiratory effort, No respiratory distress, CTA bilaterally Gastrointestinal - +epigastric TTP - No CVA tenderness Extremities - no calf tenderness bilaterally, no swelling Musculoskeletal - Normal inspection, normal ROM Skin - Warm/Dry Neurological - Alert & oriented x3, No focal deficit Psychological - Appropriate affect Results Labs 12/08/24 05:16 12/08/24 05:16 Labs: Laboratory Results - last 24 hr 12/08/24 05:16 MCV 86.3 MCH 31.8 MCHC 36.8 H RDW 12.8 Plt Count 281 D MPV 11.2 Immature Gran % (Auto) Cancelled Neut % (Auto) Cancelled Lymph % (Auto) Cancelled [place] % (Auto) Cancelled Eos % (Auto) Cancelled Baso % (Auto) Cancelled Lymph # (Auto) Cancelled [place] # (Auto) Cancelled Eos # (Auto) Cancelled Baso # (Auto) Cancelled Abs Immat Gran (auto) Cancelled Absolute Neuts (auto) Cancelled Absolute Nucleated RBC 0.000 Nucleated RBC % (auto) 0.0 Neutrophils % (Manual) 81 H Band Neutrophils % 2 L Lymphocytes % (Manual) 13 L Monocytes % (Manual) 4 Abs Neuts (Manual) 13.9 H Lymphocytes # (Manual) 2.2 Monocytes # (Manual) 0.7 Smudge Cells PRESENT Toxic Vacuolation PRESENT Platelet Estimate NORMAL Large Platelets PRESENT Plt Morphology Comment NOTED RBC Morphology NOTED Ovalocytes 1+ (5-14) Anion Gap 19 Estim Creat Clear Calc 89.8 Estimated GFR > 60 Random Glucose 161 H Calcium 10.2 D Magnesium 1.6 Total Bilirubin 0.4 AST 37 H ALT 27 Alkaline Phosphatase 72 Troponin I High Sens 92.5 H* Total Protein 7.6 Albumin 4.8 Assessment and Plan (1) Nausea & vomiting: Qualifiers: Vomiting type: unspecified Qualified Code(s): R11.2 - Nausea with vomiting, unspecified Status: Acute (2) Epigastric abdominal pain: Status: Acute Plan 54 yo F with cyclical vomiting, seizure, HFrEF, remote alcohol misuse, Cage's esophagus and multiple others who presents to the emergency room 1 day after discharge for intractable nausea and vomiting. Now having severe epigastric pain. 1. Epigastric pain with intractable nausea and vomiting possible gastritis/esophagitis/PUD Multiple bouts of vomiting during my interview NPO IV PPI IV fluids Gastroenterology consult 2. Electrolyte abnormalities, including hypokalemia with T walve abnormalities Monitor on telemetry Aggressively replete electrolytes and recheck this afternoon repeat EKG once lytes improved 3. Elevated troponins Downtrending from last admission and EKG changes likely from electrolytes Denies any anginal symptoms pt reports planned outpatient stress test 4. Seizure disorder change meds to IV if possible 5. HTN continue baseline meds if able to tolerate PO IV for severe HTN 180-200/100 Full Code DVT pptx - mechanical (concern over PUD) Pt with recurent hospitalizations for intracatble nausea/vomiting concerning for possible PUD with resultant electrolyte abnormalities+EKG changes requiring aggressive repletion and close monitoring, therefore expected to require at a minimum of 2 midnights in the hospital for management. Hence, will be admitted as inpatient. Med rec pending, will continue home meds Quality Stroke Does the patient have a stroke diagnosis?: No VTE Prior VTE?: No VTE Risk Level:: Medical - moderate - high VTE Device Contraindication: N/A - Device Ordered VTE Drug Contraindication: Treatment Not Indicated
[2024-12-08] MEDS: KCl 20 mEq in 5 % Dex/Lact Rin 20 MEQ/1,000 ML IV.SOLN 80 MEQ IVCONT ×2 (09:24→22:17)
--- NOTE | 2024-12-08 10:46 | PC.NURSE ---
wating for pharmacy to restock the potassium 10meq in the pixes currently non loaded
--- NOTE | 2024-12-08 11:12 | PHA.MEDREC ---
Pharmacy Consult ? Medication Reconciliation Pharmacy has completed the medication reconciliation. Patient was discharged on 12/07/24. Utilized discharge packet from 12/07/24, med rec note from last visit and also spoke to patient to confirm med list. Patient was still not able to confirm the amitriptyline but she confirmed she has not started the divalproex that was prescribed yesterday 12/07/24.
--- NOTE | 2024-12-08 12:19 | PC.NURSE ---
Pt encourged to try po, gingerale provided at bedside. Pt just wants to lay down and rest, does not want to drink the gingerale.
--- NOTE | 2024-12-08 14:02 | PC.NURSE ---
pt dranked some gingerl shazia and not is dry heaving and feeling very nauseous, tigered the hospitalist for prn antiemetic orders
[2024-12-08 14:39] LABS: Potassium 3.4 mmol/L (3.3-5.1)
--- NOTE | 2024-12-08 15:39 | P.CNGI_ITS ---
History of Present Illness Data of Consult Service Date: 12/08/24 Requesting physician: Ken Rene Primary Care Provider: Unknown Physician HPI Reason for consult: Abd pain, N,V The patient is a 54-year-old female presenting with recurrent abd pain, N,V. Symptoms have been present since 2019 but worsened in the last two years. Episodes involve non-stop vomiting lasting up to 20 hours. Episode can occur as frequently as every two months. In between the episodes pt does fine. Prev w/up has been consistent with CHS. Pt stopped marijuana for 6 months but resumed a month ago and wonders if that triggered the flare. Works at a [employer]. She also notes underlying constipation aggravates the nausea. Had previous hx of migraines but does not have any accompanying headaches with these episodes. Does report urge to take hot showers with the N/V episodes. Review of Systems 2 Review of Systems: Yes all other systems are reviewed and are negative PMFSH Past Medical History Medical History History of COVID-19 Cannabinoid hyperemesis syndrome Shoulder pain, right Smoker unmotivated to quit Generalized anxiety disorder Osteoarthritis of right hip Uterine leiomyoma Dyslipidemia Esophagitis Vasomotor symptoms due to menopause Elevated vitamin B12 level History of bulimia Arthritis Seizures History of alcohol abuse History of eating disorder Family History Family History Father Lung cancer Substance use disorder Mental health disorder Mother Stomach cancer Liver cancer Substance use disorder Mental health disorder Maternal Aunt Breast cancer Mental health disorder Paternal Aunt Breast cancer Substance use disorder Mental health disorder Maternal Uncle Brain cancer Substance use disorder Maternal Grandfather Substance use disorder Mental health disorder Surgical History Surgical History History of hip replacement, total H/O colonoscopy History of esophagogastroduodenoscopy (EGD) Hx of myomectomy Social History Social History Household Members: Family Household Members Other:: sister Housing: House Do you presently have visiting nurse or other home services: No Alcohol intake: former Patient Tobacco Use Status: Current everyday Tobacco user Tobacco use type: Cigarette Cigarette Packs Per Day: 1 Cigarettes Per Day: 20.0 Years Smoked: 39 e-Cigarette/Vaping Use: Former Use Second Hand Smoke Exposure: No Substance Use Type: Marijuana Advance Directives Date on File: 12/06/24 service: No Current occupational status: employed Current occupation: [employer] Sexual orientation: Straight/Heterosexual Gender identity: Female Cognitive needs: No Hearing needs: No Vision needs: Yes Meds Allergies Allergy/AdvReac Type Severity Reaction Status Date / Time Penicillins (PENICILLINS) Allergy Intermediate HIVES Verified 12/08/24 05:10 Sulfa (Sulfonamide Allergy Intermediate itching, Verified 12/08/24 05:10 Antibiotics) redness and itching tetracycline (TETRACYCLINE) Allergy Intermediate HIVES Verified 12/08/24 05:10 Active Medications: Current Medications Acetaminophen (Acetaminophen 325 Mg Tablet) 650 mg PO Q6H PRN PRN Reason: Pain, Mild 1-3,fever,headache Amlodipine Besylate (Amlodipine Besylate 5 Mg Tablet) 5 mg PO DAILY [facility]; Protocol Last Admin: 12/08/24 12:17 Dose: 5 mg Calcium Carbonate (Calcium Carbonate 750 Mg Tab.Chew) 750 mg PO Q4H PRN PRN Reason: Heartburn Hydromorphone HCl (Hydromorphone Hcl 1 Mg/Ml Syringe) 1 mg IVPUSH Q4H PRN; Protocol PRN Reason: Pain, Severe (Pain Scale 7-10) Last Admin: 12/08/24 14:36 Dose: 1 mg Potassium Cl/Dextrose/Lact Ringer's (Kcl 20 Meq In 5 % Dex/Lact Rin) 20 meq in 1,000 mls @ 80 mls/hr IVCONT .[id number] [facility] Last Admin: 12/08/24 09:24 Dose: 80 mls/hr Magnesium Hydroxide (Milk Of Magnesia 30 Ml Oral.Susp) 30 ml PO DAILY PRN PRN Reason: Constipation Melatonin (Melatonin 3 Mg Tablet) 6 mg PO BEDTIME PRN PRN Reason: Insomnia Ondansetron HCl (Ondansetron Hcl 4 Mg/2 Ml Vial) 4 mg IVPUSH Q6H PRN PRN Reason: Nausea and Vomiting Last Admin: 12/08/24 14:29 Dose: 4 mg Pantoprazole Sodium (Pantoprazole Sodium 40 Mg/10 Ml Vial) 40 mg IVPUSH BID@0630,1630 [facility] Last Admin: 12/08/24 09:12 Dose: 40 mg Sodium Chloride (0.9 % Sodium Chloride Flush 3 Ml Syringe) 3 ml IVFLUSH QSHIFT [facility] Trazodone HCl (Trazodone Hcl 50 Mg Tablet) 50 mg PO BEDTIME [facility] Valacyclovir HCl (Valacyclovir Hcl 500 Mg Tablet) 500 mg PO DAILY [facility] Last Admin: 12/08/24 12:17 Dose: 500 mg Home Medications ?Medication ?Instructions ?Recorded ?Confirmed ?Last Taken ?Type pantoprazole 40 mg tablet,delayed 40 mg PO DAILY@0630 PRN Acid Reflux 08/27/24 12/08/24 Unknown History release trazodone 50 mg tablet 50 - 100 mg PO BEDTIME 08/2712/08/24 12/07/24 History linaclotide 145 mcg capsule 145 mcg PO DAILY 09/30/24 12/08/24 12/07/24 History (Linzess) amitriptyline 10 mg tablet 10 mg PO BEDTIME 12/06/24 12/07/24 History metoclopramide HCl 5 mg tablet 5 mg PO QID PRN nausea and vomiting 12/06/24 12/08/24 Unknown History ondansetron 4 mg disintegrating 4 mg PO Q8H PRN nausea and vomiting 12/08/24 12/08/24 Unknown History tablet Physical Exam 2 Vital Signs: Vital Signs: Last Vital Signs Temp 98.8 F 12/08/24 07:19 Pulse 86 12/08/24 14:30 Resp 13 12/08/24 14:30 BP 103/82 12/08/24 14:30 Pulse Ox 99 12/08/24 14:30 O2 Del Method Room Air 12/08/24 14:30 BMI result Body Mass Index 22.3 No apparent distress Nonicteric Abdomen soft, vague discomfort diffusely Alert and oriented x3, normal gait No MERLE Results Labs 12/08/24 05:16 12/08/24 14:24 Labs: Short CBC 12/08/24 Range/Units 05:16 WBC 16.7 H (4.8-10.8) X10*3/uL Hgb 16.2 H (12.0-16.0) g/dl Hct 44.0 (37.0-47.0) % Plt Count 281 D (160-400) X10*3/uL BMP 12/08/24 12/08/24 05:16 14:24 Sodium 135 Potassium 2.8 L* 3.4 D Chloride 97 Carbon Dioxide 22 BUN 8 L Creatinine 0.56 Calcium 10.2 D Liver Function 12/08/24 Range/Units 05:16 Total Bilirubin 0.4 (0.0-1.0) mg/dL AST 37 H (5-31) U/L ALT 27 (0-31) U/L Alkaline Phosphatase 72 (39-117) U/L Albumin 4.8 (3.5-5.0) g/dL Assessment and Plan (1) Epigastric abdominal pain: Status: Acute (2) Nausea & vomiting: Qualifiers: Vomiting type: unspecified Qualified Code(s): R11.2 - Nausea with vomiting, unspecified Status: Acute (3) Cannabis hyperemesis syndrome concurrent with and due to cannabis dependence: Status: Acute (4) Elevated troponin: Status: Acute (5) Acute electrocardiogram changes: Status: Acute (6) Marijuana dependence: Status: Acute Plan Ddx include CHS genaro as close temporality with relapse, CVS vs abd migraines genaro as prev hx of migraines, PUD, GOO. Prev w/up for porphyria and pheo normal. Plan: - IVF for resuscitation - Agree with IV zofran. Typically can trial haloperidol 2.5 mg but pt with dynamic EKG changes so would avoid. - Correction of underlying electrolytes abnl - Trial of topical capsaicin for abd discomfort - Strong counseling for cannabis cessation genaro THC component - EGD tmrw to r/o luminal causes if cleared by Cardiology (pt was to have a stress outpatient) - Please keep NPO after MN Thank you for allowing me to participate in her care. Please do not hesitate to reach out for any questions or concerns Procedures Date of Service Date of Service: 12/08/24
[2024-12-08] MEDS: Nicotine 21 MG PATCH.TD24 TRANSDERMA (22:10)
[2024-12-09] VITALS (10 sets, daily range): BP systolic 111–139; BP diastolic 59–90; PULSE 53–70; RESP 12–18; TEMP 36.1–37.1; O2SAT 95–100
[2024-12-09 06:48] LABS: Hematocrit 38.4 % (37.0-47.0); Hemoglobin 13.3 g/dl (12.0-16.0); Mean Corpuscular HGB Conc 34.6 g/dl (31.0-35.0); Mean Corpuscular Hemoglobin 31.6 pg (27.0-33.0); Mean Corpuscular Volume 91.2 fL (80.0-98.0); NRBC Abs Auto 0.000 X10*3/uL (0.0-0.012); NRBC Pct Auto 0.0 /100WBC (0.0-0.2); Platelet Count 199 X10*3/uL (160-400); Red Blood Count 4.21 X10*6/uL (4.20-5.50); White Blood Count 7.6 X10*3/uL (4.8-10.8)
[2024-12-09 07:19] LABS: Anion Gap 12 (12-20); Blood Urea Nitrogen < 3 mg/dL (9-16); Calcium 9.1 mg/dL (8.4-10.2); Carbon Dioxide 30 mmol/L (22-29); Chloride 101 mmol/L (96-108); Creatinine Clr Calc Pharmacy 102.2; Estimated Glomerular Filt Rate > 60; Potassium 3.5 mmol/L (3.3-5.1); Sodium 139 mmol/L (135-145)
--- NOTE | 2024-12-09 08:28 | MHC.CM.PN ---
CM met with Patient at bedside and addressed IMM with her, providing Patient with the original and a copy has been placed on the chart. Patient lives in a house with her Sister/HCP/Olga and she required no services nor DME MANAGER RN. Home/self care is the goal and CM has initiated and will follow for dc planning. PCP is Dr. Leah Bocanegra and Patient's Friend will transport to home at time of dc.
[2024-12-09] MEDS: 0.9 % Sodium Chloride Flush 3 ML SYRINGE IVFLUSH ×3 (08:39→21:54)
[2024-12-09] MEDS: KCl 20 mEq in 5 % Dex/Lact Rin 20 MEQ/1,000 ML IV.SOLN 80 MEQ IVCONT ×2 (08:39→21:52)
--- NOTE | 2024-12-09 10:30 | P.PNIM_ITS ---
Subjective Subjective Date of Service: 12/09/24 Interval History: thirsty Physical Exam 2 Vital Signs: Vital Signs: Last Vital Signs Temp 98.3 F 12/09/24 08:00 Pulse 61 12/09/24 08:00 Resp 18 12/09/24 08:00 BP 125/79 12/09/24 08:00 Pulse Ox 98 12/09/24 08:00 O2 Del Method Room Air 12/09/24 08:00 BMI result Body Mass Index 20.1 No apparent distress Nonicteric Abdomen soft, vague discomfort diffusely Alert and oriented x3, normal gait No MERLE Objective Data Active Medications Acetaminophen (Acetaminophen 325 Mg Tablet) 650 mg PO Q6H PRN PRN Reason: Pain, Mild 1-3,fever,headache Amlodipine Besylate (Amlodipine Besylate 5 Mg Tablet) 5 mg PO DAILY [facility]; Protocol Last Admin: 12/09/24 08:29 Dose: Not Given Documented By: KISHAN Non-Admin Reason: NPO Comments: Calcium Carbonate (Calcium Carbonate 750 Mg Tab.Chew) 750 mg PO Q4H PRN PRN Reason: Heartburn Capsaicin (Capsaicin 0.025% Cream 60 Gm Tube) 1 appl TOPICAL TID PRN; Protocol PRN Reason: abd pain from canabis Hydromorphone HCl (Hydromorphone Hcl 1 Mg/Ml Syringe) 1 mg IVPUSH Q4H PRN; Protocol PRN Reason: Pain, Severe (Pain Scale 7-10) Last Admin: 12/09/24 00:17 Dose: 1 mg Documented By: ESME Potassium Cl/Dextrose/Lact Ringer's (Kcl 20 Meq In 5 % Dex/Lact Rin) 20 meq in 1,000 mls @ 80 mls/hr IVCONT .[id number] [facility] Last Admin: 12/09/24 08:39 Dose: 80 mls/hr Documented By: KISHAN Magnesium Hydroxide (Milk Of Magnesia 30 Ml Oral.Susp) 30 ml PO DAILY PRN PRN Reason: Constipation Melatonin (Melatonin 3 Mg Tablet) 6 mg PO BEDTIME PRN PRN Reason: Insomnia Last Admin: 12/08/24 22:09 Dose: 6 mg Documented By: KRZYSZTOF Ondansetron HCl (Ondansetron Hcl 4 Mg/2 Ml Vial) 4 mg IVPUSH Q6H PRN PRN Reason: Nausea and Vomiting Last Admin: 12/08/24 14:29 Dose: 4 mg Documented By: RENNY Pantoprazole Sodium (Pantoprazole Sodium 40 Mg/10 Ml Vial) 40 mg IVPUSH BID@0630,1630 [facility] Last Admin: 12/09/24 05:49 Dose: 40 mg Documented By: ESME Sodium Chloride (0.9 % Sodium Chloride Flush 3 Ml Syringe) 3 ml IVFLUSH QSHIFT [facility] Last Admin: 12/09/24 08:39 Dose: 3 ml Documented By: KISHAN Trazodone HCl (Trazodone Hcl 50 Mg Tablet) 50 mg PO BEDTIME [facility] Last Admin: 12/08/24 22:09 Dose: 50 mg Documented By: BUSSIEL Valacyclovir HCl (Valacyclovir Hcl 500 Mg Tablet) 500 mg PO DAILY [facility] Last Admin: 12/09/24 08:29 Dose: Not Given Documented By: KISHAN Non-Admin Reason: NPO Labs 12/09/24 06:20 12/09/24 06:20 Labs: Laboratory Results - last 24 hr 12/09/24 06:20 MCV 91.2 MCH 31.6 MCHC 34.6 RDW 13.1 Plt Count 199 D MPV 11.6 Absolute Nucleated RBC 0.000 Nucleated RBC % (auto) 0.0 Anion Gap 12 Estim Creat Clear Calc 102.2 Estimated GFR > 60 Random Glucose 87 Calcium 9.1 D Assessment and Plan (1) Marijuana dependence: Status: Acute Plan 54F PMH seizure disorder, cyclic vomiting, chronic systolic CHF, Cage's esophagus, anemia, anxiety, alcohol dependence in remission for 2 years, daily cannabis use presented with nausea vomiting found to have hypokalemia Recurrent epigastric pain with intractable nausea and vomiting Continue PPI, antiemetics, IV fluids, plan for EGD once cleared by Cardiology Chronically elevated troponin, chronic systolic CHF Cardio eval Seizure disorder Depakote Acute hypokalemia Replaced Hypertension Amlodipine DVT prophylaxis-mechanical due to possible peptic ulcer disease Full code reason for continued hospitalization: Not tolerating p.o. Quality Stroke Does the patient have a stroke diagnosis?: No VTE Prior VTE?: No VTE Risk Level:: Medical - moderate - high VTE Device Contraindication: N/A - Device Ordered VTE Drug Contraindication: Treatment Not Indicated
--- NOTE | 2024-12-09 13:07 | P.CONAN_ITS ---
HPI - Anesthesia Eval Consult details Narrative: upper GI PMFSH Active Problems Active Problems: All Active Problems Cannabis hyperemesis syndrome concurrent with and due to cannabis dependence (Acute) Marijuana dependence (Acute) Hypomagnesemia (Acute) Chronic hypokalemia (Acute) Elevated troponin (Acute) Atrial dysrhythmia (Acute) Acute hypokalemia (Acute) Cyclic vomiting syndrome (Acute) Anxiety (Acute) Current smoker (Acute) Elevated troponin (Acute) Acute electrocardiogram changes (Acute) Hypertension, uncontrolled (Acute) Cyclical vomiting (Acute) Constipation (Acute) Hospital discharge follow-up (Acute) Elevated white blood cell count (Acute) Chronic constipation (Acute) Adnexal fullness (Acute) Well woman exam (Acute) Epigastric abdominal pain (Acute) Nausea & vomiting (Acute) Tobacco user (Acute) Family history of breast cancer (Acute) Shoulder pain, right (Acute) Smoker unmotivated to quit (Acute) Generalized anxiety disorder (Acute) Osteoarthritis of right hip (Acute) Uterine leiomyoma (Acute) Dyslipidemia (Acute) Esophagitis (Acute) Seizures (Acute) Vasomotor symptoms due to menopause (Acute) Elevated vitamin B12 level (Acute) History of bulimia (Acute) Past Medical History Medical History History of COVID-19 Cannabinoid hyperemesis syndrome Shoulder pain, right Smoker unmotivated to quit Generalized anxiety disorder Osteoarthritis of right hip Uterine leiomyoma Dyslipidemia Esophagitis Vasomotor symptoms due to menopause Elevated vitamin B12 level History of bulimia Arthritis Seizures History of alcohol abuse History of eating disorder Family History Family History Father Lung cancer Substance use disorder Mental health disorder Mother Stomach cancer Liver cancer Substance use disorder Mental health disorder Maternal Aunt Breast cancer Mental health disorder Paternal Aunt Breast cancer Substance use disorder Mental health disorder Maternal Uncle Brain cancer Substance use disorder Maternal Grandfather Substance use disorder Mental health disorder Family history of problems with anesthesia: No Surgical History Surgical History History of hip replacement, total H/O colonoscopy History of esophagogastroduodenoscopy (EGD) Hx of myomectomy History of Problems with Anesthesia: No Social History Social History Household Members: Other Household Members Other:: Sister Housing: House Do you presently have visiting nurse or other home services: No Alcohol intake: former Comment: patient refusing education provided Patient Tobacco Use Status: Current everyday Tobacco user Tobacco use type: Cigarette Cigarette Packs Per Day: 1.5 Cigarettes Per Day: 30.0 Years Smoked: 39 e-Cigarette/Vaping Use: Former Use Second Hand Smoke Exposure: No Substance Use Type: Marijuana Advance Directives Date on File: 12/06/24 service: No Current occupational status: employed Current occupation: [employer] Sexual orientation: Straight/Heterosexual Gender identity: Female Cognitive needs: No Hearing needs: No Vision needs: Yes Meds Allergies Allergy/AdvReac Type Severity Reaction Status Date / Time Penicillins (PENICILLINS) Allergy Intermediate HIVES Verified 12/08/24 05:10 Sulfa (Sulfonamide Allergy Intermediate itching, Verified 12/08/24 05:10 Antibiotics) redness and itching tetracycline (TETRACYCLINE) Allergy Intermediate HIVES Verified 12/08/24 05:10 Active Medications: Current Medications Acetaminophen (Acetaminophen 325 Mg Tablet) 650 mg PO Q6H PRN PRN Reason: Pain, Mild 1-3,fever,headache Amlodipine Besylate (Amlodipine Besylate 5 Mg Tablet) 5 mg PO DAILY [facility]; Protocol Last Admin: 12/09/24 08:29 Dose: Not Given Calcium Carbonate (Calcium Carbonate 750 Mg Tab.Chew) 750 mg PO Q4H PRN PRN Reason: Heartburn Capsaicin (Capsaicin 0.025% Cream 60 Gm Tube) 1 appl TOPICAL TID PRN; Protocol PRN Reason: abd pain from canabis Divalproex Sodium (Divalproex Sodium 500 Mg Tablet.Dr) 500 mg PO BID [facility] Hydromorphone HCl (Hydromorphone Hcl 1 Mg/Ml Syringe) 1 mg IVPUSH Q4H PRN; Protocol PRN Reason: Pain, Severe (Pain Scale 7-10) Last Admin: 12/09/24 10:47 Dose: 1 mg Potassium Cl/Dextrose/Lact Ringer's (Kcl 20 Meq In 5 % Dex/Lact Rin) 20 meq in 1,000 mls @ 80 mls/hr IVCONT .[id number] [facility] Last Admin: 12/09/24 08:39 Dose: 80 mls/hr Magnesium Hydroxide (Milk Of Magnesia 30 Ml Oral.Susp) 30 ml PO DAILY PRN PRN Reason: Constipation Melatonin (Melatonin 3 Mg Tablet) 6 mg PO BEDTIME PRN PRN Reason: Insomnia Last Admin: 12/08/24 22:09 Dose: 6 mg Ondansetron HCl (Ondansetron Hcl 4 Mg/2 Ml Vial) 4 mg IVPUSH Q6H PRN PRN Reason: Nausea and Vomiting Last Admin: 12/09/24 10:47 Dose: 4 mg Pantoprazole Sodium (Pantoprazole Sodium 40 Mg/10 Ml Vial) 40 mg IVPUSH BID @0630,1630 [facility] Last Admin: 12/09/24 05:49 Dose: 40 mg Sodium Chloride (0.9 % Sodium Chloride Flush 3 Ml Syringe) 3 ml IVFLUSH QSHIFT [facility] Last Admin: 12/09/24 08:39 Dose: 3 ml Trazodone HCl (Trazodone Hcl 50 Mg Tablet) 50 mg PO BEDTIME [facility] Last Admin: 12/08/24 22:09 Dose: 50 mg Valacyclovir HCl (Valacyclovir Hcl 500 Mg Tablet) 500 mg PO DAILY [facility] Last Admin: 12/09/24 08:29 Dose: Not Given Home Medications ?Medication ?Instructions ?Recorded ?Confirmed ?Last Taken ?Type pantoprazole 40 mg tablet,delayed 40 mg PO DAILY@0630 PRN Acid Reflux 08/27/24 12/08/24 Unknown History release trazodone 50 mg tablet 50 - 100 mg PO BEDTIME 08/2712/08/24 12/07/24 History linaclotide 145 mcg capsule 145 mcg PO DAILY 09/30/24 12/08/24 12/07/24 History (Jeralds) amitriptyline 10 mg tablet 10 mg PO BEDTIME 12/06/24 12/07/24 History metoclopramide HCl 5 mg tablet 5 mg PO QID PRN nausea and vomiting 12/06/24 12/08/24 Unknown History ondansetron 4 mg disintegrating 4 mg PO Q8H PRN nausea and vomiting 12/08/24 12/08/24 Unknown History tablet Exam Height,Weight and Vital Signs: Height 5 ft 2 in Weight 49.9 kg Last Vital Signs Temp 97.6 F 12/09/24 12:00 Pulse 64 12/09/24 12:00 Resp 18 12/09/24 12:00 BP 136/89 12/09/24 12:00 Pulse Ox 98 12/09/24 12:00 O2 Del Method Room Air 12/09/24 12:00 Pertinent Lab Results Pertinent Lab Results: Laboratory Tests 12/08/24 12/08/24 12/09/24 05:16 14:24 06:20 WBC 16.7 H 7.6 RBC 5.10 4.21 Hgb 16.2 H 13.3 Hct 44.0 38.4 MCV 86.3 91.2 MCH 31.8 31.6 MCHC 36.8 H 34.6 RDW 12.8 13.1 Plt Count 281 D 199 D MPV 11.2 11.6 Immature Gran % (Auto) Cancelled Neut % (Auto) Cancelled Lymph % (Auto) Cancelled [place] % (Auto) Cancelled Eos % (Auto) Cancelled Baso % (Auto) Cancelled Lymph # (Auto) Cancelled [place] # (Auto) Cancelled Eos # (Auto) Cancelled Baso # (Auto) Cancelled Abs Immat Gran (auto) Cancelled Absolute Neuts (auto) Cancelled Absolute Nucleated RBC 0.000 0.000 Nucleated RBC % (auto) 0.0 0.0 Neutrophils % (Manual) 81 H Band Neutrophils % 2 L Lymphocytes % (Manual) 13 L Monocytes % (Manual) 4 Abs Neuts (Manual) 13.9 H Lymphocytes # (Manual) 2.2 Monocytes # (Manual) 0.7 Smudge Cells PRESENT Toxic Vacuolation PRESENT Platelet Estimate NORMAL Large Platelets PRESENT Plt Morphology Comment NOTED RBC Morphology NOTED Ovalocytes 1+ (5-14) Sodium 135 139 Potassium 2.8 L* 3.4 D 3.5 Chloride 97 101 Carbon Dioxide 22 30 H Anion Gap 19 12 BUN 8 L < 3 L Creatinine 0.56 0.49 L Estim Creat Clear Calc 89.8 102.2 Estimated GFR > 60 > 60 Random Glucose 161 H 87 Calcium 10.2 D 9.1 D Magnesium 1.6 Total Bilirubin 0.4 AST 37 H ALT 27 Alkaline Phosphatase 72 Troponin I High Sens 92.5 H* Total Protein 7.6 Albumin 4.8 Airway Mallampati Class: II TM Dist: >3cm Neck ROM: Full Heart: rrr Lungs: cta Assessment and Plan Assessment Anesthesia Assessment: Anesthesia Plan Discussed and Chart Reviewed Final Anesthetic Review Family History of Problems with Anesthesia: No History of Problems with Anesthesia: No NPO: Yes ASA Class: III Final Preanesthetic Review: No Changes in Pt Med Stat, Meds/Allgs Chart Revi ewed, Consent Obtained/Reviewed and Anes Risks/Benef Reviewed Patient Risk: Intermediate Procedure Risk: Low Anesthetic Plan Anesthetic Plan: MAC: Disposition: Standard PACU
--- NOTE | 2024-12-09 13:38 | MHC.SHP ---
Pre-Procedural Eval Section A - 24 Hr Update-Section A only Date of Service: 12/09/24 The patient is an INPATIENT: Yes The patient has been examined within 24 hours of the surgical procedure. The History & Physical has been completed within 30 days and I have reviewed it.: Yes Section B - Complete if H&P > 30 days Chief Complaint: intractable n/v Allergies: Allergies Allergy/AdvReac Type Severity Reaction Status Date / Time Penicillins (PENICILLINS) Allergy Intermediate HIVES Verified 12/08/24 05:10 Sulfa (Sulfonamide Allergy Intermediate itching, Verified 12/08/24 05:10 Antibiotics) redness and itching tetracycline (TETRACYCLINE) Allergy Intermediate HIVES Verified 12/08/24 05:10 Plan Diagnosis/Plan: Unchanged I have reviewed the history and physical and performed a pertinent physical examination on my patient. No changes have occurred unless specified. Time Spent With Patient Time: Total time managing care of this patient today ____ minutes.
--- NOTE | 2024-12-09 14:12 | P.OP_ITS ---
Operative Note Operative Note Date of Service: 12/09/24 Narrative: Procedure: Esophagogastroduodenoscopy Endoscopist: Caren Parikh MD Indication: Nausea and vomiting Anesthesia Provider: Ariadne Summers CRNA Anesthesia Type: MAC ?? EGD Procedure:?? The procedure, indications, preparation and potential complications were reviewed with the patient, who indicated understanding and gave written informed consent to proceed. A physical exam was performed. The endoscope was introduced through the mouth, and advanced to the second part of duodenum. The mucosa was carefully examined on slow withdrawal of the endoscope. The patient tolerated the procedure well. There were no immediate complications.? ? EGD Findings:? * Esophagus:? Normal mucosa noted in the entire esophagus. The Z line was at 38 cm. * Stomach:?Atrophic appearing gastric mucosa. Retroflexion was performed in the cardia. Polyps noted in the fundus. Full versus biopsies were taken from the gastric body and antrum to rule out atrophic gastritis. * Duodenum:? Blunting and effacement of villi noted on endoscopic appearance. Cold forceps biopsies were taken from the duodenal bulb and 2nd portion of the duodenum to rule out celiac sprue. ? EGD Impressions:? * Normal esophagus (biopsy) * Gastric polyps * R/o atrophic gastritis (biopsy) * Abormal duodenal mucosa (biopsy) ?? Recommendations:?? * Follow biopsy results. Our office will call or send a letter with results within 7-10 days. * Avoid marijuana and/or THC containing products * If H pylori +, patient will be prescribed eradication therapy followed by test of cure. * Avoid NSAIDs. Above has been reviewed with the patient.
--- NOTE | 2024-12-09 14:25 | PM.CNCAR ---
History of Present Illness History of Present Illness Date of Service: 12/09/24 Requesting physician: Sahil Quintero Chief complaint: intractable n/v Narrative: [age] year female who is in need of endoscopy and we have been asked to see her for perioperative cardiovascular risk assessment. She has background history of marijuana use and cyclical vomiting syndrome. She has been getting vomiting episodes every few months and gets admitted for that. She was getting severe epigastric pain. She also has background of eating disorder and it appears she had bulimia in her 30s. Denying any chest discomfort shortness of breath on days when she does not have any vomiting. She is saying she is quite active and does not get any problems with activity when she is not nauseous and having vomiting. [facility] Past Medical History Medical History History of COVID-19 Cannabinoid hyperemesis syndrome Shoulder pain, right Smoker unmotivated to quit Generalized anxiety disorder Osteoarthritis of right hip Uterine leiomyoma Dyslipidemia Esophagitis Vasomotor symptoms due to menopause Elevated vitamin B12 level History of bulimia Arthritis Seizures History of alcohol abuse History of eating disorder Family History Family History Father Lung cancer Substance use disorder Mental health disorder Mother Stomach cancer Liver cancer Substance use disorder Mental health disorder Maternal Aunt Breast cancer Mental health disorder Paternal Aunt Breast cancer Substance use disorder Mental health disorder Maternal Uncle Brain cancer Substance use disorder Maternal Grandfather Substance use disorder Mental health disorder Surgical History Surgical History History of hip replacement, total H/O colonoscopy History of esophagogastroduodenoscopy (EGD) Hx of myomectomy Social History Social History Household Members: Other Household Members Other:: Sister Housing: House Do you presently have visiting nurse or other home services: No Alcohol intake: former Comment: patient refusing education provided Patient Tobacco Use Status: Current everyday Tobacco user Tobacco use type: Cigarette Cigarette Packs Per Day: 1.5 Cigarettes Per Day: 30.0 Years Smoked: 39 e-Cigarette/Vaping Use: Former Use Second Hand Smoke Exposure: No Substance Use Type: Marijuana Advance Directives Date on File: 12/06/24 service: No Current occupational status: employed Current occupation: [employer] Sexual orientation: Straight/Heterosexual Gender identity: Female Cognitive needs: No Hearing needs: No Vision needs: Yes Meds Allergies Allergy/AdvReac Type Severity Reaction Status Date / Time Penicillins (PENICILLINS) Allergy Intermediate HIVES Verified 12/08/24 05:10 Sulfa (Sulfonamide Allergy Intermediate itching, Verified 12/08/24 05:10 Antibiotics) redness and itching tetracycline (TETRACYCLINE) Allergy Intermediate HIVES Verified 12/08/24 05:10 Active Medications: Current Medications Acetaminophen (Acetaminophen 325 Mg Tablet) 650 mg PO Q6H PRN PRN Reason: Pain, Mild 1-3,fever,headache Amlodipine Besylate (Amlodipine Besylate 5 Mg Tablet) 5 mg PO DAILY [facility]; Protocol Last Admin: 12/09/24 08:29 Dose: Not Given Calcium Carbonate (Calcium Carbonate 750 Mg Tab.Chew) 750 mg PO Q4H PRN PRN Reason: Heartburn Capsaicin (Capsaicin 0.025% Cream 60 Gm Tube) 1 appl TOPICAL TID PRN; Protocol PRN Reason: abd pain from canabis Divalproex Sodium (Divalproex Sodium 500 Mg Tablet.Dr) 500 mg PO BID [facility] Hydromorphone HCl (Hydromorphone Hcl 1 Mg/Ml Syringe) 1 mg IVPUSH Q4H PRN; Protocol PRN Reason: Pain, Severe (Pain Scale 7-10) Last Admin: 12/09/24 10:47 Dose: 1 mg Potassium Cl/Dextrose/Lact Ringer's (Kcl 20 Meq In 5 % Dex/Lact Rin) 20 meq in 1,000 mls @ 80 mls/hr IVCONT .[id number] [facility] Last Admin: 12/09/24 08:39 Dose: 80 mls/hr Magnesium Hydroxide (Milk Of Magnesia 30 Ml Oral.Susp) 30 ml PO DAILY PRN PRN Reason: Constipation Melatonin (Melatonin 3 Mg Tablet) 6 mg PO BEDTIME PRN PRN Reason: Insomnia Last Admin: 12/08/24 22:09 Dose: 6 mg Naloxone HCl (Naloxone Hcl 0.4 Mg/Ml Vial) 0.04 mg IVPUSH Q5M PRN PRN Reason: Excessive sedation or RR < 8 Ondansetron HCl (Ondansetron Hcl 4 Mg/2 Ml Vial) 4 mg IVPUSH Q6H PRN PRN Reason: Nausea and Vomiting Last Admin: 12/09/24 10:47 Dose: 4 mg Pantoprazole Sodium (Pantoprazole Sodium 40 Mg/10 Ml Vial) 40 mg IVPUSH BID@0630,1630 [facility] Last Admin: 12/09/24 05:49 Dose: 40 mg Sodium Chloride (0.9 % Sodium Chloride Flush 3 Ml Syringe) 3 ml IVFLUSH QSHIFT [facility] Last Admin: 12/09/24 08:39 Dose: 3 ml Trazodone HCl (Trazodone Hcl 50 Mg Tablet) 50 mg PO BEDTIME [facility] Last Admin: 12/08/24 22:09 Dose: 50 mg Valacyclovir HCl (Valacyclovir Hcl 500 Mg Tablet) 500 mg PO DAILY [facility] Last Admin: 12/09/24 08:29 Dose: Not Given Home Medications ?Medication ?Instructions ?Recorded ?Confirmed ?Last Taken ?Type pantoprazole 40 mg tablet,delayed 40 mg PO DAILY@0630 PRN Acid Reflux 08/27/24 12/08/24 Unknown History release trazodone 50 mg tablet 50 - 100 mg PO BEDTIME 08/27/24 12/08/24 12/07/24 History linaclotide 145 mcg capsule 145 mcg PO DAILY 09/30/24 12/08/24 12/07/24 History (Jeralds) amitriptyline 10 mg tablet 10 mg PO BEDTIME 12/06/24 12/07/24 History metoclopramide HCl 5 mg tablet 5 mg PO QID PRN nausea and vomiting 12/06/24 12/08/24 Unknown History ondansetron 4 mg disintegrating 4 mg PO Q8H PRN nausea and vomiting 12/08/24 12/08/24 Unknown History tablet Physical Exam Vital Signs: Vital Signs: Last Vital Signs Temp 97.9 F 12/09/24 14:18 Pulse 59 12/09/24 14:18 Resp 12 12/09/24 14:18 BP 117/70 12/09/24 14:18 Pulse Ox 98 12/09/24 14:18 O2 Del Method Room Air 12/09/24 14:18 BMI result Body Mass Index 20.1 GENERAL APPEARANCE: in no acute distress, pleasant. NECK: no carotid bruit, no jugular venous distention. SKIN: no suspicious lesions, warm and dry. HEART: no murmurs, regular rate and rhythm. LUNGS: clear to auscultation bilaterally. ABDOMEN: soft, nontender. EXTREMITIES: no edema. PERIPHERAL PULSES: equal. NEUROLOGIC: No gross deficits, AAO X 3 Objective Labs and Meds 12/09/24 06:20 12/09/24 06:20 Lab results: Laboratory Results - last 24 hr 12/08/24 12/09/24 14:24 06:20 WBC 7.6 RBC 4.21 Hgb 13.3 Hct 38.4 MCV 91.2 MCH 31.6 MCHC 34.6 RDW 13.1 Plt Count 199 D MPV 11.6 Absolute Nucleated RBC 0.000 Nucleated RBC % (auto) 0.0 Sodium 139 Potassium 3.4 D 3.5 Chloride 101 Carbon Dioxide 30 H Anion Gap 12 BUN < 3 L Creatinine 0.49 L Estim Creat Clear Calc 102.2 Estimated GFR > 60 Random Glucose 87 Calcium 9.1 D Assessment and Plan (1) Cannabis hyperemesis syndrome concurrent with and due to cannabis dependence: Status: Acute (2) Preop cardiovascular exam: Status: Acute (3) Elevated troponin: Status: Acute Plan [age] year female presenting for cyclical vomiting who is in need of endoscopy due to epigastric pain. We have been asked to see her for perioperative risk assessment. She has mildly elevated troponin levels which are present all the time. There is no rise and fall in troponin to suggest ACS. She also has no significant symptoms currently. I think she is low to intermediate risk for perioperative complications and can proceed with the EGD. She can have further workup with us as outpatient. Thank you for allowing me to participate in the care of your patient. Please feel free to contact me if you have any questions. Procedures Date of Service Date of Service: 12/09/24
[2024-12-10 03:30] VITALS: PULSE 56; RESP 16; TEMP 36.7; O2SAT 98
[2024-12-10 06:49] LABS: Anion Gap 11 (12-20); Blood Urea Nitrogen 4 mg/dL (9-16); Calcium 8.7 mg/dL (8.4-10.2); Carbon Dioxide 26 mmol/L (22-29); Chloride 106 mmol/L (96-108); Creatinine Clr Calc Pharmacy 94.4; Estimated Glomerular Filt Rate > 60; Magnesium 1.6 mg/dL (1.6-2.6); Potassium 4.1 mmol/L (3.3-5.1); Sodium 139 mmol/L (135-145)
[2024-12-10 07:01] LABS: Hematocrit 36.4 % (37.0-47.0); Hemoglobin 12.6 g/dl (12.0-16.0); Mean Corpuscular HGB Conc 34.6 g/dl (31.0-35.0); Mean Corpuscular Hemoglobin 31.7 pg (27.0-33.0); Mean Corpuscular Volume 91.7 fL (80.0-98.0); NRBC Abs Auto 0.000 X10*3/uL (0.0-0.012); NRBC Pct Auto 0.0 /100WBC (0.0-0.2); Platelet Count 192 X10*3/uL (160-400); Red Blood Count 3.97 X10*6/uL (4.20-5.50); White Blood Count 6.3 X10*3/uL (4.8-10.8)
[2024-12-10 07:26] VITALS: BP 119/74; PULSE 57; RESP 18; TEMP 37; O2SAT 97
[2024-12-10] MEDS: 0.9 % Sodium Chloride Flush 3 ML SYRINGE IVFLUSH (09:00)
--- NOTE | 2024-12-10 09:38 | P.DS_ITS ---
DS: Providers Provider Date of Service: 12/10/24 Date of admission: 12/08/24 08:09 Date of discharge: 12/10/24 Primary care physician: Leah Bocanegra MD Consults: 12/08/24 14:42 Consult to Gastroenterology Routine Consulting Provider: [facility] Reason for consultation: intractable n/v/epigstric pain; readmission 12/09/24 00:32 Addiction Medicine Provider Routine Consulting Provider: Addiction Covering Reason for consultation: Chronic daily marijuana use, intractable vomiting 12/09/24 08:09 Consult to Cardiology Routine Consulting Provider: [facility] Reason for consultation: chronically elevated trop, ?risk strat for EGD DS: Diagnosis Discharge Diagnosis (1) Cannabis hyperemesis syndrome concurrent with and due to cannabis dependence: Status: Acute (2) Preop cardiovascular exam: Status: Acute (3) Elevated troponin: Status: Acute DS: Summary Hospital Course Hospital Course: from initial hpi: 54-year-old female with a past medical history significant for seizure disorder, cyclic vomiting syndrome, Cage's esophagus, anemia, anxiety, alcohol use disorder in remission x2 years, current daily cannabis user who presents to the emergency room, about 24 hours after discharge. The patient was hospitalized from 12/06- 12/07/2024 for intractable nausea and vomiting where she was treated symptomatically and discharged home after improvement. She was also noted to have electrolyte abnormalities during the admission which were repeated and stable. The patient reports that once she got home, after her 1st meal she began experiencing severe epigastric pain with associated nausea and vomiting. She reports the pain to be sharp in nature and 10 out 10 in severity. She reports inability to keep anything down by mouth. Due to ongoing symptoms she presented to the emergency room. In the emergency room the patient was found to have significant electrolyte abnormalities with a potassium of 2.8 and a low normal magnesium of 1.6. She had concurrent EKG changes without chest pain. She had elevated troponins which are downtrending from her recent hospitalization. She was treated with antiemetics and IV fluids as well as IV electrolytes. She continues to exhibit intolerance to orals and hence will be admitted to the hospital for further care. hospital course: Patient was admitted for recurrent epigastric pain with intractable nausea and vomiting. Was treated with PPI, antiemetics, IV fluids underwent EGD which revealed atrophic gastritis and abnormal duodenal biopsies were taken recommendations were to follow up with GI for pathology results, avoid THC. Patient's symptoms improved and was able to tolerate solid diet. For chronically elevated troponin and chronic systolic CHF was seen by Cardiology recommended outpatient stress test. For seizure disorder was continued on Depakote. For acute hypokalemia received replacement. For hypertension continued on amlodipine. Time Attestation Discharge Coordination Time (in mins): 37 Quality: Safe Use of Opioids Does Pt have an Active Cancer Diagnosis on the Problem List?: No Quality: Stroke Does the patient have a stroke diagnosis?: No Physical Exam Vital Signs: Vital Signs: Last Vital Signs Temp 98.6 F 12/10/24 07:26 Pulse 57 12/10/24 07:26 Resp 18 12/10/24 07:26 BP 119/74 12/10/24 07:26 Pulse Ox 97 12/10/24 07:26 O2 Del Method Room Air 12/10/24 07:26 BMI result Body Mass Index 20.1 GENERAL APPEARANCE: in no acute distress, pleasant. NECK: no carotid bruit, no jugular venous distention. SKIN: no suspicious lesions, warm and dry. HEART: no murmurs, regular rate and rhythm. LUNGS: clear to auscultation bilaterally. ABDOMEN: soft, nontender. EXTREMITIES: no edema. PERIPHERAL PULSES: equal. NEUROLOGIC: No gross deficits, AAO X 3 DS: Data Data Completed and Pending Pending studies at discharge: Pending at discharge 12/09/24 14:10 Surgical [PTH] Routine Labs on day of discharge: Laboratory Results - last 24 hr 12/10/24 06:09 WBC 6.3 RBC 3.97 L Hgb 12.6 Hct 36.4 L MCV 91.7 MCH 31.7 MCHC 34.6 RDW 13.1 Plt Count 192 MPV 11.9 Absolute Nucleated RBC 0.000 Nucleated RBC % (auto) 0.0 Sodium 139 Potassium 4.1 Chloride 106 Carbon Dioxide 26 Anion Gap 11 L BUN 4 L Creatinine 0.53 Estim Creat Clear Calc 94.4 Estimated GFR > 60 Random Glucose 101 Calcium 8.7 Magnesium 1.6 Discharge Plan Discharge Anticipated Discharge Date/Time: 12/10/24 09:33 Patient Disposition: Home, Self-Care Discharge Diagnosis: cyclic vomiting Referrals: Leah Bocanegra MD [Primary Care Provider, Endocrinology] - 1 Week Caren Parikh MD [Physician, Gastroenterology] - 1 Week Discharge Medications: New divalproex 500 mg Tablet,Delayed Release (Dr/Ec) 500 mg PO BID Qty: 0 0RF Continued trazodone 50 mg tablet 50 - 100 mg PO BEDTIME pantoprazole 40 mg tablet,delayed release (DR/EC) 40 mg PO DAILY@0630 PRN (Reason: Acid Reflux) amitriptyline 10 mg tablet 10 mg PO BEDTIME metoclopramide HCl 5 mg tablet 5 mg PO QID PRN (Reason: nausea and vomiting) ondansetron 4 mg tablet,disintegrating 4 mg PO Q8H PRN (Reason: nausea and vomiting) amlodipine 5 mg tablet 5 mg PO DAILY Qty: 90 0RF Protocol: Hold for SBP< HOLD for SBP < : 90 valacyclovir 500 mg tablet 500 mg PO DAILY 90 Days Qty: 90 3RF Linzess 145 mcg capsule 145 mcg PO DAILY Discharge Orders: Discharge Order (Routine); Ordered 12/10/24 Ordered By: Sahil Quintero Diet: Advance to usual diet Activity on Discharge: As tolerated Stand Alone Forms: Patient Portal Discharge page Print Language: Cook Islander Care Plan Goals: avoid episodes Health Concerns: cyclic vomiting Plan of Treatment: follow up with gi Assessment: see above
--- NOTE | 2024-12-10 09:44 | P.PNIM_ITS ---
Subjective Subjective Date of Service: 12/10/24 Interval History: feeling better Physical Exam 2 Vital Signs: Vital Signs: Last Vital Signs Temp 98.6 F 12/10/24 07:26 Pulse 57 12/10/24 07:26 Resp 18 12/10/24 07:26 BP 119/74 12/10/24 07:26 Pulse Ox 97 12/10/24 07:26 O2 Del Method Room Air 12/10/24 07:26 BMI result Body Mass Index 20.1 GENERAL APPEARANCE: in no acute distress, pleasant. NECK: no carotid bruit, no jugular venous distention. SKIN: no suspicious lesions, warm and dry. HEART: no murmurs, regular rate and rhythm. LUNGS: clear to auscultation bilaterally. ABDOMEN: soft, nontender. EXTREMITIES: no edema. PERIPHERAL PULSES: equal. NEUROLOGIC: No gross deficits, AAO X 3 Objective Data Active Medications Acetaminophen (Acetaminophen 325 Mg Tablet) 650 mg PO Q6H PRN PRN Reason: Pain, Mild 1-3,fever,headache Amlodipine Besylate (Amlodipine Besylate 5 Mg Tablet) 5 mg PO DAILY [facility]; Protocol Last Admin: 12/10/24 08:59 Dose: 5 mg Documented By: CLARITZA Calcium Carbonate (Calcium Carbonate 750 Mg Tab.Chew) 750 mg PO Q4H PRN PRN Reason: Heartburn Capsaicin (Capsaicin 0.025% Cream 60 Gm Tube) 1 appl TOPICAL TID PRN; Protocol PRN Reason: abd pain from canabis Divalproex Sodium (Divalproex Sodium 500 Mg Tablet.Dr) 500 mg PO BID [facility] Last Admin: 12/10/24 08:59 Dose: 500 mg Documented By: CLARITZA Hydromorphone HCl (Hydromorphone Hcl 1 Mg/Ml Syringe) 1 mg IVPUSH Q4H PRN; Protocol PRN Reason: Pain, Severe (Pain Scale 7-10) Last Admin: 12/09/24 10:47 Dose: 1 mg Documented By: KISHAN Potassium Cl/Dextrose/Lact Ringer's (Kcl 20 Meq In 5 % Dex/Lact Rin) 20 meq in 1,000 mls @ 80 mls/hr IVCONT .[id number] [facility] Last Infusion: 12/10/24 09:03 Dose: 0 mls/hr Documented By: CLARITZA Magnesium Hydroxide (Milk Of Magnesia 30 Ml Oral.Susp) 30 ml PO DAILY PRN PRN Reason: Constipation Magnesium Oxide (Magnesium Oxide 400 Mg Tablet) 400 mg PO BIDPC [facility] Last Admin: 12/10/24 08:59 Dose: 400 mg Documented By: CLARITZA Melatonin (Melatonin 3 Mg Tablet) 6 mg PO BEDTIME PRN PRN Reason: Insomnia Last Admin: 12/09/24 21:51 Dose: 6 mg Documented By: KRZYSZTOF Naloxone HCl (Naloxone Hcl 0.4 Mg/Ml Vial) 0.04 mg IVPUSH Q5M PRN PRN Reason: Excessive sedation or RR < 8 Non-Formulary Medication (Linaclotide [Linzess]) 145 mcg PO DAILY [facility] Ondansetron HCl (Ondansetron Hcl 4 Mg/2 Ml Vial) 4 mg IVPUSH Q6H PRN PRN Reason: Nausea and Vomiting Last Admin: 12/09/24 10:47 Dose: 4 mg Documented By: KISHAN Pantoprazole Sodium (Pantoprazole Sodium 40 Mg/10 Ml Vial) 40 mg IVPUSH BID@0630,1630 [facility] Last Admin: 12/10/24 05:33 Dose: 40 mg Documented By: KRZYSZTOF Sodium Chloride (0.9 % Sodium Chloride Flush 3 Ml Syringe) 3 ml IVFLUSH QSHIFT [facility] Last Admin: 12/10/24 09:00 Dose: 3 ml Documented By: CLARITZA Trazodone HCl (Trazodone Hcl 50 Mg Tablet) 50 mg PO BEDTIME [facility] Last Admin: 12/09/24 21:51 Dose: 50 mg Documented By: KRZYSZTOF Valacyclovir HCl (Valacyclovir Hcl 500 Mg Tablet) 500 mg PO DAILY [facility] Last Admin: 12/10/24 08:59 Dose: 500 mg Documented By: CLARITZA Labs 12/10/24 06:09 12/10/24 06:09 Labs: Laboratory Results - last 24 hr 12/10/24 06:09 MCV 91.7 MCH 31.7 MCHC 34.6 RDW 13.1 Plt Count 192 MPV 11.9 Absolute Nucleated RBC 0.000 Nucleated RBC % (auto) 0.0 Anion Gap 11 L Estim Creat Clear Calc 94.4 Estimated GFR > 60 Random Glucose 101 Calcium 8.7 Magnesium 1.6 Assessment and Plan (1) Marijuana dependence: Status: Acute Plan 54F PMH seizure disorder, cyclic vomiting, chronic systolic CHF, Cage's esophagus, anemia, anxiety, alcohol dependence in remission for 2 years, daily cannabis use presented with nausea vomiting found to have hypokalemia Recurrent epigastric pain with intractable nausea and vomiting Continue PPI, antiemetics, IV fluids EGD gastric polyps, atrophic gastritis, abnormal duodenum - biopsies taken avoid thc, and nsaids, follow up path Chronically elevated troponin, chronic systolic CHF Cardio appreciated, outpaitent stress test Seizure disorder Depakote Acute hypokalemia Replaced Hypertension Amlodipine DVT prophylaxis-early ambulation Full code reason for continued hospitalization: awaiting po tolerance Quality Stroke Does the patient have a stroke diagnosis?: No VTE Prior VTE?: No VTE Risk Level:: Medical - moderate - high VTE Device Contraindication: N/A - Device Ordered VTE Drug Contraindication: Treatment Not Indicated
--- NOTE | 2024-12-10 10:35 | HO.POSTANES ---
Post Anesthesia Evaluation Post Anesthesia Evaluation Date of Service: 12/10/24 Vital Signs: Vital Signs Temp Pulse Resp BP Pulse Ox O2 Del Method 12/10/24 07:26 98.6 F 57 18 119/74 97 Room Air 12/10/24 03:30 98.0 F 56 16 98 Room Air 12/09/24 23:37 98.5 F 53 16 111/59 L 97 Room Air Anesthesia: Monitored Mental Status: Awake Pain Control: Satisfactory Nausea/Vomiting: None Hydration: Adequate Anesthesia-Related Issues: No Anes. Related Issues
[2024-12-10 11:21] VITALS: BP 112/67; PULSE 62; RESP 18; TEMP 36.4; O2SAT 93
--- NOTE | 2024-12-10 12:21 | HO.ADDICT_ITS ---
History of Present Illness Date of Service: 12/10/24 Chief Complaint: intractable n/v Reason for Consult: cannabis use d/o Sources of Information: patient interviewed and chart reviewed HPI Narrative: Patient is a 54 year old female medically admitted with intractable vomiting, thought to be related to cannabis use. Seen in room 445. She is awake, alert, pleasant and engaged in interview. Reports feeling so much better today. Discussed cannabis use. Has been smoking since age 12. Earlier this year began to experience vomiting and when told it may be related to cannabis use, she stopped for several months. She says that during this time continued to experience some nausea, and eventually started smoking again. Last use, 10 days ago. She reports she does not plan to smoke or use any other thc products at all. Discussed how smoking was helpful to her and she stated that it helped with her anxiety and worry. Discussed other strategies to address worry as she has now stopped what was previously one of her coping strategies. She reports that she will be seeing a therapist soon, as she discussed this with her PCP. 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 She is familiar with resources and supports. Review of Systems Constitutional: Reports as per HPI and Reports no additional constitutional complaints Diagnostics Vital Signs (24Hr): Vital Signs - 24 hr 12/09/24 13:13 12/09/24 14:18 12/09/24 14:33 Temperature 98.0 F 97.9 F 97.0 F Pulse Rate 55 59 60 Respiratory Rate 16 12 18 Blood Pressure 121/69 117/70 139/73 Pulse Oximetry 98 98 100 Oxygen Delivery Method Room Air Room Air Room Air 12/09/24 14:47 12/09/24 15:42 12/09/24 19:36 Temperature 98.2 F 97.5 F 98.3 F Pulse Rate 55 56 55 Respiratory Rate 14 17 16 Blood Pressure 130/90 H 127/83 119/69 Pulse Oximetry 100 99 95 Oxygen Delivery Method Room Air Room Air Room Air 12/09/24 23:37 12/10/24 03:30 12/10/24 07:26 Temperature 98.5 F 98.0 F 98.6 F Pulse Rate 53 56 57 Respiratory Rate 16 16 18 Blood Pressure 111/59 L 119/74 Pulse Oximetry 97 98 97 Oxygen Delivery Method Room Air Room Air Room Air 12/10/24 11:21 Temperature 97.6 F Pulse Rate 62 Respiratory Rate 18 Blood Pressure 112/67 Pulse Oximetry 93 Oxygen Delivery Method Room Air BMI result Body Mass Index 20.1 Labs 12/10/24 06:09 12/10/24 06:09 Labs: Laboratory Results - last 48 hr 12/08/24 12/09/24 12/10/24 14:24 06:20 06:09 WBC 7.6 6.3 RBC 4.21 3.97 L Hgb 13.3 12.6 Hct 38.4 36.4 L MCV 91.2 91.7 MCH 31.6 31.7 MCHC 34.6 34.6 RDW 13.1 13.1 Plt Count 199 D 192 MPV 11.6 11.9 Absolute Nucleated RBC 0.000 0.000 Nucleated RBC % (auto) 0.0 0.0 Sodium 139 139 Potassium 3.4 D 3.5 4.1 Chloride 101 106 Carbon Dioxide 30 H 26 Anion Gap 12 11 L BUN < 3 L 4 L Creatinine 0.49 L 0.53 Estim Creat Clear Calc 102.2 94.4 Estimated GFR > 60 > 60 Random Glucose 87 101 Calcium 9.1 D 8.7 Magnesium 1.6 Mental Status Exam Mental Status Exam Patient Appearance: Well Grooomed Level of Consciousness: Awake and Appropriate Patient Behavior: Appropriate and Talkative Affect Description: Calm Speech Pattern: Clear Judgement: Good Medications Medications Current Medications Acetaminophen (Acetaminophen 325 Mg Tablet) 650 mg PO Q6H PRN PRN Reason: Pain, Mild 1-3,fever,headache Amlodipine Besylate (Amlodipine Besylate 5 Mg Tablet) 5 mg PO DAILY FORMERLY [facility], [facility]; Protocol Last Admin: 12/10/24 08:59 Dose: 5 mg Calcium Carbonate (Calcium Carbonate 750 Mg Tab.Chew) 750 mg PO Q4H PRN PRN Reason: Heartburn Capsaicin (Capsaicin 0.025% Cream 60 Gm Tube) 1 appl TOPICAL TID PRN; Protocol PRN Reason: abd pain from canabis Divalproex Sodium (Divalproex Sodium 500 Mg Tablet.Dr) 500 mg PO BID FORMERLY [facility], [facility]1983 Last Admin: 12/10/24 08:59 Dose: 500 mg Hydromorphone HCl (Hydromorphone Hcl 1 Mg/Ml Syringe) 1 mg IVPUSH Q4H PRN; Protocol PRN Reason: Pain, Severe (Pain Scale 7-10) Last Admin: 12/09/24 10:47 Dose: 1 mg Magnesium Hydroxide (Milk Of Magnesia 30 Ml Oral.Susp) 30 ml PO DAILY PRN PRN Reason: Constipation Magnesium Oxide (Magnesium Oxide 400 Mg Tablet) 400 mg PO BIDPC FOR[facility]LY [facility], [facility]1983 Last Admin: 12/10/24 08:59 Dose: 400 mg Melatonin (Melatonin 3 Mg Tablet) 6 mg PO BEDTIME PRN PRN Reason: Insomnia Last Admin: 12/09/24 21:51 Dose: 6 mg Naloxone HCl (Naloxone Hcl 0.4 Mg/Ml Vial) 0.04 mg IVPUSH Q5M PRN PRN Reason: Excessive sedation or RR < 8 Non-Formulary Medication (Linaclotide [Linzess]) 145 mcg PO DAILY FOR[facility]LY [facility], [facility]1983 Ondansetron HCl (Ondansetron Hcl 4 Mg/2 Ml Vial) 4 mg IVPUSH Q6H PRN PRN Reason: Nausea and Vomiting Last Admin: 12/09/24 10:47 Dose: 4 mg Pantoprazole Sodium (Pantoprazole Sodium 40 Mg/10 Ml Vial) 40 mg IVPUSH BID@0630,1630 FOR[facility], [facility] Last Admin: 12/10/24 05:33 Dose: 40 mg Sodium Chloride (0.9 % Sodium Chloride Flush 3 Ml Syringe) 3 ml IVFLUSH QSHIFT FOR[facility]LY [facility], [facility] Last Admin: 12/10/24 09:00 Dose: 3 ml Trazodone HCl (Trazodone Hcl 50 Mg Tablet) 50 mg PO BEDTIME FOR[facility]LY [facility], [facility] Last Admin: 12/09/24 21:51 Dose: 50 mg Valacyclovir HCl (Valacyclovir Hcl 500 Mg Tablet) 500 mg PO DAILY FOR[facility] Last Admin: 12/10/24 08:59 Dose: 500 mg Allergies Allergies Allergy/AdvReac Type Severity Reaction Status Date / Time Penicillins (PENICILLINS) Allergy Intermediate HIVES Verified 12/08/24 05:10 Sulfa (Sulfonamide Allergy Intermediate itching, Verified 12/08/24 05:10 Antibiotics) redness and itching tetracycline (TETRACYCLINE) Allergy Intermediate HIVES Verified 12/08/24 05:10 Assessment & Plan Assessment & Plan (1) Cannabis hyperemesis syndrome concurrent with and due to cannabis dependence: Status: Acute Code(s): F12.288 - Cannabis dependence with other cannabis-induced disorder Assessment and Plan: * no use for 10 days * workbook on anxiety and management strategies given to patient * encouraged to discuss any increase in anxiety sx or difficulty sleeping with PCP Total time managing care of this patient today _40___ minutes. PMFSH Past Medical History Medical History History of COVID-19 Cannabinoid hyperemesis syndrome Shoulder pain, right Smoker unmotivated to quit Generalized anxiety disorder Osteoarthritis of right hip Uterine leiomyoma Dyslipidemia Esophagitis Vasomotor symptoms due to menopause Elevated vitamin B12 level History of bulimia Arthritis Seizures History of alcohol abuse History of eating disorder Family History Family History Father Lung cancer Substance use disorder Mental health disorder Mother Stomach cancer Liver cancer Substance use disorder Mental health disorder Maternal Aunt Breast cancer Mental health disorder Paternal Aunt Breast cancer Substance use disorder Mental health disorder Maternal Uncle Brain cancer Substance use disorder Maternal Grandfather Substance use disorder Mental health disorder Surgical History Surgical History History of hip replacement, total H/O colonoscopy History of esophagogastroduodenoscopy (EGD) Hx of myomectomy Social History Social History Household Members: Other Household Members Other:: Sister Housing: House Do you presently have visiting nurse or other home services: No Alcohol intake: former Comment: refusing bed alarm Patient Tobacco Use Status: Current everyday Tobacco user Tobacco use type: Cigarette Cigarette Packs Per Day: 1.5 Cigarettes Per Day: 30.0 Years Smoked: 39 e-Cigarette/Vaping Use: Former Use Second Hand Smoke Exposure: No Substance Use Type: Marijuana Advance Directives Date on File: 12/06/24 service: No Current occupational status: employed Current occupation: [employer] Sexual orientation: Straight/Heterosexual Gender identity: Female Cognitive needs: No Hearing needs: No Vision needs: Yes
--- NOTE | 2024-12-10 12:55 | MHC.CM.PN ---
Patient has been medically cleared for dc to home today, self care. Last IMM was addressed yesterday.
== END 2024-12-10 14:14 | disposition home or self-care (01) | DRG 392 ==
LOC: HO.ED 07:49 → HO.EDOVER 08:27 → HO.IMC 18:18
PROVIDERS: Internal Medicine; Admitting Provider Family Medicine; Emergency Provider Emergency Medicine; PCP Internal Medicine; Visit Provider Internal Medicine
PROC: 0DJ08ZZ Inspection of Upper Intestinal Tract, Via Natural or Artificial Opening Endoscopic (ICD-10-PCS; CPT 43235; principal; 2024-12-09 13:30)
DX: K29.40 Chronic atrophic gastritis without bleeding (principal); I50.22 Chronic systolic (congestive) heart failure; K31.7 Polyp of stomach and duodenum; E87.6 Hypokalemia; F12.20 Cannabis dependence, uncomplicated; I11.0 Hypertensive heart disease with heart failure; E83.42 Hypomagnesemia; R11.2 Nausea with vomiting, unspecified; G40.909 Epilepsy, unspecified, not intractable, without status epilepticus; I10 Essential (primary) hypertension; F17.210 Nicotine dependence, cigarettes, uncomplicated; Z71.6 Tobacco abuse counseling; Z79.899 Other long term (current) drug therapy
CPT/HCPCS: 36415; 71045; 80048; 80053; 80076; 81003; 83690; 83735; 84132; 84484; 85007; 85027; 88305; 88313; 88342; 93005; 96365; 96366; 96367; 96375; 96376; 99222; 99285; J1171; J1200; J1790; J2405; J2470; J3360; J3475; J3480; J7120

== ENCOUNTER → 2024-12-08 05:24 | Outpatient (BNV) | payer MEDICARE, MEDICAID, SELFPAY | PROVIDERS: Admitting Provider Family Medicine; Emergency Provider Emergency Medicine; Visit Provider Internal Medicine Cardiovascular Disease | DX: R10.13 Epigastric pain (principal) | CPT/HCPCS: 93010 ==

== ENCOUNTER → 2024-12-08 08:09 | Outpatient (BNV) | payer MEDICARE, MEDICAID, SELFPAY | PROVIDERS: Admitting Provider Family Medicine; Emergency Provider Emergency Medicine; PCP Internal Medicine; Visit Provider Nurse Practitioner Psychiatric/Mental Health | DX: F12.288 Cannabis dependence with other cannabis-induced disorder (principal) | CPT/HCPCS: 99221 ==

== ENCOUNTER → 2024-12-08 08:09 | Outpatient (BNV) | payer MEDICARE, MEDICAID, SELFPAY | PROVIDERS: Admitting Provider Family Medicine; Emergency Provider Emergency Medicine; PCP Internal Medicine; Visit Provider Internal Medicine Cardiovascular Disease | DX: R10.13 Epigastric pain (principal); F12.288 Cannabis dependence with other cannabis-induced disorder | CPT/HCPCS: 99221 ==

== ENCOUNTER → 2024-12-08 08:09 | Outpatient (BNV) | payer MEDICARE, MEDICAID, SELFPAY | PROVIDERS: Admitting Provider Family Medicine; Emergency Provider Emergency Medicine; Visit Provider Internal Medicine | DX: K31.7 Polyp of stomach and duodenum (principal); K31.89 Other diseases of stomach and duodenum | CPT/HCPCS: 43239; 99223 ==

== ENCOUNTER → 2024-12-08 08:09 | Outpatient (BNV) | payer MEDICARE, MEDICAID, SELFPAY | PROVIDERS: Admitting Provider Family Medicine; Emergency Provider Emergency Medicine; Visit Provider Family Medicine | DX: F12.288 Cannabis dependence with other cannabis-induced disorder (principal); Z01.810 Encounter for preprocedural cardiovascular examination; R79.89 Other specified abnormal findings of blood chemistry; F12.20 Cannabis dependence, uncomplicated | CPT/HCPCS: 99223; 99232; 99239; 99499 ==

== ENCOUNTER 2024-12-11 09:02 | Emergency (ER) | payer MEDICARE, MEDICAID, SELFPAY ==
--- NOTE | ~2024-12-11 | CT_ITS ---
EXAMINATION: CT ABDOMEN PELVIS WITH IV CONTRAST HISTORY: epigastric abdominal pain COMPARISON: There are no prior studies for available comparison. TECHNIQUE: CT scan of the abdomen and pelvis was performed following administration of 85 mL Omnipaque 350 using standard departmental protocol. Coronal and sagittal reformatted images were generated and reviewed. Oral contrast material was not administered at the request of the referring physician. This CT exam was performed with one or more of the following dose reduction techniques: automated exposure control, adjustment of the mA and/or kV according to patient size, use of iterative reconstruction technique. DLP: 588 mGy-cm FINDINGS: There is motion artifact in the upper abdomen. LOWER CHEST: There is subsegmental atelectasis at both lung bases. There is no pleural effusion. CARDIOVASCULATURE: The heart is normal in size. There is no pericardial effusion. LIVER: The liver is normal in size and contour. No liver mass is identified. The hepatic and portal veins are patent. GALLBLADDER / BILE DUCTS: The gallbladder is unremarkable. There is no intra or extrahepatic biliary ductal dilatation. SPLEEN: The spleen is normal in size. No focal splenic lesion is identified. PANCREAS: The pancreas is unremarkable in appearance. ADRENAL GLANDS: Within normal limits. KIDNEYS/RETROPERITONEUM: No renal calculi are identified. There is no hydronephrosis. There is a 9 mm cyst at the upper pole of the left kidney. LYMPH NODES: No abdominal or pelvic lymphadenopathy. VASCULATURE: The abdominal aorta is normal in caliber. MESENTERY/PERITONEUM: No free fluid. No masses. There is no free intraperitoneal gas. STOMACH: The stomach is collapsed, limiting evaluation. SMALL BOWEL: The small bowel is normal in caliber. COLON: There is a large amount of stool throughout the colon. APPENDIX: The appendix is not seen, however no inflammatory changes are seen adjacent to the cecum. URINARY BLADDER/PELVIC ORGANS: There is a tiny calcification of the anterior wall of the urinary bladder. There is a 3.5 cm rim calcified uterine fibroid. BONES / SOFT TISSUES: The patient is status post right total hip arthroplasty. CT/CT abdomen pelvis w IV con IMPRESSION: Large amount of stool throughout the colon. Electronically signed by: Prosper Ye MD 12/11/2024 11:38 AM EDT RP
--- NOTE | 2024-12-11 09:12 | ECG_ITS ---
Test Reason : CHECK QTC Blood Pressure : */* mmHG Vent. Rate : 65 BPM Atrial Rate : 65 BPM P-R Int : 120 ms QRS Dur : 84 ms QT Int : 396 ms P-R-T Axes : * 28 31 degrees QTcB Int : 411 ms Normal sinus rhythm Nonspecific ST abnormality Abnormal ECG When compared with ECG of 08-Dec-2024 05:24, ST now depressed in Inferior leads QT has shortened Referred By: Anne Zapata Electronically Signed By: John Ramos
[2024-12-11 09:14] VITALS: BP 205/126; PULSE 72; O2SAT 99
[2024-12-11 09:23] VITALS: BP 208/105; PULSE 62; RESP 20; O2SAT 99; BMI 21.6
[2024-12-11 09:48] LABS: MANUAL DIFF FLAG NO
[2024-12-11 09:49] LABS: Hematocrit 40.6 % (37.0-47.0); Hemoglobin 14.8 g/dl (12.0-16.0); Imm Gran Abs Auto 0.14 X10*3/uL (0.00-0.03); Imm Gran Pct Auto 0.7 % (0.0-0.4); Lymphocytes Absolute Auto 2.9 X10*3/uL (1.2-4.9); Mean Corpuscular HGB Conc 36.5 g/dl (31.0-35.0); Mean Corpuscular Hemoglobin 32.7 pg (27.0-33.0); Mean Corpuscular Volume 89.8 fL (80.0-98.0); NRBC Abs Auto 0.000 X10*3/uL (0.0-0.012); NRBC Pct Auto 0.0 /100WBC (0.0-0.2); Platelet Count 233 X10*3/uL (160-400); Red Blood Count 4.52 X10*6/uL (4.20-5.50); White Blood Count 20.7 X10*3/uL (4.8-10.8)
[2024-12-11 09:54] VITALS: RESP 20
[2024-12-11] MEDS: Lactated Ringers 1,000 ML 999 ML IV (09:58)
--- NOTE | 2024-12-11 10:04 | PC.NURSE ---
ANEL Vogel aware that patient has a 24g IV access to left thumb. Patient is refusing for this RN to even examine her extremities for attempted IV access. States no, I only get IVs with ultrasound. Don't come in here thinking you can do an IV, because I can pretty much guarantee that you can't without the ultrasound. And give me the pain medications first. Medicated per provider orders. As instructed by ANEL Vogel, advised to hold the ordered Magnesium infusion until labs are resulted. Labs drawn off of 24g IV access due to patient refusal. Waste tube collected and disposed of, per [facility] protocols. Labs drawn and sent for analysis, results pending. LR infusing, Dilaudid, Compazine, & Droperidol given as ordered. NSR on environmental monitoring specialist at this time. Given warm blankets. Hypertensive. Care ongoing by this RN & ANEL Vogel.
--- NOTE | 2024-12-11 10:07 | ED_ITS ---
HPI - General Adult General Chief complaint: Nausea/Vomiting/Diarrhea Stated complaint: NAUSEA/VOMITING,H/O CYCLIC VOMITING PER EMS Time Seen by Provider: 12/11/24 09:24 Source: patient, RN notes reviewed and old records reviewed Mode of arrival: EMS Limitations: no limitations History of Present Illness ED Provider: Lela HPI narrative: 54-year-old female with a past medical history significant for cannabis hyperemesis syndrome, marijuana dependence, hypokalemia, elevated troponin, hypertension, dyslipidemia, esophagitis, seizure disorder presents for evaluation of upper abdominal pain with nausea and vomiting. Patient's symptoms have been going on for about 1 week. This is the patient's 6th the ED visit in the last 4 days. She primarily goes to [facility] for her emergency care but feels as though she is not being treated appropriately there and has been seeking care at this facility. This is her 4th visit here since 12/05/2024. She was actually discharged yesterday after being admitted on 12/08/2024. On that visit she had an upper endoscopy that showed some abnormal findings, biopsies are still pending at this time. The patient is continuing to complain of 10/10 upper abdominal pain. She states ?the vomiting is damaging my heart. She denies any chest pain She states ?Dilaudid, Valium, and Zofran help my pain. ? Denies any previous abdominal surgery Related Data Home Medications ?Medication ?Instructions ?Recorded ?Confirmed pantoprazole 40 mg tablet,delayed 40 mg PO DAILY@0630 PRN Acid Reflux 08/27/24 12/08/24 release trazodone 50 mg tablet 50 - 100 mg PO BEDTIME 08/2712/08/24 linaclotide 145 mcg capsule 145 mcg PO DAILY 09/30/24 12/08/24 (Linzess) amitriptyline 10 mg tablet 10 mg PO BEDTIME 12/06/24 metoclopramide HCl 5 mg tablet 5 mg PO QID PRN nausea and vomiting 12/06/24 12/08/24 ondansetron 4 mg disintegrating 4 mg PO Q8H PRN nausea and vomiting 12/08/24 12/08/24 tablet Previous Rx's ?Medication ?Instructions ?Recorded valacyclovir 500 mg tablet 500 mg PO DAILY 90 days #90 tabs 08/19/24 amlodipine 5 mg tablet 5 mg PO DAILY #90 tabs 09/03 divalproex 500 mg tablet,delayed 500 mg PO BID #0 tabs 12/10/24 release prochlorperazine 25 mg rectal 25 mg W[place] Q12H PRN nausea and 12/11/24 suppository (Compro) vomiting #12 ea Allergies Allergy/AdvReac Type Severity Reaction Status Date / Time Penicillins (PENICILLINS) Allergy Intermediate HIVES Verified 12/11/24 09:25 Sulfa (Sulfonamide Allergy Intermediate itching, Verified 12/11/24 09:25 Antibiotics) redness and itching tetracycline (TETRACYCLINE) Allergy Intermediate HIVES Verified 12/11/24 09:25 Review of Systems 2 Constitutional: Constitutional: Denies body ache(s), Denies chills, Denies fever(s), Reports malaise and Reports weakness ENT: Denies dizziness Cardiovascular: Cardiovascular: Denies chest pain and Denies dyspnea on exertion Respiratory: Respiratory: Denies cough and Denies dyspnea on exertion Gastrointestinal: Gastrointestinal: Reports abdominal pain, Reports constipation, Reports nausea, Reports vomiting and Denies hematemesis Genitourinary: Genitourinary: Denies hematuria Musculoskeletal: Musculoskeletal: Denies back pain Integumentary/Breasts: Skin/Breast: Denies rash Neurologic: Denies dizziness and Reports weakness Psychiatric: Psychiatric: Denies anxiety PMFSH Past Medical History Medical History History of COVID-19 Cannabinoid hyperemesis syndrome Shoulder pain, right Smoker unmotivated to quit Generalized anxiety disorder Osteoarthritis of right hip Uterine leiomyoma Dyslipidemia Esophagitis Vasomotor symptoms due to menopause Elevated vitamin B12 level History of bulimia Arthritis Seizures History of alcohol abuse History of eating disorder Surgical History History of hip replacement, total H/O colonoscopy History of esophagogastroduodenoscopy (EGD) Hx of myomectomy Family History Family History Father Lung cancer Substance use disorder Mental health disorder Mother Stomach cancer Liver cancer Substance use disorder Mental health disorder Maternal Aunt Breast cancer Mental health disorder Paternal Aunt Breast cancer Substance use disorder Mental health disorder Maternal Uncle Brain cancer Substance use disorder Maternal Grandfather Substance use disorder Mental health disorder Social History Social History Household Members: Other Household Members Other:: Sister Housing: House Do you presently have visiting nurse or other home services: No Alcohol intake: former Comment: refusing bed alarm Patient Tobacco Use Status: Current everyday Tobacco user Tobacco use type: Cigarette Cigarette Packs Per Day: 1.5 Cigarettes Per Day: 30.0 Years Smoked: 39 e-Cigarette/Vaping Use: Former Use Second Hand Smoke Exposure: No Substance Use Type: Marijuana Advance Directives: No Advance Directives Information Provided: Yes Advance Directives Date on File: 12/06/24 service: No Current occupational status: employed Current occupation: [employer] Sexual orientation: Straight/Heterosexual Gender identity: Female Cognitive needs: No Hearing needs: No Vision needs: Yes Physical Exam ED Vital Signs: Vital Signs - 24 hr 12/11/24 09:23 12/11/24 09:54 12/11/24 10:34 Temperature 98.9 F Pulse Rate 62 61 Respiratory Rate 20 20 13 Blood Pressure 208/105 H 183/105 H Pulse Oximetry 99 95 Oxygen Delivery Method Room Air Room Air 12/11/24 12:02 Temperature 97.9 F Pulse Rate 60 Respiratory Rate 19 Blood Pressure 169/88 H Pulse Oximetry 99 Oxygen Delivery Method Room Air BMI result Body Mass Index 21.6 Const General: healthy appearing, alert and awake Nutritional Appearance: well nourished Orientation/consciousness: patient oriented x3 HENMT Head: Yes normocephalic and Yes atraumatic Eyes Eyelids: Yes eyelids normal Conjunctivae: conjunctivae normal Sclerae: sclerae normal Corneas: corneas normal Pupils: Equal, round and reactive pupils present EOM: EOMs intact bilaterally Neck Neck: Yes full ROM Resp Effort & Inspection: normal respiratory effort, able to speak in complete sentences and not labored Cardio Rate: regular rate Rhythm: regular rhythm GI Inspection: No distended Palpation (GI): Soft to palpation, not firm, Tenderness to palpation present (GI) in the epigastrum and in the LUQ; not in the RUQ, no guarding and not rigid Skin General skin exam: elasticity normal Neuro General: patient oriented x3 Cranial nerves: Yes Equal, round and reactive pupils present and Yes Bilaterally intact EOM present Cognition (Neuro): normal cognition Extrem Other: Moving all extremities well without any obvious deformities Course Reevaluation(s) Reevaluation #1: Patient resting comfortably after medication, she has not had any further vomiting. Blood pressure has improved with treatment. CT scan shows marked constipation without obstruction or infectious process. I discussed the CT findings specifically constipation with the patient. She reports that she has a history of the skin takes Linzess. She has not been taking the Linzess due to vomiting has not been taking a stool softener such as MiraLax. I would be cautious regarding laxatives with the patient due to history of electrolyte abnormalities. Time: 12:07 Medications Administered Discontinued Medications Generic Name Dose Route Start Last Admin Trade Name Freq PRN Reason Stop Dose Admin Droperidol 1.25 mg 12/11/24 09:46 12/11/24 09:53 Droperidol 5 Mg/2 Ml Vial IVPUSH 12/11/24 09:47 1.25 mg ONCE ONE Administration Hydromorphone HCl 1 mg 12/11/24 09:46 12/11/24 09:54 Hydromorphone Hcl 1 Mg/Ml Syringe IVPUSH 12/11/24 09:47 1 mg ONCE ONE Administration Protocol Lactated Ringer's 1,000 mls @ 999 mls/hr 12/11/24 09:12 12/11/24 09:58 Lr IV 12/11/24 10:12 999 mls/hr .Q1H1M ONE Administration Magnesium Sulfate 2 gm in 50 mls @ 25 mls/hr 12/11/24 09:12 12/11/24 11:35 Magnesium Sulfate/H2o IV 12/11/24 11:11 25 mls/hr ONCE ONE Administration Iohexol 100 ml 12/11/24 11:08 12/11/24 11:11 Iohexol 350 Mg/Ml 100 Ml Infus..Btl IV 12/11/24 11:09 85 ml ONCE ONE Administration Prochlorperazine Edisylate 10 mg 12/11/24 09:12 12/11/24 09:53 Prochlorperazine Edisylate 10 Mg/2 Ml Vial IVPUSH 12/11/24 09:13 10 mg ONCE ONE Administration Medical Decision Making Medical Decision Making MDM Narrative: 54-year-old female with past medical history as above presents for evaluation of continued epigastric abdominal pain is worse after eating. Again, the patient was just discharged yesterday for the same complaint. [place] [address] which is higher than it has been on her recent visits she has a left shift. No significant chemistry abnormalities today. Her potassium is normal at 3.6 in her magnesium is within normal limits at 1.7. LFTs are within normal limits, lipase is negative. EKG shows a normal sinus rhythm with a rate of [address] segment elevation GA. It is a poor study with significant artifact Differential Diagnosis Differential Diagnoses: The differential diagnosis associated with the presentation includes Upper abdominal pain Gastritis Peptic ulcer disease Cannabis hyperemesis syndrome Bowel perforation Bowel obstruction Lab Data MDM Lab Attestation statement: I reviewed the patient's lab results. As above 12/11/24 09:43 12/11/24 09:43 Labs: Lab Results 12/11/24 Range/Units 09:43 WBC 20.7 H (4.8-10.8) X10*3/uL RBC 4.52 (4.20-5.50) X10*6/uL Hgb 14.8 (12.0-16.0) g/dl Hct 40.6 (37.0-47.0) % MCV 89.8 (80.0-98.0) fL MCH 32.7 (27.0-33.0) pg MCHC 36.5 H (31.0-35.0) g/dl RDW 13.1 (11.0-16.0) % Plt Count 233 (160-400) X10*3/uL MPV 11.0 (9.4-12.3) fL Immature Gran % (Auto) 0.7 H (0.0-0.4) % Neut % (Auto) 80.4 H (45-73) % Lymph % (Auto) 13.8 L (20-40) % [place] % (Auto) 4.7 (2-11) % Eos % (Auto) 0.2 (0-4) % Baso % (Auto) 0.2 (0-2) % Lymph # (Auto) 2.9 (1.2-4.9) X10*3/uL [place] # (Auto) 1.0 (0.1-1.2) X10*3/uL Eos # (Auto) 0.0 (0.0-0.4) X10*3/uL Baso # (Auto) 0.1 (0.0-0.2) X10*3/uL Abs Immat Gran (auto) 0.14 H (0.00-0.03) X10*3/uL Absolute Neuts (auto) 16.7 H (2.0-8.3) x10*3/uL Absolute Nucleated RBC 0.000 (0.0-0.012) X10*3/uL Nucleated RBC % (auto) 0.0 (0.0-0.2) /100WBC Sodium 135 (135-145) mmol/L Potassium 3.6 (3.3-5.1) mmol/L Chloride 101 (96-108) mmol/L Carbon Dioxide 22 (22-29) mmol/L Anion Gap 16 (12-20) BUN 6 L (9-16) mg/dL Creatinine 0.57 (0.5-1.4) mg/dL Estim Creat Clear Calc 88.1 Estimated GFR > 60 Random Glucose 139 H (60-115) mg/dL Calcium 9.5 D (8.4-10.2) mg/dL Magnesium 1.7 (1.6-2.6) mg/dL Total Bilirubin 0.7 (0.0-1.0) mg/dL Direct Bilirubin 0.2 (0.0-0.5) mg/dL AST 26 (5-31) U/L ALT 13 (0-31) U/L Alkaline Phosphatase 67 (39-117) U/L Total Protein 6.9 (6.5-8.0) g/dL Albumin 4.3 (3.5-5.0) g/dL Lipase 20 (8-78) U/L Independent Interpretation I performed an independent interpretation of an: EKG Interpretation: As above Discharge Plan Discharge Clinical Impression: Constipation, Vomiting Patient Disposition: Home, Self-Care Instructions: Constipation (ED) Additional Instructions: Your workup in the ER today showed constipation. Your blood work was reassuring. Your symptoms are likely multifactorial due to the constipation as well as the marijuana use since cyclic vomiting. I recommend taking MiraLax every night for the next 2 weeks. Hydrate well, small sips at a time to prevent vomiting. You may use Prescriptions: New prochlorperazine [Compro] 25 mg suppository 25 mg WV Q12H PRN (Reason: nausea and vomiting) Qty: 12 0RF No Action trazodone 50 mg tablet 50 - 100 mg PO BEDTIME pantoprazole 40 mg tablet,delayed release (DR/EC) 40 mg PO DAILY@0630 PRN (Reason: Acid Reflux) amitriptyline 10 mg tablet 10 mg PO BEDTIME metoclopramide HCl 5 mg tablet 5 mg PO QID PRN (Reason: nausea and vomiting) ondansetron 4 mg tablet,disintegrating 4 mg PO Q8H PRN (Reason: nausea and vomiting) divalproex 500 mg Tablet,Delayed Release (Dr/Ec) 500 mg PO BID Qty: 0 0RF amlodipine 5 mg tablet 5 mg PO DAILY Qty: 90 0RF Protocol: Hold for SBP< HOLD for SBP < : 90 valacyclovir 500 mg tablet 500 mg PO DAILY 90 Days Qty: 90 3RF Linzess 145 mcg capsule 145 mcg PO DAILY Print Language: Thai
[2024-12-11 10:08] LABS: Alanine Aminotransferase 13 U/L (0-31); Albumin Level 4.3 g/dL (3.5-5.0); Alkaline Phosphatase 67 U/L (39-117); Anion Gap 16 (12-20); Aspartate Amino Transferase 26 U/L (5-31); Blood Urea Nitrogen 6 mg/dL (9-16); Calcium 9.5 mg/dL (8.4-10.2); Carbon Dioxide 22 mmol/L (22-29); Chloride 101 mmol/L (96-108); Creatinine Clr Calc Pharmacy 88.1; Estimated Glomerular Filt Rate > 60; Lipase 20 U/L (8-78); Magnesium 1.7 mg/dL (1.6-2.6); Potassium 3.6 mmol/L (3.3-5.1); Sodium 135 mmol/L (135-145); Total Protein 6.9 g/dL (6.5-8.0)
[2024-12-11 10:34] VITALS: BP 183/105; PULSE 61; RESP 13; TEMP 37.2; O2SAT 95
--- OUTSIDE RECORDS SUMMARY | 2024-12-11 10:58 | XMS_ITS | Clinical Summary ---
Author Organization [facility] Address [address] [place] [id number] Phone Care Team Providers Care Global Process Owner Name Role Phone Angelique Trent MD Primary [...] Influencers of Health Screening 06/09/2024 Influenza Vaccine (#1) 2025 MMR Vaccines Aged Out 08/28/2017 No [...] Insurance MEDICAID - [place] MEDICARE Care Teams Global Process Owner Relationship Specialty Start Date End Date Angelique Trent MD PCP - General Internal Medicine 06/09/24
--- OUTSIDE RECORDS SUMMARY | 2024-12-11 10:58 | XMS_ITS | Data Portability ---
Author Organization [place] [facility] Address [address] [place] [id number] Care Team Providers Care Ceramic Tiler Name Role Phone ASHU YEUNGABEL Primary Care Provider [phone] Assessment Encounter Date Assessment Date Assessment LastModified [...] CAP, printed order to local facility at [facility] is given so hs emay complete over [...] 2022 023 [email or web address] [facility], [address] [facility], [place], [address], 09:11:33 Referral None recorded. Procedures None recorded. [...] like pna fully r/o given her hx. Mariannk you. 2022 023 [id number] [facility], [address] [facility], [place], [address], 14:59:03 Medication Orders None recorded. Patient TargetsNo targets recorded. Patient InstructionsNo instructions recorded. Reason for Referral None Reported. Results Created Date Observation Date Name Description Value Unit Range Abnormal Flag Note LastModifiedBy Organization Detail LastModifiedTime 06/05/19 23 06/05/2022 rapid SARS CoV 2 Ag, QL IA, respi rator y speci men Covid-19 (ref: neg) negati ve Not Available [facility] [address] [facility], [place], [address], 06/05/2022 09:10:49 06/05/19 23 06/05/2022 rapid SARS CoV 2 Ag, QL IA, respi rator y speci men Control Visual ized/V alid Not Available [facility] [address] [place], [address], 06/05/2022 09:10:49 06/05/19 23 06/05/2022 rapid SARS CoV 2 Ag, QL IA, respi rator y speci men Location [facility], [address] [place] [address], [id number] Not Available [facility] [address] [place], [address], 06/05/2022 09:10:49 Result Notes None recorded. Procedures Surgical History Date Name Laterality Status Provider Name and Address Organization Details Recorded Time 06/05/19 23 Medication Review completed ANEL Penny [address], [place], [address], [place] [facility] 06/05/2022 09:22:56 Imaging Results None recorded. Procedure Notes None recorded. Medical Equipment None Reported. Allergies Allergen ID Allergen Name Allergen Category Reaction Reaction Severity Criticality Documentation Date Start Date Code Code System Note Provider Name and Address Organization Details Recorded Time 362559 Substance with sulfonami de structure and antibacte rial mechanism of action (substanc e) medicatio n Not available Not available Not available 06/05/2022 92174 8003 SNOMED ANEL Perkins [address] [facility] [place], [address], [place] [facility] 08:50:00 063865 Product containin g penicilli n (product) medicatio n Not available Not available Not available 06/05/2022 02469 8001 SNOMED ANEL Perkins [address] [facility] [place], [address], [place] [facility] 08:50:10 197237 tetracycl ine medicatio n Not available Not available Not available 06/05/2022 01786 RxNorm ANEL Perkins [address] [facility] [place], [address], [place] [facility] 08:57:18 [...] blood by Pulse oximetry Respiratory rate Systolic And Diastolic Provider Name and Address Organization Details Last Updated DateTime 3 98 [degF] 77 /min 98 % 98 % 16 /min 112/68 mm[Hg] Not Available [facility] 09:00:46 Social History Question Answer Notes LastModified by Organizat Movaya Details LastModified Time Tobacco Smoking Status Current Every Day Smoker ANEL Penny [address] [place], [address], [place] [facility] 06/05/2022 09:00:29 Does This Patient Have A PCP? Yes [email or web address] Information not available 06/05/2022 Has The Patient Seen Their PCP In The Past 6 Months? Yes [email or web address] Information not available 06/05/2022 How Much Tobacco Do You Smoke? 1 PPD Information not available 06/05/2022 Sex: Unknown Functional Status Question Answer Note LastModified by Organizat ion Details LastModified Time Do you use any illicit or recreational drugs? No Information not available 06/05/2022 What is your level of alcohol consumption? None Information not available 06/05/2022 Mental Status None recorded. Family History Relationship Description Onset Age of this Age Resolved Age Notes LastModified by Organization Details LastModified Time Father Malignant neoplasm of lung crumplik Not available 2022 08:59:57 Paternal Aunt Malignant tumor of breast crumplik Not available 2022 09:00:05 Maternal Aunt Malignant tumor of breast crumplik Not available 2022 09:00:11 Medical History Condition Response Coronary Artery Disease N Parkinson's Disease N COPD N Depression N Hypothyroidism N A-fib N Diabetes N CHF N Cancer N Dementia N Stroke N Asthma N High Cholesterol N Rheumatoid Arthritis N Pulmonary Embolism N Hypertension N Osteoporosis N Kidney Disease N Gynecological HistoryNo gynecological history recorded. Obstetrics History GPAL:G 0 P 0 0 0 0 Past Encounters Encounter ID Performer Location Encounter Start Date Encounter Closed Date Diagnosis/Indication Diagnosis SNOMED-CT Code Diagnosis ICD10 Code Diagnosis Note [id number] ANEL Blunt [facility] [address] [place] [address] 06/05/2022 08:20:06 06/08/2022 13:57:45 Viral syndrome 562477960 B34.9 Productive cough 3011969 5 R05.9 Health Concerns Section Related Observation LastModified by Organization Detai ls LastModified Time None Recorded Concern Status LastModified by Organization Details LastModified Time None Recorded Advance Directives Directive None Recorded Payers Insurance Date Sequence Insurance Name Policy Number Policy Campos Covered Member ID Campos Member ID Guarantor Name 06/27/2022 2 [place] [facility] Shaunna Nirmal [id number] Shaunna Nirmal 06/27/2022 1 [place] [facility] Shaunna Canaels Nirmal [id number] Shaunna Nirmal 06/27/2022 2 [place] Shaunna Kinney [id number] Shaunna Kinney 06/08/2022 2 [place] Shaunna Nirmal [id number] Shaunna Nimral 06/27/2022 1 [place] Shaunna Kinney [id number] Shaunna Nirmal 06/08/2022 2 [place] [facility] Shaunna Nirmal [id number] Shaunna Kinney 06/04/2022 1 *SELF PAY* Shaunna Kinney [id number] Shaunna Nirmal 06/08/2022 1 [place] [facility] Shaunna Nirmal [id number] Shaunna Nirmal Notes Date Note Type Note Provider Name a nd Address Organization Details Recorded Time 06/05/2022 text/html 52 YO F [facility] [...] reported sxs today. ANEL Penny [address] [place], [address], [place] [facility] 06/05/2022 09:27:20 OBGyn Episode No OBEpisode recorded.
[2024-12-11] MEDS: iohexoL 350 MG/ML 100 ML INFUS..BTL IV (11:11)
--- NOTE | 2024-12-11 11:29 | PC.NURSE ---
Patient opened door to tell registration staff I am going to pee myself if you don't help me right now! Patient sat herself on the floor (no fall). This RN came to room and assisted patient to the bathroom across the frances. Patient ambulated with steady gait to bathroom. Lela TAM aware.
[2024-12-11] MEDS: Magnesium Sulfate/H2O 2 GM/50 ML PIGGYBACK IV (11:35)
--- NOTE | 2024-12-11 11:41 | PC.NURSE ---
Returned to room, ambulated with steady gait. Magnesium infusion initiated as ordered. Care ongoing by this RN. Patient fell back asleep a few minutes after returning to ED bed 1.
[2024-12-11 12:02] VITALS: BP 169/88; PULSE 60; RESP 19; TEMP 36.6; O2SAT 99
[2024-12-11 13:45] VITALS: BP 169/88; PULSE 60; RESP 19; TEMP 36.6; O2SAT 99
[2024-12-11 13:48] LABS: Appearance Urine Clear; Glucose Urine UA Negative (Negative); PH 8.0 (5.0-9.0); Specific Gravity - Urine 1.025 (1.005-1.025)
== END 2024-12-11 14:00 | disposition home or self-care (01) ==
PROVIDERS: Emergency Medicine; Physician Assistant; Emergency Provider Emergency Medicine; PCP Internal Medicine
DX: K59.00 Constipation, unspecified (principal); R11.2 Nausea with vomiting, unspecified; R10.9 Unspecified abdominal pain; E87.6 Hypokalemia; I10 Essential (primary) hypertension
CPT/HCPCS: 36415; 74177; 80048; 80076; 81001; 83690; 83735; 85025; 93005; 96361; 96374; 96375; 99284; J0737; J1171; J1790; J3475; J7120; Q9967

== ENCOUNTER → 2024-12-11 09:12 | Outpatient (BNV) | payer MEDICARE, MEDICAID, SELFPAY | PROVIDERS: Emergency Provider Emergency Medicine; PCP Internal Medicine; Visit Provider Internal Medicine Cardiovascular Disease | DX: R94.31 Abnormal electrocardiogram [ECG] [EKG] (principal) | CPT/HCPCS: 93010 ==

== ENCOUNTER → 2024-12-11 09:59 | Outpatient (BNV) | payer MEDICARE, MEDICAID, SELFPAY | PROVIDERS: Emergency Provider Emergency Medicine; PCP Internal Medicine; Visit Provider Radiology Diagnostic Radiology | DX: R10.9 Unspecified abdominal pain (principal) | CPT/HCPCS: 74177 ==

== ENCOUNTER 2024-12-16 10:14 | Outpatient (AMB) | payer MEDICARE, MEDICAID, SELFPAY ==
--- NOTE | 2024-12-16 10:21 | MHC.PC.OV ---
Vital Signs 12/16/24 10:48 Height 5 ft 2 in Weight 110 lb 2 oz BMI 20.1 BP 134/78 Blood Pressure Location Rt brachial Position Sitting Respiration 12 Pulse 60 Pulse Source Pulse Oximeter Temp 98.3 F Temp Source Oral Pulse Oximetry (%) 99 Oxygen Delivery Method Room Air Intake Visit Reasons: Discharge Follow-Up [facility]letter for work Intake Note: Hospital follow up. FMLA paperwork. Bump right breast, under nipple. Mat Packer Required: No Allergies Penicillins (PENICILLINS) Allergy (Intermediate, Verified 12/16/24 10:48) HIVES Sulfa (Sulfonamide Antibiotics) Allergy (Intermediate, Verified 12/16/24 10:48) itching, redness and itching tetracycline (TETRACYCLINE) Allergy (Intermediate, Verified 12/16/24 10:48) HIVES Tobacco use date assessed: 12/16/24 Dental Screening Dental Screen Date: 09/03/24 HPI HPI Comments History of Present Illness Details 54 year old with past medical history chronic abdominal pain, gastritis/PUD, ?barretts, h/o ETOH abuse, current tobacco use presenting for hospital follow up She was hospitalized from 12/07-12/10/24. She presented to the ED with?intractable nausea, vomiting, epigastric abdominal pain, and bilateral flank pain. Pt initially presented to the ED one day prior with similar symptoms where workup, including CT of abdomen/pelvis and UA, was negative. Pt was treated with antiemetics and IVF with symptom relief, and pt was discharged home after feeling much better. Represented with coffee-ground emesis which she states she always gets whenever she vomits. Possible streaks of blood in vomitus as well. P Follows with GI and has had extensive outpatient workup has which has been negative, including EGD, colonoscopy, barium swallow, gastric emptying studies, and multiple CTs of abd/pelvis. Pt was treated in the ED with ondansetron, droperidol, potassium chloride IV p.o., Mag sulfate, and Dilaudid. Was given IV fluids and antiemetics and symptoms resolved was tolerating solid diet we will continue to follow up with Dr. Nuñez as outpatient. Acute hypokalemia was replaced. Patient noted to have chronic elevated troponin, no chest pain, no ischemic changes on EKG has outpatient stress test planned with Cardiology. For chronic systolic CHF following up with Cardiology as outpatient. For hypertensive urgency resolved with symptomatic management. Leukocytosis due to nausea and vomiting not sepsis. For seizure disorder was restarted on Depakote. CV: Cardiology testing pending. Outpatient referral places. On amlodipine 5mg daily. No chest pain, exertional dyspnea. Echo with low normal EF GI:Flares of abdominal pain, nausea, vomiting. Frequent ER, hospitalization. Happens a few times per year and lasts a few weeks. Has had chronic constipation, some improvement with linzess. Restarted PPI Follows Dr Nuñez [facility]. Follow up booked. Has prn medications EGD 12/2024-normal esophagus, gastric polyps, abnormal duodenal mucosa EGD/colon 08/2020: tubular adenomas removed, felt like external compression ?from fibroid EGD 09/25 [facility] Normal gastric emptying study previously US: calcification in aorta, no masses EGD 09/06/20 duodenitis gastritis hiatal hernia. BH: Anxiety, insomnia. On trazodone. psychology referral placed last visit. She was called but she has not called back to schedule She has a palpable mass in the right breast which is new for the past few weeks. No injury, redness. ROS see HPI PHYSICAL EXAM: GENERAL: Alert and oriented x 3. NAD EYES: EOMI. Anicteric. HENT: Moist mucous membranes. No scleral icterus. No cervical lymphadenopathy. LUNGS: Clear to auscultation bilaterally. CARDIOVASCULAR: Regular rate and rhythm. ABDOMEN: Soft, non-tender +bs EXTREMITIES: No edema. Non-tender. SKIN: No rashes or lesions. Warm. NEUROLOGIC: No focal neurological deficits. CN II-XII grossly intact PSYCHIATRIC: Cooperative. Appropriate mood and affect [facility] Medical History History of COVID-19 Cannabinoid hyperemesis syndrome Shoulder pain, right Smoker unmotivated to quit Generalized anxiety disorder Osteoarthritis of right hip Uterine leiomyoma Dyslipidemia Esophagitis Vasomotor symptoms due to menopause Elevated vitamin B12 level History of bulimia Arthritis Seizures History of alcohol abuse History of eating disorder Surgical History History of hip replacement, total H/O colonoscopy History of esophagogastroduodenoscopy (EGD) Hx of myomectomy Family History Father Lung cancer Substance use disorder Mental health disorder Mother Stomach cancer Liver cancer Substance use disorder Mental health disorder Maternal Aunt Breast cancer Mental health disorder Paternal Aunt Breast cancer Substance use disorder Mental health disorder Maternal Uncle Brain cancer Substance use disorder Maternal Grandfather Substance use disorder Mental health disorder Social History Household Members: Other Household Members Other:: Sister Housing: House Do you presently have visiting nurse or other home services: No Alcohol intake: former Comment: refusing bed alarm Patient Tobacco Use Status: Current everyday Tobacco user Tobacco use type: Cigarette Cigarette Packs Per Day: 1.5 Cigarettes Per Day: 30.0 Years Smoked: 39 e-Cigarette/Vaping Use: Former Use Second Hand Smoke Exposure: No Substance Use Type: Marijuana Advance Directives Date on File: 12/06/24 service: No Current occupational status: employed Current occupation: [employer] Sexual orientation: Straight/Heterosexual Gender identity: Female Cognitive needs: No Hearing needs: No Vision needs: Yes Female Reproductive History Menstrual Age of Menarche: 11 Questionnaire Thrive Questionnaire Date Thrive assessed: 07/28/24 I am a: Patient What is your living situation today?: I have a steady place to live Within the past 12 months, did the food you bought not last and you didn't have the money to get more?: Sometimes True Within the past 12 months, did you worry whether your food would run out before you got money to buy more?: Sometimes True Do you have trouble paying for medicines?: Yes Do you have trouble getting transportation to medical appointments?: No Do you have trouble paying your heating and electricity bill?: Yes Do you have trouble taking care of your child, family member or friend?: No Do you have trouble with day-to-day activities such as bathing, preparing meals, shopping, managing finances, etc.?: No Are you currently unemployed and looking for a job?: No Are you interested in more education?: No Please select the resources that you would like help with: Utilities Currently or been in a relationship where the following occur: I choose not to answer THRIVE Score: 3 AUDIT C Alcohol Use Questionnaire (AUDIT-C) 1. How often do you have a drink containing alcohol?: Monthly or less 2. How many drinks containing alcohol do you have on a typical day when you are drinking?: 1 or 2 3. How often do you have six or more drinks on one occasion?: Never Total Score: 1 HOLA-7 AMB Questionnaire HOLA-7 Date HOLA - 7 assessed: 11/06/22 Source: Developed by Drs. Prosper Lemos, Leeann Johnson, Emerson Mehta and colleagues, with an educational ratna from [employer]. Physical exam (Primary Care) Tobacco/Smoking Status: Tobacco use Status Tobacco use date assessed 09/30/24 12/16/24 10:21 Patient Tobacco Use Status Current everyday Tobacco 12/16/24 10:21 Tobacco use type Cigarette 12/16/24 10:21 e-Cigarette/Vaping Use Former Use 12/16/24 10:21 Thrive Assessment: Date of Thrive Assessment Date Thrive assessed 07/28/24 12/16/24 10:21 Currently or been in a relationship where the following occur: I choose not to answer Coding Level of Care Code Est Pt Level 4 (89557) Complex EM visit Add On G2211 Diagnoses Hospital discharge follow-up Z09 Subareolar mass of right breast N63.41 Breast mass location: subareolar Nausea and vomiting, unspecified vomiting type R11.2 Vomiting type: unspecified Assessment & Plan Assessment & Plan (1) Hospital discharge follow-up: Code(s): Z09 - Encounter for follow-up examination after completed treatment for conditions other than malignant neoplasm Category: Medical (2) Breast mass, right: Code(s): N63.10 - Unspecified lump in the right breast, unspecified quadrant Category: Medical Qualifiers: Breast mass location: subareolar Qualified Code(s): N63.41 - Unspecified lump in right breast, subareolar (3) Nausea & vomiting: Code(s): R11.2 - Nausea with vomiting, unspecified Category: Medical Qualifiers: Vomiting type: unspecified Qualified Code(s): R11.2 - Nausea with vomiting, unspecified Plan Hospital course reviewed Meds reconciled Continue follow up GI Cardiology consult placed. Has testing scheduled Breast mass-imaging ordered Orders: Orders MM diagnostic mammo unilat RT Today N63.10 - Unspecified lump in the right breast, unspecified quadrant US breast RT complete Today N63.10 - Unspecified lump in the right breast, unspecified quadrant Referrals Cardiology Referral I50.9 - Heart failure, unspecified Medications: New nicotine 1 patch transdermal Q24H 28 ea 0RF F17.200 - Nicotine dependence, unspecified, uncomplicated
[2024-12-16 10:48] VITALS: BP 134/78; PULSE 60; RESP 12; TEMP 36.8; O2SAT 99; BMI 20.1
--- OUTSIDE RECORDS SUMMARY | 2024-12-16 11:21 | XMS_ITS | Clinical Summary ---
Author Organization [facility] Address [address] [place] [address] Phone Care Team Providers Care Integration Solution Architect Name Role Phone Angelique Trent MD Primary [...] Insurance [place] - [place]ICARE Care Teams Integration Solution Architect Relationship Specialty Start Date End Date Angelique Trent MD PCP - General Internal Medicine 06/09/24
--- OUTSIDE RECORDS SUMMARY | 2024-12-16 11:21 | XMS_ITS | Data Portability ---
Author Organization [place] [facility] Address [address] [place] [id number] Care Team Providers Care Lawn Mower Repairer Name Role Phone ASHU YEUNGABEL Primary Care Provider [phone] Assessment Encounter Date Assessment Date Assessment LastModified [...] CAP, printed order to local facility at [facility] is given so hs emay complete [...] 2022 023 [facility], [address] [facility], [place], [address], 09:11:33 Referral None recorded. Procedures None recorded. [...] given her hx. Mariannk you. 2022 023 [email or web address] [facility], [address], [place], [address], 14:59:03 Medication Orders None recorded. Patient TargetsNo targets recorded. Patient InstructionsNo instructions recorded. Reason for Referral None Reported. Results Created Date Observation Date Name Description Value Unit Range Abnormal Flag Note LastModifiedBy Organization Detail LastModifiedTime 06/05/19 23 06/05/2022 rapid SARS CoV 2 Ag, QL IA, respi rator y speci men Covid-19 (ref: neg) negati ve Not Available [facility] - Home [address] [facility], [place], [address], 06/05/2022 09:10:49 06/05/19 23 06/05/2022 rapid SARS CoV 2 Ag, QL IA, respi rator y speci men Control Visual ized/V alid Not Available [facility] - Home [address] [place], [address], 06/05/2022 09:10:49 06/05/19 23 06/05/2022 rapid SARS CoV 2 Ag, QL IA, respi rator y speci men Location [facility], [address] [place] [address], [id number] Not Available [facility] - Home [address] [place], [address], 06/05/2022 09:10:49 Result Notes None recorded. Procedures Surgical History Date Name Laterality Status Provider Name and Address Organization Details Recorded Time 06/05/19 23 Medication Review completed ANEL Penny [address], [place], [address], [place] [facility] 06/05/2022 09:22:56 Imaging Results None recorded. Procedure Notes None recorded. Medical Equipment None Reported. Allergies Allergen ID Allergen Name Allergen Category Reaction Reaction Severity Criticality Documentation Date Start Date Code Code System Note Provider Name and Address Organization Details Recorded Time 689636 Substance with sulfonami de structure and antibacte rial mechanism of action (substanc e) medicatio n Not available Not available Not available 06/05/2022 01003 8003 SNOMED ANEL Perkins [address] [facility] [place], [address], [place] [facility] 08:50:00 900433 Product containin g penicilli n (product) medicatio n Not available Not available Not available 06/05/2022 76747 8001 SNOMED ANEL Perkins [address] [facility] [place], [address], [place] [facility] 08:50:10 281714 tetracycl ine medicatio n Not available Not available Not available 06/05/2022 00240 RxNorm ANEL Perkins [address] [facility] [place], [address], [place] [facility] 3 08:57:18 [...] History Question Answer Notes LastModified by Organizat [employer] Details LastModified Time Tobacco Smoking Status Current Every Day Smoker ANEL Penny [address] [place], [address], [place] [facility] 06/05/2022 09:00:29 Does This Patient Have A [...] CHF N Parkinson's Disease N Cancer N Dementia N Stroke N Hypothyroidism N Depression N COPD N Asthma N High Cholesterol N Rheumatoid Arthritis N Pulmonary Embolism N Hypertension N A-fib N Osteoporosis N Kidney Disease N Gynecological HistoryNo gynecological history recorded. Obstetrics History GPAL:G 0 P 0 0 0 0 Past Encounters Encounter ID Performer Location Encounter Start Date Encounter Closed Date Diagnosis/Indication Diagnosis SNOMED-CT Code Diagnosis ICD10 Code Diagnosis Note [id number] ANEL Blunt [facility] [address] [place] [address] 06/05/2022 08:20:06 06/08/2022 13:57:45 Viral syndrome 010961755 B34.9 Productive cough 4301916 5 R05.9 Health Concerns Section Related Observation LastModified by Organization Detai ls LastModified Time None Recorded Concern Status LastModified by Organization Details LastModified Time None Recorded Advance Directives Directive None Recorded Payers Insurance Date Sequence Insurance Name Policy Number Policy Campos Covered Member ID Campos Member ID Guarantor Name 06/27/2022 2 [place] [facility] Shaunna Nirmal [id number] Shaunna Nirmal 06/27/2022 1 MEDICARE B-[place]: [facility] Shaunna Canales Nirmal [id number] Shaunna Nirmal 06/27/2022 2 [place] Shaunna Kinney [id number] Shaunna Kinney 06/08/2022 2 [place] Shaunna Nirmal [id number] Shaunna Nirmal 06/27/2022 1 [place] Shaunna Kinney [id number] Shaunna Nirmal 06/08/2022 2 MEDICARE B-[place]: [facility] Shaunna Nirmal [id number] Shaunna Kinney 06/04/2022 1 *SELF PAY* Shaunna Kinney [id number] Shaunna Nirmal 06/08/2022 1 [place] [facility] Shaunna Nirmal [id number] Shaunna Nirmal Notes Date Note Type Note Provider Name a nd Address Organization Details Recorded Time 06/05/2022 text/html 52 YO F [facility] [...] reported sxs today. ANEL Penny [address] [place], [address], [place] [facility] 06/05/2022 09:27:20 OBGyn Episode No OBEpisode recorded.
== END 2024-12-16 11:11 | disposition home or self-care (01) ==
LOC: HO.HMCFM 10:15
PROVIDERS: PCP Internal Medicine; Visit Provider Internal Medicine
DX: Z09 Encounter for follow-up examination after completed treatment for conditions other than malignant neoplasm (principal); N63.41 Unspecified lump in right breast, subareolar; R11.2 Nausea with vomiting, unspecified

== ENCOUNTER → 2024-12-16 10:14 | Outpatient (BNVA) | payer MEDICARE, MEDICAID, SELFPAY | PROVIDERS: PCP Internal Medicine; Visit Provider Internal Medicine | DX: Z09 Encounter for follow-up examination after completed treatment for conditions other than malignant neoplasm (principal); N63.41 Unspecified lump in right breast, subareolar; R11.2 Nausea with vomiting, unspecified; I50.22 Chronic systolic (congestive) heart failure; G40.909 Epilepsy, unspecified, not intractable, without status epilepticus; F41.9 Anxiety disorder, unspecified; G47.00 Insomnia, unspecified; Z79.899 Other long term (current) drug therapy | CPT/HCPCS: 99212 ==

== ENCOUNTER → 2024-12-26 07:53 | Outpatient (REF) | payer MEDICARE, MEDICAID, SELFPAY ==
--- NOTE | ~2024-12-26 | NM_ITS ---
Lexiscan Myocardial perfusion study Indication: Elevated troponin to evaluate for myocardial ischemia Technique: The patient was brought in for a Lexiscan perfusion study on December 26, 2024 and was injected 0.4 mg of Lexiscan intravenously. Within a minute of this injection 25 mCi of sestamibi was given intravenously. Images were obtained using the SPECT gamma camera interlaced with the gating device. Images were obtained in supine position. Resting perfusion study was performed on January 12, 2025. Patient was administered 25 mCi of sestamibi intravenously at rest. Images were then obtained in supine position. Images obtained without without CT attenuation. Total DLP 90 mGy-cm. Images were processed with the software and compared side to side in short axis, horizontal long axis and vertical long axis views. Findings: Both stress and rest perfusion imaging was suboptimal due to intense subdiaphragmatic uptake interfering with inferior wall uptake The stress perfusion study showed both attenuated as well as nonattenuated corrected images show mildly to moderately reduced uptake in all segments of the LV myocardium. This is difficult to evaluate as this could be artifactual related to subdiaphragmatic uptake, overall uptake causing appearance of diffusely reduced myocardial uptake. The gated study shows normal LV systolic function with calculated LVEF of 67%. LV cavity is normal in size. The gated study shows normal systolic wall thickening and contraction of segments. Resting study shows both attenuated as well as nonattenuated corrected images show normal uptake.. Gating at rest reveals normal systolic wall motion with ejection fraction at 61%. The findings are consistent with nondiagnostic study due to intense subdiaphragmatic uptake. NM/NM cardiolite stress test Impression: 1. Myocardial perfusion imaging study shows nondiagnostic for ischemia 2. Gated LVEF is 67% 3. Transient ischemic dilatation not evaluated Nondiagnostic changes on EKG. Electronically signed by: Seymour Hurt MD 01/12/2025 03:45 PM EDT
--- NOTE | 2024-12-26 07:55 | CA_ITS ---
Acquisition Time: 2024-12-26 08:09:55 Total Exercise Time: 00:02:00 Test Indications: ELEVATED TROP,CHF Medications: SEE DISCHARGE SUMMARY Protocol: LEXISCAN Max HR: 88 BPM 53% of Pred: 165 BPM Max BP: 122/76 mmHG Max Work Load: 1.0 METS Pharmacological stress test with Lexiscan while pt moves her legs and arms in her chair, with reports of SOB, nausea and dizziness, without any arrythmias, with normotensive response to injection. Nondiagnostic EKG for ischemia. In recovery, pt treated with IVP Aminophylline 75 mg to reverse Lexiscan after which pt feeling back to baseline. Nuclear images pending. Test reviewed with Dr. Ramos. Referred By: Seymour Hurt Electronically Signed By: Nacho Sexton
--- OUTSIDE RECORDS SUMMARY | 2024-12-26 07:55 | XMS_ITS | Data Portability ---
Author Organization [place] [facility] Address [address] [place] [address] Care Team Providers Care Back Tender Cloth Printing Name Role Phone ASHU YEUNGABEL Primary Care Provider Assessment Encounter Date Assessment Date Assessment LastModified [...] CAP, printed order to local facility at [facility] is given so hs emay complete [...] 2022 023 [facility], [address] [facility], [place], [address], 09:11:33 Referral None recorded. Procedures None recorded. [...] given her hx. Mariannk you. 2022 023 [email or web address] [facility], [address], [place], [address], 14:59:03 Medication Orders None recorded. Patient TargetsNo targets recorded. Patient InstructionsNo instructions recorded. Reason for Referral None Reported. Results Created Date Observation Date Name Description Value Unit Range Abnormal Flag Note LastModifiedBy Organization Detail LastModifiedTime 06/05/19 23 06/05/2022 rapid SARS CoV 2 Ag, QL IA, respi rator y speci men Covid-19 (ref: neg) negati ve Not Available [facility] [address] [facility], [place], [address], 06/05/2022 09:10:49 06/05/19 23 06/05/2022 rapid SARS CoV 2 Ag, QL IA, respi rator y speci men Control Visual ized/V alid Not Available [facility] - Home [address] [place], [address], 06/05/2022 09:10:49 06/05/19 23 06/05/2022 rapid SARS CoV 2 Ag, QL IA, respi rator y speci men Location [facility], [address] [place] [address], [id number] Not Available [facility] - [facility] [address] [place], [address], 06/05/2022 09:10:49 Result Notes None recorded. Procedures Surgical History Date Name Laterality Status Provider Name and Address Organization Details Recorded Time 06/05/19 23 Medication Review completed ANEL Penny [address], [place], [address], [place] [facility] 06/05/2022 09:22:56 Imaging Results None recorded. Procedure Notes None recorded. Medical Equipment None Reported. Allergies Allergen ID Allergen Name Allergen Category Reaction Reaction Severity Criticality Documentation Date Start Date Code Code System Note Provider Name and Address Organization Details Recorded Time 884267 Substance with sulfonami de structure and antibacte rial mechanism of action (substanc e) medicatio n Not available Not available Not available 06/05/2022 96088 8003 SNOMED ANEL Perkins [address] [facility] [place], [address], [place] [facility] 08:50:00 623588 Product containin g penicilli n (product) medicatio n Not available Not available Not available 06/05/2022 28450 8001 SNOMED ANEL Perkins [address] [facility] [place], [address], [place] [facility] 3 08:50:10 830467 tetracycl ine medicatio n Not available Not available Not available 06/05/2022 01383 RxNorm ANEL Perkins [address] [facility] [place], [address], [place] [facility] 08:57:18 [...] History Question Answer Notes LastModified by Organizat [employer] Details LastModified Time Tobacco Smoking Status Current Every Day Smoker ANEL Penny [address] [place], [address], [place] [facility] 06/05/2022 09:00:29 Does This Patient Have A [...] History Condition Response Coronary Artery Disease N COPD N Depression N Hypothyroidism N A-fib N Cancer N Stroke N High Cholesterol N Rheumatoid Arthritis N Kidney Disease N Parkinson's Disease N Diabetes N CHF N Dementia N Asthma N Pulmonary Embolism N Hypertension N Osteoporosis N Gynecological HistoryNo gynecological history recorded. Obstetrics History GPAL:G 0 P 0 0 0 0 Past Encounters Encounter ID Performer Location Encounter Start Date Encounter Closed Date Diagnosis/Indication Diagnosis SNOMED-CT Code Diagnosis ICD10 Code Diagnosis Note [id number] ANEL Blunt [facility] [address] [place] [address] 06/05/2022 08:20:06 06/08/2022 13:57:45 Viral syndrome 826355276 B34.9 Productive cough 3954907 5 R05.9 Health Concerns Section Related Observation LastModified by Organization Detai ls LastModified Time None Recorded Concern Status LastModified by Organization Details LastModified Time None Recorded Advance Directives Directive None Recorded Payers Insurance Date Sequence Insurance Name Policy Number Policy Campos Covered Member ID Campos Member ID Guarantor Name 06/27/2022 2 [place] [facility] Shaunna Nirmal [id number] Shaunna Nirmal 06/27/2022 1 [place] [facility] Shaunna Canales Nirmal [id number] Shaunna Nirmal 06/27/2022 2 [place] Shaunna Kinney [id number] Shaunna Kinney 06/08/2022 2 [place] Shaunna Nirmal [id number] Shaunna Nirmal 06/27/2022 1 [place] Shaunna Kinney [id number] Shaunna Nirmal 06/08/2022 2 [place]IC[place] [facility] Shaunna Nirmal [id number] Shaunna Kinney 06/04/2022 1 *SELF PAY* Shaunna Kinney [id number] Shaunna Nirmal 06/08/2022 1 [place] [facility] Shaunna Nirmal [id number] Shaunna Nirmal Notes Date Note Type Note Provider Name a nd Address Organization Details Recorded Time 06/05/2022 text/html 52 YO F [facility] provider [facility] [...] sxs today. ANEL Penny [address] [place], [address], [place] [facility] 06/05/2022 09:27:20 OBGyn Episode No OBEpisode recorded.
--- OUTSIDE RECORDS SUMMARY | 2024-12-26 07:55 | XMS_ITS | Clinical Summary ---
Author Organization [facility] Address [address] [place] [phone] Phone Care Team Providers Care Director Telehealth Name Role Phone Angelique Trent MD Primary [...] - 2023-2 5 season) 2024 10/27/2020, 10/06/2020 Depression Screening 06/04/2024 Colorectal Cancer Screening: Colonoscopy 06/09/2024 HIV Screening 06/09/2024 Hepatitis C Screening [...] Insurance [place] - [place] Care Teams Director Telehealth Relationship Specialty Start Date End Date Angelique Trent MD PCP - General Internal Medicine 06/09/24
== END ==
LOC: HO.CARD 07:53
PROVIDERS: Visit Provider Internal Medicine Cardiovascular Disease
DX: I10 Essential (primary) hypertension (principal); R79.89 Other specified abnormal findings of blood chemistry; R94.31 Abnormal electrocardiogram [ECG] [EKG]
CPT/HCPCS: 78452; 93017; A9500; J0280; J2785

== ENCOUNTER → 2024-12-26 07:55 | Outpatient (BNV) | payer MEDICARE, MEDICAID, SELFPAY | DX: R06.02 Shortness of breath (principal); R11.0 Nausea; R42 Dizziness and giddiness | CPT/HCPCS: 78452; 93016; 93018 ==

== ENCOUNTER 2025-01-05 08:05 | Outpatient (REF) | payer MEDICARE, MEDICAID, SELFPAY ==
--- NOTE | ~2025-01-05 | MM_ITS ---
EXAMINATION: 1. MM DIAGNOSTIC DIGITAL BREAST TOMOSYNTHESIS, BILATERAL 2. US BREAST LIMITED RIGHT CLINICAL INFORMATION: under the areola; Additional Notes/Special Instructions-under the areola; Reason for Exam-N63.41 - Unspecified lump in right breast, subareolar According to the patient, lump for 2 years, but now it has grown and is painful. COMPARISON: Comparison made to multiple prior, most recent January 11, 2023, and most remote June 23, 2019. Prior right breast ultrasound on August 12, 2021 and June 23, 2019. TECHNIQUE: Digital breast tomosynthesis is performed in both the craniocaudal and mediolateral oblique views along with computer-aided detection (CAD). Synthesized 2D images are generated from the tomosynthesis. Skin BB marker is placed at the location of the right breast palpable concern in the lower inner quadrant. FINDINGS: BREAST COMPOSITION: There are scattered areas of fibroglandular density (ACR BI-RADS breast composition Category b). RIGHT BREAST: Previously described chronic lipoma is identified in the vicinity of the skin BB marker; comparable measurements are 3.1 x 2.3 cm (CC /, MLO 13/) are similar to prior measurements of 2.8 x 2.3 cm in June 2019. No significant masses, suspicious calcifications or other abnormalities are seen. Targeted ultrasound of the right breast was performed at the location of the palpable concern. The survey redemonstrates an isoechoic solid mass measuring 2.8 x 0.9 x 2.1 cm at 5 o'clock position 3 cm from the nipple. The measurements reported on the ultrasound in June 2019 are 2.5 x 1.0 cm and in August 2020 are 2.6 x 0.9 x 2.0 cm. No abnormal vascularity demonstrated with color Doppler evaluation. Targeted ultrasound of the right breast was also performed in the subareolar region which did not reveal suspicious mammographic findings. LEFT BREAST: No significant masses, suspicious calcifications or other abnormalities are seen. MM/MM tomosynthesis diagnostic BI IMPRESSION: RIGHT BREAST: Palpable concern correlates with known chronic solid mass with features compatible with lipoma at 5 o'clock position at 3 cm from the nipple that has similar measurements as in 2020. Benign, no evidence of malignancy. Clinical follow-up is recommended, independent of the imaging findings. If clinical concern persists, consider breast surgical consult. Otherwise, normal interval follow-up mammogram is recommended in 12 months. LEFT BREAST: Negative, no mammographic evidence of malignancy. Normal interval follow-up is recommended in 12 months. ASSESSMENT: BI-RADS 2 - Benign Findings RECOMMENDATION: 1. Patient should be managed based on the clinical impression. 2. Otherwise, routine annual screening mammography. Results were provided to the patient at time of visit by the technologist. This patient's information was entered into a reminder system with a target due date for their next mammogram. Electronically signed by: Angely Navarrete MD 01/05/2025 10:06 AM EDT
--- OUTSIDE RECORDS SUMMARY | 2025-01-05 08:08 | XMS_ITS | Clinical Summary ---
Author Organization [facility] Address [address] [place] [phone] Phone Care Team Providers Care High Worker Name Role Phone Angelique Trent MD Primary Care Provider [phone] Social History Tobacco Use Types Packs/Day Years [...] Insurance [place] - [place]ARE Care Teams High Worker Relationship Specialty Start Date End Date Angelique Trent MD PCP - General Internal Medicine 06/09/24
== END 2025-01-05 08:06 | disposition home or self-care (01) ==
LOC: HO.MAMMO 08:05
PROVIDERS: PCP Internal Medicine; Visit Provider Internal Medicine
DX: N63.41 Unspecified lump in right breast, subareolar (principal)
CPT/HCPCS: 76642; 77062; 77066

== ENCOUNTER → 2025-01-05 08:30 | Outpatient (BNV) | payer MEDICARE, MEDICAID, SELFPAY | PROVIDERS: PCP Internal Medicine; Visit Provider Radiology Body Imaging | DX: N63.41 Unspecified lump in right breast, subareolar (principal) | CPT/HCPCS: 76642; 77066; G0279 ==

== ENCOUNTER 2025-02-09 12:55 | Outpatient (AMB) | payer MEDICARE, MEDICAID, SELFPAY ==
--- NOTE | 2025-02-09 13:03 | A.OFFVIS_ITS ---
Vital Signs 02/09/25 13:04 Height 5 ft 2 in Weight 110 lb BMI 20.1 BP 120/76 Blood Pressure Location Lt brachial Position Sitting Pulse 83 Intake Visit Reasons: Heart failure, unspecified Intake Note: Follow-up was last consulted at inpatient has had stress test Sales Account Director Required: No Allergies Penicillins (PENICILLINS) Allergy (Intermediate, Verified 12/16/24 10:48) HIVES Sulfa (Sulfonamide Antibiotics) Allergy (Intermediate, Verified 12/16/24 10:48) itching, redness and itching tetracycline (TETRACYCLINE) Allergy (Intermediate, Verified 12/16/24 10:48) HIVES Medication List - Last Reconciled 02/09/25 by Seymour Hurt MD amitriptyline 10 mg PO BEDTIME PRN amlodipine 5 mg See Protocol PO DAILY divalproex 500 mg PO BID Linzess (linaclotide) 145 mcg PO DAILY NS nicotine 1 patch transdermal Q24H ondansetron 4 mg PO Q8H PRN pantoprazole 40 mg PO DAILY@0630 PRN polyethylene glycol 3350 (Miralax) 17 grams PO DAILY 2 weeks prochlorperazine (Compro) 25 mg MT Q12H PRN trazodone 50 - 100 mg PO BEDTIME PRN valacyclovir 500 mg PO DAILY 90 days HPI Comments Details: Hossein comes for follow-up after couple of hospitalization with 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 Subsequently she has stopped marijuana. However both admission she had elevated troponins. In August when she was admitted she had no chest pain but echocardiogram showed mildly reduced LV ejection fraction 45-50%. She eventually came recently for a myocardial perfusion imaging which was nondiagnostic due to intense subdiaphragmatic uptake interfering with myocardial uptake. She unfortunately continues to smoke. She has history of hypertension for which she had currently takes amlodipine and also amlodipine for possible coronary vaso spasm. Blood pressure is currently well optimized. She is currently not on anything for hyperlipidemia. 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 She denies any active exertional chest pain or shortness of breath. No orthopnea, PND, leg edema. [facility] Medical History History of COVID-19 Cannabinoid hyperemesis syndrome Shoulder pain, right Smoker unmotivated to quit Generalized anxiety disorder Osteoarthritis of right hip Uterine leiomyoma Dyslipidemia Esophagitis Vasomotor symptoms due to menopause Elevated vitamin B12 level History of bulimia Arthritis Seizures History of alcohol abuse History of eating disorder Surgical History History of hip replacement, total H/O colonoscopy History of esophagogastroduodenoscopy (EGD) Hx of myomectomy Family History Father Lung cancer Substance use disorder Mental health disorder Mother Stomach cancer Liver cancer Substance use disorder Mental health disorder Maternal Aunt Breast cancer Mental health disorder Paternal Aunt Breast cancer Substance use disorder Mental health disorder Maternal Uncle Brain cancer Substance use disorder Maternal Grandfather Substance use disorder Mental health disorder Social History Household Members: Other Household Members Other:: Sister Housing: House Do you presently have visiting nurse or other home services: No Alcohol intake: former Comment: refusing bed alarm Patient Tobacco Use Status: Current everyday Tobacco user Tobacco use type: Cigarette Cigarette Packs Per Day: 1.5 Cigarettes Per Day: 30.0 Years Smoked: 39 e-Cigarette/Vaping Use: Former Use Second Hand Smoke Exposure: No Substance Use Type: Marijuana Advance Directives Date on File: 12/06/24 service: No Current occupational status: employed Current occupation: [employer] Sexual orientation: Straight/Heterosexual Gender identity: Female Cognitive needs: No Hearing needs: No Vision needs: Yes Female Reproductive History Menstrual Age of Menarche: 11 Review of Systems Const Denies chills, Denies daytime sleepiness, Denies fatigue, Denies fever(s), Denies frequent falls, Denies poor appetite, Denies snoring, Denies stops breathing during sleep, Denies weakness, Denies weight gain and Denies weight loss Eyes Denies loss of vision ENT Denies dizziness and Denies hearing loss Card Denies chest pain, Denies claudication, Denies leg edema, Denies lightheadedness, Denies palpitations, Denies dyspnea, Denies dyspnea on exertion and Denies orthopnea Resp Denies cough, Denies excessive phlegm production, Denies dyspnea, Denies dyspnea on exertion, Denies snoring and Denies wheezing GI Denies abdominal pain, Denies hematochezia, Denies change in bowel habits, Denies nausea and Denies vomiting Denies urinary frequency and Denies dysuria Musc Denies arthralgias, Denies muscle weakness and Denies numbness Skin/Breast Denies nail changes and Denies rash Neuro Denies Abnormal speech present, Denies dizziness, Denies frequent falls, Denies loss of vision, Denies memory loss, Denies numbness and Denies weakness Psych Denies depression and Denies memory loss Endo Denies fatigue and Denies palpitations Lito/Lymph Reports easy bruising and Reports other (anemia) Aller/Immun Denies wheezing Physical Exam Vital Signs: Last Vital Signs Pulse 83 02/09/25 13:04 BP 120/76 02/09/25 13:04 BMI result Body Mass Index 20.1 Const General: cooperative, comfortable, no acute distress, alert and awake Nutritional Appearance: thin Orientation/consciousness: patient oriented x3 Limitations: no limitations Neck Neck: Yes trachea midline, Yes supple and Yes no JVD Resp Effort & Inspection: normal respiratory effort Auscultation: clear to auscultation bilaterally Cardio Jugular venous distension: no JVD Rate: regular rate Rhythm: regular rhythm Heart sounds: S1 normal heart sound present, S2 normal heart sound present, no click, no gallops, no murmurs and no rubs GI Auscultation: normal bowel sounds Skin General skin exam: no rashes or lesions noted Neuro General: patient oriented x3 and no focal motor deficits Speech: No Abnormal speech present Extrem General: Yes no clubbing, cyanosis or edema Assessment & Plan Assessment & Plan (1) Cardiomyopathy: Code(s): I42.9 - Cardiomyopathy, unspecified Category: Medical Plan: Mild cardiomyopathy when she was admitted for cyclical vomiting syndrome. At that time she also had elevated troponins. She has multiple risk factors for coronary disease including hypertension persistent smoking. However she is currently no symptoms at good functional status. Would suggest a coronary CTA to rule out significant obstructive coronary artery disease which she is at risk for. Rationale for this testing was discussed with her. She understands agrees. Discussed with her about smoking cessation. Also discussed with the about abstaining from marijuana as this has led to cyclic vomiting syndrome in the past and hospitalization. She is encouraged to maintain activity level as tolerated. Blood pressure is currently well optimized on amlodipine therapy which may also be used for coronary vaso spasm. She is doing well with it. Goal LDL at least below 100 mg/dL. Follow up in the clinic if need be Orders: Orders CT Cardiac Coronary Angio 1 Week I42.9 - Cardiomyopathy, unspecified Coding Level of Care Code Est Pt Level 4 (62132) Complex EM visit Add On G2211 Diagnoses Cardiomyopathy I42.9
[2025-02-09 13:04] VITALS: BP 120/76; PULSE 83; BMI 20.1
--- OUTSIDE RECORDS SUMMARY | 2025-02-09 15:05 | XMS_ITS | Clinical Summary ---
Author Organization [facility] Address [address] [place] [phone] Phone Care Team Providers Care Job Specification Writer Name Role Phone Angelique Trent MD Primary [...] 2019 Zoster Vaccines (1 of 2) 2019 Depression Screening 06/04/2024 Colorectal Cancer Screening: Colonoscopy 06/09/2024 HIV Screening 06/09/2024 Hepatitis C Screening 06/09/2024 Medicare Annual Wellness Visit 06/09/2024 Social Influencers of Health Screening 06/09/2024 COVID-19 Vaccine (3 - 2024-2 6 season) 2025 10/27/2020, 10/06/2020 Influenza Vaccine (#1) 2025 MMR Vaccines Aged [...] Insurance MEDICAID - [place] MEDICARE Care Teams Job Specification Writer Relationship Specialty Start Date End Date Angelique Trent MD PCP - General Internal Medicine 06/09/24
== END 2025-02-09 13:34 | disposition home or self-care (01) ==
LOC: HO.HCS 12:57
PROVIDERS: PCP Internal Medicine; Visit Provider Internal Medicine Cardiovascular Disease
DX: I42.9 Cardiomyopathy, unspecified (principal)
CPT/HCPCS: 99214; G2211

== ENCOUNTER → 2025-02-09 12:55 | Outpatient (BNVA) | payer MEDICARE, MEDICAID, SELFPAY | PROVIDERS: PCP Internal Medicine; Visit Provider Internal Medicine Cardiovascular Disease | DX: I42.9 Cardiomyopathy, unspecified (principal); I10 Essential (primary) hypertension; F17.210 Nicotine dependence, cigarettes, uncomplicated | CPT/HCPCS: 99212 ==

== ENCOUNTER 2025-03-05 15:41 | Emergency (ER) | payer MEDICARE, MEDICAID, SELFPAY ==
--- NOTE | ~2025-03-05 | XR_ITS ---
EXAMINATION: XR ABDOMEN KUB CLINICAL INDICATION: nausea and vomitting. COnstipation? COMPARISON: CT of the abdom December 2024 en and pelvis TECHNIQUE: AP view of the abdomen. FINDINGS: The bowel gas pattern is normal with no evidence of ileus or obstruction. No increased stool burden/constipation. No free air. Pelvic calcification which when compared with prior CT likely represents a calcified fibroid. Right hip replacement. XR/XR KUB IMPRESSION: No evidence of constipation or obstruction. Electronically signed by: Marilyn Dos Santos MD 03/05/2025 05:03 PM EDT
--- NOTE | ~2025-03-05 | CT_ITS ---
CLINICAL HISTORY: abd pain n v. History of cyclic vomiting no iv 20:00 CT abdomen and pelvis with contrast Comparison: CR/SR - XR ABDOMEN 1 VIEW (KUB) - 03/05/25 16:[address]/SR - CT ABDOMEN PELVIS WITH IV CONTRAST - 12/11/24 11:02 EDT Findings: CT abdomen: Images degraded by patient motion. Lung bases are clear. No acute bony abnormality. Focal fatty infiltration of the liver adjacent to the falciform ligament. No focal hepatic lesions are otherwise identified. Main portal vein is patent. Spleen, pancreas, gallbladder, adrenal glands, and kidneys unremarkable for acute findings. Unchanged simple cysts within the left kidney. Mild wall thickening of the distal esophagus with small hiatal hernia. Moderate fluid distention of the stomach. No dilated small bowel. No free fluid or free air. CT pelvis: No findings of appendicitis. Moderate stool throughout the colon. There is wall thickening of the luminal narrowing of the distal sigmoid colon extending to the level of the rectum. Scattered diverticuli within the colon without findings of diverticulitis. No free fluid or free air. Unchanged partially calcified exophytic fundal fibroid. Metal artifact from the patient's right hip arthroplasty. IMPRESSION: 1. Focal wall thickening and luminal narrowing of the distal sigmoid colon extending into the level of the rectosigmoid junction. Although this could be related to a prominent peristaltic wave, more aggressive etiologies are not excluded and correlation with the patient's colon cancer screening is suggested. 2. Prominent stool throughout the colon is again identified. No obstructive phenomenon is seen at this time. 3. Small hiatal hernia. This document has been electronically signed by: Rikki Iqbal MD on 03/06/2025 01:22:30
[2025-03-05 15:45] VITALS: BP 148/88; PULSE 64; O2SAT 95
[2025-03-05 15:50] VITALS: BP 190/108; PULSE 77; RESP 22; TEMP 37; O2SAT 98; BMI 20.4
--- NOTE | 2025-03-05 16:03 | ED.GENADULT ---
HPI - General Adult General Chief complaint: Nausea/Vomiting/Diarrhea Stated complaint: NAUSEA DRY HEAVES X1D PER EMS Time Seen by Provider: 03/05/25 18:43 History of Present Illness HPI narrative: Patient is a 54-year-old female with a history of cyclic vomiting. Patient has been smoking marijuana. The most recent use was 2 days ago she reports having extreme nausea vomiting for the past week. She has been using marijuana all long up to 2 days ago. 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 Patient complaining of vomiting that is nonstop is associated with epigastric pain. No history of abdominal surgery done in the past. No change in bowel movement. Patient claims that she had not had a good 1 in the last 3-4 days no bowel movement. He is passing gas. She is from home. Related Data Home Medications ?Medication ?Instructions ?Recorded ?Confirmed pantoprazole 40 mg tablet,delayed 40 mg PO DAILY@0630 PRN Acid Reflux 08/27/24 02/09/25 release ondansetron 4 mg disintegrating 4 mg PO Q8H PRN nausea and vomiting 12/08/24 02/09/25 tablet amitriptyline 10 mg tablet 10 mg PO BEDTIME PRN 02/09/25 02/09/25 trazodone 50 mg tablet 50 - 100 mg PO BEDTIME PRN 02/09/25 02/09/25 Previous Rx's ?Medication ?Instructions ?Recorded valacyclovir 500 mg tablet 500 mg PO DAILY 90 days #90 tabs 08/19/24 amlodipine 5 mg tablet 5 mg PO DAILY #90 tabs 09/03/24 divalproex 500 mg tablet,delayed 500 mg PO BID #0 tabs 12/10/24 release polyethylene glycol 3350 17 17 g PO DAILY 2 weeks #238 grams 12/11/24 gram/dose oral powder (Miralax) prochlorperazine 25 mg rectal [address] Q12H PRN nausea and 12/11/24 suppository (Compro) vomiting #12 ea nicotine 21 mg/24 hr daily 1 patch transdermal Q24H #28 ea 12/16/24 transdermal patch Linzess 145 mcg capsule 145 mcg PO DAILY #90 caps 01/08/25 (linaclotide) ondansetron 4 mg disintegrating 4 mg PO TID PRN nausea and 03/06/25 tablet vomiting 5 days #10 tabs Allergies Allergy/AdvReac Type Severity Reaction Status Date / Time Penicillins (PENICILLINS) Allergy Intermediate HIVES Verified 03/05/25 15:52 Sulfa (Sulfonamide Allergy Intermediate itching, Verified 03/05/25 15:52 Antibiotics) redness and itching tetracycline (TETRACYCLINE) Allergy Intermediate HIVES Verified 03/05/25 15:52 Review of Systems Review of Systems: Positive nausea vomiting diarrhea for the 1st week then stop having diarrhea about a week ago Yes all other systems are reviewed and are negative [facility] Past Medical History Attestation statement: The following information was validated with the patient. Medical History History of COVID-19 Cannabinoid hyperemesis syndrome Shoulder pain, right Smoker unmotivated to quit Generalized anxiety disorder Osteoarthritis of right hip Uterine leiomyoma Dyslipidemia Esophagitis Vasomotor symptoms due to menopause Elevated vitamin B12 level History of bulimia Arthritis Seizures History of alcohol abuse History of eating disorder Surgical History History of hip replacement, total H/O colonoscopy History of esophagogastroduodenoscopy (EGD) Hx of myomectomy Family History Family History Father Lung cancer Substance use disorder Mental health disorder Mother Stomach cancer Liver cancer Substance use disorder Mental health disorder Maternal Aunt Breast cancer Mental health disorder Paternal Aunt Breast cancer Substance use disorder Mental health disorder Maternal Uncle Brain cancer Substance use disorder Maternal Grandfather Substance use disorder Mental health disorder Social History Social History Household Members: Other Household Members Other:: Sister Housing: House Do you presently have visiting nurse or other home services: No Alcohol intake: former Comment: refusing bed alarm Patient Tobacco Use Status: Current everyday Tobacco user Tobacco use type: Cigarette Cigarette Packs Per Day: 1.5 Cigarettes Per Day: 30.0 Years Smoked: 39 Smoked in Last 30 Days: Yes e-Cigarette/Vaping Use: Former Use Second Hand Smoke Exposure: No Use of substances other than those prescribed or required for medical reasons: Yes Substance Use Type: Marijuana Substance Use Frequency: Weekly Last Used Substance: Days (ago) Advance Directives: Yes Advance Directives on File: Yes Advance Directives Date on File: 12/06/24 Patient : No service: No Current occupational status: employed Current occupation: [email or web address] Sexual orientation: Straight/Heterosexual Gender identity: Female Cognitive needs: No Hearing needs: No Vision needs: Yes Physical Exam ED Exam Exam: Appearance: Alert. Oriented X3. Complaining of nausea vomiting Eyes: Pupils equal, round and reactive to light. ENT: Pharynx normal. Neck: Normal inspection. Neck supple. No lymph nodes noted. No crepitus CVS: Normal heart rate and rhythm. Pulses normal. Normal S1 and S2 Respiratory: No respiratory distress. Breath sounds normal. No Wheezing. No rales Abdomen: Soft and nontender. No rigidity. No distention. good BS x4 Skin: Skin warm and dry. Normal skin color. Normal skin turgor. Extremities: No lower extremity edema. Neurovascular intact to all extremities. No Lacerations. No Rash Neuro: Oriented X 3. No motor deficit. No sensory deficit. Moving all extermities. No slurred speech Vital Signs: Vital Signs - 24 hr 03/05/25 15:50 03/05/25 20:00 03/05/25 22:52 Temperature 98.6 F 98.4 F Pulse Rate 77 64 74 Respiratory Rate 22 H 12 15 Blood Pressure 190/108 H 178/88 H 159/91 H Pulse Oximetry 98 99 96 Oxygen Delivery Method Room Air Room Air Room Air 03/06/25 00:34 Temperature 98.4 F Pulse Rate 74 Respiratory Rate 13 Blood Pressure 150/94 H Pulse Oximetry 99 Oxygen Delivery Method Room Air BMI result Body Mass Index 20.4 Course Course Course Narrative: RME: 54-year-old female presents to ED for nausea vomiting and dry heaving for the past couple of days. Patient has history of severe constipation and cyclic vomiting. Labs ordered Medications Administered Discontinued Medications Generic Name Dose Route Start Last Admin Trade Name Freq PRN Reason Stop Dose Admin Droperidol 0.625 mg 03/05/25 18:57 03/05/25 20:00 Droperidol 5 Mg/2 Ml Vial IVPUSH 03/05/25 18:58 0.625 mg ONCE ONE Administration Sodium Chloride 1,000 mls @ 999 mls/hr 03/05/25 19:00 03/05/25 23:16 Ns IV 03/05/25 20:00 Infused .Q1H1M CRYSTAL Infusion Sodium Chloride 1,000 mls @ 999 mls/hr 03/05/25 19:00 03/05/25 23:16 Ns IV 03/05/25 20:00 Infused .Q1H1M CRYSTAL Infusion Iohexol 85 ml 03/05/25 23:41 03/05/25 23:42 Iohexol 350 Mg/Ml 100 Ml Infus..Btl IV 03/05/25 23:42 85 ml ONCE ONE Administration Medical Decision Making Medical Decision Making [facility] Narrative: 54 years old with a long history of marijuana use. History of having use marijuana history of hyperemesis secondary to cannabis use. Presented today with having extreme nausea vomiting try to put a finger down her own throat due to the nausea after using marijuana. Patient had diffuse abdominal pain. When we checked labs on her she had a white count of 24. Reluctantly we did a CT scan of the abdomen. We gave her droperidol IV fluids monitor her. The CT scan showed no obvious obstruction it did show a question peristalsis versus mass in the colon. This was discussed with patient. Need for follow-up advised. Need to follow-up with GI for a possible colonoscopy. Currently in stable condition tolerate p.o.. Explained to patient the need to stop using marijuana patient states understanding. Differential Diagnosis Differential Diagnoses: The differential diagnosis associated with the presentation includes Hyperemesis Admission/Observation Consideration of admission/observation: Escalation of care including admission/observation considered Lab Data [facility] Lab Attestation statement: I reviewed the patient's lab results. 03/05/25 19:59 03/05/25 23:29 Labs: Lab Results 03/05/25 03/05/25 03/05/25 Range/Units 16:04 19:59 21:11 WBC 14.6 H 24.2 H (4.8-10.8) X10*3/uL RBC 5.10 5.09 (4.20-5.50) X10*6/uL Hgb 16.1 H 16.5 H (12.0-16.0) g/dl Hct 46.8 46.0 (37.0-47.0) % MCV 91.8 90.4 (80.0-98.0) fL MCH 31.6 32.4 (27.0-33.0) pg MCHC 34.4 35.9 H (31.0-35.0) g/dl RDW 12.7 12.8 (11.0-16.0) % Plt Count 274 277 (160-400) X10*3/uL MPV 12.1 11.8 (9.4-12.3) fL Immature Gran % (Auto) 0.3 Cancelled (0.0-0.4) % Neut % (Auto) 70.4 Cancelled (45-73) % Lymph % (Auto) 23.8 Cancelled (20-40) % Weakley % (Auto) 5.0 Cancelled (2-11) % Eos % (Auto) 0.1 Cancelled (0-4) % Baso % (Auto) 0.4 Cancelled (0-2) % Lymph # (Auto) 3.5 Cancelled (1.2-4.9) X10*3/uL Weakley # (Auto) 0.7 Cancelled (0.1-1.2) X10*3/uL Eos # (Auto) 0.0 Cancelled (0.0-0.4) X10*3/uL Baso # (Auto) 0.1 Cancelled (0.0-0.2) X10*3/uL Abs Immat Gran (auto) 0.04 H Cancelled (0.00-0.03) X10*3/uL Absolute Neuts (auto) 10.3 H Cancelled (2.0-8.3) x10*3/uL Absolute Nucleated RBC 0.000 0.000 (0.0-0.012) X10*3/uL Nucleated RBC % (auto) 0.0 0.0 (0.0-0.2) /100WBC Neutrophils % (Manual) 86 H (45-73) % Band Neutrophils % 2 L (3-5) % Lymphocytes % (Manual) 7 L (20-40) % Monocytes % (Manual) 5 (2-11) % Abs Neuts (Manual) 21.3 H (2.0-8.3) X10*3/uL Lymphocytes # (Manual) 1.7 (1.2-4.9) X10*3/uL Monocytes # (Manual) 1.2 (0.1-1.2) X10*3/uL Platelet Estimate NORMAL (NORMAL) Plt Morphology Comment NORMAL RBC Morphology NORMAL Sodium 142 143 (135-145) mmol/L Potassium 3.8 3.8 (3.3-5.1) mmol/L Chloride 106 104 (96-108) mmol/L Carbon Dioxide 22 22 (22-29) mmol/L Anion Gap 18 21 H (12-20) BUN 15 19 H (9-16) mg/dL Creatinine 0.67 0.68 (0.5-1.4) mg/dL Estim Creat Clear Calc 71.6 70.5 Estimated GFR > 60 > 60 Random Glucose 196 H 193 H (60-115) mg/dL Calcium 10.7 H D 11.2 H (8.4-10.2) mg/dL Total Bilirubin 0.4 0.4 (0.0-1.0) mg/dL Direct Bilirubin 0.1 (0.0-0.5) mg/dL AST 27 39 H (5-31) U/L ALT 17 27 (0-31) U/L Alkaline Phosphatase 92 98 (39-117) U/L Total Protein 8.7 H 9.2 H (6.5-8.0) g/dL Albumin 5.4 H 5.8 H (3.5-5.0) g/dL Lipase 16 (8-78) U/L Beta HCG, Quant 3 mIU/mL Urine Opiates Screen Not Detected (Not Detect) Ur Buprenorphine Scrn Not Detected (Not Detect) ng/mL Ur Oxycodone Screen Not Detected (Not Detect) ng/mL Urine Methadone Screen Not Detected (Not Detect) ng/mL Urine Fentanyl Screen Not Detected (Not Detect) Ur Barbiturates Screen Not Detected (Not Detect) Ur Phencyclidine Scrn Not Detected (Not Detect) Ur Amphetamines Screen Not Detected (Not Detect) U Benzodiazepines Scrn Not Detected (Not Detect) Urine Cocaine Screen Not Detected (Not Detect) U Marijuana (THC) Screen POSITIVE H (Not Detect) Ethyl Alcohol 13 mg/dL 03/05/25 Range/Units 23:29 WBC (4.8-10.8) X10*3/uL RBC (4.20-5.50) X10*6/uL Hgb (12.0-16.0) g/dl Hct (37.0-47.0) % MCV (80.0-98.0) fL MCH (27.0-33.0) pg MCHC (31.0-35.0) g/dl RDW (11.0-16.0) % Plt Count (160-400) X10*3/uL MPV (9.4-12.3) fL Immature Gran % (Auto) (0.0-0.4) % Neut % (Auto) (45-73) % Lymph % (Auto) (20-40) % Weakley % (Auto) (2-11) % Eos % (Auto) (0-4) % Baso % (Auto) (0-2) % Lymph # (Auto) (1.2-4.9) X10*3/uL Weakley # (Auto) (0.1-1.2) X10*3/uL Eos # (Auto) (0.0-0.4) X10*3/uL Baso # (Auto) (0.0-0.2) X10*3/uL Abs Immat Gran (auto) (0.00-0.03) X10*3/uL Absolute Neuts (auto) (2.0-8.3) x10*3/uL Absolute Nucleated RBC (0.0-0.012) X10*3/uL Nucleated RBC % (auto) (0.0-0.2) /100WBC Neutrophils % (Manual) (45-73) % Band Neutrophils % (3-5) % Lymphocytes % (Manual) (20-40) % Monocytes % (Manual) (2-11) % Abs Neuts (Manual) (2.0-8.3) X10*3/uL Lymphocytes # (Manual) (1.2-4.9) X10*3/uL Monocytes # (Manual) (0.1-1.2) X10*3/uL Platelet Estimate (NORMAL) Plt Morphology Comment RBC Morphology Sodium 140 (135-145) mmol/L Potassium 4.4 (3.3-5.1) mmol/L Chloride 107 (96-108) mmol/L Carbon Dioxide 20 L (22-29) mmol/L Anion Gap 17 (12-20) BUN 14 (9-16) mg/dL Creatinine 0.51 (0.5-1.4) mg/dL Estim Creat Clear Calc 94.0 Estimated GFR > 60 Random Glucose 144 H (60-115) mg/dL Calcium 8.9 D (8.4-10.2) mg/dL Total Bilirubin (0.0-1.0) mg/dL Direct Bilirubin (0.0-0.5) mg/dL AST (5-31) U/L ALT (0-31) U/L Alkaline Phosphatase (39-117) U/L Total Protein (6.5-8.0) g/dL Albumin (3.5-5.0) g/dL Lipase (8-78) U/L Beta HCG, Quant mIU/mL Urine Opiates Screen (Not Detect) Ur Buprenorphine Scrn (Not Detect) ng/mL Ur Oxycodone Screen (Not Detect) ng/mL Urine Methadone Screen (Not Detect) ng/mL Urine Fentanyl Screen (Not Detect) Ur Barbiturates Screen (Not Detect) Ur Phencyclidine Scrn (Not Detect) Ur Amphetamines Screen (Not Detect) U Benzodiazepines Scrn (Not Detect) Urine Cocaine Screen (Not Detect) U Marijuana (THC) Screen (Not Detect) Ethyl Alcohol mg/dL Independent Interpretation I performed an independent interpretation of an: CT Scan (No obvious obstruction) Radiology Impression Discussion of test interpretation with radiology: I have reviewed the radiologist's reading. External Record Review External record reviewed: Inpatient record Prescription Management Nausea medicine Chronic Conditions Hyperemesis secondary to marijuana use Social Determinants Patient?s care significantly limited by Social Determinants of Health including: Alcoholism and drug addiction in family, Problems related to primary support group, Unemployment and Problems related to employment Discharge Plan Discharge Clinical Impression: Hyperemesis Patient Disposition: Home, Self-Care Instructions: Cyclic Vomiting Syndrome (ED) Additional Instructions: A possible mass was found in your colon. You might need a colonoscopy. Risk of malignancy exists 1. Focal wall thickening and luminal narrowing of the distal sigmoid colon extending into the level of the rectosigmoid junction. Although this could be related to a prominent peristaltic wave, more aggressive etiologies are not excluded and correlation with the patient's colon cancer screening is suggested. 2. Prominent stool throughout the colon is again identified. No obstructive phenomenon is seen at this time. 3. Small hiatal hernia. Your CAT scan finding as above. Please closely follow-up. Please refrain from using marijuana. The marijuana use might have caused your nausea vomiting. Prescriptions: New ondansetron 4 mg tablet,disintegrating 4 mg PO TID PRN (Reason: nausea and vomiting) 5 Days Qty: 10 0RF No Action Linzess 145 mcg capsule 145 mcg PO DAILY Qty: 90 3RF pantoprazole 40 mg tablet,delayed release (DR/EC) 40 mg PO DAILY@0630 PRN (Reason: Acid Reflux) trazodone 50 mg tablet 50 - 100 mg PO BEDTIME PRN amitriptyline 10 mg tablet 10 mg PO BEDTIME PRN ondansetron 4 mg tablet,disintegrating 4 mg PO Q8H PRN (Reason: nausea and vomiting) divalproex 500 mg Tablet,Delayed Release (Dr/Ec) 500 mg PO BID Qty: 0 0RF prochlorperazine [Compro] 25 mg suppository [address] Q12H PRN (Reason: nausea and vomiting) Qty: 12 0RF polyethylene glycol 3350 [Miralax] 17 gram/dose powder 17 g PO DAILY 14 Days Qty: 238 0RF amlodipine 5 mg tablet 5 mg PO DAILY Qty: 90 0RF Protocol: Hold for SBP< HOLD for SBP < : 90 valacyclovir 500 mg tablet 500 mg PO DAILY 90 Days Qty: 90 3RF nicotine 21 mg/24 hr patch 24 hour 1 patch transdermal Q24H Qty: 28 0RF Referrals: Leah Bocanegra MD [Primary Care Provider, Endocrinology] Prosper Clements MD [Physician, Gastroenterology] - 03/18/25 Print Language: Bengali
[2025-03-05 16:13] LABS: MANUAL DIFF FLAG NO
[2025-03-05 16:35] LABS: Hematocrit 46.8 % (37.0-47.0); Hemoglobin 16.1 g/dl (12.0-16.0); Imm Gran Abs Auto 0.04 X10*3/uL (0.00-0.03); Imm Gran Pct Auto 0.3 % (0.0-0.4); Lymphocytes Absolute Auto 3.5 X10*3/uL (1.2-4.9); Mean Corpuscular HGB Conc 34.4 g/dl (31.0-35.0); Mean Corpuscular Hemoglobin 31.6 pg (27.0-33.0); Mean Corpuscular Volume 91.8 fL (80.0-98.0); NRBC Abs Auto 0.000 X10*3/uL (0.0-0.012); NRBC Pct Auto 0.0 /100WBC (0.0-0.2); Platelet Count 274 X10*3/uL (160-400); Red Blood Count 5.10 X10*6/uL (4.20-5.50); White Blood Count 14.6 X10*3/uL (4.8-10.8)
[2025-03-05 16:38] LABS: Alanine Aminotransferase 17 U/L (0-31); Albumin Level 5.4 g/dL (3.5-5.0); Alkaline Phosphatase 92 U/L (39-117); Anion Gap 18 (12-20); Aspartate Amino Transferase 27 U/L (5-31); Blood Urea Nitrogen 15 mg/dL (9-16); Calcium 10.7 mg/dL (8.4-10.2); Carbon Dioxide 22 mmol/L (22-29); Chloride 106 mmol/L (96-108); Creatinine Clr Calc Pharmacy 71.6; Estimated Glomerular Filt Rate > 60; Potassium 3.8 mmol/L (3.3-5.1); Sodium 142 mmol/L (135-145); Total Protein 8.7 g/dL (6.5-8.0)
--- OUTSIDE RECORDS SUMMARY | 2025-03-05 19:42 | XMS_ITS | Clinical Summary ---
Author Organization [facility] Address [address] [place] [phone] Phone Care Team Providers Care Rod Filler Name Role Phone Angelique Trent MD Primary Care Provider [phone] Social History Tobacco Use Types Packs/Day Years [...] Insurance [place] - [place] Care Teams Rod Filler Relationship Specialty Start Date End Date Angelique Trent MD PCP - General Internal Medicine 06/09/24
[2025-03-05 20:00] VITALS: BP 178/88; PULSE 64; RESP 12; O2SAT 99
--- NOTE | 2025-03-05 20:02 | PC.NURSE ---
20g IV line placed in RAC. pt tolerated well
[2025-03-05 20:15] LABS: Hematocrit 46.0 % (37.0-47.0); Hemoglobin 16.5 g/dl (12.0-16.0); Mean Corpuscular HGB Conc 35.9 g/dl (31.0-35.0); Mean Corpuscular Hemoglobin 32.4 pg (27.0-33.0); Mean Corpuscular Volume 90.4 fL (80.0-98.0); NRBC Abs Auto 0.000 X10*3/uL (0.0-0.012); NRBC Pct Auto 0.0 /100WBC (0.0-0.2); Platelet Count 277 X10*3/uL (160-400); Red Blood Count 5.09 X10*6/uL (4.20-5.50)
[2025-03-05 20:16] LABS: WBC ABN SCTR FOR CBC 1; White Blood Count 24.2 X10*3/uL (4.8-10.8)
[2025-03-05 20:18] LABS: Alanine Aminotransferase 27 U/L (0-31); Albumin Level 5.8 g/dL (3.5-5.0); Alkaline Phosphatase 98 U/L (39-117); Anion Gap 21 (12-20); Aspartate Amino Transferase 39 U/L (5-31); Blood Urea Nitrogen 19 mg/dL (9-16); Calcium 11.2 mg/dL (8.4-10.2); Carbon Dioxide 22 mmol/L (22-29); Chloride 104 mmol/L (96-108); Creatinine Clr Calc Pharmacy 70.5; Estimated Glomerular Filt Rate > 60; Lipase 16 U/L (8-78); Potassium 3.8 mmol/L (3.3-5.1); Sodium 143 mmol/L (135-145); Total Protein 9.2 g/dL (6.5-8.0)
[2025-03-05 20:55] LABS: Band Neutrophils Percent 2 % (3-5); Lymphocytes Absolute Manual 1.7 X10*3/uL (1.2-4.9); Lymphocytes Percent Manual 7 % (20-40); Monocytes Absolute Manual 1.2 X10*3/uL (0.1-1.2); Monocytes Percent Manual 5 % (2-11); Neutrophils Absolute Manual 21.3 X10*3/uL (2.0-8.3); Neutrophils Percent Manual 86 % (45-73)
[2025-03-05 20:56] LABS: RBC Morphology NORMAL
[2025-03-05 21:28] LABS: Cannabinoid Screen Urine POSITIVE (Not Detect)
[2025-03-05 22:52] VITALS: BP 159/91; PULSE 74; RESP 15; TEMP 36.9; O2SAT 96
[2025-03-05] MEDS: iohexoL 350 MG/ML 100 ML INFUS..BTL 85 ML IV (23:42)
[2025-03-06 00:02] LABS: Anion Gap 17 (12-20); Blood Urea Nitrogen 14 mg/dL (9-16); Calcium 8.9 mg/dL (8.4-10.2); Carbon Dioxide 20 mmol/L (22-29); Chloride 107 mmol/L (96-108); Creatinine Clr Calc Pharmacy 94.0; Estimated Glomerular Filt Rate > 60; Potassium 4.4 mmol/L (3.3-5.1); Sodium 140 mmol/L (135-145)
[2025-03-06 00:34] VITALS: BP 150/94; PULSE 74; RESP 13; TEMP 36.9; O2SAT 99
[2025-03-06 01:48] VITALS: BP 158/84; PULSE 75; RESP 18; TEMP 36.2; O2SAT 99
[2025-03-06 01:55] VITALS: BP 158/84; PULSE 75; RESP 18; TEMP 36.2; O2SAT 99
== END 2025-03-06 01:56 | disposition home or self-care (01) ==
PROVIDERS: Physician Assistant; Emergency Provider Emergency Medicine Emergency Medical Services; PCP Internal Medicine
DX: R11.16 Cannabis hyperemesis syndrome (principal); R11.2 Nausea with vomiting, unspecified; R19.7 Diarrhea, unspecified; R10.13 Epigastric pain; F12.90 Cannabis use, unspecified, uncomplicated; F17.210 Nicotine dependence, cigarettes, uncomplicated; Z51.81 Encounter for therapeutic drug level monitoring; Z79.899 Other long term (current) drug therapy
CPT/HCPCS: 36415; 74018; 74177; 80048; 80053; 80076; 80307; 83690; 84702; 85007; 85025; 85027; 96361; 96374; 99284; 99285; J1790; Q9967

== ENCOUNTER → 2025-03-05 15:55 | Outpatient (BNV) | payer MEDICARE, MEDICAID, SELFPAY | PROVIDERS: Visit Provider Radiology Diagnostic Radiology | DX: R11.2 Nausea with vomiting, unspecified (principal) | CPT/HCPCS: 74018 ==

== ENCOUNTER 2025-03-31 10:54 | Outpatient (AMB) | payer MEDICARE, MEDICAID, SELFPAY ==
--- NOTE | 2025-03-31 11:16 | MHC.PC.OV ---
Vital Signs 03/31/25 11:18 Height 5 ft 2 in Weight 108 lb 6 oz BMI 19.8 BP 104/64 Blood Pressure Location Rt brachial Position Sitting Respiration 14 Pulse 58 Pulse Source Pulse Oximeter Temp 98 F Temp Source Oral Pulse Oximetry (%) 98 Oxygen Delivery Method Room Air Intake Visit Reasons: [facility] discharge Intake Note: Hospital follow up Cuff Slitter Required: No Allergies Penicillins (PENICILLINS) Allergy (Intermediate, Verified 03/31/25 11:17) HIVES Sulfa (Sulfonamide Antibiotics) Allergy (Intermediate, Verified 03/31/25 11:17) itching, redness and itching tetracycline (TETRACYCLINE) Allergy (Intermediate, Verified 03/31/25 11:17) HIVES Tobacco use date assessed: 03/31/25 Dental Screening Dental Screen Date: 09/03/24 HPI HPI Comments History of Present Illness Details 54 year old with past medical history chronic abdominal pain, gastritis/PUD, ?barretts, h/o ETOH abuse, current tobacco use presenting for hospital follow up She was hospitalized from 03/22-03/24/25 at [facility] [place] [place]. Had underwent exploratory ostomy and sigmoidoscopy on Mar 13 presented to ER with abd pain, NV and was found to have new EKG changeds and uptrending troponins. Ech LVEF 40-45%. Underwent cath-no evidence of obstructive CAD on cath. ASA, toprol, losartan started. CV: Following with cardiology. No chest pain, exertional dyspnea. Echo with low normal EF GI:Flares of abdominal pain, nausea, vomiting. Frequent ER, hospitalization. Happens a few times per year and lasts a few weeks. Has had chronic constipation, some improvement with linzess. Restarted PPI Follows Dr Nuñez [facility]. Follow up booked. Has prn medications EGD 12/2024-normal esophagus, gastric polyps, abnormal duodenal mucosa EGD/colon 08/2020: tubular adenomas removed, felt like external compression ?from fibroid EGD 09/25 [facility] Normal gastric emptying study previously US: calcification in aorta, no masses EGD 09/06/20 duodenitis gastritis hiatal hernia. BH: Anxiety, insomnia. On trazodone. Mammo 01/2025 ROS see HPI PHYSICAL EXAM: GENERAL: Alert and oriented x 3. NAD EYES: EOMI. Anicteric. HENT: Moist mucous membranes. No scleral icterus. No cervical lymphadenopathy. LUNGS: Clear to auscultation bilaterally. CARDIOVASCULAR: Regular rate and rhythm. ABDOMEN: Soft, non-tender +bs EXTREMITIES: No edema. Non-tender. SKIN: No rashes or lesions. Warm. NEUROLOGIC: No focal neurological deficits. CN II-XII grossly intact PSYCHIATRIC: Cooperative. Appropriate mood and affect [facility] Medical History History of COVID-19 Cannabinoid hyperemesis syndrome Shoulder pain, right Smoker unmotivated to quit Generalized anxiety disorder Osteoarthritis of right hip Uterine leiomyoma Dyslipidemia Esophagitis Vasomotor symptoms due to menopause Elevated vitamin B12 level History of bulimia Arthritis Seizures History of alcohol abuse History of eating disorder Surgical History History of hip replacement, total H/O colonoscopy History of esophagogastroduodenoscopy (EGD) Hx of myomectomy Family History Father Lung cancer Substance use disorder Mental health disorder Mother Stomach cancer Liver cancer Substance use disorder Mental health disorder Maternal Aunt Breast cancer Mental health disorder Paternal Aunt Breast cancer Substance use disorder Mental health disorder Maternal Uncle Brain cancer Substance use disorder Maternal Grandfather Substance use disorder Mental health disorder Social History Household Members: Other Household Members Other:: Sister Housing: House Do you presently have visiting nurse or other home services: No Alcohol intake: former Comment: refusing bed alarm Patient Tobacco Use Status: Current everyday Tobacco user Tobacco use type: Cigarette Cigarette Packs Per Day: 1.5 Cigarettes Per Day: 30.0 Years Smoked: 39 Packs Per Year: 59 Packs per year/per ci.50 e-Cigarette/Vaping Use: Former Use Second Hand Smoke Exposure: No Substance Use Type: Marijuana Advance Directives Date on File: 12/06/24 service: No Current occupational status: employed Current occupation: [employer] Sexual orientation: Straight/Heterosexual Gender identity: Female Cognitive needs: No Hearing needs: No Vision needs: Yes Female Reproductive History Menstrual Age of Menarche: 11 Questionnaire Thrive Questionnaire Date Thrive assessed: 07/28/24 I am a: Patient What is your living situation today?: I have a steady place to live Within the past 12 months, did the food you bought not last and you didn't have the money to get more?: Sometimes True Within the past 12 months, did you worry whether your food would run out before you got money to buy more?: Sometimes True Do you have trouble paying for medicines?: Yes Do you have trouble getting transportation to medical appointments?: No Do you have trouble paying your heating and electricity bill?: Yes Do you have trouble taking care of your child, family member or friend?: No Do you have trouble with day-to-day activities such as bathing, preparing meals, shopping, managing finances, etc.?: No Are you currently unemployed and looking for a job?: No Are you interested in more education?: No Please select the resources that you would like help with: Utilities Currently or been in a relationship where the following occur: I choose not to answer THRIVE Score: 3 HOLA-7 AMB Questionnaire HOLA-7 Date HOLA - 7 assessed: 11/06/22 Source: Developed by Drs. Prosper Lemos, Leeann Johnson, Emerson Mehta and colleagues, with an educational ratna from [employer]. Physical exam (Primary Care) Vital Signs: Last Vital Signs Temp 98 F 03/31/25 11:18 Pulse 58 03/31/25 11:18 Resp 14 03/31/25 11:18 BP 104/64 03/31/25 11:18 Pulse Ox 98 03/31/25 11:18 Oxygen Delivery Method Room Air 03/31/25 11:18 BMI result Body Mass Index 19.8 Tobacco/Smoking Status: Tobacco use Status Tobacco use date assessed 03/31/25 03/31/25 11:21 Patient Tobacco Use Status Current everyday Tobacco 03/31/25 11:21 Tobacco use type Cigarette 03/31/25 11:21 e-Cigarette/Vaping Use Former Use 03/31/25 11:21 Thrive Assessment: Date of Thrive Assessment Date Thrive assessed 07/28/24 03/31/25 11:21 Currently or been in a relationship where the following occur: I choose not to answer Coding Level of Care Code Est Pt Level 4 (86169) Diagnoses Cardiomyopathy, unspecified type I42.9 Cardiomyopathy type: unspecified Cyclic vomiting syndrome R11.15 Seizures R56.9 Assessment & Plan Assessment & Plan (1) Cardiomyopathy: Code(s): I42.9 - Cardiomyopathy, unspecified Category: Medical Qualifiers: Cardiomyopathy type: unspecified Qualified Code(s): I42.9 - Cardiomyopathy, unspecified (2) Cyclic vomiting syndrome: Code(s): R11.15 - Cyclical vomiting syndrome unrelated to migraine Category: Medical (3) Seizures: Comment: ff'd by dr karla Urbano at [facility] Neurology Code(s): R56.9 - Unspecified convulsions Category: Medical Plan 55 year old female presenting for hospital follow up Hospital course reviewed She will continue follow up with GI, cardiology Recommend continued abstinence from marijuan
[2025-03-31 11:18] VITALS: BP 104/64; PULSE 58; RESP 14; TEMP 36.6; O2SAT 98; BMI 19.8
--- OUTSIDE RECORDS SUMMARY | 2025-03-31 13:57 | XMS_ITS | Data Portability ---
Author Organization [place] [facility] Address [address] [place] [address] Care Team Providers Care Molding Line Assistant Name Role Phone ASHU YEUNGABEL Primary Care Provider [phone] Assessment Encounter Date Assessment Date Assessment LastModified [...] CAP, printed order to local facility at [facility] is given so hs emay complete [...] 2022 023 [facility], [address], [place], [address], 09:11:33 Referral None recorded. Procedures None recorded. [...] given her hx. Mariannk you. 2022 023 [id number] [facility], [address], [place], [address], 14:59:03 Medication Orders None recorded. Patient TargetsNo targets recorded. Patient InstructionsNo instructions recorded. Reason for Referral None Reported. Results Created Date Observation Date Name Description Value Unit Range Abnormal Flag Note LastModifiedBy Organization Detail LastModifiedTime 06/05/19 23 06/05/2022 rapid SARS CoV 2 Ag, QL IA, respi rator y speci men Covid-19 (ref: neg) negati ve Not Available [facility] [address] [facility], [place], [address], 06/05/2022 09:10:49 06/05/19 23 06/05/2022 rapid SARS CoV 2 Ag, QL IA, respi rator y speci men Control Visual ized/V alid Not Available [facility] [address] [place], [address], 06/05/2022 09:10:49 06/05/19 23 06/05/2022 rapid SARS CoV 2 Ag, QL IA, respi rator y speci men Location [facility], [address] [place] [address], [id number] Not Available [facility] [address] [place], [address], 06/05/2022 09:10:49 Result Notes None recorded. Procedures Surgical History Date Name Laterality Status Provider Name and Address Organization Details Recorded Time 06/05/19 23 Medication Review completed ANEL Penny [address], [place], [address], [place] [facility] 06/05/2022 09:22:56 Imaging Results None recorded. Procedure Notes None recorded. Medical Equipment None Reported. Allergies Allergen ID Allergen Name Allergen Category Reaction Reaction Severity Criticality Documentation Date Start Date Code Code System Note Provider Name and Address Organization Details Recorded Time 683129 Substance with sulfonami de structure and antibacte rial mechanism of action (substanc e) medicatio n Not available Not available Not available 06/05/2022 77630 8003 SNOMED ANEL Perkins [address] [facility] [place], [address], [place] [facility] 08:50:00 014171 Product containin g penicilli n (product) medicatio n Not available Not available Not available 06/05/2022 40206 8001 SNOMED ANEL Perkins [address] [facility] [place], [address], [place] [facility] 08:50:10 467602 tetracycl ine medicatio n Not available Not available Not available 06/05/2022 34903 RxNorm ANEL Perkins [address] [facility] [place], [address], [place] [facility] 08:57:18 [...] History Question Answer Notes LastModified by Organizat [employer] Details LastModified Time Tobacco Smoking Status Current Every Day Smoker NAEL Penny [address] [place], [address], [place] [facility] 06/05/2022 09:00:29 Does This Patient Have A [...] Not available 2022 08:59:57 Paternal Aunt Malignant neoplasm of breast crumplik Not available 2022 09:00:05 Maternal Aunt Malignant neoplasm of breast crumplik Not available 2022 09:00:11 Medical History Condition Response Coronary Artery Disease N Depression N COPD N Hypothyroidism N A-fib N Cancer N [...] Diagnosis SNOMED-CT Code Diagnosis ICD10 Code Diagnosis IMO Codes Diagnosis Note [id number] ANEL Blunt [facility] [address] [place] [address] 06/05/2022 08:20:06 06/08/2022 13:57:45 Viral syndrome [id number] B34.9 Productive cough [id number] R05.9 Health Concerns Section Related Observation LastModified by Organization Detai ls LastModified Time None Recorded Concern Status LastModified by Organization Details LastModified Time None Recorded Advance Directives Directive None Recorded Payers Insurance Date Sequence Insurance Name Policy Number Policy Campos Covered Member ID Campos Member ID Guarantor Name 06/27/2022 2 [place]: [facility] Shaunna Nirmal [id number] Shaunna Nirmal 06/27/2022 1 [place] [facility] Shaunna Canales Nirmal [id number] Shaunna Nirmal 06/27/2022 2 [place] Shaunna Kinney [id number] Shaunna Kinney 06/08/2022 2 [place] Shaunna Nirmal [id number] Shaunna Nirmal 06/27/2022 1 [place] Shaunna Kinney [id number] Shaunna Kinney 06/08/2022 2 [place] [facility] Shaunna Nirmal [id number] Shaunna Nirmal 06/04/2022 1 *SELF PAY* Shaunna Nirmal [id number] Shaunna Nirmal 06/08/2022 1 [place] [facility] Shaunna Nirmal [id number] Shaunna Nirmal Notes Date Note Type Note Provider Name a nd Address Organization Details Recorded Time 06/05/2022 text/html 52 YO F new to provider and [facility], [facility], and ulcersSeen today for [...] sxs today. ANEL Penny [address] [place], [address], [place] [facility] 06/05/2022 09:27:20 OBGyn Episode No OBEpisode recorded.
== END 2025-03-31 16:01 | disposition home or self-care (01) ==
LOC: HO.HMCFM 10:55
PROVIDERS: PCP Internal Medicine; Visit Provider Internal Medicine
DX: I42.9 Cardiomyopathy, unspecified (principal); R11.15 Cyclical vomiting syndrome unrelated to migraine; R56.9 Unspecified convulsions

== ENCOUNTER → 2025-03-31 10:54 | Outpatient (BNVA) | payer MEDICARE, MEDICAID, SELFPAY | PROVIDERS: PCP Internal Medicine; Visit Provider Internal Medicine | DX: Z09 Encounter for follow-up examination after completed treatment for conditions other than malignant neoplasm (principal); I42.9 Cardiomyopathy, unspecified; R11.15 Cyclical vomiting syndrome unrelated to migraine; R56.9 Unspecified convulsions; F41.9 Anxiety disorder, unspecified; G47.00 Insomnia, unspecified; Z79.899 Other long term (current) drug therapy | CPT/HCPCS: 99212 ==

== ENCOUNTER 2025-05-20 09:39 | Outpatient (AMB) | payer MEDICARE, MEDICAID, SELFPAY ==
[2025-05-20 09:42] VITALS: BP 132/80; PULSE 72; BMI 21.1
--- NOTE | 2025-05-20 09:42 | MHC.OFFVIS ---
Vital Signs 05/20/25 09:42 Height 5 ft 2 in Weight 115 lb 8.356 oz BMI 21.1 BP 132/80 Blood Pressure Location Lt brachial Position Sitting Pulse 72 Pulse Source Pulse Oximeter Intake Visit Reasons: 3 mth fu / [facility] dc fu card cath Intake Note: 3m f / [facility] fu cardicac cath [employer] Required: No Accompanied by: Self / Same As Patient Allergies Penicillins (PENICILLINS) Allergy (Intermediate, Verified 05/20/25 09:49) HIVES Sulfa (Sulfonamide Antibiotics) Allergy (Intermediate, Verified 05/20/25 09:49) itching, redness and itching tetracycline (TETRACYCLINE) Allergy (Intermediate, Verified 05/20/25 09:49) HIVES Medication List - Last Reconciled 05/20/25 by Seymour Hurt MD amlodipine 5 mg PO DAILY divalproex 500 mg PO BID losartan 25 mg PO DAILY metoprolol succinate ER 25 mg PO DAILY nicotine 1 patch transdermal Q24H pantoprazole 40 mg PO DAILY@0630 PRN trazodone 50 - 100 mg PO BEDTIME PRN valacyclovir 500 mg PO DAILY 90 days HPI Comments Details: Shaunna comes for follow-up after hospitalization in March at [facility] where she again had abdominal pain and constipation and then developed chest pain and troponin elevation in cardiomyopathy process with LV systolic dysfunction. She underwent cardiac catheterization which showed minimal luminal irregularities. She was then diagnose with stress-induced cardiomyopathy. She has not had any follow-up. On discharge she was prescribed amlodipine, losartan and metoprolol which she ran out 2 weeks ago. She has not been taking it. Her blood pressure has been generally well controlled. She is trying to cut smoking. She has not had any recurrent hospitalization for cyclical vomiting/abdominal pain syndrome. She does have prior history of cannabis use and suspected cannabis hyperemesis syndrome. Patient also history of anxiety, sigmoid colectomy, tobacco use. [facility] Medical History Cardiomyopathy History of COVID-19 Cannabinoid hyperemesis syndrome Shoulder pain, right Smoker unmotivated to quit Generalized anxiety disorder Osteoarthritis of right hip Uterine leiomyoma Dyslipidemia Esophagitis Vasomotor symptoms due to menopause Elevated vitamin B12 level History of bulimia Arthritis Seizures History of alcohol abuse History of eating disorder Surgical History S/P cardiac cath History of hip replacement, total H/O colonoscopy History of esophagogastroduodenoscopy (EGD) Hx of myomectomy Family History Father Lung cancer Substance use disorder Mental health disorder Mother Stomach cancer Liver cancer Substance use disorder Mental health disorder Maternal Aunt Breast cancer Mental health disorder Paternal Aunt Breast cancer Substance use disorder Mental health disorder Maternal Uncle Brain cancer Substance use disorder Maternal Grandfather Substance use disorder Mental health disorder Social History Household Members: Other Household Members Other:: Sister Housing: House Do you presently have visiting nurse or other home services: No Alcohol intake: former Comment: refusing bed alarm Patient Tobacco Use Status: Current everyday Tobacco user Tobacco use type: Cigarette Cigarette Packs Per Day: 1.5 Cigarettes Per Day: 30.0 Years Smoked: 39 e-Cigarette/Vaping Use: Former Use Second Hand Smoke Exposure: No Substance Use Type: Marijuana Advance Directives Date on File: 12/06/24 service: No Current occupational status: employed Current occupation: [employer] Sexual orientation: Straight/Heterosexual Gender identity: Female Cognitive needs: No Hearing needs: No Vision needs: Yes Female Reproductive History Menstrual Age of Menarche: 11 Review of Systems Const Denies daytime sleepiness, Denies difficulty sleeping, Denies snoring, Denies stops breathing during sleep and Denies weakness Card Denies chest pain, Denies rapid heart rate, Denies irregular heart rhythm, Denies claudication, Denies leg edema, Denies lightheadedness, Denies palpitations, Denies dyspnea, Denies dyspnea on exertion, Denies orthopnea, Denies paroxysmal nocturnal dyspnea and Denies slow heart rate Resp Denies cough, Denies dyspnea, Denies dyspnea on exertion and Denies snoring GI Reports no additional complaints, Denies hematochezia, Denies change in stool character and Denies dyspepsia Musc Denies abnormal gait, Denies muscle weakness and Denies numbness Neuro Denies abnormal gait, Denies numbness and Denies weakness Endo Denies palpitations Physical Exam Vital Signs: Last Vital Signs Pulse 72 05/20/25 09:42 BP 132/80 05/20/25 09:42 BMI result Body Mass Index 21.1 Const General: cooperative, comfortable, no acute distress, alert, awake and Physically active Nutritional Appearance: thin Orientation/consciousness: patient oriented x3 Neck Neck: Yes trachea midline, Yes supple and Yes no JVD Resp Effort & Inspection: normal respiratory effort Auscultation: clear to auscultation bilaterally Cardio Jugular venous distension: no JVD Rate: regular rate Rhythm: regular rhythm Heart sounds: S1 normal heart sound present, S2 normal heart sound present, no click, no gallops, no murmurs and no rubs GI Auscultation: normal bowel sounds Skin General skin exam: no rashes or lesions noted Neuro General: patient oriented x3 and no focal motor deficits Extrem General: Yes no clubbing, cyanosis or edema Assessment & Plan Assessment & Plan (1) Stress-induced cardiomyopathy: Code(s): I51.81 - Takotsubo syndrome Category: Medical Plan: Patient with prior history of findings suggestive of acute coronary syndrome with LV systolic dysfunction with nonobstructive coronary artery disease by cardiac catheterization. Overall findings consistent with stress-induced cardiomyopathy. She needs a repeat limited echocardiogram to confirm that diagnose. Will schedule that for the same. Will also suggest a lipid panel given her nonobstructive CAD to see if she will need further treatment. We discussed management of stress-induced cardiomyopathy and would start her on Toprol 25 mg daily. Importance of monitoring blood pressure at home was discussed. She was discharged on multiple medications probably related to hypertension with a cyclic vomiting syndrome. However she does not have chronic history of hypertension. Complete smoking cessation was advised and she is working on it. Encouraged to maintain activity level as tolerated. Avoidance of marijuana use was discussed. Stress mitigation strategies and treatment of anxiety was discussed. Follow up in the clinic in 1 year's time, sooner PRN. Thank you for allowing me to partake in her care Orders: Orders [place] Echo Limited Today I51.81 - Takotsubo syndrome Medications: New metoprolol succinate ER (Toprol XL) 25 mg PO DAILY 30 tabs 5RF Coding Level of Care Code Est Pt Level 4 (11877) Diagnoses Stress-induced cardiomyopathy I51.81
--- OUTSIDE RECORDS SUMMARY | 2025-05-20 11:13 | XMS_ITS | Clinical Summary ---
Author Organization [facility] Address [address] [place] [phone] Phone Care Team Providers Care Communications Manager Name Role Phone Angelique Trent MD Primary [...] Last Done Comments Breast Cancer Screening 1970 Colorectal Cancer Screening: Colonoscopy 1969 DTaP,Tdap,and Td Vaccines (1 - Tdap) 1988 Hepatitis A Vaccines (1 of 2 - Risk 2-dose series) 1988 Hepatitis B Vaccines (1 of 3 - 19+ 3-dose series) 1988 08/28/2017 Cervical Cancer Screening: P ap Smear 1990 Pneumococcal Vaccine: 50+ Years (1 of 1 - PCV) 2019 Zoster Vaccines (1 of 2) 2019 Depression Screening 06/04/2024 HIV Screening 06/09/2024 Hepatitis C Screening 06/09/2024 Medicare Annual Wellness Visit 06/09/2024 Social Influencers of Health Screening 06/09/2024 COVID-19 Vaccine (3 - 2024-2 6 season) 2025 10/27/2020, 10/06/2020 Influenza Vaccine (#1) 2025 RSV Immunization Adult Patients (1 - 1-dose 75+ series) 2044 MMR Vaccines Aged Out 08/28/2017 No longer [...] to complete this topic Insurance MEDICA[place] - [place] MEDICARE Care Teams Communications Manager Relationship Specialty Start Date End Date Angelique Trent MD PCP - General Internal Medicine 06/09/24
== END 2025-05-20 10:10 | disposition home or self-care (01) ==
LOC: HO.HCS 09:39
PROVIDERS: PCP Internal Medicine; Visit Provider Internal Medicine Cardiovascular Disease
DX: I51.81 Takotsubo syndrome (principal)
CPT/HCPCS: 99214

== ENCOUNTER → 2025-05-20 09:39 | Outpatient (BNVA) | payer MEDICARE, MEDICAID, SELFPAY | PROVIDERS: PCP Internal Medicine; Visit Provider Internal Medicine Cardiovascular Disease | DX: I51.81 Takotsubo syndrome (principal) | CPT/HCPCS: 99212 ==